=== PATIENT | male | born 1955 | race Caucasian/White ===

== ENCOUNTER → 2017-09-12 10:19 | Outpatient (CLI) | payer OTHER, SELFPAY ==
[2017-09-12 12:18] LABS: Absolute Lymphocyte Count 1.19 X10^3/ul (0.83-4.51); Absolute Neutrophil Count 5.4 X10^3/uL (2.0-7.7); Basophil# 0.03 X10^3/uL; Basophil% 0.4 % (0-1); Eosinophil# 0.26 X10^3/uL; Eosinophils% 3.6 % (0-5); Hematocrit 43.6 % (40-54); Hemoglobin 15.4 g/dl (13.0-16.5); Lymphocyte # 1.19 X10^3/ul (4.0); Lymphocyte % 16.5 % (19-41); Mean Corp Hgb Conc 35.3 g/gl (32-36); Mean Corpuscular Hgb 30.9 pg (27.0-32.0); Mean Corpuscular Volume 87.6 fL (80-94); Monocyte# 0.38 X10^3/uL; Monocyte% 5.3 % (0-10); Neutrophil # 5.35 X10^3/uL (2.7-7.7); Neutrophil % 74.1 % (47-70); Platelet Count 200 K/mm3 (150-450); RBC Distribution Width CV 12.5 % (11.6-14.6); RBC Distribution Width SD 39.9 fl (35.1-43.9); Red Blood Count 4.98 M/mm3 (4.6-6.2); White Blood Count 7.2 K/mm3 (4.4-11.0)
[2017-09-12 12:23] LABS: POSITIVE COUNT NO; POSITIVE DIFFERENTIAL NO; POSITIVE MORPHOLOGY NO
[2017-09-12 12:49] LABS: AST(SGOT) 36 U/L (15-37); Alanine Aminotransfer ALT/SGPT 56 U/L (16-61); Albumin, Serum 3.9 g/dL (3.2-5.0); Alkaline Phosphatase 99 U/L (45-117); Anion Gap 11 (5-15); BUN 17 mg/dL (7-18); BUN/Creat Ratio 13.9 RATIO (10-20); Calcium,Total 9.2 mg/dL (8.5-10.1); Chloride 100 mmol/L (98-107); Creatinine, Serum 1.22 mg/dL (0.70-1.30); EST Glomerular Filtration Rate 64 mL/min (>60); Est Glom Filt Rate - Afr Amer 77 mL/min (>60); Glucose 336 mg/dL (74-106); Potassium 4.3 mmol/L (3.5-5.1); Protein, Total 7.9 g/dL (6.4-8.2); Sodium Level 137 mmol/L (136-145); Thyroid Stim Hormone (TSH) 1.06 uIU/mL (0.358-3.74)
== END ==
PROVIDERS: Family Provider Family Medicine; PCP Family Medicine; Visit Provider Family Medicine
DX: I10 Essential (primary) hypertension (principal); E78.5 Hyperlipidemia, unspecified; E11.65 Type 2 diabetes mellitus with hyperglycemia
CPT/HCPCS: 36415; 80053; 84443; 85025

== ENCOUNTER → 2017-12-12 09:28 | Outpatient (CLI) | payer OTHER, SELFPAY ==
[2017-12-12 12:46] LABS: Anion Gap 7 (5-15); BUN 16 mg/dL (7-18); BUN/Creat Ratio 14.4 RATIO (10-20); Calcium,Total 9.2 mg/dL (8.5-10.1); Chloride 101 mmol/L (98-107); Creatinine, Serum 1.11 mg/dL (0.70-1.30); EST Glomerular Filtration Rate 71 mL/min (>60); Est Glom Filt Rate - Afr Amer 86 mL/min (>60); Glucose 249 mg/dL (74-106); PSA,Total - Annual Screen 3.71 ng/mL (0.00-4.00); Sodium Level 137 mmol/L (136-145); Thyroid Stim Hormone (TSH) 1.36 uIU/mL (0.358-3.74)
[2017-12-12 13:00] LABS: Absolute Lymphocyte Count 0.93 X10^3/ul (0.83-4.51); Absolute Neutrophil Count 4.6 X10^3/uL (2.0-7.7); Basophil# 0.03 X10^3/uL; Basophil% 0.5 % (0-1); Eosinophils% 4.8 % (0-5); Lymphocyte # 0.93 X10^3/ul (4.0); Lymphocyte % 14.9 % (19-41); Mean Corpuscular Volume 85.1 fL (80-94); Mean Platelet Vol. 10.9 fl (6.2-12.0); Monocyte# 0.36 X10^3/uL; Monocyte% 5.8 % (0-10); Neutrophil # 4.62 X10^3/uL (2.7-7.7); Neutrophil % 73.8 % (47-70); Platelet Count 200 K/mm3 (150-450); RBC Distribution Width SD 36.6 fl (35.1-43.9); Red Blood Count 5.05 M/mm3 (4.6-6.2); White Blood Count 6.3 K/mm3 (4.4-11.0)
[2017-12-12 13:01] LABS: Hemoglobin 15.2 g/dl (13.0-16.5)
[2017-12-12 13:02] LABS: Mean Corp Hgb Conc 35.3 g/gl (32-36); POSITIVE COUNT NO; POSITIVE DIFFERENTIAL NO; POSITIVE MORPHOLOGY NO
== END ==
PROVIDERS: Family Provider Family Medicine; PCP Family Medicine; Visit Provider Family Medicine
DX: I10 Essential (primary) hypertension (principal); E11.65 Type 2 diabetes mellitus with hyperglycemia; R97.20 Elevated prostate specific antigen [PSA]; Z12.5 Encounter for screening for malignant neoplasm of prostate
CPT/HCPCS: 36415; 80048; 84153; 84443; 85025; G0103

== ENCOUNTER 2018-12-28 06:52 | Day surgery (SDC) | payer OTHER, SELFPAY ==
[2018-12-28] VITALS (7 sets, daily range): BP systolic 113–147; BP diastolic 55–89; PULSE 84–92; RESP 16–18; TEMP 36.3–36.6; O2SAT 92–99; BMI 34.2
--- NOTE | 2018-12-28 07:37 | H&P.OPEN ---
History of Present Illness Date of Admission: 12/28/18 The patient is a 63 year old M who presents for screening colonoscopy. It is been 10 years since his last colonoscopy which was completed by Dr. Napoles. Past Medical/Surgical History - Planned Operation Planned Operative Procedure/s: COLONOSCOPY Date of Operative Procedure: 12/28/18 Permit Signed: Yes S.O.S: No Is This Patient Having a Total Joint: No - Previous Hospitalizations/Surgeries HX Hospitalizations: No HX of Surgeries: GALLBLADDER Any Problems With Anesthesia: No You/Your Family Experience Fever (Hyperthermia) With Anes: No Cholinesterase deficiency: No - Cardiovascular Hx Chest Pain within Last 2 months: No Hx of Irregular Heartbeat and/or Afib: Yes - MURMUR Hx Heart Attack: No Hx Congestive Heart Failure: No Hx Rheumatic Fever: No Hx Hypertension: Yes - ON MED Hx Internal Defibrillator: No Hx Pacemaker: No Hx Cardiac Catheterization: No Hx Cardiac Surgery/Stents/Etc.: No Hx Stress Test: Yes - >20 YRS AGO HX Edema: No Hx Pain in Legs when Walking/Leg Cramps: Yes - NEUROPATHY IN FEET - Respiratory Chronic Cough: No HX of Shortness of Breath: Yes Hoarseness: No Hx Chronic Obstructive Pulmonary Disease (COPD): No Hx Asthma: No Hx Emphysema: No Hx Sleep Apnea: Yes CPAP: Yes BIPAP: No Hx Oxygen Use at Home: No Hx Respiratory Tract Infection/Cold (presently): No Result (for STOP score): Positive Hx Smoking: Yes Smoking Status: Former smoker - Gastrointestinal Hx Gastroesophageal Reflux: Yes Controlled With Meds: No Hx Gastrointestinal Disorders: No Hx Gastrointestinal Bleed: No Hx Ulcer: No Hx Hiatal Hernia: No Difficulty Chewing/Swallowing: No Recent Onset of Swallowing Problems: No Special diet followed at home: No Hx Unplanned Weight Loss of 20#: No HX Unplanned Weight Gain of 20#: No - Neurological Hx Seizures: No HX Syncope/Blackout Spells/Unconsciousness: No Hx CVA/Stroke: No Hx Transient Ischemic Attacks (TIA): No Hx Multiple Sclerosis: No Hx Parkinson's Disease: No Hx Head/Neck Injury: No Hx Headaches: No Hx Back Injury/Pain: No Recent Onset of Speech Difficulty: No Restless Legs: No Does patient have nerve stimulator: No - Blood Disorder Hx Leukemia: No Bleeding Tendencies: No Hx Deep Vein Thrombosis: No Hx High Cholesterol: Yes - ON MED Blood Transmitted Disease: No Hx Hepatitis: No Hx Cirrhosis: No Hx Anemia: No Hx Blood Disorders: No - Genitourinary Hx Renal Disease: No - KIDNEY STONES - Musculoskeletal Hx Arthritis: No Hx Rheumatoid Arthritis: No Hx Gout: No Recent Onset of an Orthopedic Problem: No - Endocrine Hx Diabetes: Yes Insulin: Yes Thyroid Disease: No Hx Steroid Therapy: No - Psycho/Social Hx Substance Use: No Hx Alcohol Use: Yes - SOCIAL Hx Anxiety: No Hx Depression: No Mental Illness: No Hx Dementia: No - Miscellaneous Hx Cancer: No Recent Exposure to Contagious Disease: No Active MRSA: No Hx of C-Diff: No Any Loose Teeth: No Allergies No Known Allergies Allergy (Verified 12/23/18 10:33) - Discharge Is Pt Admitted From a Skilled Nursing, or a Longterm: No Who Could Help: After D/C, Where Do you Plan to Go: Return Home - From the PAT History Number of Risk Factors: 3 - Physical Exam General: Alert, Oriented x3 Lungs: Clear to auscultation Cardiovascular: Regular rate, Regular Rhythm, No murmurs Abdomen: Bowel Sounds Present, Soft, Non Tender, Non-Distended Vital Signs Temp Pulse Resp BP Pulse Ox 97.9 F 88 18 147/89 H 99 12/28/18 07:18 12/28/18 07:18 12/28/18 07:18 12/28/18 07:18 12/28/18 07:18 Oxygen Delivery Method Room Air Weight: 259 lb 11.272 oz Body Mass Index (BMI) 34.2 Assessment/Plan Plan will be to perform a colonoscopy. Surgery Risks - Colonoscopy Risks Include but are not Limited To: Risks include but are not limited to: Bleeding, perforation requiring further surgery, inability to complete colonoscopy requiring barium enema.
[2018-12-28 07:40] LABS: Bedside Glucose 156 mg/dL (70-110)
[2018-12-28] MEDS: Lactated Ringers 1,000 ML 100 ML IV (07:45)
--- NOTE | 2018-12-28 07:45 | COLBX_PTH ---
PATIENT: DEBORAH GARZA LOC: EN U#:[id number] AGE/SX: 63/M ROOM: RE12/28/[address]: Dr. Gerry Yip MD : 1955 BED: DIS: 12/28/2018 SPEC #: [id number] RECD: 12/28/18 10:08 STATUS: TREV PALUMBOSupa #: [id number] NOELLE: 12/28/18 07:[address]: Gerry Yip DEPT: SURGICAL PATHOLOGY RECD BY: Luz Goss ENTERED: 12/28/18 10:36 SP TYPE: COLON BX OTHR DR: Dr. Lloyd Gallego MD Tissues: Rectum, NOS Procedures: Surgery Specimen Level IV HEADER OPERATION: Colonoscopy, open access (MAC) PRE-OP DIAGNOSIS: Screening TISSUE SUBMITTED: Rectal polyps MICROSCOPIC DIAGNOSIS Rectal polyps, biopsy: Tubular adenoma. Benign mucosal polyp with minimal hyperplastic changes. SJ:wei 10/22/19 MICROSCOPIC DESCRIPTION Slides are reviewed. GROSS DESCRIPTION Received in fixative is one container labeled with the patient's name and designated rectal polyps. The specimen consists of two irregular fragments of light jean-baptiste soft tissue that in aggregate measure 0.6 x 0.5 x 0.3 cm. The specimen is totally submitted in one cassette. / SJ:rg 12/28/18 TC:1 CPT: 50246
--- NOTE | 2018-12-28 08:14 | OP.ENDO_ITS ---
12/28/2018 Lloyd Gallego Re : Colonoscopy procedure for Abdirahman Keith Dear Lashonda This procedure was performed on Friday, December 28, 2018. My impressions and recommendations are as follows: Impressions : - Two 3 to 7 mm polyps in the rectum, removed with a hot snare. Resected and retrieved. Recommendations : - Await pathology results. - Repeat colonoscopy in 5 years for surveillance. - Return to my office in 1 week. - Continue present medications. My findings are described in the full procedure note, which is enclosed. If I can be of further assistance, please feel free to contact me at Doctor phone number(s): , Fax: [phone], Work: . Sincerely, MD Gerry Isaacs MD 12/28/2018 8:14:05 AM This report has been signed electronically.
== END 2018-12-28 08:30 | disposition home or self-care (01) ==
LOC: EN 06:54 → AC 06:57
PROVIDERS: Family Provider Family Medicine; PCP Family Medicine; Referring Provider Family Medicine; Visit Provider Surgery
PROC: 0DJD8ZZ Inspection of Lower Intestinal Tract, Via Natural or Artificial Opening Endoscopic (ICD-10-PCS; CPT 45378; principal; 2018-12-28 07:40)
DX: Z12.11 Encounter for screening for malignant neoplasm of colon (principal); D12.8 Benign neoplasm of rectum; K62.1 Rectal polyp; I10 Essential (primary) hypertension; K21.9 Gastro-esophageal reflux disease without esophagitis; E78.00 Pure hypercholesterolemia, unspecified; E11.9 Type 2 diabetes mellitus without complications; Z87.891 Personal history of nicotine dependence; Z79.4 Long term (current) use of insulin; Z79.899 Other long term (current) drug therapy
CPT/HCPCS: 45380; 82962; 88305; J7120; J2405

== ENCOUNTER → 2019-01-08 | Outpatient (CLI) | payer OTHER, SELFPAY ==
[2018-12-28 07:18] VITALS: BMI 34.2
[2019-01-08 12:30] LABS: Absolute Lymphocyte Count 1.11 X10^3/uL (0.83-4.51); Absolute Neutrophil Count 5.1 X10^3/uL (2.0-7.7); Basophil# 0.05 X10^3/uL; Basophil% 0.7 % (0-1); Eosinophil# 0.35 X10^3/uL; Hematocrit 43.7 % (40-54); Hemoglobin 15.3 g/dL (13.0-16.5); Lymphocyte # 1.11 X10^3/ul (4.0); Lymphocyte % 15.8 % (19-41); Mean Corpuscular Hgb 30.8 pg (27.0-32.0); Mean Corpuscular Volume 87.9 fL (80-94); Mean Platelet Vol. 11.6 fl (6.2-12.0); Monocyte# 0.37 X10^3/uL; Monocyte% 5.3 % (0-10); NRBC Flagged by Analyzer 0 % (0-5); Neutrophil # 5.14 X10^3/uL (2.7-7.7); Neutrophil % 72.9 % (47-70); Platelet Count 209 K/mm3 (150-450); RBC Distribution Width CV 11.8 % (11.6-14.6); RBC Distribution Width SD 37.4 fl (35.1-43.9); Red Blood Count 4.97 M/mm3 (4.6-6.2)
[2019-01-08 13:03] LABS: ALB/GLOB Ratio 1.1 RATIO (0.9-2.4); AST(SGOT) 26 U/L (15-37); Alanine Aminotransfer ALT/SGPT 40 U/L (16-61); Albumin, Serum 4.1 g/dL (3.2-5.0); Alkaline Phosphatase 91 U/L (45-117); Anion Gap 4 (5-15); BUN 16 mg/dL (7-18); BUN/Creat Ratio 14.4 RATIO (10-20); Calcium,Total 9.4 mg/dL (8.5-10.1); Chloride 105 mmol/L (98-107); Creatinine, Serum 1.11 mg/dL (0.70-1.30); EST Glomerular Filtration Rate 71 mL/min (>60); Est Glom Filt Rate - Afr Amer 86 mL/min (>60); Globulin 3.7 g/dL (2.2-4.2); Glucose 167 mg/dL (74-106); PSA,Total - Annual Screen 3.94 ng/mL (0.00-4.00); Potassium 4.5 mmol/L (3.5-5.1); Protein, Total 7.8 g/dL (6.4-8.2); Sodium Level 139 mmol/L (136-145); Thyroid Stim Hormone (TSH) 1.82 uIU/mL (0.358-3.74)
== END | disposition home or self-care (01) ==
LOC: BFHLAB 09:41
PROVIDERS: Family Provider Family Medicine; PCP Family Medicine; Visit Provider Family Medicine
DX: E11.3299 Type 2 diabetes mellitus with mild nonproliferative diabetic retinopathy without macular edema, unspecified eye (principal); R97.20 Elevated prostate specific antigen [PSA]; E78.5 Hyperlipidemia, unspecified
CPT/HCPCS: 36415; 80053; 84153; 84443; 85025; G0103

== ENCOUNTER → 2019-03-23 10:03 | Outpatient (CLI) | payer OTHER, SELFPAY ==
[2018-12-28 07:18] VITALS: BMI 34.2
[2019-03-23 12:45] LABS: Microalbumin:Creatinine Ratio 214.5 mg/g CRE (<30 mg/g CRE)
[2019-03-23 12:49] LABS: Anion Gap 4 (5-15); BUN 14 mg/dL (7-18); BUN/Creat Ratio 11.7 RATIO (10-20); Calcium,Total 10.1 mg/dL (8.5-10.1); Chloride 106 mmol/L (98-107); EST Glomerular Filtration Rate 65 mL/min (>60); Est Glom Filt Rate - Afr Amer 78 mL/min (>60); Glucose 266 mg/dL (74-106); Potassium 4.4 mmol/L (3.5-5.1); Sodium Level 138 mmol/L (136-145)
== END ==
PROVIDERS: Family Provider Family Medicine; PCP Family Medicine; Visit Provider Family Medicine
DX: I10 Essential (primary) hypertension (principal); R80.9 Proteinuria, unspecified
CPT/HCPCS: 36415; 80048; 82043; 82570

== ENCOUNTER → 2019-04-30 | Outpatient (CLI) | payer OTHER, SELFPAY ==
[2018-12-28 07:18] VITALS: BMI 34.2
[2019-04-30 13:10] LABS: Anion Gap 6 (5-15); BUN 16 mg/dL (7-18); BUN/Creat Ratio 12.7 RATIO (10-20); Calcium,Total 9.4 mg/dL (8.5-10.1); Chloride 106 mmol/L (98-107); Creatinine, Serum 1.26 mg/dL (0.70-1.30); EST Glomerular Filtration Rate 61 mL/min (>60); Est Glom Filt Rate - Afr Amer 74 mL/min (>60); Glucose 273 mg/dL (74-106); Potassium 4.2 mmol/L (3.5-5.1); Sodium Level 139 mmol/L (136-145)
== END | disposition home or self-care (01) ==
LOC: BFHLAB 05-05 10:03
PROVIDERS: PCP Family Medicine; Visit Provider Family Medicine
DX: I10 Essential (primary) hypertension (principal); R80.9 Proteinuria, unspecified
CPT/HCPCS: 36415; 80048

== ENCOUNTER 2019-06-04 07:00 | Outpatient (RCR) | payer MEDICARE, OTHER, SELFPAY ==
[2018-12-28 07:18] VITALS: BMI 34.2
--- NOTE | 2019-05-13 13:46 | HP.PTEVAL ---
Patient's Visit Information DEBORAH GARZA is a 63 year old M referred to Physical Therapy by Lloyd Gallego MD with a diagnosis of R groin pull. Date of Evaluation: 05/13/19 Physical Therapist: Tan Murphy, FEDET, OCS, CSCS - Visit Plan Frequency: 2-3x /Week Duration: 2-4 Weeks Plan: 2-3x/week for 6-8 visits for: 1. rollout and stretch to quad, hip flexor, HS and prirformis. 2. Manual R leg pull and jont mobs for rotation. PROM rotations and extension. 3. hip stabs to tolerance. MH as needed. Also, progress HEP to HS and quad stretches and hip stabs. - Subjective Findings: I have hard time crossing R leg to put sock on due to groin pain. Has been there for two months insidiously. Walking and steps are OK. Sleep is OK. Pivotting adn turning on it can cause stabbing pain. Told doctor at normal f/u. PT first as they did not try any meds or x rays. Activities are normal, Wants to start walking but has a foot issue with neuropathy causing pain. Walked a mile a day two years ago. Golfed last fall without nichelle and wants to start agian. - Pain R groin. Pain Intensity (Out of 10): 0 Pain Intensity Range: 0, 10 - Objective Slight R antalgia which is more of a hesitancy today. Steps reciprocal without pain. large steps without pain. Tender to palpation R groin joint more than muscle but slightly adductor adn hip flexor. + MARLEE and FADDIR, corssing legs hurts sharply in supine. flexibility is poor in HS , hip flexor, quad and Adductors. Strength is 4/5 in hip R and 4+ L but much pain with prone hip ext R(arthro). Others not painful and symmetrical. knee strength adn ROM WFL at 4+/5. Sensation distally seems mildly limited to gross light touch. + R hip scour. Overall not pain consistent with strain but more degeneration with acute flare up in R hip. - Goals Goal 1:: Put R shoe adn sock on crossing legs without pain. Goal Time Frame: 4-6 Weeks Goal 2:: No sharp pain with turning at home Goal Time Frame: 4-6 Weeks Goal 3:: I approp HEP to minimize future problems. Goal Time Frame: 4-6 Weeks - Rehabilitation Potential Physical Therapy Diagnosis: R hip pain likely degenrative in nature. Rehabilitation Potential: Good - Anticipated Interventions Patient/Client Instruction: Educate patient on: Condition, Plan of Care For the Purpose of:: To decrease pain, To increase ROM, To improve muscle performance and motor function, To increase tolerance to activity/condition/position Therapeutic Exercise to Include: Strength training, Flexibilty training, Gait and locomotor training, Passive ROM, Active ROM For the Purpose of:: To decrease pain, To increase ROM, To increase tolerance to activity/condition/position, To improve ability of physical actions for home/community/work/leisure Manual Therapy Techniques to Include: Mobilization, Passive ROM, Soft tissue mobilization For the Purpose of:: To decrease pain, To improve muscle performance and motor function, To increase tolerance to activity/condition/position, To improve ability of physical actions for home/community/work/leisure Thermo therapy (hot pack): Yes For the Purpose of:: To decrease pain Thank you for the opportunity to evaluate your patient. For Medicare and Medicare HMO plans, please review the plan of care and approve it. It will need to be FAXED BACK to us at [phone] for Medicare purposes. For Medicare only, by signing this I certify the plan of care. Please let me know if there are questions or concerns regarding this plan of care. Physician Signature: Date:
--- NOTE | 2019-06-04 08:02 | HP.PTDCSUM ---
It has been my pleasure to treat DEBORAH GARZA referred by Lloyd Gallego MD, with the diagnosis of R groin pull for a total of 7 visit(s). Discharge Date: 06/04/19 Please see the following information for a summary of their discharge status. Subjective: No signficant change thus far. R groin. Pain Intensity (Out of 10): 0 % Improvement: 0 Objective/Function: Symptoms provoked when in MARLEE position. No pain with hip internal rotation. Recalls episode of debilitating back pain about a month ago that left hip laid up for 4-5 days. Hip pain began a little before or after this. Goal 1:: Put R shoe adn sock on crossing legs without pain. Goal Progress: Not Progressing Goal 2:: No sharp pain with turning at home Goal Progress: Goal Met Goal 3:: I approp HEP to minimize future problems. Goal Progress: Not Progressing Plan: Re-check with Tan at 0730. Discharge Comments: Patient not improving and will schedule with doctor for f/u for next step. Possiby x ray to confirm degenerative? If there are questions or concerns regarding this patient's physical therapy, please feel free to call me at [phone]. Thank you for the referral of this patient. Sincerely, Tan Murphy, DPT, OCS, CSCS
== END 2019-06-04 19:00 | disposition home or self-care (01) ==
LOC: PT 07:00
PROVIDERS: PCP Family Medicine; Referring Provider Family Medicine; Visit Provider Family Medicine
DX: M76.899 Other specified enthesopathies of unspecified lower limb, excluding foot (principal)
CPT/HCPCS: 97110; 97140; 97162; 97164

== ENCOUNTER → 2019-08-09 | Outpatient (CLI) | payer MEDICARE, SELFPAY ==
[2018-12-28 07:18] VITALS: BMI 34.2
[2019-08-09 13:26] LABS: ALB/GLOB Ratio 0.9 RATIO (0.9-2.4); AST(SGOT) 36 U/L (15-37); Alanine Aminotransfer ALT/SGPT 46 U/L (16-61); Albumin, Serum 3.6 g/dL (3.2-5.0); Alkaline Phosphatase 94 U/L (45-117); Anion Gap 11 (5-15); BUN 12 mg/dL (7-18); BUN/Creat Ratio 11.3 RATIO (10-20); Calcium,Total 9.2 mg/dL (8.5-10.1); Chloride 105 mmol/L (98-107); Creatinine, Serum 1.06 mg/dL (0.70-1.30); EST Glomerular Filtration Rate 75 mL/min (>60); Est Glom Filt Rate - Afr Amer 90 mL/min (>60); Globulin 3.9 g/dL (2.2-4.2); Glucose 183 mg/dL (74-106); Potassium 3.8 mmol/L (3.5-5.1); Protein, Total 7.5 g/dL (6.4-8.2); Sodium Level 140 mmol/L (136-145)
[2019-08-09 13:37] LABS: Hemoglobin A1c 9.1 % (3.8-5.6)
[2019-08-09 14:00] LABS: Microalbumin:Creatinine Ratio 249.7 mg/g CRE (<30 mg/g CRE)
== END | disposition home or self-care (01) ==
LOC: LAB.FUTURE 08:57
PROVIDERS: PCP Family Medicine; Visit Provider Family Medicine
DX: E11.65 Type 2 diabetes mellitus with hyperglycemia (principal); R80.9 Proteinuria, unspecified
CPT/HCPCS: 36415; 80053; 82043; 82570; 83036

== ENCOUNTER 2019-08-21 09:50 | Emergency (ER) | payer MEDICARE, OTHER, SELFPAY ==
[2018-12-28 07:18] VITALS: BMI 34.2
[2019-08-21 09:52] VITALS: BP 149/93; PULSE 115; RESP 18; TEMP 36.6; O2SAT 99; BMI 36.1
--- NOTE | 2019-08-21 10:16 | EKG12_ITS ---
Test Reason : DYSRHYTHMIA Blood Pressure : / mmHG Vent. Rate : 101 BPM Atrial Rate : 101 BPM P-R Int : 214 ms QRS Dur : 084 ms QT Int : 328 ms P-R-T Axes : 007 -44 034 degrees QTc Int : 425 ms Sinus tachycardia with 1st degree A-V block Left axis deviation Inferior infarct , age undetermined Abnormal ECG Confirmed by RADHA WASHINGTON, JUDITH ([id number]), marketing editor DEZ ROE ([id number]) on 08/25/2019 1:04:22 PM Referred By: SADIA Confirmed By:JUDITH GARCIA MD
--- NOTE | 2019-08-21 10:17 | ED.DCSUM_ITS ---
History of Present Illness <Rahat Omalley - Last Filed: 08/21/19 12:23> Informant: Patient Onset: Yesterday Context: Gradual Onset Timing: Continuous Quality: high BP Current Severity: Severe Maximum Severity: Severe Worsened by: nothing Relieved by: nothing Associated Symptoms: denies Narrative: 64-year-old male history of type 2 diabetes and hypertension presents to the emergency department with elevated blood pressure. Patient states that he was at his records clerk yesterday getting an injection for his diabetic retinopathy and his blood pressure was elevated at that physician's office 180 systolic approximately multiple checks. He just had his lisinopril increased ab out 10 days ago from 20 mg to 40 mg because of his blood pressure being elevated but it was not this high when they decided to increase his lisinopril. He bought a pressure cuff yesterday to check his blood pressures at home and they have been consistently around 180 systolic so he called his doctor this morning who told him to go to the emergency department. He has been compliant with his medications. He overall feels well. He has not had any headaches or blurry vision chest pain or shortness of breath. He has not felt lightheaded or dizzy. He has not had nausea or vomiting. Denies numbness tingling or weakness. Prior similar symptoms: Yes Recent Illness/Hospitalization: No <Siomaralee annJoby - Last Filed: 08/21/19 12:29> Chief Complaint: Hypertension Past Medical History <Rahat Omalley - Last Filed: 08/21/19 12:23> Prior records reviewed: Yes Past Medical History: - - Hypertension, hyperlipidemia, type 2 diabetes, peripheral neuropathy, diabetic retinopathy Surgical History: no surgical history Lives: With Family Smoking Status: Former smoker Alcohol: Occasional Drugs: None <Siomaralee annJoby - Last Filed: 08/21/19 12:29> - Allergies and Home Meds Allergies/Adverse Reactions: Allergies No Known Allergies Allergy (Verified 08/21/19 09:54) Primary Care Physician: Lloyd Gallego MD [Primary Care Provider] - Review of Systems All systems negative except as indicated General: Denies: Chills, Fever, Sweats Eyes: Denies: Visual changes - bilaterally, Diplopia ENT: Denies: Rhinorrhea, Sore throat Cardiovascular: Denies: Chest pain, Palpitations Respiratory: Denies: Dyspnea, Cough, Sputum, Dyspnea on exertion Gastrointestinal: Denies: Abdominal pain, Nausea, Vomiting, Diarrhea, Melena, Hematochezia Genitourinary: Denies: Dysuria, Hematuria, Frequency Musculoskeletal: Denies: Myalgias, Arthralgias, Neck pain, Back pain, Swelling, Extremity Pain Skin: Denies: Rash, Wounds Neurological: Denies: Headache, Weakness, Numbness <Joby Munguia - Last Filed: 08/21/19 12:29> Physical Exam Vital Signs/Narrative: Vital Signs Temp Pulse Resp BP Pulse Ox 08/21/19 12:19 100 17 157/105 H 96 08/21/19 11:58 97 16 158/99 H 95 08/21/19 11:18 177/103 H 08/21/19 09:52 97.9 F 115 H 18 149/93 H 99 <Rahat Omalley - Last Filed: 08/21/19 12:23> Vital Signs/Narrative: Vital Signs Temp Pulse Resp BP Pulse Ox 08/21/19 09:52 97.9 F 115 H 18 149/93 H 99 Inital Vital Signs reviewed: Yes General: Well nourished, Well developed, No Acute Distress Head: Normocephalic, Atraumatic Eyes: Perrl, EOMI ENT: Moist mucous membranes, No rhinorrhea Neck: Supple, Nontender Cardiovascular: Regular rate, Regular rhythm, No murmurs Respiratory: No distress, CTA bilaterally, Chest nontender Abdomen: Soft, Nontender, Nondistended, Normal bowel sounds Back: Nontender, Normal Inspection Extremities: Nontender, No edema Skin: Normal color, No rash Neurological: Alert, Oriented x3, Cranial nerves II-XII grossly intact, Normal Strength, Normal Sensation, Normal Gait Psychological: Normal affect, Normal Mood <Joby Munguia - Last Filed: 08/21/19 12:29> Diagnostic/Tx/Re-eval - Medical Decision Making 64-year-old male evaluated by myself and our physician therapeutic assistant. Presents due to acute on chronic hypertension. Denies other complaints. Not having chest pain or headaches. Currently is on lisinopril and recently had his dose incr eased to 40 mg a day. Does not believe his blood pressure is being controlled adequately. Denies other complaints. Older male no acute distress. Current blood pressures 157/105. HEENT exam unremarkable. Lungs are clear to auscultation bilaterally. Heart regular rate and rhythm no murmur. Abdomen soft nontender. Patient moving all 4 extremities. No edema. Neurologically is awake and alert with no focal motor deficits. Discussed with patient at length. He is an appointment to see his doctors office tomorrow. He is a blood pressure machine at home. We will add Lopressor 25 mg twice daily to his medications. We will check his blood pressure twice daily and follow-up. Pression: 1. Acute on chronic hypertension poorly controlled <Rahat Omalley - Last Filed: 08/21/19 12:23> - Rhythm Strip Rhythm Strip: Sinus Rhythm Rate: 111 Ectopy: None - EKG Initial EKG Interpretation: Sinus Rhythm, No Acute Injury Pattern Prior: Unchanged <Joby Munguia - Last Filed: 08/21/19 12:29> ED Disposition <Rahat Omalley - Last Filed: 08/21/19 12:23> <Joby Munguia - Last Filed: 08/21/19 12:29> - Plan for ED Patient: Disposition: Home or Assisted Living Diagnosis: Hypertension, essential, Diabetes type 2, uncontrolled Instructions: ED Hypertension Established Prescriptions: Metoprolol Tartrate 25 mg PO BID #60 tab Prescription Printed Referrals: Lloyd Gallego MD [Primary Care Provider] -
[2019-08-21 11:18] VITALS: BP 177/103
[2019-08-21 11:58] VITALS: BP 158/99; PULSE 97; RESP 16; O2SAT 95
[2019-08-21 12:19] VITALS: BP 157/105; PULSE 100; RESP 17; O2SAT 96
[2019-08-21 12:40] VITALS: BP 162/93; PULSE 98; RESP 15; O2SAT 95
== END 2019-08-21 12:58 | disposition home or self-care (01) ==
PROVIDERS: Emergency Provider Physician Assistant Medical; PCP Family Medicine
DX: I10 Essential (primary) hypertension (principal); E11.319 Type 2 diabetes mellitus with unspecified diabetic retinopathy without macular edema; E78.5 Hyperlipidemia, unspecified; E11.42 Type 2 diabetes mellitus with diabetic polyneuropathy; Z87.891 Personal history of nicotine dependence; Z79.4 Long term (current) use of insulin; Z79.899 Other long term (current) drug therapy
CPT/HCPCS: 93005; 99283; A4216

== ENCOUNTER → 2019-08-23 09:04 | Outpatient (CLI) | payer MEDICARE, OTHER, SELFPAY ==
[2018-12-28 07:18] VITALS: BMI 34.2
[2019-08-21 09:52] VITALS: BMI 36.1
[2019-08-23 13:07] LABS: Anion Gap 8 (5-15); BUN 17 mg/dL (7-18); BUN/Creat Ratio 15.5 RATIO (10-20); Calcium,Total 9.5 mg/dL (8.5-10.1); Chloride 104 mmol/L (98-107); EST Glomerular Filtration Rate 71 mL/min (>60); Est Glom Filt Rate - Afr Amer 86 mL/min (>60); Glucose 191 mg/dL (74-106); Potassium 3.9 mmol/L (3.5-5.1); Sodium Level 139 mmol/L (136-145)
== END ==
PROVIDERS: PCP Family Medicine; Visit Provider Family Medicine
DX: E11.65 Type 2 diabetes mellitus with hyperglycemia (principal); I10 Essential (primary) hypertension
CPT/HCPCS: 36415; 80048

== ENCOUNTER → 2020-04-25 08:30 | Outpatient (CLI) | payer MEDICARE, OTHER, SELFPAY ==
[2020-04-25 12:20] LABS: Basophil# 0.03 X10^3/uL; Basophil% 0.4 % (0-1); Eosinophil# 0.28 X10^3/uL; Eosinophils% 4.2 % (0-5); Hematocrit 41.6 % (40-54); Hemoglobin 14.6 g/dL (13.0-16.5); Lymphocyte % 14.9 % (19-41); Mean Corp Hgb Conc 35.1 g/dL (32-36); Mean Corpuscular Hgb 30.9 pg (27.0-32.0); Mean Corpuscular Volume 87.9 fL (80-94); Mean Platelet Vol. 10.6 fl (6.2-12.0); Monocyte# 0.38 X10^3/uL; Monocyte% 5.7 % (0-10); NRBC Flagged by Analyzer 0 % (0-5); Neutrophil # 4.98 X10^3/uL (2.7-7.7); Neutrophil % 74.5 % (47-70); Platelet Count 284 K/mm3 (150-450); RBC Distribution Width CV 12.1 % (11.6-14.6); RBC Distribution Width SD 38.5 fl (35.1-43.9); Red Blood Count 4.73 M/mm3 (4.6-6.2); White Blood Count 6.7 K/mm3 (4.4-11.0)
[2020-04-25 13:01] LABS: AST(SGOT) 45 U/L (15-37); Alanine Aminotransfer ALT/SGPT 53 U/L (16-61); Albumin, Serum 3.7 g/dL (3.2-5.0); Alkaline Phosphatase 87 U/L (45-117); Anion Gap 7 (5-15); BUN 14 mg/dL (7-18); BUN/Creat Ratio 12.2 RATIO (10-20); Calcium,Total 9.3 mg/dL (8.5-10.1); Chloride 106 mmol/L (98-107); Creatinine, Serum 1.15 mg/dL (0.70-1.30); EST Glomerular Filtration Rate 68 mL/min (>60); Est Glom Filt Rate - Afr Amer 82 mL/min (>60); Globulin 3.8 g/dL (2.2-4.2); Glucose 103 mg/dL (74-106); Potassium 3.9 mmol/L (3.5-5.1); Protein, Total 7.5 g/dL (6.4-8.2); Sodium Level 139 mmol/L (136-145); T4 Free Direct 0.98 ng/dL (0.76-1.46); Thyroid Stim Hormone (TSH) 1.28 uIU/mL (0.358-3.74)
[2020-04-25 18:26] LABS: Microalbumin:Creatinine Ratio 234.1 mg/g CRE (<30 mg/g CRE)
== END ==
PROVIDERS: PCP Family Medicine; Visit Provider Family Medicine
DX: E11.65 Type 2 diabetes mellitus with hyperglycemia (principal); I10 Essential (primary) hypertension; R80.9 Proteinuria, unspecified
CPT/HCPCS: 36415; 80053; 82043; 82570; 84439; 84443; 85025

== ENCOUNTER → 2020-05-09 09:17 | Outpatient (CLI) | payer MEDICARE, OTHER, SELFPAY ==
[2020-05-09 12:39] LABS: Anion Gap 8 (5-15); BUN 20 mg/dL (7-18); BUN/Creat Ratio 15.9 RATIO (10-20); Calcium,Total 9.5 mg/dL (8.5-10.1); Chloride 105 mmol/L (98-107); Creatinine, Serum 1.26 mg/dL (0.70-1.30); EST Glomerular Filtration Rate 61 mL/min (>60); Est Glom Filt Rate - Afr Amer 74 mL/min (>60); Glucose 216 mg/dL (74-106); Potassium 4.1 mmol/L (3.5-5.1); Sodium Level 138 mmol/L (136-145)
== END ==
PROVIDERS: PCP Family Medicine; Visit Provider Family Medicine
DX: E11.65 Type 2 diabetes mellitus with hyperglycemia (principal)
CPT/HCPCS: 36415; 80048

== ENCOUNTER → 2020-10-12 | Outpatient (CLI) | payer MEDICARE, OTHER, SELFPAY ==
--- NOTE | 2020-10-12 | IMM_PTH ---
PATIENT: DEBORAH GARZA LOC: IAN U#:[id number] AGE/SX: 65/M ROOM: RE10/12/[address]: Dr. Luis Woodson MD : 1955 BED: DIS: 10/12/2020 SPEC #: [id number] RECD: 10/16/20 13:48 STATUS: TREV RESupa #: [id number] NOELLE: 10/12/20 00:[address]: Luis Woodson DEPT: IMMUNOHISTOCHEMISTRY RECD BY: Jeannie Healy ENTERED: 10/16/20 13:50 SP TYPE: IMMUNO OTHR DR: Dr. Lloyd Gallego MD Tissues: D - PROSTATE LEFT E - PROSTATE LEFT Procedures: 34BE12 (add) P40 (add) 34BE12 (initial) PHYSICIAN & INSTITUTION [place] [id number] SPECIMEN INFORMATION: Tissue Source: D - Left prostate, apex, core biopsy, E - Left prostate, mid, core biopsy Clinical Info: Elevated PSA Specimen Number: [id number] D & E CPT code: 73356, 53625 x3 METHODOLOGY: Deparaffinized sections of prefer/formalin-fixed tissue or PAP/DQ stained slides are incubated with monoclonal/polyclonal antibodies/oligonucleotide probes. Localization is made via biotin free immunoperoxidase method. Appropriate controls are performed and reacted as expected. Results on target cell population are indicated in the following table: RESULTS: ANTIBODY / CLONE RESULT Block D P40 (BC28) positive 34BE12 (34BE12) positive Block E P40 (BC28) negative 34BE12 (34BE12) negative These tests were developed and their performance characteristics determined by [facility]. They may not have been cleared or approved by the U.S. Food and Drug Administration. The FDA has determined that such clearance or approval is not necessary. The above immunohistochemical/dualISH markers are ordered and reviewed by the Pathologist. INTERPRETATION: D. Left prostate, apex, core biopsy: Focal high-grade prostatic intraepithelial neoplasia (HGPIN). E. Left prostate, mid, core biopsy: A minute focus of adenocarcinoma. SJ:wei 10/17/2020
--- NOTE | 2020-10-12 08:00 | PROSBIL_PTH ---
PATIENT: DEBORAH GARZA LOC: IAN U#:[id number] AGE/SX: 65/M ROOM: RE10/12/[address]: Dr. Luis Woodson MD : 1955 BED: DIS: 10/12/2020 SPEC #: [id number] RECD: 10/13/20 08:28 STATUS: TREV JORDAN #: [id number] NOELLE: 10/12/20 08:[address]: Luis Woodson DEPT: SURGICAL PATHOLOGY RECD BY: Arianna Corrigan ENTERED: 10/13/20 08:28 SP TYPE: PROST BX BELLO DR: Dr. Lloyd Gallego MD Tissues: A - PROSTATE RIGHT B - PROSTATE RIGHT C - PROSTATE RIGHT D - PROSTATE LEFT E - PROSTATE LEFT F - PROSTATE LEFT Procedures: PROSTATE BX HEADER OPERATION: Prostate biopsy PRE-OP DIAGNOSIS: Elevated PSA TISSUE SUBMITTED: A - Right apex, B - Right mid, C - Right base, D - Left apex, E - Left mid, F - Left base MICROSCOPIC DIAGNOSIS A. Right prostate, apex, core biopsy: Prostatic tissue, negative for malignancy. B. Right prostate, mid, core biopsy: Focal high-grade prostatic intraepithelial neoplasia (HGPIN). C. Right prostate, base, core biopsy: Prostatic adenocarcinoma. Eber grade: 4+3=7 Number of cores involved: 2/2 Proportion of tissue involved: ~80% Perineural invasion: Present, focal. Greatest tumor length: 0.8 cm D. Left prostate, apex, core biopsy: Focal high-grade prostatic intraepithelial neoplasia (HGPIN). See comment. E. Left prostate, mid, core biopsy: A minute focus of prostatic adenocarcinoma. [place] grade: 3+3=6 Number of cores involved: 1/2 Proportion of tissue involved: <5% Perineural invasion: not identified. Greatest tumor length: <0.1 cm See comment. F. Left prostate, base, core biopsy: Focal high-grade prostatic intraepithelial neoplasia (HGPIN). SJ:wei 10/16/2020 COMMENT D & E. Immunohistochemistry ([id number]) supports the above diagnosis. Case has been reviewed in consultation with Dr. Morgan who concurs with the above diagnosis. IDC:AM MICROSCOPIC DESCRIPTION Slides are reviewed. GROSS DESCRIPTION A - Received is one container designated prostate, right apex. The specimen consists of two elongated fragments of light jean-baptiste-white soft tissue each measuring 0.5 cm in length and 0.1 cm in diameter. The specimen is totally submitted in one cassette. B - Received is one container designated prostate, right mid. The specimen consists of two elongated fragments of light jean-baptiste-white soft tissue measuring 0.7 and 0.9 cm in length and 0.1 cm in diameter. The specimen is totally submitted in one cassette. C - Received is one container designated prostate, right base. The specimen consists of two elongated fragments of light jean-baptiste-white soft tissue each measuring 1 cm in length and 0.1 cm in diameter. The specimen is totally submitted in one cassette. D - Received is one container designated prostate, left apex. The specimen consists of one elongated fragment of light jean-baptiste-white soft tissue measuring 1 cm in length and 0.1 cm in diameter. The specimen is totally submitted in one cassette. E - Received is one container designated prostate, left mid. The specimen consists of two elongated fragments of light jean-baptiste-white soft tissue each measuring 1.1 cm in length and 0.1 cm in diameter. The specimen is totally submitted in one cassette. F - Received is one container designated prostate, left base. The specimen consists of two elongated fragments of light jean-baptiste-white soft tissue each measuring 1.2 cm in length and 0.1 cm in diameter. The specimen is totally submitted in one cassette. / LATISHA:wei 10/13/20 TC:0 CPT: G0146
== END | disposition home or self-care (01) ==
LOC: LABSPEC 15:59
PROVIDERS: PCP Family Medicine; Referring Provider Urology; Visit Provider Urology
DX: R97.20 Elevated prostate specific antigen [PSA] (principal)
CPT/HCPCS: 88305; 88341; 88342; G0416

== ENCOUNTER → 2020-10-24 07:37 | Outpatient (CLI) | payer MEDICARE, OTHER, SELFPAY ==
--- NOTE | 2020-10-24 07:39 | NM_ITS ---
CLINICAL: Male, 65 years old. PROSTATE CA NEW DX WHOLE BODY NUCLEAR BONE SCAN TECHNIQUE: Following the IV administration of 25 mCi of Tc MDP, whole body bone imaging was performed with a gamma camera following a three hour delay. FINDINGS: There is a normal concentration of radiopharmaceutical throughout the axial and appendicular skeletal system without either a focal decrease or increase in uptake. NM/Bone Scan Whole Body IMPRESSION: Normal whole body nuclear bone scan. Electronically Signed: Greyson Harris MD at 8:47 EDT , Service support ,
== END ==
PROVIDERS: PCP Family Medicine; Referring Provider Urology; Visit Provider Urology
DX: C61 Malignant neoplasm of prostate (principal)
CPT/HCPCS: 78306; A9503

== ENCOUNTER → 2020-10-25 06:44 | Outpatient (CLI) | payer MEDICARE, OTHER, SELFPAY ==
--- NOTE | 2020-10-25 06:48 | CT_ITS ---
STUDY: CT ABDOMEN AND PELVIS WITH CONTRAST REASON FOR EXAM: Male, 65 years old. New diagnosis of MALIGNANT NEOPLASM OF PROSTATE RADIATION DOSAGE (If Supplied By Facility): CTDIvol = ( 16.68 ) mGy, DLP = ( 1229.77 ) mGycm TECHNIQUE: Transaxial images were obtained from the dome of the diaphragm to the symphysis pubis without oral contrast. IV 100mL Isovue-370 was administered. Sagittal and coronal images were reconstructed. Individualized dose optimization techniques were used for this CT. COMPARISON: None. FINDINGS: The visualized lung bases are unremarkable. Coronary artery calcification. Normal liver. There are surgical clips in the gallbladder fossa consistent with a prior cholecystectomy. Normal spleen. Normal pancreas. Normal bilateral adrenal glands. There is a 4.5 cm x 3.9 cm cyst in the upper medial aspect of the right kidney. 5 mm nonobstructive calculus in the posterior midpole calyx of the left kidney. Punctate calculus in the upper pole calyx of the left kidney. 6 mm cyst in the posterior midportion of the left kidney. Normal visualized stomach. Normal small intestine. There are scattered colonic diverticula consistent with diverticulosis. The patient is status post appendectomy. There is diffuse atherosclerotic calcification of the abdominal aorta and its major visceral branches, without a demonstrated aneurysm. Normal inferior vena cava. Normal retroperitoneum. Normal urinary bladder. The prostate measures 5 cm x 5.2 cm. This causes indentation at the bladder base. There is a right-sided inguinal hernia containing adipose tissue. There are mild degenerative changes of the visualized lumbar spine. CT/Abdomen/Pelvis WITH Contrast IMPRESSION: Right renal cyst. Nonobstructive left intrarenal calculi. Prostatic enlargement. Electronically Signed: Greyson Harris MD at 8:44 EDT , Service support ,
[2020-10-25 07:01] LABS: CREATININE FINGERSTICK 1.1 mg/dL (0.70-1.30); EGFR FINGERSTICK > 60.0000 mL/min (>60)
== END ==
PROVIDERS: PCP Family Medicine; Referring Provider Urology; Visit Provider Urology
DX: C61 Malignant neoplasm of prostate (principal); N20.0 Calculus of kidney; N28.1 Cyst of kidney, acquired; N40.0 Benign prostatic hyperplasia without lower urinary tract symptoms
CPT/HCPCS: 74177; Q9967

== ENCOUNTER 2020-12-06 05:44 | Day surgery (SDC) | payer MEDICARE, OTHER, SELFPAY ==
--- NOTE | 2020-12-05 08:31 | EKG12_ITS ---
Test Reason : PREOP Blood Pressure : / mmHG Vent. Rate : 068 BPM Atrial Rate : 068 BPM P-R Int : 176 ms QRS Dur : 102 ms QT Int : 388 ms P-R-T Axes : 044 -28 025 degrees QTc Int : 412 ms Normal sinus rhythm Inferior infarct , age undetermined, cannot be excluded Abnormal ECG Confirmed by RADHA WASHINGTON, JUDITH ([id number]), material expeditor DEZ ROE ([id number]) on 12/06/2020 1:04:01 PM Referred By: Luis Woodson Confirmed By:JUDITH GARCIA MD
[2020-12-05 09:09] LABS: Hematocrit 41.1 % (40-54); Hemoglobin 14.8 g/dL (13.0-16.5); Mean Corpuscular Hgb 30.9 pg (27.0-32.0); Mean Corpuscular Volume 85.8 fL (80-94); Mean Platelet Vol. 10.4 fl (6.2-12.0); Platelet Count 234 K/mm3 (150-450); RBC Distribution Width SD 37.5 fl (35.1-43.9); Red Blood Count 4.79 M/mm3 (4.6-6.2); White Blood Count 7.3 K/mm3 (4.4-11.0)
[2020-12-05 09:37] LABS: Anion Gap 9 (5-15); BUN 14 mg/dL (7-18); BUN/Creat Ratio 13.6 RATIO (10-20); Calcium,Total 9.5 mg/dL (8.5-10.1); Chloride 106 mmol/L (98-107); Creatinine, Serum 1.03 mg/dL (0.70-1.30); EST Glomerular Filtration Rate 77 mL/min (>60); Est Glom Filt Rate - Afr Amer 93 mL/min (>60); Glucose 100 mg/dL (74-106); Potassium 4.1 mmol/L (3.5-5.1); Sodium Level 140 mmol/L (136-145)
[2020-12-05 10:28] LABS: Hemoglobin A1c 7.1 % (3.8-5.6)
[2020-12-06] VITALS (8 sets, daily range): BP systolic 140–182; BP diastolic 73–100; PULSE 74–128; RESP 16–18; TEMP 36.1–37.1; O2SAT 93–100; BMI 32.6
--- NOTE | 2020-12-06 | PROST_PTH ---
PATIENT: DEBORAH GARZA LOC: [facility] [place] U#:[id number] AGE/SX: 65/M ROOM: RE12/06/[address]: Dr. Luis Woodson MD : 1955 BED: DIS: 12/06/2020 SPEC #: [id number] RECD: 12/06/20 10:05 STATUS: TREV JULIAN #: [id number] NOELLE: 12/06/20 00:[address]: Luis Woodson DEPT: SURGICAL PATHOLOGY RECD BY: Jeannie Healy ENTERED: 12/06/20 10:23 SP TYPE: PROSTATE OTHR DR: Dr. Lloyd Gallego MD Tissues: A - Prostate, NOS B - Prostate, NOS C - Adipose tissue D - Lymph node of pelvis, NOS E - Lymph node of pelvis, NOS Procedures: Frozen Section (charge) Surgery Specimen Level IV Surgery Specimen Level V HEADER OPERATION: Laparoscopic robotic radical prostatectomy PRE-OP DIAGNOSIS: Malignant neoplasm of prostate, BPH, elevated PSA TISSUE SUBMITTED: A ? Right lateral edge of prostate, FS, B ? Prostate, C ? Fat over prostate, D ? Right pelvic lymph node, E ? Left pelvic lymph node FROZEN SECTION DIAGNOSIS A. Right lateral edge of prostate, biopsy: Negative for carcinoma. AM:wei 12/06/2020 MICROSCOPIC DIAGNOSIS A. Right lateral edge of prostate, biopsy: Negative for carcinoma. B. Prostate, radical prostatectomy: Adenocarcinoma. See cancer checklist below. C. Fat over prostate, biopsy: Mature adipose tissue. No evidence of carcinoma. D. Left pelvic lymph nodes, regional lymphadenectomy: Mature adipose tissue. See comment. E. Right pelvic lymph nodes, regional lymphadenectomy: Mature adipose tissue. See comment. AM:wei 12/08/2020 COMMENT B. PROSTATE CANCER (RADICAL) SUMMARY: Procedure: Radical Prostatectomy Prostate Size: 4.7 x 4.5 x 3.8 cm Histologic type: Adenocarcinoma Histologic grade: 7 (3+4) Percent of Pattern 4: 15% Percent of Pattern 5: 20% Intraductal Carcinoma: Not identified Tumor Quantitation: 2 x 1.2 x 0.7 cm Extraprostatic Extension: Not identified Urinary Bladder Neck Invasion: Not identified Seminal Vesicle Invasion: Not identified Lymphvascular Invasion: Not identified Perineural Invasion: Present Margins: Free of carcinoma Regional Lymph Nodes: Only fatty tissue present. No evidence of carcinoma. Treatment Effect: Unknown Additional Pathologic Findings: Chronic inflammation and benign hyperplasia. PATHOLOGIC STAGE: T2 Nx Mx The above summary is in compliance with [employer] (CAP) Cancer Protocols Checklist and [place] Joint Committee on Cancer (AJCC), Staging Manual, 8th Ed. D & E. No lymph nodes are identified. Case has been reviewed in consultation with Dr. Ferrera who concurs with the above diagnosis. IDC:[id number] MICROSCOPIC DESCRIPTION Slides are reviewed. GROSS DESCRIPTION A - Received fresh for frozen section consultation labeled with the patient's name is a specimen designated right lateral edge of prostate. The specimen consists of a single irregular fragment of pink-jean-baptiste soft tissue measuring 0.6 x 0.2 x 0.1 cm. The specimen is submitted in its entirety for frozen section consultation. / AM:wei 12/06/2020 B - Received in fixative is one container labeled with the patient's name and designated prostate. The specimen consists of a prostate gland with seminal vesicles weighing 57 gm. The prostate measures 4.7 cm transversely, 3.8 cm anterior-posteriorly and 4.5 cm craniocaudally. No mass lesions are palpated. The specimen is differentially inked as follows: anterior - red, right half - blue, left half ? green and entire posterior surface - black. The prostate is cut from apex to base at approximately 3-4 mm sections. No distinct mass lesions are identified. Reference Assistant sections are submitted as follows: 1 - apex, shave, 2??bladder shave, 3 - seminal vesicles, 4 & 5 - most basal section of prostate, 6-9 - apex, 10-16 - mid portion of prostate, 17-20 - basal portion of prostate. / AM: 12/07/20 C - Received in fixative is one container labeled with the patient's name and designated fat over prostate. The specimen consists of an irregular fragment of yellow fatty tissue measuring 3.5 x 2.5 x 1 cm. Dissection does not reveal gross lesions. The specimen is section. Reference Assistant sections are submitted in one cassette. / AM: 12/07/20 D - Received in fixative is one container labeled with the patient's name and designated left pelvic lymph nodes. The specimen consists of a single irregular fragment of yellow fatty tissue measuring 3 x 2.5 x 0.2 cm. The specimen is submitted in its entirety in one cassette. / AM: 12/07/20 E - Received in fixative is one container labeled with the patient's name and designated right pelvic lymph nodes. The specimen consists of two irregular fragments of yellow fatty tissue ranging in size from 1 to 1.5 cm in greatest dimension. No gross nodules are identified. The specimen is totally submitted in one cassette. / AM: 12/07/20 TC:0 CPT: 66596, 73952 x4, 15738
[2020-12-06 07:01] LABS: Bedside Glucose 122 mg/dL (70-110)
[2020-12-06] MEDS: Lactated Ringers 1,000 ML 100 ML IV ×2 (07:16→10:00)
[2020-12-06] MEDS: Cefazolin 2 GM in 0.9% Normal Saline 100 ML IV (07:26)
--- NOTE | 2020-12-06 07:33 | PCM.DC ---
Discharge Instructions Diet Discharge Diet: Light diet - advance as tolerated and Soft diet Activity Discharge Activity: May Not Drive (while taking narcotic pain medications.) and May Shower Return to work on:: 01/17/21 May shower in (days): 1 May resume sexual activity in: 6-8 weeks Dressing / Incision Call your doctor if your incision/area has: Sudden Increased Bleeding, Increased Pain/ Swelling, Foul Smelling Discharge and Swelling at the incision site Call your doctor if you observe: Fever of 101 or Higher Suture Line Care: Avoid Pulling/Pushing and Avoid Pinching/Bending Cleanse incision/area with: Soap & Water Additional Dressing/Incision Instructions:: No lifting 6 weeks Care for lopez Follow Up Care Please Follow Up With: Luis Woodson MD When: Appointment FridayDecember 18 at 8:45 am for Lopez Catheter removal- call if need to change appointment. Dr Woodson will call you with pathology report when available. Test Results: Dr Woodson will call you. Discharge Plan Admission Primary Reason for Your Visit: Radical Prostatectomy Attending Provider: Luis Woodson Primary Care Provider: Lloyd Gallego Instructions Patient Instructions: Radical Prostatectomy Dc Discharge Orders/Prescriptions Prescriptions: New docusate sodium [Colace] 100 mg capsule 100 mg PO BID Qty: 20 RF: 0 ciprofloxacin HCl [Cipro] 500 mg tablet 500 mg PO BID Qty: 14 RF: 0 oxycodone-acetaminophen 5-325 mg tablet 1 tab PO Q4H PRN (Reason: pain) 7 Days Qty: 14 RF: 0 Continued atorvastatin 10 MG tablet 10 mg PO QHS RF: 0 metformin 500 MG tablet 1,000 mg PO BID RF: 0 lisinopril 2.5 MG tablet 40 mg PO BID RF: 0 insulin aspart U-100 100 UNITS/ML insulin pen 20 units subcut TIDCM RF: 0 insulin glargine 100 UNITS/ML insulin pen 60 units subcut QHS RF: 0 metoprolol tartrate 25 MG tablet 25 mg PO BID Qty: 60 RF: 0 multivitamin Capsule 1 cap PO DAILY RF: 0 zinc 50 mg Capsule 50 mg PO DAILY RF: 0 cholecalciferol (vitamin D3) [Vitamin D3] 125 mcg (5,000 unit) Tablet 125 mcg PO DAILY RF: 0 vitamin R96-rnokg acid 500-400 mcg Tablet 1 tab PO DAILY RF: 0 Held aspirin 81 MG tablet 81 mg PO DAILY@0800 RF: 0 Hold Instructions: Resume on 12/20/20. Other Ambulatory Orders: 12 Lead EKG (Routine) Timeframe: 20201205 Location: None Selected Ordered By: Dr. Vinay Sarah Referrals / Follow Up: Luis Woodson MD [STAFF PHYSICIAN] - Lloyd Gallego MD [Primary Care Provider] - Disposition Disposition (needs filled in before D/C Order can be placed): Home, Self Care
[2020-12-06] MEDS: Bupivacaine Mpf 0.5% 30 ML VIAL (11:57)
--- NOTE | 2020-12-06 12:15 | OP.PCM_ITS ---
Report of Operation Date of Procedure: 12/06/20 Pre-Operative Diagnosis: prostate cancer Post-Operative Diagnosis: same Surgery/Procedure Performed:: Laparoscopic robotic assisted radical prostatectomy and bilateral pelvic lymph node dissection Description of Surgical Findings:: Patient presented to the hospital for treatment of his prostate cancer with radical prostatectomy. In the preoperative setting we discussed the options of management for his prostate cancer including active surveillance, radiation treatments, radioactive seeds, and radical robotic prostatectomy. We discussed the side effects of surgery including the potential to lose erections. We discussed the potential to have bladder control problems with stress incontinence which can be temporary or permanent. We discussed the risk of the surgery including the risk of general anesthetic, risk of bleeding, risk of infection, and risk of formation of hernia either incisional hernia or inguinal hernia. After long discussion with the patient the preoperative setting and also reviewed this in the preop area patient signed the consent form and we proceeded with a radical prostatectomy. Patient was taken back to the operating room he was identified, time out procedure was performed and he was placed supine on the table he underwent general anesthesia with intubation. The abdomen was shaved prepped and draped in usual sterile fashion as well as the penis and testicles. A 16 [place] catheter was placed into the bladder with clear return of urine. I then made an incision in the umbilicus and dissected down to the fascia advance a Veress needle into the peritoneal cavity and insufflated the peritoneal cavity with CO2 gas. I then placed a 12 mm trocar above the umbilicus. I then visualized the placement of the rest of the trochars, I placed a right arm robotic trocar, and air seal trocar, a suction port 5 mm trocar. And on the left side I placed 2 robotic arms. Once all the trochars were in placed the patient was put in steep Trendelenburg. And the robot was docked the arms were docked and then I placed the 0 degree camera through the robotic arm and also used a 30 degree camera during certain parts of the case. I used scissors in the right arm, prograsp in the third arm, and a bipolar in the second arm. Initial dissection was to free the sigmoid colon off the lateral wall this was done by meticulously dissecting off the peritoneum and the sigmoid colon off the left lateral wall. This then allowed the prograsp to retract the sigmoid colon out of the pelvis. I then went below the bladder and identified the vas deferens incised the peritoneum over the vas deferens and traced the vas deferens below the bladder to the prostate and identified the right and left vasa deferens. Below behind the vas deferens then the seminal vesicles were identified. I then dissected the seminal vesicle free using pinpoint electrocautery and then we identified the other seminal vesicle and then dissected this using pinpoint electrocautery I then elevated the vas deferens and several vesicles off the prostate and was able to sweep the Denonvilliers' fascia off the prostate posteriorly all the way up to the apex of the prostate. Working laterally I made sure I went as lateral as possible to sweep the Denonilliers' fascia off the posterior aspect of the prostate and worked my way back, I then transected the vas deferens and the left and right side the seminal vesicles were then dissected free. And then I pulled out of the pelvis. At this point the bladder was dropped creating the space of Retzius with the bladder on traction with the fourth arm. Using electrocautery I dissected in the anterior peritoneal fascia and then created the space of Retzius dissecting towards the prostate. The pelvic lymph node dissection was then performed both on the left and the right pelvic lymph nodes the nodes that were taken on the right side extended from the right iliac artery lateral pelvic sidewall up to the junction of the artery and the lymph nodes and down to the obturator nerve and then also below the coding machine operator nerve all the lymph nodes were removed during to remove those lymph nodes we used clips and electrocautery to control small blood vessels and also the control lymphatic. I then went to the left side and again did an extensive lymph node dissection starting of the left iliac artery extending the left iliac vein on the lateral sidewall down to the obturator nerve and the left side beyond the coding machine operator nerve down further behind it cleaning out all the lymphatic tissue all this tissue was sent off as a specimen we use clips and electrocautery during the dissection. At the end we cleaned out all the lymphatic tissue on the right pelvic wall and no lymphatic tissue in the left pelvic wall. The prostate was then cleaned of the fat over the prostate and the fourth arm was used to retract the bladder and place traction. I then identified the endopelvic fascia that was overlying the prostate on the right side I incised endopelvic fascia and wwept the levator muscles off the prostate all the way to the apex on the right side, I then worked my way anterior to the prostate then transected to the puboprostatic ligament and the underlying dorsal vein complex was not injured. I then went to the other side and identified the endopelvic fascia in the left side incised in a fashion the left side and swept the levator muscles off the prostate on the left side all the way up to the apex the puboprostatic ligament on the left side was then dissected and transected I then freed up the fascia overlying the dorsal vein complex. I then used the prograsp to encircled the dorsal vein complex with the prograsp and then switched over to the right and left needle cryogenic transport driver and suture ligated the dorsal vein complex above the prograsp. The prograsp was then placed back in the bladder and put back on traction I then identified the junction between the bladder and the prostate and dissected down between the bladder and the prostate untilI came across the catheter we then dissected posteriorly to the bladder and prostate to free the prostate and the bladder off each other and the muscles between the bladder and the prostate was then cauterized to free up the bladder. I then went on top of the prostate and identified the endopelvic fascia on top of the prostate this was incised all the way to the apex and then we swept the endopelvic fascia off the prostate laterally and then identified the plane between endopelvic fascia and the prosthetic pseudocapsule and swept the fascia laterally until reaching the course of the neurovascular bundles and then released the neurovascular bundles off the prostate laterally all the way back in a retrograde fashion back to the junction of the pedicles then the prostate was placed on traction with the fourth arm pulling the prostate laterally identified the pedicle to the prostate between the seminal vesicles and the and the neurovascular bundle and this was taken using sequential small hemolocks. After the pedicle was taken the I then dissected underneath the prostate sweeping the neurovascular bundle off the prostate we able to follow the nice smooth plane between the neurovascular bundle and the pseudocapsule all the way to the apex once this was identified we swept this up all the way up to the apex and there was perfect nerve sparing on the right side. Then went to the left side the prostate identified the endopelvic fascia over the left side of the prostate I incised the endopelvic fascia all the way to the apex and then swept this off laterally I then released the neurovascular bundles on the left side of the prostate sweeping him off the prostate laterally I then elevated the prostate up up with the prostate and traction identified the pedicle to the prostate on the left side and then the pedicles taken with sequential Hem-o-jasmin clips I then was able to dissected the neurovascular bundle off the left posterior aspect the prostate this was a perfect dissection all the way up on the left side following the pseudocapsule all the way up the left side until we reached the apex of the prostate. After the both the neurovascular bundles has been swept off the posterior to the prostate I then went above and transected the dorsal vein complex there was minimal to no bleeding but then dissected down to the urethra and circumfencial dissected around the urethra I then switched the right and left arm with the needle drivers and I suture-ligated the dorsal vein complex again just to ensure that there was no bleeding from the dorsal v ein complex. I then transected through the urethra with scissors and the prostate was then freed and released off the prostate bed and put an Endo Catch bag. At this point the bladder neck was reconstructed and then an anastomosis was performed between the prostate and the bladder with a 3 oh V-Loc stitch in a running fashion starting from the bladder neck at the 6 o'clock position working to the 12 o'clock position with continuous stitches to complete a perfect anastomosis between the bladder and the prostate. I then placed a new catheter into the bladder, an 18 [place] tip catheter flushed the bladder and there was no leakage from the anastomosis I put 10 cc in the balloon and pulled it up pulled back gently. I then ensured that there was no bleeding from the dorsal vein complex no bleeding from the neurovascular bundles FloSeal was placed as necessary once hemostasis was ensured and adequate then I placed the bladder back in position in the pelvis the prostate was exchanged to the camera port I closed the air seal port with a 10 12 Wayne Gipson stitch. And the extracted the prostate through the umbilicus. The robot was undocked all the ports were removed under direct visualization then closed the extraction site with 0 Vicryl with a CT1 needle once the extraction site was closed. I then closed all the incision with subcuticular stitches with 4-0 Monocryl and then bandages were placed on the incisions catheter was flushed to make sure it was draining well there was no clots and it was crystal clear patient's anesthetic was reversed he was extubated and taken back to the PACU in stable condition all the needles and sponges and instruments were accounted for. Blood loss was minimal and the drain was a 18 [place] Lopez catheter. No other surgical drain was left. I was present during the entire case. Surgeon: kathy. Type of Anesthesia: General Drains: 20 fr lopez
[2020-12-06 12:25] LABS: Bedside Glucose 215 mg/dL (70-110)
[2020-12-06] MEDS: Ketorolac 30 MG/ML Syringe IV (12:54)
[2020-12-06] MEDS: Lactated Ringers 500 ML 999 ML IV (16:00)
== END 2020-12-06 17:04 | disposition home or self-care (01) ==
LOC: SDC 05:45 → AC 05:45
PROVIDERS: Anesthesiology; PCP Family Medicine; Referring Provider Urology; Visit Provider Urology
PROC: 0VT04ZZ Resection of Prostate, Percutaneous Endoscopic Approach (ICD-10-PCS; CPT 55866; principal; 2020-12-06 07:10)
DX: C61 Malignant neoplasm of prostate (principal); N40.0 Benign prostatic hyperplasia without lower urinary tract symptoms; R97.20 Elevated prostate specific antigen [PSA]; I10 Essential (primary) hypertension; E11.9 Type 2 diabetes mellitus without complications; Z87.891 Personal history of nicotine dependence; Z79.82 Long term (current) use of aspirin
CPT/HCPCS: 00865; 38571; 55866; S2900; 36415; 80048; 82962; 83036; 85027; 86850; 86900; 86901; 87426; 88304; 88305; 88307; 88309; 88331; 93005; C9803; J7120; J2405

== ENCOUNTER → 2021-02-27 13:43 | Outpatient (CLI) | payer MEDICARE, OTHER, SELFPAY ==
[2021-02-27 15:43] LABS: BUN 16 mg/dL (7-18); Creatinine, Serum 1.15 mg/dL (0.70-1.30); EST Glomerular Filtration Rate 68 mL/min (>60); Glucose 245 mg/dL (74-106)
[2021-02-27 15:44] LABS: Anion Gap 7 (5-15); BUN/Creat Ratio 13.9 RATIO (10-20); Calcium,Total 9.6 mg/dL (8.5-10.1); Chloride 106 mmol/L (98-107); Cholesterol 152 mg/dL (200); Est Glom Filt Rate - Afr Amer 82 mL/min (>60); High Density Lipoprotein 33 mg/dL; Potassium 4.2 mmol/L (3.5-5.1); Sodium Level 139 mmol/L (136-145); Triglycerides 389 mg/dL; Very Low Density Lipoprotein 78 mg/dL (5-40)
[2021-02-27 17:37] LABS: Microalbumin:Creatinine Ratio 196.4 mg/g CRE (<30 mg/g CRE)
== END ==
PROVIDERS: PCP Internal Medicine; Referring Provider Internal Medicine; Visit Provider Internal Medicine
DX: E11.9 Type 2 diabetes mellitus without complications (principal)
CPT/HCPCS: 36415; 80048; 80061; 82043; 82570

== ENCOUNTER 2021-03-12 08:49 | Outpatient (CLI) | payer MEDICARE, OTHER, SELFPAY ==
[2021-03-12 11:08] LABS: PSA,Total - Annual Screen < 0.01 ng/mL (0.00-4.00)
== END 2021-03-12 23:59 | disposition short-term general hospital (02) ==
LOC: MTLAB 08:51
PROVIDERS: PCP Internal Medicine; Referring Provider Urology; Visit Provider Urology
DX: Z48.816 Encounter for surgical aftercare following surgery on the genitourinary system (principal); Z12.5 Encounter for screening for malignant neoplasm of prostate
CPT/HCPCS: 36415; 84153; G0103

== ENCOUNTER → 2021-09-14 | Outpatient (CLI) | payer MEDICARE, OTHER, SELFPAY | END | disposition home or self-care (01) | LOC: LABSPEC 09:44 | PROVIDERS: PCP Internal Medicine; Referring Provider Physician Assistant; Visit Provider Physician Assistant | DX: J02.9 Acute pharyngitis, unspecified (principal) | CPT/HCPCS: 87070 ==

== ENCOUNTER → 2021-09-27 | Outpatient (CLI) | payer MEDICARE, OTHER, SELFPAY ==
[2021-09-27 11:18] LABS: PSA,Total- Diagnostic < 0.01 ng/mL (0.0-4.0)
== END | disposition home or self-care (01) ==
LOC: LAB 09:29
PROVIDERS: PCP Internal Medicine; Referring Provider Urology; Visit Provider Urology
DX: C61 Malignant neoplasm of prostate (principal)
CPT/HCPCS: 36415; 84153

== ENCOUNTER → 2021-12-18 | Outpatient (CLI) | payer MEDICARE, OTHER, SELFPAY ==
--- NOTE | 2021-12-18 13:40 | ECHOD_ITS ---
Reason For Study: Murmur Procedure This was a 2D Doppler, Color Flow transthoracic echocardiogram. The study was technically difficult. Exam performed in department. Left Ventricle Normal LV size. Mild concentric left ventricular hypertrophy. Left ventricular systolic function is normal. The estimated ejection fraction is 65 %. Stage 1 diastolic dysfunction. No regional wall motion abnormalities noted. Right Ventricle Normal RV size. Normal systolic function. Atria Normal left atrium. Normal right atrium. Mitral Valve Normal mitral valve. Tricuspid Valve Normal tricuspid valve. Aortic Valve Trisinus/trileaflet aortic valve. Moderate focal aortic valve calcification. Peak aortic valve gradient 21 mmHg. Mean aortic valve gradient 12 mmHg. Mild aortic stenosis. Mild (1+) aortic valve insufficiency. Pulmonic Valve Normal pulmonic valve. Great Vessels Normal aortic root. The pulmonary artery is normal size. Normal inferior vena cava. Pericardium/Pleural No pericardial effusion. MMode/2D Measurements & Calculations LVIDd: 4.4 cm IVSd: 1.3 cm LVOT diam: 2.0 cm LVIDs: 3.0 cm LVPWd: 1.3 cm LVOT area: 3.2 cm2 FS: 33.3 % LA dimension: 4.1 cm LAV(MOD-bp): 60.7 ml Aortic Valve Planimetry: 1.4 cm2 LAV(MOD-bp) Indexed: 25.6 ml/m2 LAV(MOD-sp2): 57.7 ml LAV(MOD-sp4): 57.1 ml LA A4 area: 18.8 cm2 RA A4 area: 18.2 cm2 Time Measurements MV dec time: 0.19 sec Doppler Measurements & Calculations MV E max delfino: 75.1 cm/sec Lat Peak E' Delfino: 11.5 cm/sec Med Peak E' Delfino: 9.3 cm/sec MV A max delfino: 79.6 cm/sec E/E' lat: 6.5 E/E' med: 8.1 MV E/A: 0.94 MV V2 max: 82.9 cm/sec MV P1/2t max delfino: 83.5 cm/sec Ao V2 max: 232.0 cm/sec MV max P.7 mmHg MV P1/2t: 64.9 msec Ao max P.6 mmHg MV V2 mean: 53.0 cm/sec MV dec slope: 376.8 cm/sec2 Ao V2 mean: 167.7 cm/sec MV mean P.3 mmHg Ao mean P.7 mmHg MV V2 VTI: 22.8 cm MVA(P1/2t): 3.4 cm2 Ao V2 VTI: 50.2 cm MVA(VTI): 2.7 cm2 KASSANDRA(I,D): 1.2 cm2 KASSANDRA(V,D): 1.3 cm2 AI max delfino: 517.6 cm/sec LV V1 max: 98.1 cm/sec SV(LVOT): 61.8 ml AI max P.2 mmHg LV V1 max P.9 mmHg LV V1 mean P.2 mmHg AI dec slope: 340.0 cm/sec2 LV V1 mean: 70.2 cm/sec AI P1/2t: 445.9 msec LV V1 VTI: 19.5 cm PA V2 max: 136.4 cm/sec PA V2 mean: 93.7 cm/sec ECHO/Echo Complete Interpretation Summary Normal LV size. Left ventricular systolic function is normal. The estimated ejection fraction is 65 %. Stage 1 diastolic dysfunction. Mild concentric left ventricular hypertrophy. Moderate focal aortic valve calcification. Mild aortic stenosis. Mild (1+) aortic valve insufficiency. Ordering Physician: Erinn Suh Referring Physician: Erinn Suh Performed By: Tank Fournier RCS
== END | disposition home or self-care (01) ==
LOC: CVS 13:39
PROVIDERS: PCP Internal Medicine; Referring Provider Internal Medicine; Visit Provider Internal Medicine
DX: R01.1 Cardiac murmur, unspecified (principal)
CPT/HCPCS: 93306

== ENCOUNTER → 2022-03-15 | Outpatient (CLI) | payer MEDICARE, OTHER, SELFPAY ==
[2022-03-15 10:40] LABS: PSA,Total- Diagnostic < 0.01 ng/mL (0.0-4.0)
== END | disposition home or self-care (01) ==
LOC: MTLAB 07:59
PROVIDERS: PCP Internal Medicine; Referring Provider Registered Nurse; Visit Provider Registered Nurse
DX: C61 Malignant neoplasm of prostate (principal)
CPT/HCPCS: 36415; 84153

== ENCOUNTER → 2022-06-17 | Outpatient (CLI) | payer MEDICARE, OTHER, SELFPAY ==
[2022-06-17 14:59] LABS: Absolute Lymphocyte Count 1.09 X10^3/uL (0.83-4.51); Absolute Neutrophil Count 4.5 X10^3/uL (2.0-7.7); Basophil# 0.05 X10^3/uL; Basophil% 0.8 % (0-1); Eosinophil# 0.29 X10^3/uL; Eosinophils% 4.7 % (0-5); Hematocrit 41.4 % (40-54); Hemoglobin 14.8 g/dL (13.0-16.5); Lymphocyte # 1.09 X10^3/ul (0.83-4.51); Lymphocyte % 17.5 % (19-41); Mean Corp Hgb Conc 35.7 g/dL (32-36); Mean Corpuscular Hgb 31.8 pg (27.0-32.0); Mean Corpuscular Volume 88.8 fL (80-94); Mean Platelet Vol. 10.7 fl (6.2-12.0); Monocyte# 0.32 X10^3/uL; Monocyte% 5.1 % (0-10); NRBC Flagged by Analyzer 0 % (0-5); Neutrophil # 4.47 X10^3/uL (2.7-7.7); Neutrophil % 71.7 % (47-70); Platelet Count 258 K/mm3 (150-450); RBC Distribution Width CV 12.6 % (11.6-14.6); RBC Distribution Width SD 40.7 fl (35.1-43.9); Red Blood Count 4.66 M/mm3 (4.6-6.2); White Blood Count 6.2 K/mm3 (4.4-11.0)
[2022-06-17 15:34] LABS: ALB/GLOB Ratio 1.3 RATIO (0.9-2.4); AST(SGOT) 28 U/L (15-37); Alanine Aminotransfer ALT/SGPT 40 U/L (16-61); Albumin, Serum 4.1 g/dL (3.2-5.0); Alkaline Phosphatase 64 U/L (45-117); Anion Gap 3 (5-15); BUN 17 mg/dL (7-18); BUN/Creat Ratio 14.4 RATIO (10-20); Calcium,Total 9.6 mg/dL (8.5-10.1); Chloride 109 mmol/L (98-107); Cholesterol 118 mg/dL (200); Creatinine, Serum 1.18 mg/dL (0.70-1.30); EST Glomerular Filtration Rate 65 mL/min (>60); Est Glom Filt Rate - Afr Amer 79 mL/min (>60); Globulin 3.2 g/dL (2.2-4.2); Glucose 153 mg/dL (74-106); High Density Lipoprotein 32 mg/dL; Potassium 4.4 mmol/L (3.5-5.1); Protein, Total 7.3 g/dL (6.4-8.2); Sodium Level 138 mmol/L (136-145); Triglycerides 155 mg/dL; Very Low Density Lipoprotein 31 mg/dL (5-40)
[2022-06-17 15:46] LABS: Microalbumin,Random Urine 66.8 mg/L (NO RANGE EST.)
== END | disposition home or self-care (01) ==
LOC: BIMLAB 13:48
PROVIDERS: PCP Internal Medicine; Referring Provider Internal Medicine; Visit Provider Internal Medicine
DX: C61 Malignant neoplasm of prostate (principal); E11.42 Type 2 diabetes mellitus with diabetic polyneuropathy
CPT/HCPCS: 36415; 80053; 80061; 82043; 82570; 85025

== ENCOUNTER → 2022-09-13 | Outpatient (CLI) | payer MEDICARE, OTHER, SELFPAY ==
[2022-09-13 12:54] LABS: PSA,Total- Diagnostic < 0.01 ng/mL (0.0-4.0)
== END | disposition home or self-care (01) ==
LOC: BIMLAB 08:53
PROVIDERS: PCP Internal Medicine; Referring Provider Urology; Visit Provider Urology
DX: C61 Malignant neoplasm of prostate (principal)
CPT/HCPCS: 36415; 84153

== ENCOUNTER → 2022-12-18 | Outpatient (CLI) | payer MEDICARE, OTHER, SELFPAY ==
[2022-12-18 13:14] LABS: Anion Gap 6 (5-15); BUN 19 mg/dL (7-18); BUN/Creat Ratio 13.4 RATIO (10-20); Calcium,Total 9.5 mg/dL (8.5-10.1); Chloride 105 mmol/L (98-107); Creatinine, Serum 1.42 mg/dL (0.70-1.30); EST Glomerular Filtration Rate 53 mL/min (>60); Est Glom Filt Rate - Afr Amer 64 mL/min (>60); Glucose 196 mg/dL (74-106); Potassium 4.3 mmol/L (3.5-5.1); Sodium Level 138 mmol/L (136-145)
== END | disposition home or self-care (01) ==
LOC: BIMLAB 09:56
PROVIDERS: PCP Internal Medicine; Visit Provider Internal Medicine
DX: E11.9 Type 2 diabetes mellitus without complications (principal)
CPT/HCPCS: 36415; 80048

== ENCOUNTER → 2023-03-17 | Outpatient (CLI) | payer MEDICARE, OTHER, SELFPAY ==
--- OUTSIDE RECORDS SUMMARY | 2023-03-17 07:42 | XMS RPT_ITS | CCD ---
Author Name Unknown Address [address] [place] [address] Organization [facility] Care Team Providers Care Psychological Operations Officer Name Role Phone TESTRAEDILBERTO, LELE Unavailable Unavailable TESTRAKE, LELE Unavailable Unavailable TESTRAKE, LELE Unavailable Unavailable Results Test Name Value Interpretation Reference Range Facil ity Encounters Encounter Date Encounter Type Care Provider Facility Start: 06-12-2017 End: 06-13-2017 Patient encounter procedure LELE [facility]SHALL [facility] Start: 05-22-2017 End: 05-23-2017 [facility]: 05-01-2017 End: 05-08-2017 [facility] Summary Purpose Family History No Family History Records Found Advance Directives No Advanced Directives Records Found Additional Source Comments (unrecognized sect ion and content) No Status Records Found INFORMATION SOURCE (unrecogn ized section and content) FOR RECORDS PERTAINING TO PATIENTS WHO ARE OR HAVE BEEN ENROLLED IN A CHEMICAL DEPENDENCY/SUBSTANCEABUSE PROGRAM, SOME INFORMATION MAY BE OMITTED. This clinical summary was aggregated from multiple sources. Caution should be exercised in using it in the provision of clinical care. This summary normalizes information from multiple sources, and as a consequence, information in this document may materially change the coding, format and clinical context of patient data. In addition, data may be omitted in some cases. CLINICAL DECISIONS SHOULD BE BASED ON THE PRIMARY CLINICAL RECORDS. [employer] provides no warranty or guarantee of the accuracy or completeness of information in this document.
[2023-03-17 11:07] LABS: PSA,Total- Diagnostic < 0.01 ng/mL (0.0-4.0)
== END | disposition home or self-care (01) ==
LOC: MTLAB 07:34
PROVIDERS: PCP Internal Medicine; Referring Provider Urology; Visit Provider Urology
DX: C61 Malignant neoplasm of prostate (principal)
CPT/HCPCS: 36415; 84153

== ENCOUNTER → 2023-03-21 | Outpatient (CLI) | payer MEDICARE, OTHER, SELFPAY ==
--- OUTSIDE RECORDS SUMMARY | 2023-03-21 10:27 | XMS RPT_ITS | CCD ---
Author Name Unknown Address [address] [place] [address] Organization [facility] Care Team Providers Care Rug Dry Room Attendant Name Role Phone TESTRAEDILBERTO, LELE Unavailable Unavailable TESTRAKE, LELE Unavailable Unavailable TESTRAKE, LELE Unavailable Unavailable Results Test Name Value Interpretation Reference Range Facil ity Encounters Encounter Date Encounter Type Care Provider Facility Start: 06-12-2017 End: 06-13-2017 Patient encounter procedure LELE [facility] Start: 05-22-2017 End: 05-23-2017 [facility]: [facility] End: 05-08-2017 [facility] Purpose Family History No Family History [...] BE BASED ON THE PRIMARY CLINICAL RECORDS. [employer] provides no warranty or guarantee of the accuracy or completeness of information in this document.
[2023-03-21 12:12] LABS: Absolute Neutrophil Count 4.3 X10^3/uL (2.0-7.7); Basophil# 0.04 X10^3/uL; Basophil% 0.6 % (0-1); Eosinophil# 0.45 X10^3/uL; Eosinophils% 6.9 % (0-5); Hematocrit 41.9 % (40-54); Hemoglobin 14.1 g/dL (13.0-16.5); Mean Corp Hgb Conc 33.7 g/dL (32-36); Mean Corpuscular Hgb 30.1 pg (27.0-32.0); Mean Corpuscular Volume 89.5 fL (80-94); Monocyte# 0.34 X10^3/uL; Monocyte% 5.2 % (0-10); NRBC Flagged by Analyzer 0 % (0-5); Neutrophil # 4.34 X10^3/uL (2.7-7.7); Neutrophil % 66.8 % (47-70); Platelet Count 253 K/mm3 (150-450); RBC Distribution Width CV 12.1 % (11.6-14.6); RBC Distribution Width SD 39.5 fl (35.1-43.9); Red Blood Count 4.68 M/mm3 (4.6-6.2); White Blood Count 6.5 K/mm3 (4.4-11.0)
[2023-03-21 12:46] LABS: ALB/GLOB Ratio 1.2 RATIO (0.9-2.4); AST(SGOT) 20 U/L (15-37); Alanine Aminotransfer ALT/SGPT 29 U/L (16-61); Alkaline Phosphatase 75 U/L (45-117); Anion Gap 7 (5-15); BUN 20 mg/dL (7-18); BUN/Creat Ratio 13.6 RATIO (10-20); Chloride 106 mmol/L (98-107); Cholesterol 122 mg/dL (200); Creatinine, Serum 1.47 mg/dL (0.70-1.30); EST Glomerular Filtration Rate 51 mL/min (>60); Est Glom Filt Rate - Afr Amer 61 mL/min (>60); Globulin 3.4 g/dL (2.2-4.2); Glucose 160 mg/dL (74-106); High Density Lipoprotein 27 mg/dL; Potassium 4.4 mmol/L (3.5-5.1); Protein, Total 7.4 g/dL (6.4-8.2); Sodium Level 140 mmol/L (136-145); Triglycerides 144 mg/dL; Very Low Density Lipoprotein 29 mg/dL (5-40)
[2023-03-21 13:05] LABS: Microalbumin,Random Urine 50.3 mg/L (NO RANGE EST.); Microalbumin:Creatinine Ratio 40.6 mg/g CRE (<30 mg/g CRE)
== END | disposition home or self-care (01) ==
LOC: BIMLAB 09:50
PROVIDERS: PCP Internal Medicine; Referring Provider Internal Medicine; Visit Provider Internal Medicine
DX: I10 Essential (primary) hypertension (principal); E11.42 Type 2 diabetes mellitus with diabetic polyneuropathy
CPT/HCPCS: 36415; 80053; 80061; 82043; 82570; 85025

== ENCOUNTER → 2023-05-07 | Outpatient (CLI) | payer MEDICARE, OTHER, SELFPAY ==
--- NOTE | 2023-05-08 | LES_PTH ---
PATHOLOGY RESULTS PATIENT: [id number] AGE/SX: 67/M ROOM: RE05/07/[address]: Dr. Noam Wilkerson MD : 1955 BED: DIS: 05/07/2023 SPEC #: [id number] RECD: 05/08/23 08:57 STATUS: TREV JORDAN #: [id number] NOELLE: 05/08/23 00:[address]: Noam Wilkerson DEPT: SURGICAL PATHOLOGY RECD BY: Jorge L Singh ENTERED: 05/08/23 08:57 SP TYPE: Lesion OTHR DR: Dr. Erinn Suh MD Tissues: Skin of eyelid, NOS Skin of eyelid, NOS Procedures: Surgery Specimen Level IV HEADER OPERATION: Lesion removal right upper lid & left lower lid lesion PRE-OP DIAGNOSIS: Right upper lid lesion, left lower lid lesion TISSUE SUBMITTED: A - Right upper lid lesion, B - Left lower lid lesion MICROSCOPIC DIAGNOSIS A. Right upper lid lesion, excisional biopsy: Squamous papilloma. B. Left lower lid lesion, excisional biopsy: Squamous papilloma with focal changes consistent with seborrheic keratosis. LATISHA:wei 05/09/2023 MICROSCOPIC DESCRIPTION Slides are reviewed. GROSS DESCRIPTION A - Received in fixative is one container labeled with the patient's name and designated right upper lid. The specimen consists of an irregular fragment of light jean-baptiste soft tissue measuring 0.1 x 0.1 x <0.1 cm. The specimen is totally submitted in one cassette. B - Received in fixative is one container labeled with the patient's name and designated left lower lid. The specimen consists of an irregular fragment of light jean-baptiste soft tissue measuring 0.5 x 0.2 x 0.1 cm. The specimen is totally submitted in one cassette. / AM:wei 05/08/2023 TC:1 CPT: 31862 x2
== END | disposition home or self-care (01) ==
PROVIDERS: PCP Internal Medicine; Visit Provider Ophthalmology
DX: D23.111 Other benign neoplasm of skin of right upper eyelid, including canthus (principal); D23.122 Other benign neoplasm of skin of left lower eyelid, including canthus
CPT/HCPCS: 88305

== ENCOUNTER → 2023-06-26 | Outpatient (CLI) | payer MEDICARE, OTHER, SELFPAY ==
[2023-06-26 16:02] LABS: Hemoglobin A1c 7.3 % (3.8-5.6)
[2023-06-26 16:16] LABS: Anion Gap 6 (5-15); BUN 17 mg/dL (7-18); BUN/Creat Ratio 12.4 RATIO (10-20); Calcium,Total 9.5 mg/dL (8.5-10.1); Chloride 106 mmol/L (98-107); Creatinine, Serum 1.37 mg/dL (0.70-1.30); EST Glomerular Filtration Rate 55 mL/min (>60); Est Glom Filt Rate - Afr Amer 66 mL/min (>60); Glucose 191 mg/dL (74-106); Potassium 4.7 mmol/L (3.5-5.1); Sodium Level 139 mmol/L (136-145)
[2023-06-26 16:32] LABS: Microalbumin,Random Urine 61.7 mg/L (NO RANGE EST.); Microalbumin:Creatinine Ratio 59.3 mg/g CRE (<30 mg/g CRE)
== END | disposition home or self-care (01) ==
LOC: BIMLAB 14:24
PROVIDERS: PCP Internal Medicine; Referring Provider Internal Medicine; Visit Provider Internal Medicine
DX: E11.42 Type 2 diabetes mellitus with diabetic polyneuropathy (principal)
CPT/HCPCS: 36415; 80048; 82043; 82570; 83036

== ENCOUNTER → 2023-09-26 | Outpatient (CLI) | payer MEDICARE, OTHER, SELFPAY ==
[2023-09-26 12:24] LABS: Absolute Lymphocyte Count 1.15 X10^3/uL (0.83-4.51); Absolute Neutrophil Count 5.3 X10^3/uL (2.0-7.7); Basophil# 0.05 X10^3/uL; Basophil% 0.7 % (0-1); Eosinophil# 0.29 X10^3/uL; Hematocrit 44.8 % (40-54); Hemoglobin 15.4 g/dL (13.0-16.5); Lymphocyte # 1.15 X10^3/ul (0.83-4.51); Lymphocyte % 15.8 % (19-41); Mean Corp Hgb Conc 34.4 g/dL (32-36); Mean Corpuscular Hgb 30.1 pg (27.0-32.0); Mean Corpuscular Volume 87.5 fL (80-94); Mean Platelet Vol. 10.9 fl (6.2-12.0); Monocyte# 0.41 X10^3/uL; Monocyte% 5.6 % (0-10); NRBC Flagged by Analyzer 0 % (0-5); Neutrophil # 5.34 X10^3/uL (2.7-7.7); Neutrophil % 73.6 % (47-70); Platelet Count 250 K/mm3 (150-450); RBC Distribution Width CV 11.9 % (11.6-14.6); RBC Distribution Width SD 38.3 fl (35.1-43.9); Red Blood Count 5.12 M/mm3 (4.6-6.2); White Blood Count 7.3 K/mm3 (4.4-11.0)
[2023-09-26 12:37] LABS: Anion Gap 6 (5-15); BUN 22 mg/dL (7-18); Calcium,Total 9.6 mg/dL (8.5-10.1); Chloride 106 mmol/L (98-107); Creatinine, Serum 1.16 mg/dL (0.70-1.30); EST Glomerular Filtration Rate 66 mL/min (>60); Est Glom Filt Rate - Afr Amer 80 mL/min (>60); Glucose 127 mg/dL (74-106); Potassium 4.5 mmol/L (3.5-5.1); Sodium Level 137 mmol/L (136-145)
== END | disposition home or self-care (01) ==
LOC: BIMLAB 09:02
PROVIDERS: PCP Internal Medicine; Referring Provider Internal Medicine; Visit Provider Internal Medicine
DX: I10 Essential (primary) hypertension (principal)
CPT/HCPCS: 36415; 80048; 85025

== ENCOUNTER → 2023-12-25 | Outpatient (CLI) | payer MEDICARE, OTHER, SELFPAY ==
[2023-12-25 09:30] LABS: PSA,Total- Diagnostic < 0.01 ng/mL (0.0-4.0)
== END | disposition home or self-care (01) ==
LOC: LAB 08:27
PROVIDERS: PCP Internal Medicine; Referring Provider Nurse Practitioner; Visit Provider Nurse Practitioner
DX: C61 Malignant neoplasm of prostate (principal)
CPT/HCPCS: 36415; 84153

== ENCOUNTER 2024-01-05 06:21 | Day surgery (SDC) | payer MEDICARE, OTHER, SELFPAY ==
--- OUTSIDE RECORDS SUMMARY | 2024-01-05 06:24 | XMS RPT_ITS | CCD ---
Author Organization [facility] Care Team Providers Care Framing Consultant Name Role Phone TESTRAKE, LELE Unavailable Unavailable TESTRAKE, LELE Unavailable Unavailable TESTRAKE, LELE Unavailable Unavailable Results Test Name Value Interpretation Reference Range Facility PROGRESSon 03-18-2018 Protein mass conc HNO ID: [id number] Author: Adrianne Lucas) Zachary Service: (none) Author Type: Aligner Typewriter Type: Progress Notes Filed: 03/18/2018 10:31 AM Note Text: Patient has changed PCP to Dr. Gallego. Adrianne Sharma MA [facility]-2018 CNPTOUTREA Patient Outreach (FAMPWS) -KAYLADEBORAH ([id number]) 1955 MDate Time Provider Department03/17/18 ADRIANNE SHARMA) FAMPWS During your visit today, we recorded the following information about you:Adrianne Sharma MA 03/18/2018 10:31 AM SignedPHMA CARE GAP REGISTRY DOCUMENTATION(OUTSIDE TEAMLET)Provider Action/FYI: Patient needs appointment, needs labs ordered, needs Foot and Eye exam.Needs colonoscopyPSR Action/FYI: schedule ov and eye exam And colonoscopyPatient identified by name and date of .Last BP/Labs:Blood Pressure:Last 3 Encounter BP Readings: Date: BP: 10/25/2016 132/80 03/28/2016 130/80 10/26/2015 124/64Lipids:Cholesterol, Total (mg/dL)Date Value09/23/2016 5632408/03/2015 118 HDL Cholesterol (mg/dL)Date Value09/23/2016 33 LDL Cholesterol (mg/dL)Date Value09/23/2016 30008/03/2015 53 Triglyceride (mg/dL)Date Value09/23/2016 160 HGB A1C:Lab ResultsComponent Value [id number] 7.1 09/23/2016HBA1C 8.9 03/27/2016HBA1C 5.9 08/03/2015TSH:TSH (uU/mL)Date Value02/23/2015 1.530 )? Patient has the following care gap registry disease diagnosis:DM? Patient has the following open care gaps:DM - Need Urine Albumin / NOTchecked in last 12 months? Needs dilated eye exam - HM overdue? Last office visit: 03/28/2016? Future office visit:follow upAb Mendoza MA 03/18/2018 10:31 AM SignedPatient has changed PCP to Dr. 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 METFORMIN 1,000 MG TABLET Take 1 tablet by mouth twice * ALBIGLUTIDE 50 MG/0.5 ML SUBC* Inject 1 Dose subcutaneously * INSULIN ASPART U-100 100 UNI* Inject 15 Units subcutaneousl* INSULIN GLARGINE (U-100) 100 * Inject 50 Units subcutaneousl* ATORVASTATIN 10 MG TABLET Take 1 tablet by mouth once d* BLOOD-GLUCOSE METER KIT Freestyle LITE Meter Kit -(E1* LANCETS 28 GAUGE Test blood sugar(s) 3 times d* BABY ASPIRIN ORAL Take by mouth. CHOLECALCIFEROL (VITAMIN D3) * Take 5,000 Units by mouth onc* ONE-A-DAY MEN'S ORAL Take by mouth. 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] INVALID FOR*10/04/2009 Neoplasm of Uncertain Behavior of Skin [D48.5] INVALID FOR*10/04/2009 Type II diabetes mellitus with neurological man*INVALID FOR* Obstructive sleep apnea on CPAP [G47.33, Z99.89]INVALID FOR* Microalbuminuria due to type 2 diabetes mellitu*INVALID FOR* Hypertensive heart disease without heart failur*INVALID FOR* Dyslipidemia [E78.5] INVALID FOR* Status:Closed by ADRIANNE SHARMA on 03/18/18 [facility] PROGRESSon 03-17-2018 Protein mass conc HNO ID: [id number] thor: Adrianne Rivas (Kyara) ZacharySerarcenioe: (none)Author Type: Medical AssistantType: Progress NotesFiled: 03/18/2018 10:31 AMNote Text:PHMA CARE GAP REGISTRY DOCUMENTATION(OUTSIDE TEAMLET)Provider Action/FYI: Patient needs appointment, needs labs ordered, needs Foot and Eye exam.Needs colonoscopyPSR Action/FYI: schedule ov and eye exam And colonoscopyPatient identified by name and date of .Last BP/Labs:Blood Pressure:Last 3 Encounter BP Readings: Date: BP: 10/25/2016 132/80 03/28/2016 130/80 10/26/2015 124/64Lipids:Cholesterol, Total (mg/dL)Date Value09/23/2016 3131608/03/2015 118 HDL Cholesterol (mg/dL)Date Value09/23/2016 33 LDL Cholesterol (mg/dL)Date Value09/23/2016 30008/03/2015 53 Triglyceride (mg/dL)Date Value09/23/2016 160 HGB A1C:Lab ResultsComponent Value EegfFVK6Q 7.1 09/23/2016HBA1C 8.9 03/27/2016HBA1C 5.9 08/03/2015TSH:TSH (uU/mL)Date Value02/23/2015 1.530 )? Patient has the following care gap registry disease diagnosis:DM? Patient has the following open care gaps:DM - Need Urine Albumin / NOTchecked in last 12 months? Needs dilated eye exam - HM overdue? Last office visit: 03/28/2016? Future office visit:follow upAdrianne Sharma MA [facility] CNOVon 06-12-2017 CNOV Office Visit (PODIWS) -[facility]OR[facility] ([id number]) 1955 [facility]06/12/17 8:25 AM LELE MARSHALL During your visit today, we recorded the following information about you:Lele Marshall DPM 06/12/2017 8:41 AM SignedSubjective: This 62 year old patient presents to clinic for f/u of verrucaright foot. Patient states that they had a treatment three weeks ago and didnot experience much pain or problems following the treatment. No other pedalcomplaints.Objective:Richie rovascular status is intact to right foot.Verruca noted to right midfoot with overlying hyperkeratosis, interruption ofthe skin lines, pain with lateral compression and pinpoint bleeding upondebridement. Lesion measures approximately 2mm. No ulceration noted. Thereis benign skin tag of right forefoot.Assessment:(B07.0) Plantar wart of right foot (primary encounter diagnosis)Skin tagPlan:1. Patient elects to proceed with additional chemical treatment of verruca atthis time. Aware of risks, benefits of treatment.2. Hyperkeratosis overlying lesions was debrided. Treatment number 3 applied,using TCA. Discussed continued presence of wart. Discussed continueddebridement, laser procedure, matias injection. Patient would like to justmonitor at this time and f/u as needed for this. If this gets large, he willcontact office.3. Skin tag we have discussed biopsy vs derm referral. He wants to monitor.4. We discussed home instructions.5. F/u in 6 months for diabetic foot examMattchaimw JIMMY Marshalleftrent Provider: SELF [[id number]]Allergies As of Date: 06/12/2017(No Known Allergies)Date Reviewed: 06/12/2017Reviewed by: Cary Galloway RN - Fully AssessedReason for Visit: Recheck [92] Cmt: TCA #3, RPrimary Visit Diagnosis:Plantar wart of right foot [B07.0]Prescriptions as of 06/12/2017 Sig: GABAPENTIN 800 MG TABLET Take 1 tablet by mouth three * BLOOD SUGAR DIAGNOSTIC STRIPS Test blood sugar(s) 3 times d* AMMONIUM LACTATE 12 % LOTION Apply 1 application to affect* PEN NEEDLE, DIABETIC 32 GAUGE* Inject 1 Each subcutaneously * INSULIN SYRINGE-NEEDLE U-100 * 1 Syringe as needed. METFORMIN 1,000 MG TABLET Take 1 tablet by mouth twice * ALBIGLUTIDE 50 MG/0.5 ML SUBC* Inject 1 Dose subcutaneously * INSULIN ASPART U-100 100 UNI* Inject 15 Units subcutaneousl* INSULIN GLARGINE (U-100) 100 * Inject 50 Units subcutaneousl* ATORVASTATIN 10 MG TABLET Take 1 tablet by mouth once d* BLOOD-GLUCOSE METER KIT Freestyle LITE Meter Kit -(E1* LANCETS 28 GAUGE Test blood sugar(s) 3 times d* BABY ASPIRIN ORAL Take by mouth. CHOLECALCIFEROL (VITAMIN D3) * Take 5,000 Units by mouth onc* ONE-A-DAY MEN'S ORAL Take by mouth. 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.8] INVALID FOR*10/04/2009 Neoplasm of Uncertain Behavior of Skin [D48.5] INVALID FOR*10/04/2009 Type II diabetes mellitus with neurological man*INVALID FOR* Obstructive sleep apnea on CPAP [G47.33, Z99.89]INVALID FOR* Microalbuminuria due to type 2 diabetes mellitu*INVALID FOR* Hypertensive heart disease without heart failur*INVALID FOR* Dyslipidemia [E78.5] INVALID FOR* Status:Closed by LELE MARSHALL DPM on 06/12/17 [facility] PROGRESSon 06-12-2017 Protein mass conc HNO ID: [id number] thor: Lele Wuervice: (none)Author Type: PhysicianType: Progress NotesFiled: 06/12/2017 8:41 AMNote Text:Subjective: This 62 year old patient presents to clinic for f/u ofverruca right foot. Patient states that they had a treatment three weeksago and did not experience much pain or problems following the treatment.No other pedal complaints.Objective:Neurovas cular status is intact to right foot.Verruca noted to right midfoot with overlying hyperkeratosis, interruptionof the skin lines, pain with lateral compression and pinpoint bleedingupon debridement. Lesion measures approximately 2mm. No ulcerationnoted. There is benign skin tag of right forefoot.Assessment:(B07.0) Plantar wart of right foot (primary encounter diagnosis)Skin tagPlan:1. Patient elects to proceed with additional chemical treatment of verrucaat this time. Aware of risks, benefits of treatment.2. Hyperkeratosis overlying lesions was debrided. Treatment number 3applied, using TCA. Discussed continued presence of wart. Discussedcontinued debridement, laser procedure, matias injection. Patient wouldlike to just monitor at this time and f/u as needed for this. If thisgets large, he will contact office.3. Skin tag we have discussed biopsy vs derm referral. He wants tomonitor.4. We discussed home instructions.5. F/u in 6 months for diabetic foot examMattchaimw CAROLINE Marshall [facility] CNOVon 05-22-2017 CNOV Office Visit (PODIWS) -DEBORAH GARZA ([id number]) 1955 MDate Time Provider Department05/22/17 7:40 AM LELE MARSHALL During your visit today, we recorded the following information about you:Lele Marshall DPM 05/22/2017 7:51 AM SignedFollow up podiatric office visit for:Chief Complaint: This 62 year old who presents for follow up:wart of right footPatient has been doing the following since last visit: patient has beenapplying topical wart cream to his right foot. He has no pain. He has noother issuesPAIN EVALUATION No data found.Hemoglobin W3NLujw Value Ref Range Qfiyam0509/23/2016 7.1 (H) 4.3 - 5.6 % FinalComment:[place] [employer] Association guidelines indicate that patients with HgbA1c inthe range 5.7-6.4% are at increased risk for development of diabetes, andintervention by lifestyle modification may be beneficial. HgbA1c greater orequal to 6.5% is considered diagnostic of diabetes. PCP: TAYA Gillespie MEDICAL HISTORYDiagnosis Date- Benign hypertensive heart disease without heart failure- Esophageal reflux resolved.- Morbid obesity (HCC)- Other and unspecified hyperlipidemia- Type II or unspecified type diabetes mellitus without mention ofcomplication, not stated as uncontrolledCurrent Outpatient Prescriptions:gabapentin (NEURONTIN) 800 mg tablet Take 1 tablet by mouth three times daily.blood sugar diagnostic (FREESTYLE LITE STRIPS) test strip Test blood sugar(s) 3times daily. Dx: E11.49 . Insulin: Yesammonium lactate (AMLACTIN) 12 % lotion Apply 1 application to affected area asneeded.Insulin Atwood, Disposable, (NOVOFINE 32) 32 gauge x 1/4ANDquot; ndle Inject 1Each subcutaneously four times daily. Dx: E11. . Insulin: YesInsulin Syringe-Needle U-100 (BD INSULIN SYRINGE ULTRA-FINE) 1 mL 31 gauge x5/16 syrg 1 Syringe as needed.metFORMIN (GLUCOPHAGE) 1,000 mg tablet Take 1 tablet by mouth twice daily withmeals.albiglutide (TANZEUM) 50 mg/0.5 mL pnij Inject 1 Dose subcutaneously once eachweek. Inject dose once per week. Discard Pen Afterinsulin aspart (NOVOLOG FLEXPEN) 100 unit/mL inpn Inject 15 Unitssubcutaneously three times daily with meals.insulin glargine (LANTUS) 100 unit/mL injection Inject 50 Units subcutaneouslydaily at bedtime. Via Syringeatorvastatin (LIPITOR) 10 mg tablet Take 1 tablet by mouth once daily.Blood-Glucose Meter (FREESTYLE LITE METER) monitoring kit Freestyle LITE MeterKit -() 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 Insulin: YesBABY ASPIRIN ORAL Take by mouth.Cholecalciferol, Vitamin D3, (VITAMIN D-3) 5,000 unit tab Take 5,000 Units bymouth once daily.MULTIVITS-MINERALS/FA/L YCOPENE (ONE-A-DAY MEN'S ORAL) Take by mouth.CPAP Initiate CPAP 7 cm H20 water with humidification. Mask (per patientpreference) optional chin strap (if indicated) , filters, tubing, humidifierand lifetime supplies.No current facility-administered medications for this visit.ALLERGIESNo Known AllergiesPAST SURGICAL HISTORYProcedure Laterality Date- APPENDECTOMY- COLONOSCOP W/ OR W/O [facility] SPEC 11/16/2008 Colonoscopy- REMOVAL GALLBLADDERPhysical Exam:Constitutional: Pt is a well developed 62 year old male who is alert,oriented, cooperative and in no apparent distress.OBJECTIVE:NVSI unchanged from previous visit.Dermatological:1 mm wart to plantar aspect of right foot. Wart does show progress since lastvisit. No ulceration noted. Small skin tag of right forefootMusculoskeletal/Ortho paedic:Patient has no pain to palpation of right footASSESSMENT:(B07.0) Plantar wart of right foot (primary encounter diagnosis)PLAN:1. History and physical examination completed today.2. Wart to right foot has shown improvement. Wart was debrided with 15 bladeand tca was applied. Discussed surgical options for wart. Patient is notinterested.3. Continue with wart cream at home.4. F/u in 3 weeksMattchaimw Areli, FEDEMReferring Provider: SELF [[id number]]Allergies As of Date: 05/22/2017(No Known Allergies)Date Reviewed: 05/22/2017Reviewed by: Cary Galloway RN - Fully AssessedReason for Visit: Follow Up [171]Primary Visit Diagnosis:Plantar wart of right foot [B07.0]Prescriptions as of 05/22/2017 Sig: GABAPENTIN 800 MG TABLET Take 1 tablet by mouth three * BLOOD SUGAR DIAGNOSTIC STRIPS Test blood sugar(s) 3 times d* AMMONIUM LACTATE 12 % LOTION Apply 1 application to affect* PEN NEEDLE, DIABETIC 32 GAUGE* Inject 1 Each subcutaneously * INSULIN SYRINGE-NEEDLE U-100 * 1 Syringe as needed. METFORMIN 1,000 MG TABLET Take 1 tablet by mouth twice * ALBIGLUTIDE 50 MG/0.5 ML SUBC* Inject 1 Dose subcutaneously * INSULIN ASPART U-100 100 UNI* Inject 15 Units subcutaneousl* INSULIN GLARGINE (U-100) 100 * Inject 50 Units subcutaneousl* ATORVASTATIN 10 MG TABLET Take 1 tablet by mouth once d* BLOOD-GLUCOSE METER KIT Freestyle LITE Meter Kit -(E1* LANCETS 28 GAUGE Test blood sugar(s) 3 times d* BABY ASPIRIN ORAL Take by mouth. CHOLECALCIFEROL (VITAMIN D3) * Take 5,000 Units by mouth onc* ONE-A-DAY MEN'S ORAL Take by mouth. 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] INVALID FOR*10/04/2009 Neoplasm of Uncertain Behavior of Skin [D48.5] INVALID FOR*10/04/2009 Type II diabetes mellitus with neurological man*INVALID FOR* Obstructive sleep apnea on CPAP [G47.33, Z99.89]INVALID FOR* Microalbuminuria due to type 2 diabetes mellitu*INVALID FOR* Hypertensive heart disease without heart failur*INVALID FOR* Dyslipidemia [E78.5] INVALID FOR* Status:Closed by LELE MARSHALL DPM on 05/22/17 [facility] PROGRESSon 05-22-2017 Protein mass conc HNO ID: [id number] thor: Lele Wuervice: (none)Author Type: PhysicianType: Progress NotesFiled: 05/22/2017 7:51 AMNote Text:Follow up podiatric office visit for:Chief Complaint: This 62 year old who presents for follow up:wart ofright footPatient has been doing the following since last visit: patient has beenapplying topical wart cream to his right foot. He has no pain. He has noother issuesPAIN EVALUATION No data found.Hemoglobin Y3FVwks Value Ref Range Mguygh5709/23/2016 7.1 (H) 4.3 - 5.6 % FinalComment:[place] Diabetes Association guidelines indicate that patients wjwsGyfY9q inthe range 5.7-6.4% are at increased risk for development of diabetes, andintervention by lifestyle modification may be beneficial. HgbA1c greaterorequal to 6.5% is considered diagnostic of diabetes. PCP: TAYA Gillespie MEDICAL HISTORYDiagnosis Date- Benign hypertensive heart disease without heart failure- Esophageal reflux resolved.- Morbid obesity (HCC)- Other and unspecified hyperlipidemia- Type II or unspecified type diabetes mellitus without mention ofcomplication, not stated as uncontrolledCurrent Outpatient Prescriptions:gabapentin (NEURONTIN) 800 mg tablet Take 1 tablet by mouth three timesdaily.blood sugar diagnostic (FREESTYLE LITE STRIPS) test strip Test bloodsugar(s) 3 times daily. Dx: E11.49 . Insulin: Yesammonium lactate (AMLACTIN) 12 % lotion Apply 1 application to affectedarea as needed.Insulin Atwood, Disposable, (NOVOFINE 32) 32 gauge x 1/4 ndle Inject 1Each subcutaneously four times daily. Dx: E11.49 . Insulin: YesInsulin Syringe-Needle U-100 (BD INSULIN SYRINGE ULTRA-FINE) 1 mL 31 gaugex 5/16 syrg 1 Syringe as needed.metFORMIN (GLUCOPHAGE) 1,000 mg tablet Take 1 tablet by mouth twice dailywith meals.albiglutide (TANZEUM) 50 mg/0.5 mL pnij Inject 1 Dose subcutaneously onceeach week. Inject dose once per week. Discard Pen Afterinsulin aspart (NOVOLOG FLEXPEN) 100 unit/mL inpn Inject 15 Unitssubcutaneously three times daily with meals.insulin glargine (LANTUS) 100 unit/mL injection Inject 50 Unitssubcutaneously daily at bedtime. Via Syringeatorvastatin (LIPITOR) 10 mg tablet Take 1 tablet by mouth once daily.Blood-Glucose Meter (FREESTYLE LITE METER) monitoring kit Freestyle LITEMeter Kit -(E11.49) Well controlled type 2 diabetes mellitus withneurological manifestations (HCC)lancets (FREESTYLE LANCETS) 28 gauge misc Test blood sugar(s) 3 timesdaily. Dx: E11.49 . Insulin: YesBABY ASPIRIN ORAL Take by mouth.Cholecalciferol, Vitamin D3, (VITAMIN D-3) 5,000 unit tab Take 5,000 Unitsby mouth once daily.MULTIVITS-MINERALS/FA/L YCOPENE (ONE-A-DAY MEN'S ORAL) Take by mouth.CPAP Initiate CPAP 7 cm H20 water with humidification. Mask (per patientpreference) optional chin strap (if indicated) , filters, tubing,humidifier and lifetime supplies.No current facility-administered medications for this visit.ALLERGIESNo Known AllergiesPAST SURGICAL HISTORYProcedure Laterality Date- APPENDECTOMY- COLONOSCOP W/ OR W/O [facility] SPEC 11/16/2008 Colonoscopy- REMOVAL GALLBLADDERPhysical Exam:Constitutional: Pt is a well developed 62 year old male who is alert,oriented, cooperative and in no apparent distress.OBJECTIVE:NVSI unchanged from previous visit.Dermatological:1 mm wart to plantar aspect of right foot. Wart does show progress sincelast visit. No ulceration noted. Small skin tag of right forefootMusculoskeletal/Ortho paedic:Patient has no pain to palpation of right footASSESSMENT:(B07.0) Plantar wart of right foot (primary encounter diagnosis)PLAN:1. History and physical examination completed today.2. Wart to right foot has shown improvement. Wart was debrided with 15blade and tca was applied. Discussed surgical options for wart. Patientis not interested.3. Continue with wart cream at home.4. F/u in 3 weeksMattaddison Marshall DPM [facility] PROGRESSon 05-01-2017 Protein mass conc HNO ID: [id number] thor: Lele Wuervice: (none)Author Type: PhysicianType: Progress NotesFiled: 05/01/2017 11:36 AMNote Text:Subjective: This 61 year old male presents to clinic for diabetic footcheck. Patient has the following complaints: diabetic foot check and cornof right foot x 3 weeks. He denies any pain to right foot. Patient isnot currently doing anything for this lesion. He does have hx of wart tohis left foot that was resolved with debridement. He was last seen in july2016. Patient admits to being diabetic for 10+ years now. Patient +B/T/Emmy feet at this time. Patient - pain in legs when walking. No otherpedal complaints at this time.No change in medications or medical history since last visit.PAIN EVALUATION No data found.Hemoglobin A1C (%)Date Value09/23/2016 7. 8.905/ 5.911/ 6.908/ 6.8 HBA1CVenus (%)Date Value07/24/2010 8.702/09/2010 7.008 6.805/05/2009 10.306/03/2008 6.0 PCP: TAYA Gillespie MEDICAL HISTORYDiagnosis Date- Benign hypertensive heart disease without heart failure- Esophageal reflux resolved.- Morbid obesity (HCC)- Other and unspecified hyperlipidemia- Type II or unspecified type diabetes mellitus without mention ofcomplication, not stated as uncontrolledCurrent Outpatient Prescriptions:gabapentin (NEURONTIN) 800 mg tablet Take 1 tablet by mouth three timesdaily.blood sugar diagnostic (FREESTYLE LITE STRIPS) test strip Test bloodsugar(s) 3 times daily. Dx: E11.49 . Insulin: Yesammonium lactate (AMLACTIN) 12 % lotion Apply 1 application to affectedarea as needed.Insulin Atwood, Disposable, (NOVOFINE 32) 32 gauge x 1/4 ndle Inject 1Each subcutaneously four times daily. Dx: E11.49 . Insulin: YesInsulin Syringe-Needle U-100 (BD INSULIN SYRINGE ULTRA-FINE) 1 mL 31 gaugex 5/16 syrg 1 Syringe as needed.metFORMIN (GLUCOPHAGE) 1,000 mg tablet Take 1 tablet by mouth twice dailywith meals.albiglutide (TANZEUM) 50 mg/0.5 mL pnij Inject 1 Dose subcutaneously onceeach week. Inject dose once per week. Discard Pen Afterinsulin aspart (NOVOLOG FLEXPEN) 100 unit/mL inpn Inject 15 Unitssubcutaneously three times daily with meals.insulin glargine (LANTUS) 100 unit/mL injection Inject 50 Unitssubcutaneously daily at bedtime. Via Syringeatorvastatin (LIPITOR) 10 mg tablet Take 1 tablet by mouth once daily.Blood-Glucose Meter (FREESTYLE LITE METER) monitoring kit Freestyle LITEMeter Kit -(E11.49) Well controlled type 2 diabetes mellitus withneurological manifestations (HCC)lancets (FREESTYLE LANCETS) 28 gauge misc Test blood sugar(s) 3 timesdaily. Dx: E11.49 . Insulin: YesBABY ASPIRIN ORAL Take by mouth.Cholecalciferol, Vitamin D3, (VITAMIN D-3) 5,000 unit tab Take 5,000 Unitsby mouth once daily.MULTIVITS-MINERALS/FA/L YCOPENE (ONE-A-DAY MEN'S ORAL) Take by mouth.CPAP Initiate CPAP 7 cm H20 water with humidification. Mask (per patientpreference) optional chin strap (if indicated) , filters, tubing,humidifier and lifetime supplies.No current facility-administered medications for this visit.ALLERGIESNo Known AllergiesPAST SURGICAL HISTORYProcedure Laterality Date- APPENDECTOMY- COLONOSCOP W/ OR W/O [facility] SPEC 11/16/2008 Colonoscopy- REMOVAL GALLBLADDERFAMILY HISTORYProblem Relation Age of Onset- Diabetes Mother- colonic polyps [OTHER] Mother- Prostate Cancer Father- Cancer Paternal GrandfatherSocial History Marital status: Spouse name: Candice Years of education: Number of children: 3Occupational HistoryOccupation Employer Commentself employedSocial History Main Topics Smoking status: Former Smoker Packs/day: 0.00 Years: 0.00 Types: Cigarettes Quit date: 08/08/1985 Smokeless status: Former User Types: Chew Alcohol use: Yes Comment: RARELY Drug use: No Sexual activity: Yes Partners with: FemaleREVIEW OF SYSTEMSGENERAL: Negative for Malaise, significant weight loss, feverRESPIRATORY: Negative for cough, wheezing and shortness of breathCARDIOVASCULAR: Negative for chest pain, leg swelling and palpitationsGI: Negative for abdominal discomfort, blood in stools or black stools andchange in bowel habitsGU: Negative for dysuria, frequency and incontinenceMUSCULOSKELETAL: Negative for joint pain or swelling, back pain, andmuscle pain.SKIN: Negative for lesions, rash, and itching.HEMATOLOGY/LYMPHOLOGY Negative for prolonged bleeding, bruising easily,and swollen nodes.ENDOCRINE: Negative for cold or heat intolerance, polyuria, polydipsia andgoiter.NEURO: negativeThe remainder of the review of systems is noncontributory.Objective: Patient presents to clinic ambulating in diabetic shoesConstitutional: Pt is a well developed 61 year old male who is alert,oriented, cooperative and in no apparent distress.Eyes: Following during examination. No redness or drainage.Respiratory: RR normal and nonlabored. Even breathing. No evidence ofdistress.Psychology: Patient is engaged during conversation. Normal affect andmood. Does not appear depressed or anxious.Vasc: DP and PT pulses are palpable bilateral. CFT is less than 5 secondsbilateral. Skin temperature is warm to warm proximal to distal bilateral.There is no edema or varicosities noted. Hair growth present.Neuro: Protective sensation is decreased to the foot and toes when testedwith the 5.07 SWM bilateral. Vibratory sensation is absent at the halluxbilateral.+ Significant neurological defecits.Derm: Inspection and palpation performed. Nails 1-5 b/l are normal inlength and thickness b/l. Skin is of normal turgor and texture.Hyperkeratosis noted to no. There is 3 mm wart to right midfoot withdiverging skin lines and bleeding upon debridement. there is raisedlesion to right 3rd interspace ,most likely skin tag.NO ulcerations, scars, verruca or other lesions noted.Ortho: Ankle joint DF is full with the knee extended and full with kneeflexed. No pain or crepitus noted. STJ, MTJ ROM are full and free ofpain or crepitus. Muscle strength is 5/5 for dorsiflexors,plantarflexors, inverters, everters. Digital deformities include no.Assessment:(E11.42) Diabetic polyneuropathy associated with type 2 diabetes mellitus(HCC) (primary encounter diagnosis)(B07.0) Plantar wart of right foot(L91.8) Skin tagPlan:1. Patient was seen and evaluated.2. Patient was instructed on the continued importance of diabetic footcare along with proper diet and keeping their blood sugar under control toprevent complications.3. Patient has wart to right midfoot. This was sharply debrided with 15blade and tca applied. Patient informed of risk of blistering. He is toapply wart cream otc to his foot but be cautious about blistering. Hisleft foot wart healed nicely with conservative care and hope that hisright foot will have similar success. If not, this can be cut out.4. He has lesion to right forefoot that resembles skin tag. It does notappear verruca. Discussed referral to dermatology for 2nd opinionregarding this. He is going to think about this. He had bad experiencewith dermatology where he did not feel comfortable. Another option wouldbe to perform surgical removal of this lesion for biopsy or monitor. Heis going to monitor.5. F/u in 2 weeksLele Marshall DPM Normal [facility] Encounters Encounter Date Encounter Type Care Provider Facility Start: 06-12-2017 End: 06-13-2017 Patient encounter procedure LELE MARSHALL [facility] Start: 05-22-2017 End: 05-23-2017 Patient encounter procedure LELE MARSHALL [facility] Start: 05-01-2017 End: 05-08-2017 Patient encounter procedure LELE MARSHALL [facility] Summary Purpose Family History No Family History Records Found Advance Directives No Advanced Directives Records Found Additional Source Comments (unrecognized sect ion and content) No Status Records Found INFORMATION SOURCE (unrecogn ized section and content) DATE CREATED AUTHOR 03/19/2018 [facility] FOR RECORDS PERTAINING TO PATIENTS WHO ARE [...] BE BASED ON THE PRIMARY CLINICAL RECORDS. [employer] [facility]. provides no warranty or guarantee of the accuracy or completeness of information in this document.
--- NOTE | 2024-01-05 06:47 | PRE.ANES_ITS ---
ASA Classification* ASA Classification ASA Classification: 2 Assessment & Plan Anesthesia* Anesthesia Assessment Anesthesia Assessment: Discussed sedation and/or anesthesia options, risks, benefits, and alternatives with patient/parents/legal guardian/POA. Questions invited. The patient/parents/legal guardian/POA seems to understand and agrees to proceed with anesthesia plan. Reviewed the physical assessment, medical history, allergy history and patient home medications list prior to surgery/procedure/anesthetic and documented any changes. Performed airway and anesthesia risk assessments. Anesthesia Type Anesthesia Type: MAC Anesthesia Focused Assessment* Airway Assessment Mouth opens: >3 cm Mallampati Score: II Focused Labs Anesthesia Preop lab: CBC WBC 7.3 K/mm3 (4.4-11.0) 09/26/23 09:02 RBC 5.12 M/mm3 (4.6-6.2) 09/26/23 09:02 Hgb 15.4 g/dL (13.0-16.5) 09/26/23 09:02 Hct 44.8 % (40-54) 09/26/23 09:02 Plt Count 250 K/mm3 (150-450) 09/26/23 09:02 CHEMISTRY Potassium 4.5 mmol/L (3.5-5.1) 09/26/23 09:02 Sodium 137 mmol/L (136-145) 09/26/23 09:02 BUN 22 mg/dL (7-18) H 09/26/23 09:02 Creatinine 1.16 mg/dL (0.70-1.30) 09/26/23 09:02 Glucose 127 mg/dL (74-106) H 09/26/23 09:02 POC Glucose 215 mg/dL (70-110) H 12/06/20 12:21 TSH 1.28 uIU/mL (0.358-3.74) 04/25/20 08:32 COAG Pre-Assessment Diagnosis/Proposed Procedure Planned Operative Procedure(s): CSCOPE OA Anesthesia History 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 When Was Last Pacemaker Check QUESTION #4 FULL TEXT: You/Your Family Experience fever (hyperthermia) with Anesthesia Last Oral Intake Last Oral intake: Last Oral Intake NPO since Meds taken in AM with sips of water? Meds patient instructed to take am of surgery PONV PONV - real estate transaction coordinator: PONV - real estate transaction coordinator Female No 01/02/24 11:18 HX of Motion Sickness Yes 01/02/24 11:18 HX of N/V After Surgery No 01/02/24 11:18 Non-Smoker Yes 01/02/24 11:18 Duration of Surgery greater No 01/02/24 11:18 than 60 minutes Number of Risk Factors 2 01/02/24 11:18 PONV Score Moderate Risk 01/02/24 11:18 Height & Weight Height & Weight: Anesthesia: Height & Weight Height 6 ft 1 in 12/17/23 11:06 Respiratory Assessment Respiratory Assessment - real estate transaction coordinator: Respiratory Tract Infection Hx - real estate transaction coordinator Hx Respiratory Tract Infection No 01/02/24 11:18 STOP Sleep Apnea STOP Sleep Apnea - real estate transaction coordinator: STOP Sleep Apnea - real estate transaction coordinator Hx Hypertension Yes: CONTROLLED WITH MEDS 01/02/24 11:18 Hx Sleep Apnea Yes 01/02/24 11:18 CPAP Yes 01/02/24 11:18 BIPAP No 01/02/24 11:18 Do you snore loudly (louder than talking or can be heard Do you often feel tired/ fatigued/ sleepy during daytime? Has anyone observed you stop breathing during sleep? STOP Results Positive 01/02/24 11:18 QUESTION #5 FULL TEXT : Do you snore loudly (louder than talking or can be heard through closed doors)? 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 Specify any problems Hx of Preganancy in last 3 N/A 01/02/24 11:18 Months Nurse Filling Out Transfusion DSCHRIBER 01/02/24 11:18 & Questions: Date: 01/02/24 01/02/24 11:18 Time: 11:20 01/02/24 11:18 Patient unable to answer at this time (ie. confused, unrespo /Reproduction History /Reproductive History - real estate transaction coordinator: /Reproductive Hx- real estate transaction coordinator Hx Now No 01/02/24 11:18 Gestational Age (in weeks): EDC: Hx Hx Para Hx Section SAB No 01/02/24 11:18 PFSH Medical History Wears hearing aid Heartburn History of echocardiogram Personal history of colonic polyps CKD (chronic kidney disease), stage III Flu vaccine need Wears hearing aid in both ears Diabetic neuropathy Left elbow pain Dizziness Cardiac murmur Right ear impacted cerumen Sore throat Hyperlipidemia Health care maintenance Hypertension Type 2 diabetes mellitus Wears glasses Cancer Insulin dependent diabetes mellitus Prostate disease High cholesterol Dietary restriction Former smoker CPAP (continuous positive airway pressure) dependence Leg cramps History of pain when walking History of stress test Cardiology follow-up encounter Hypertension Home Medications ?Medication ?Instructions ?Recorded ?Last Taken ?Type aspirin 81 mg tablet,delayed 81 mg PO DAILY@0800 12/23/18 01/02/24 History release cholecalciferol (vitamin D3) 125 125 mcg PO DAILY 11/29/20 Unknown History mcg (5,000 unit) tablet (Vitamin D3) multivitamin 1 cap PO DAILY 11/29/20 01/04/24 History blood sugar diagnostic (FreeStyle #200 strips 02/05/22 Unknown Rx Lite Strips) flash glucose scanning reader #1 ea 06/17/22 Unknown Rx (FreeStyle Trent 14 Day [place]) flash glucose sensor (FreeStyle #2 ea 06/17/22 Unknown Rx Trent 2 Sensor kit) amlodipine 10 mg tablet 10 mg PO DAILY #90 tabs 04/30/23 01/05/24 Rx insulin aspart U-100 100 unit/mL 20 unit (0.2 mL) subcut TIDCM 06/30/23 Unknown Rx (3 mL) subcutaneous pen SLIDING SCALE 3 months #54 mL empagliflozin 25 mg tablet 25 mg PO QAM #90 tabs 08/25/23 Unknown Rx (Jardiance) pen needle, diabetic 29 gauge x #100 ea 09/04/23 Unknown Rx 1/2 (BD Ultra-Fine Original Pen Needle) metoprolol tartrate 25 mg tablet 25 mg PO BID #180 tabs 09/15/23 01/05/24 Rx metformin 500 mg tablet,extended 1,000 mg (2 x 500 mg) PO BID #360 11/11/23 01/04/24 Rx release 24 hr tabs atorvastatin 10 mg tablet 10 mg PO QHS 01/02/24 01/04/24 History insulin glargine 100 unit/mL (3 40 unit subcut QHS 01/02/24 Unknown History mL) subcutaneous pen (Lantus Solostar U-100 Insulin) lisinopril 40 mg tablet 40 mg PO DAILY 01/02/24 01/05/24 History tirzepatide 5 mg/0.5 mL 5 mg subcut TU 01/02/24 12/23/23 History subcutaneous pen injector (Mounjaro) Allergy/AdvReac Type Severity Reaction Status Date / Time No Known Allergies Allergy Verified 01/05/24 06:44 Family History Grandmother Colon cancer Father Cancer Mother Diabetes Uterine cancer Grandfather Diabetes Brother Kidney disease Surgical History History of cataract surgery History of prostate surgery Hx of appendectomy Hx laparoscopic cholecystectomy History of colonoscopy Social History household members: spouse and children current occupational status: retired Smoking Status: Former smoker alcohol intake: current alcohol intake frequency: holidays/special occasions only substance use type: does not use what type of physical activity do you participate in: none Review of Systems (Anesthesia) ROS Narrative System reviewed and no additional complaints, except as documented.
[2024-01-05 06:49] VITALS: BP 98/56; PULSE 74; RESP 16; TEMP 36.1; O2SAT 100; BMI 29.9
[2024-01-05 07:14] LABS: Bedside Glucose 134 mg/dL (74-106)
--- NOTE | 2024-01-05 07:28 | PCM.HP.STD ---
[facility] - General General Date of Admission: 01/05/24 Date of Service: 01/05/24 Chief Complaint: Surveillance colonoscopy HPI Narrative DEBORAH GARZA, is a 68 M who presents today for surveillance colonoscopy. He has a past medical history of prostate cancer, CKD D stage III, diabetes who underwent colonoscopy approximately 5 years ago when discovered to have 2 adenomatous polyps that were removed. He comes in today for surveillance colonoscopy. [facility] Medical History Wears hearing aid Heartburn History of echocardiogram Personal history of colonic polyps CKD (chronic kidney disease), stage III Flu vaccine need Wears hearing aid in both ears Diabetic neuropathy Left elbow pain Dizziness Cardiac murmur Right ear impacted cerumen Sore throat Hyperlipidemia Health care maintenance Hypertension Type 2 diabetes mellitus Wears glasses Cancer Insulin dependent diabetes mellitus Prostate disease High cholesterol Dietary restriction Former smoker CPAP (continuous positive airway pressure) dependence Leg cramps History of pain when walking History of stress test Cardiology follow-up encounter Hypertension Home Medications ?Medication ?Instructions ?Recorded ?Last Taken ?Type aspirin 81 mg tablet,delayed 81 mg PO DAILY@0800 12/23/18 01/02/24 History release cholecalciferol (vitamin D3) 125 125 mcg PO DAILY 11/29/20 Unknown History mcg (5,000 unit) tablet (Vitamin D3) multivitamin 1 cap PO DAILY 11/29/20 01/04/24 History blood sugar diagnostic (FreeStyle #200 strips 02/05/22 Unknown Rx Lite Strips) flash glucose scanning reader #1 ea 06/17/22 Unknown Rx (FreeStyle Trent 14 Day [place]) flash glucose sensor (FreeStyle #2 ea 06/17/22 Unknown Rx Trent 2 Sensor kit) amlodipine 10 mg tablet 10 mg PO DAILY #90 tabs 04/30/23 01/05/24 Rx insulin aspart U-100 100 unit/mL 20 unit (0.2 mL) subcut TIDCM 06/30/23 Unknown Rx (3 mL) subcutaneous pen SLIDING SCALE 3 months #54 mL empagliflozin 25 mg tablet 25 mg PO QAM #90 tabs 08/25/23 Unknown Rx (Jardiance) pen needle, diabetic 29 gauge x #100 ea 09/04/23 Unknown Rx 1/2 (BD Ultra-Fine Original Pen Needle) metoprolol tartrate 25 mg tablet 25 mg PO BID #180 tabs 09/15/23 01/05/24 Rx metformin 500 mg tablet,extended 1,000 mg (2 x 500 mg) PO BID #360 11/11/23 01/04/24 Rx release 24 hr tabs atorvastatin 10 mg tablet 10 mg PO QHS 01/02/24 01/04/24 History insulin glargine 100 unit/mL (3 40 unit subcut QHS 01/02/24 Unknown History mL) subcutaneous pen (Lantus Solostar U-100 Insulin) lisinopril 40 mg tablet 40 mg PO DAILY 01/02/24 01/05/24 History tirzepatide 5 mg/0.5 mL 5 mg subcut TU 01/02/24 12/23/23 History subcutaneous pen injector (Mounjaro) Allergy/AdvReac Type Severity Reaction Status Date / Time No Known Allergies Allergy Verified 01/05/24 06:44 Family History Grandmother Colon cancer Father Cancer Mother Diabetes Uterine cancer Grandfather Diabetes Brother Kidney disease Surgical History History of cataract surgery History of prostate surgery Hx of appendectomy Hx laparoscopic cholecystectomy History of colonoscopy Social History household members: spouse and children current occupational status: retired Smoking Status: Former smoker alcohol intake: current alcohol intake frequency: holidays/special occasions only substance use type: does not use what type of physical activity do you participate in: none ROS Review of Systems ROS Unobtainable: other Constitutional Constitutional: Denies fatigue, fever(s), poor appetite, weight gain or weight loss ENT HEENT: Denies mouth lesions Cardiovascular Cardiovascular: Denies abdominal bloating, abdominal edema or abdominal pain Respiratory/Chest Respiratory/Chest: Denies change in mental status, change in phlegm color, chest congestion or chest tightness Gastrointestinal Gastrointestinal: Denies belching, bloating, change in bowel habits, change in stool character, chewing difficulty, coffee ground emesis, constipation, cramping, diarrhea, dyspepsia, dysphagia, early satiety, excessive flatus, fecal incontinence, heartburn, hematemesis, hematochezia, hemorrhoids, loose stools, melena, nausea, odynophagia, rectal bleeding, tenesmus, vomiting or weight changes Genitourinary Genitourinary: Denies abdominal discomfort, burning urination or itching Musculoskeletal Musculoskeletal: Reports as per HPI; Denies muscle weakness or myalgias Integumentary Integumentary: Denies jaundice Neurologic Neurologic: Denies lack of coordination or weakness Psychiatric Psychiatric: Denies confusion, depression, memory loss, mood swings, paranoia or suicidal ideation Endocrine Endocrinology: Denies systems reviewed and no addt'l complaints, except as documented Hematologic/Lymphatic Hematologic/Lymphatic: Denies anemia, easy bleeding, easy bruising or lymphadenopathy Allergic/Immunologic Allergic/Immunologic: Denies systems reviewed and no addt'l complaints, except as documented Vital Signs Vital Signs Vital Signs: 01/05/24 06:49 01/05/24 06:49 Temperature 97 F L Temperature Source Temporal Pulse Rate 74 Respiratory Rate 16 Respiratory Pattern Normal Blood Pressure 98/56 L Blood Pressure Mean 70 Blood Pressure Source Monitor Blood Pressure Position Semi-Fowlers Blood Pressure Location Left Arm Pulse Ox 100 Oxygen Delivery Method Room Air Weight Weight: 220 lb 14.451 oz Body Mass Index (BMI) 29.9 Physical Exam Const alert, oriented x3, no apparent distress, healthy appearing and well nourished General Appearance: cooperative, comfortable, well kempt and well developed Orientation / Consciousness: awake and oriented to person HEENT Head and Scalp: normocephalic and atraumatic Face and Sinus: normal facial exam Mouth: oral and palatal mucosa normal Eyes General Eye: normal appearance of both eyes Neck full ROM Lymph Lymphatic: no lymphadenopathy noted Chest inspection of chest normal Resp normal respiratory effort and no use of accessory muscles Cardio regular rate and regular rhythm GI normal to inspection, nondistended, normoactive bowel sounds, soft to palpation, non-tender, non-distended and no masses Auscultation: normoactive bowel sounds Palpation: soft Percussion: normal to percussion Rectal Exam: visual inspection normal and normal sphincter tone no CVA tenderness Back/Spine no CVA tenderness and normal ROM Extremity normal to inspection Peripheral Pulses: Yes pulses 2+ throughout Skin no rashes or lesions noted General Skin Exam: no breakdown, elasticity normal and turgor normal Neuro oriented x3 Motor Exam: strength 5/5 throughout Psych mental status grossly normal Appearance: grossly normal Attitude: calm Activity / Motor Behavior: appropriate eye contact Speech: normal speech Thought Process: normal thought process Thought Content: normal thought content Attention / Concentration: attention grossly intact Memory / Cognition: memory grossly intact Insight: insight good Judgement: judgement good Results Lab / Micro Data Labs: Laboratory Results - last 24 hr 01/05/24 06:47: POC Glucose 134 H Assessment & Plan Assessment/Plan (1) Encounter for screening for malignant neoplasm of colon: PLAN: He will undergo surveillance colonoscopy. He was explained alternatives, risk, benefits include not withstanding bleeding, infection, sepsis, perforation, need for emergent surgery and . He will have an ASA of 3.
--- NOTE | 2024-01-05 07:30 | COLBX_PTH ---
PATHOLOGY RESULTS PATIENT: DEBORAH GARZA LOC: EN U#:[id number] AGE/SX: 68/M ROOM: RE01/05/[address]: Dr. Nick Stephens DO : 1955 BED: DIS: 01/05/2024 SPEC #: [id number] RECD: 01/05/24 12:06 STATUS: TREV JULIAN #: [id number] NOELLE: 01/05/24 07:[address]: Nick Stephens DEPT: SURGICAL PATHOLOGY RECD BY: Luz Goss ENTERED: 01/05/24 12:47 SP TYPE: COLON BX OT DR: Dr. Erinn Suh MD Tissues: Transverse colon Procedures: Surgery Specimen Level IV HEADER OPERATION: Colonoscopy PRE-OP DIAGNOSIS: Encounter for screening for malignant neoplasm of colon TISSUE SUBMITTED: Transverse colon polyp biopsy MICROSCOPIC DIAGNOSIS Transverse colon polyp, biopsy: A fragment of colonic mucosa with minimal adenomatous changes. 01/06/2024 MICROSCOPIC DESCRIPTION Slides are reviewed. GROSS DESCRIPTION Received in fixative is one container labeled with the patient's name and designated Transverse colon polyp biopsy. The specimen consists of one irregular fragment of light jean-baptiste soft tissue that measure 0.5 x 0.5 x 0.1 cm. The specimen is totally submitted in one cassette. 01/05/2024 TC:5 CPT:60408
--- NOTE | 2024-01-05 08:02 | NURSING ---
heart murmur heard on auscultation in ac, pre op. on patient's history
--- NOTE | 2024-01-05 08:09 | OP.COLON_ITS ---
Patient Name: Abdirahman Keith Procedure Date: 01/05/2024 7:35 AM Date of : 1955 Age: 68 Procedure: Colonoscopy Indications: High risk colon cancer surveillance: Personal history of colonic polyps Providers: Nick Stephens DO Referring MD: Erinn Suh MD Medicines: Monitored Anesthesia Care Patient Profile: This is a 68 year old male. Refer to note in patient chart for documentation of history and physical. Last Colonoscopy: 5 years ago. Complications: No immediate complications. Procedure: Pre-Anesthesia Assessment: - Prior to the procedure, a History and Physical was performed, and patient medications and allergies were reviewed. The patient is competent. The risks and benefits of the procedure and the sedation options and risks were discussed with the patient. All questions were answered and informed consent was obtained. Patient identification and proposed procedure were verified by the physician in the pre-procedure area. Mental Status Examination: alert and oriented. Airway Examination: normal oropharyngeal airway and neck mobility. Respiratory Examination: clear to auscultation. CV Examination: normal. Prophylactic Antibiotics: The patient does not require prophylactic antibiotics. Prior Anticoagulants: The patient has taken no anticoagulant or antiplatelet agents except for NSAID medication. ASA Grade Assessment: II - A patient with mild systemic disease. After reviewing the risks and benefits, the patient was deemed in satisfactory condition to undergo the procedure. The anesthesia plan was to use monitored anesthesia care (MAC). Immediately prior to administration of medications, the patient was re-assessed for adequacy to receive sedatives. The heart rate, respiratory rate, oxygen saturations, blood pressure, adequacy of pulmonary ventilation, and response to care were monitored throughout the procedure. The physical status of the patient was re-assessed after the procedure. After I obtained informed consent, the scope was passed under direct vision. Throughout the procedure, the patient's blood pressure, pulse, and oxygen saturations were monitored continuously. The colonoscope was introduced through the anus and advanced to the cecum, identified by appendiceal orifice and ileocecal valve. The colonoscopy was performed without difficulty. The patient tolerated the procedure well. The quality of the bowel preparation was adequate. The ileocecal valve, appendiceal orifice, and rectum were photographed. Scope In: 7:46:20 AM Scope Withdrawal Time 0 hours 13 minutes 26 seconds Scope Out: 8:04:25 AM Total Procedure Duration Time 0 hours 18 minutes 5 seconds Findings: The perianal and digital rectal examinations were normal. A 5 mm polyp was found in the transverse colon. The polyp was sessile. The polyp was removed with a cold biopsy forceps. Resection and retrieval were complete. Verification of patient identification for the specimen was done. Estimated blood loss was minimal. Three small-mouthed diverticula were found in the sigmoid colon. The exam was otherwise without abnormality on direct and retroflexion views. Non-bleeding internal hemorrhoids were found during retroflexion. The hemorrhoids were Grade II (internal hemorrhoids that prolapse but reduce spontaneously). Impression: - One 5 mm polyp in the transverse colon, removed with a cold biopsy forceps. Resected and retrieved. - Diverticulosis in the sigmoid colon. - The examination was otherwise normal on direct and retroflexion views. Recommendation: - Discharge patient to home. - Resume previous diet. - Continue present medications. - Await pathology results. - Repeat colonoscopy in 5 years for surveillance. Procedure Code(s): --- Professional --- 08557, Colonoscopy, flexible; with biopsy, single or multiple CPT copyright 2021 [employer]. All rights reserved. The codes documented in this report are preliminary and upon lamp developer review may be revised to meet current compliance requirements. Nick Stephens DO 01/05/2024 8:09:08 AM This report has been signed electronically. Number of Addenda: 0 Note Initiated On: 01/05/2024 7:35 AM
--- NOTE | 2024-01-05 08:09 | OP.CCLET_ITS ---
01/05/2024 Erinn Suh MD [address] [place] [address] Re : Colonoscopy procedure for Abdirahman Keith Dear Dr. Suh This procedure was performed on Friday, January 05, 2024. My impressions and recommendations are as follows: Impressions : - One 5 mm polyp in the transverse colon, removed with a cold biopsy forceps. Resected and retrieved. - Diverticulosis in the sigmoid colon. - The examination was otherwise normal on direct and retroflexion views. Recommendations : - Discharge patient to home. - Resume previous diet. - Continue present medications. - Await pathology results. - Repeat colonoscopy in 5 years for surveillance. My findings are described in the full procedure note, which is enclosed. If I can be of further assistance, please feel free to contact me at . Sincerely, Nick Stephens, 01/05/2024 8:09:08 AM This report has been signed electronically.
[2024-01-05 08:10] VITALS: BP 77/54; BP 98/56; PULSE 67; RESP 16; TEMP 36.3; O2SAT 98
--- NOTE | 2024-01-05 08:12 | PCM.POST.ANE ---
Anesthesia: Postop Eval I Current Vital Signs Temperature: 97.2 F Pulse Rate: 68 Blood Pressure: 77/54 Respiratory Rate: 16 Pulse Ox: 97 Oxygen Delivery Method: Room Air Assessment Airway patent: Yes Spontaneous unlabored respirations: Yes Mental status: Awake and Calm nausea: No Vomiting: No Anesthesia Complication: No Fluid Hydration Crystalloid volume administer (ml): 30 Total IV fluid infused: 30 Progress Note Anesthesia document: Postop Eval 1 completed: Yes
[2024-01-05 08:13] VITALS: BP 77/54; PULSE 68; RESP 16; TEMP 36.2; O2SAT 97
[2024-01-05 08:15] VITALS: BP 85/59; BP 98/56; PULSE 66; RESP 16; O2SAT 98
[2024-01-05 08:20] VITALS: BP 93/59; BP 98/56; PULSE 67; RESP 16; TEMP 36.1; O2SAT 98
[2024-01-05 08:36] VITALS: BP 98/56
--- NOTE | 2024-01-05 08:52 | PCM.POSTANE2 ---
Anesthesia Postop Eval I Sum Postop Eval Completion status Anesthesia document: Postop Eval 1 completed: Yes Anesthesia Postop Eval I Summary Anesthesia Postop Eval I Summary: Anesthesia Postop Eval I: Assessment Summary Airway patent Yes 01/05/24 08:13 [email or web address] Spontaneous unlabored Yes 01/05/24 08:13 [email or web address] respirations Mental status Awake,Calm 01/05/24 08:13 [email or web address] nausea No 01/05/24 08:13 [email or web address] Vomiting No 01/05/24 08:13 [email or web address] Anesthesia Postop Eval I: Fluid Summary Crystalloid volume administer 30 01/05/24 08:13 [email or web address] (ml) Colloids volume administered ( ml) Blood Product volume administered (ml) Total IV fluid infused 30 01/05/24 08:13 [email or web address] Anesthesia Postop Eval I: Summary Notes Anesthesia Complication No 01/05/24 08:13 [email or web address] Anesthesia Complication Comment: Post-operative progress note Anesthesia: Postop Eval II Evaluation Mental status: Awake Pain Level: 0 nausea: No Vomiting: No
== END 2024-01-05 08:49 | disposition home or self-care (01) ==
LOC: EN 06:21 → AC 06:22
PROVIDERS: PCP Internal Medicine; Referring Provider Internal Medicine; Visit Provider Internal Medicine Gastroenterology
PROC: 0DJD8ZZ Inspection of Lower Intestinal Tract, Via Natural or Artificial Opening Endoscopic (ICD-10-PCS; CPT 45378; principal; 2024-01-05 07:25)
DX: Z12.11 Encounter for screening for malignant neoplasm of colon (principal); E11.22 Type 2 diabetes mellitus with diabetic chronic kidney disease; E11.40 Type 2 diabetes mellitus with diabetic neuropathy, unspecified; Z79.4 Long term (current) use of insulin; N18.30 Chronic kidney disease, stage 3 unspecified; E78.00 Pure hypercholesterolemia, unspecified; K63.5 Polyp of colon; K64.1 Second degree hemorrhoids; Z79.85 Long-term (current) use of injectable non-insulin antidiabetic drugs; Z79.84 Long term (current) use of oral hypoglycemic drugs; I12.9 Hypertensive chronic kidney disease with stage 1 through stage 4 chronic kidney disease, or unspecified chronic kidney disease; K57.30 Diverticulosis of large intestine without perforation or abscess without bleeding; Z87.891 Personal history of nicotine dependence; Z86.0100 Personal history of colon polyps, unspecified; Z79.82 Long term (current) use of aspirin; Z90.49 Acquired absence of other specified parts of digestive tract
CPT/HCPCS: 45380; 82962; 88305; A4216; J2405

== ENCOUNTER → 2024-03-24 | Outpatient (CLI) | payer MEDICARE, OTHER, SELFPAY ==
[2024-03-24 15:16] LABS: Absolute Lymphocyte Count 1.61 X10^3/uL (0.83-4.51); Absolute Neutrophil Count 5.2 X10^3/uL (2.0-7.7); Basophil# 0.05 X10^3/uL; Basophil% 0.7 % (0-1); Eosinophil# 0.29 X10^3/uL; Eosinophils% 3.8 % (0-5); Hematocrit 46.5 % (40-54); Hemoglobin 15.9 g/dL (13.0-16.5); Lymphocyte # 1.61 X10^3/ul (0.83-4.51); Lymphocyte % 21.1 % (19-41); Mean Corp Hgb Conc 34.2 g/dL (32-36); Mean Corpuscular Hgb 30.5 pg (27.0-32.0); Mean Corpuscular Volume 89.1 fL (80-94); Mean Platelet Vol. 11.2 fl (6.2-12.0); Monocyte# 0.44 X10^3/uL; Monocyte% 5.8 % (0-10); NRBC Flagged by Analyzer 0 % (0-5); Neutrophil # 5.21 X10^3/uL (2.7-7.7); Neutrophil % 68.2 % (47-70); Platelet Count 255 K/mm3 (150-450); RBC Distribution Width CV 12.3 % (11.6-14.6); RBC Distribution Width SD 39.8 fl (35.1-43.9); Red Blood Count 5.22 M/mm3 (4.6-6.2); White Blood Count 7.6 K/mm3 (4.4-11.0)
[2024-03-24 15:42] LABS: ALB/GLOB Ratio 1.1 RATIO (0.9-2.4); AST(SGOT) 20 U/L (15-37); Alanine Aminotransfer ALT/SGPT 33 U/L (16-61); Alkaline Phosphatase 73 U/L (45-117); Anion Gap 6 (5-15); BUN 19 mg/dL (7-18); Calcium,Total 9.7 mg/dL (8.5-10.1); Chloride 105 mmol/L (98-107); Cholesterol 130 mg/dL (200); Creatinine, Serum 1.19 mg/dL (0.70-1.30); EST Glomerular Filtration Rate 64 mL/min (>60); Est Glom Filt Rate - Afr Amer 78 mL/min (>60); Globulin 3.6 g/dL (2.2-4.2); Glucose 106 mg/dL (74-106); High Density Lipoprotein 32 mg/dL; PSA,Total- Diagnostic < 0.01 ng/mL (0.0-4.0); Potassium 4.7 mmol/L (3.5-5.1); Protein, Total 7.6 g/dL (6.4-8.2); Sodium Level 141 mmol/L (136-145); Triglycerides 175 mg/dL; Very Low Density Lipoprotein 35 mg/dL (5-40)
== END | disposition home or self-care (01) ==
LOC: BIMLAB 11:30
PROVIDERS: PCP Internal Medicine; Referring Provider Internal Medicine; Visit Provider Internal Medicine
DX: E11.22 Type 2 diabetes mellitus with diabetic chronic kidney disease (principal); C61 Malignant neoplasm of prostate; N18.30 Chronic kidney disease, stage 3 unspecified; E78.5 Hyperlipidemia, unspecified
CPT/HCPCS: 36415; 80053; 80061; 84153; 85025

== ENCOUNTER → 2024-11-24 | Outpatient (CLI) | payer MEDICARE, OTHER, SELFPAY ==
[2024-11-24 11:14] LABS: Hematocrit 43.9 % (40-54); Hemoglobin 15.3 g/dL (13.0-16.5); Immature Granulocytes Count 0.010 X10^3/uL (0.0-0.0); Mean Corp Hgb Conc 34.9 g/dL (32-36); Mean Corpuscular Volume 90.7 fL (80-94); Mean Platelet Vol. 10.0 fl (6.2-12.0); NRBC Flagged by Analyzer 0 % (0-5); Platelet Count 259 K/mm3 (150-450); RBC Distribution Width CV 12.5 % (11.6-14.6); RBC Distribution Width SD 41.2 fl (35.1-43.9); Red Blood Count 4.84 M/mm3 (4.6-6.2); White Blood Count 7.0 K/mm3 (4.4-11.0)
[2024-11-24 11:41] LABS: Anion Gap 11 (5-15); BUN 19 mg/dL (4-19); BUN/Creat Ratio 15.5 RATIO (10-20); Calcium,Total 10.0 mg/dL (7.6-11.0); Carbon Dioxide 26.4 mmol/L (21.0-32.0); Chloride 105 mmol/L (98-108); Glucose 104 mg/dL (70-99); Potassium 4.9 mmol/L (3.3-5.1)
--- OUTSIDE RECORDS SUMMARY | 2024-11-24 17:21 | XMS RPT_ITS | CCD ---
Author Organization [facility] Care Team Providers Care Profiler Hand Name Role Phone TESTRAKE, LELE Unavailable Unavailable TESTRAKE, LELE Unavailable Unavailable TESTRAKE, LELE Unavailable Unavailable Dr. Erinn Suh Primary Care Provider [phone]) Dr. Erinn Suh Attending Provider [phone])2 Dr. rEinn Suh Referring Provider [phone])2 JOSEPH Krishnamurthy Attending Provider Unavailab Dr. Erinn Cazares Primary Care Provider 1(33 0) Dr. Erinn Suh Referring Provider [phone])2 Dr. Erinn Suh Primary Care Provider 1(33 0) Dr. Erinn Suh Attending Provider 1(330)2 Dr. Erinn Suh Referring Provider 1(330)2 Dr. Chepe Do Attending Provider [phone])- Dr. Erinn Suh Primary Care Provider 1(33 0) Dr. Erinn Suh Attending Provider 1(330)2 Dr. Erinn Suh Referring Provider 1(330)2 Dr. Erinn Suh Primary Care Provider 1(33 0) Dr. Erinn Suh Attending Provider 1(330)2 Dr. Erinn Suh Referring Provider 1(330)2 Dr. Erinn Suh Primary Care Provider 1(33 0) Dr. Erinn Suh Attending Provider [phone])2 Anegli, Dr. Plasencia Referring Provider 1(330)2 Angeli, Dr. Plasencia Primary Care Provider 1(33 0) Angeli, Dr. Plasencia Attending Provider 1(330)2 Angeli, Dr. Plasencia Referring Provider 1(330)2 Angeli, Dr. Plasencia Primary Care Provider 1(33 0) Angeli, Dr. Plasencia Attending Provider [phone])2 Angeli, Dr. Plasencia Referring Provider [phone])2 Roof TOY DESIGNER, TOY DESIGNER-Martha Redd Attending Provider [phone] Angeli [place], Dr. Plasencia Primary Care Provider Angeli [place], Dr. Plasencia Attending Provider 1(33 0) Angeli [place], Dr. Plasencia Referring Provider 1(33 0) Oleghe, Efewongbe Primary Care Unavailable Friend, Nick Consulting Unavailable Friend, Nick Attending Unavailable Oleghe, Efewongbe Referring Unavailable Oleghe, Efewongbe Primary Care Unavailable Oleghe, Efewongbe Attending Unavailable Oleghe, Efewongbe Referring Unavailable Oleghe, Efewongbe Primary Care Unavailable Oleghe, Efewongbe Attending Unavailable Oleghe, Efewongbe Referring Unavailable Oleghe, Efewongbe Attending Unavailable Oleghe, Efewongbe Primary Care Unavailable Oleghe, Efewongbe Referring Unavailable Oleghe, Efewongbe Primary Care Unavailable Oleghe, Efewongbe Attending Unavailable Oleghe, Efewongbe Referring Unavailable Oleghe, Efewongbe Referring Unavailable Oleghe, Efewongbe Primary Care Unavailable Hi, Chepe Attending Unavailable Oleghe, Efewongbe Referring Unavailable Oleghe, Efewongbe Primary Care Unavailable Friend, Nick Attending Unavailable Oleghe, Efewongbe Primary Care Unavailable Taft, Ria Attending Unavailable TaftRia Referring Unavailable Oleghe, Efewongbe Primary Care Unavailable Oleghe, Efewongbe Attending Unavailable Erinn Suh Referring Unavailable Erinn Suh Attending Unavailable Erinn Suh Primary Care Unavailable Germaine Tirado Attending Unavailable Angeli [place], Dr. Plasencia Primary Care Physician Dr. Erinn Suh MD Attending Physician [phone] Dr. Erinn Suh MD Referring Provider [phone] Dr. Chepe Do MD Attending Physician [phone] Medications Current Medications Medication Drug Class(es) Dates Sig (Normalized) Sig (Original) amLODIPine 5 mg oral tablet (20 sources) Dihydropyridine Calcium Channel Oxana Start: 09-24-2024 End: 09-27-2024 take 1 tablet by mouth once daily Amlodipine 5 mg tablet Active 5 mg PO DAILY 90 1 September 27, 2024 7:39am Complies with drug therapy Start: 05-30-2021 End: 09-24-2024 take 1 tablet by mouth once daily Amlodipine 10 mg tablet Discontinued 10 mg PO DAILY 90 0 April 26, 2024 12:56pm September 24, 2024 9:46am aspirin 81 mg delayed release oral tablet (11 sources) Platelet Aggregation Inhibitor, Nonsteroidal Anti-inflammatory Drug Start: 12-23-2018 take 1 tablet by mouth once daily Aspirin 81 MG tablet Active 81 mg PO DAILY@0800 December 23, 2018 12:00am Complies with drug therapy cholecalciferol 0.125 mg oral tablet (11 sources) Vitamin D Start: 11-29-2020 take 1 tablet by mouth once daily Cholecalciferol (Vitamin D3) (Vitamin D3) 125 mcg (5,000 unit) Tablet Active 125 ug PO DAILY November 29, 2020 12:00am Complies with drug therapy empagliflozin 25 mg oral tablet (6 sources) Sodium-Glucose Cotransporter 2 Inhibitor Start: 08-25-2023 End: 01-26-2024 take 1 tablet by mouth once daily in the morning Empagliflozin (Jardiance) 25 mg tablet Active 25 mg PO EVERY MORNING 90 3 January 26, 2024 6:00pm Complies with drug therapy Start: 07-07-2023 End: 08-25-2023 Empagliflozin (Jardiance) 25 mg tablet Discontinued 25 mg PO EVERY MORNING 30 July 07, 2023 12:00am August 25, 2023 4:00pm Take 1/2 tablet daily x 1 week then increase to 1 tablet Flash Glucose Scanning Reade r (Freestyle Trent 14 Day Mitchell) misc (16 sources) Start: 06-17-2022 Flash Glucose Scanning Mitchell (Freestyle Trent 14 Day Mitchell) misc Active 0 .Route 1 3 June 17, 2022 5:17pm As directed Start: 06-17-2022 Flash Glucose Scanning Mitchell (Freestyle Trent 14 Day Mitchell) misc Active 0 .Route 1 June 17, 2022 4:17pm As directed Start: 06-17-2022 Flash Glucose Scanning Mitchell (Freestyle Trent 14 Day Mitchell) misc Active 0 .Route 1 June 17, 2022 5:17pm As directed Start: 04-18-2022 End: 06-17-2022 Flash Glucose Scanning Reade r (Freestyle Trent 14 Day Mitchell) misc Discontinued 0 .Route 1 3 April 18, 2022 1:00am June 17, 2022 1:26pm As directed Start: 04-18-2022 End: 06-17-2022 Flash Glucose Scanning Reade r (Freestyle Trent 14 Day Mitchell) misc Discontinued 0 .Route 1 April 18, 2022 12:00am June 17, 2022 12:26pm As directed Start: 04-18-2022 End: 06-17-2022 Flash Glucose Scanning Reade r (Freestyle Trent 14 Day Mitchell) misc Discontinued 0 .Route 1 April 18, 2022 1:00am June 17, 2022 1:26pm As directed Flash Glucose Sensor (Freest yle Trent 2 Sensor) kit (20 sources) Start: 06-17-2022 Flash Glucose Sensor (Freestyle Trent 2 Sensor) kit Active 0 .Route 2 3 June 17, 2022 5:17pm As directed Start: 06-17-2022 Flash Glucose Sensor (Freestyle Trent 2 Sensor) kit Active 0 .Route 2 June 17, 2022 4:17pm As directed Start: 06-17-2022 Flash Glucose Sensor (Freestyle Trent 2 Sensor) kit Active 0 .Route 2 June 17, 2022 5:17pm As directed Start: 05-06-2022 End: 06-17-2022 Flash Glucose Sensor (Freest yle Trent 2 Sensor) kit Discontinued 0 .Route 2 3 May 06, 2022 2:32pm June 17, 2022 1:26pm As directed Start: 05-06-2022 End: 06-17-2022 Flash Glucose Sensor (Freest yle Trent 2 Sensor) kit Discontinued 0 .Route 2 May 06, 2022 1:32pm June 17, 2022 12:26pm As directed Start: 05-06-2022 End: 06-17-2022 Flash Glucose Sensor (Freest yle Trent 2 Sensor) kit Discontinued 0 .Route 2 May 06, 2022 2:32pm June 17, 2022 1:26pm As directed Start: 04-22-2022 End: 05-06-2022 Flash Glucose Sensor (Freest yle Trent 2 Sensor) kit Discontinued 0 .Route 2 3 April 22, 2022 1:00am May 06, 2022 2:32pm As directed Start: 04-22-2022 End: 05-06-2022 Flash Glucose Sensor (Freest yle Trent 2 Sensor) kit Discontinued 0 .Route 2 April 22, 2022 12:00am May 06, 2022 1:32pm As directed Start: 04-22-2022 End: 05-06-2022 Flash Glucose Sensor (Freest yle Trent 2 Sensor) kit Discontinued 0 .Route 2 April 22, 2022 1:00am May 06, 2022 2:32pm As directed 3 ml insulin aspart, human 100 unt/ml pen injector (20 sources) Insulin Analog Start: 12-23-2018 End: 11-24-2024 Insulin Aspart U-100 100 unit/mL (3 mL) insulin pen Active 20 U SC 3 TIMES DAILY WITH MEALS as needed for SLIDING SCALE November 24, 2024 10:07am Complies with drug therapy Start: 12-23-2018 End: 07-16-2021 Insulin Aspart U-100 100 UNI TS/ML insulin pen Discontinued 20 U SC 3 TIMES DAILY WITH MEALS December 23, 2018 12:00am July 16, 2021 8:37am SLIDING SCALE 3 ml insulin glargine 100 unt/ml pen injector (20 sources) Insulin Analog Start: 01-02-2024 End: 11-24-2024 Insulin Glargine (Lantus Solostar U-100 Insulin) 100 unit/mL (3 mL) insulin pen Active 40 U SC AT BEDTIME as needed November 24, 2024 10:07am Complies with drug therapy Start: 06-17-2022 End: 01-02-2024 Insulin Glargine (Lantus Ale ostar U-100 Insulin) 100 unit/mL (3 mL) insulin pen Discontinued 50 U SC AT BEDTIME 45 3 September 15, 2023 11:57am January 02, 2024 11:18am Start: 12-23-2018 End: 07-16-2021 Insulin Glargine 100 UNITS/M L insulin pen Discontinued 60 U SC AT BEDTIME December 23, 2018 12:00am July 16, 2021 8:37am Start: 12-23-2018 End: 06-17-2022 Insulin Glargine 100 unit/mL (3 mL) insulin pen Discontinued 60 U SC AT BEDTIME 54 90 2 February 26, 2022 12:43pm June 17, 2022 1:39pm 24 hr metFORMIN hydrochlorid e 500 mg extended release oral tablet (20 sources) Biguanide Start: 08-20-2021 End: 11-01-2024 Metformin 500 mg tablet extended release 24 hr Active 1000 mg PO TWICE A DAY 360 3 November 01, 2024 8:24pm Complies with drug therapy Start: 12-23-2018 End: 08-20-2021 take 2 tablets by mouth twice daily Metformin 500 MG tablet Discontinued 1000 mg PO TWICE A DAY December 23, 2018 12:00am August 20, 2021 9:34am Start: 12-23-2018 End: 09-16-2022 take 1000 mg by mouth twice daily Metformin Discontinued 1000 MG PO TWICE A DAY 360 August 22, 2021 11:18am September 16, 2022 12:35pm Multivitamin Capsule (2 sources) Start: 11-29-2020 Multivitamin C apsule Active 1 NMA PO DAILY November 29, 2020 12:00am Complies with drug therapy Start: 11-29-2020 Multivitamin C apsule Active 1 NMA PO DAILY November 29, 2020 12:00am Multivitamin preparation (9 sources) Start: 11-29-2020 take 1 capsule by mouth once daily Multivitamin Active 1 CAP PO DAILY November 28, 2020 11:00pm Start: 11-29-2020 take 1 capsule by mo uth once daily Multivitamin Active 1 CAP PO DAILY November 29, 2020 12:00am Tirzepatide (1 source) Start: 03-24-2024 Tirzepatide (M ounkemarro) 10 mg/0.5 mL pen injector Active 10 mg SC EVERY WEEK 6.5 90 March 24, 2024 1:00am Complies with drug therapy Tirzepatide (Mounjaro) 10 mg /0.5 mL pen injector (1 source) Start: 03-24-2024 Tirzepatide (M ounjaro) 10 mg/0.5 mL pen injector Active 10 mg SC EVERY WEEK 6.5 90 March 24, 2024 1:00am Completed/Discontinued Medications Medication Drug Class(es) Dates Sig (Normalized) Sig (Original) acetaminophen 325 mg / oxyCODONE hydrochloride 5 mg oral tablet (11 sources) Opioid Agonist Start: 12-06-2020 End: 02-27-2021 Oxycodone-Acetamino phen 5-325 mg tablet Discontinued 1 {tbl} PO Q4H as needed for pain 14 7 0 December 06, 2020 February 27, 2021 2:15pm Malignant neoplasm of prostate Malignant neoplasm of prostate Start: 12-06-2020 End: 02-27-2021 take 1 tablet by mouth every four hours Oxycodone-Acetaminophen Discontinued 1 TABLET PO Q4H 14 7 December 06, 2020 February 27, 2021 2:15pm amoxicillin 875 mg / clavulanate 125 mg oral tablet (11 sources) Penicillin-class Antibacterial Start: 09-14-2021 End: 12-14-2021 Amoxicillin-Pot Clavulanate 875-125 mg tablet Discontinued 1 {tbl} PO TWICE A DAY 14 0 September 14, 2021 12:00am December 14, 2021 3:07pm Start: 09-14-2021 End: 12-14-2021 take 1 tablet by mouth twice daily Amoxicillin-Pot Clavulanate Discontinued 1 TABLET PO TWICE A DAY 14 September 14, 2021 12:00am December 14, 2021 3:07pm atorvastatin 10 mg oral tablet (20 sources) HMG-CoA Reductase Inhibitor Start: 06-03-2022 End: 04-30-2023 Atorvastatin Active 0 .ROUTE .COMPLEX 90 April 30, 2023 8:30pm TAKE 1 TABLET AT BEDTIME Start: 12-23-2018 End: 05-24-2024 Atorvastatin 10 mg tablet Di scontinued 0 .ROUTE .COMPLEX 90 3 April 30, 2023 8:30pm January 02, 2024 11:18am TAKE 1 TABLET AT BEDTIME azithromycin 250 mg oral tablet (3 sources) Macrolide Antimicrobial Start: 06-01-2023 End: 06-26-2023 Azithromycin (Zithromax Z-Sergey) 250 mg tablet Discontinued 0 PO .COMPLEX 6 0 June 01, 2023 12:00am June 26, 2023 2:03pm For 250 mg dose pack: take 500 mg today (day 1), then 250 mg for 4 days (days 2-5) PO Blood-Glucose Sensor (Freestyle Trent 3 Sensor) device (8 sources) Start: 04-18-2022 End: 04-22-2022 Blood-Glucose Sensor (Freestyle Trent 3 Sensor) device Discontinued 0 .Route 1 3 April 18, 2022 1:00am April 22, 2022 10:36am As directed Start: 04-18-2022 End: 04-22-2022 Blood-Glucose Sensor (Freest yle Trent 3 Sensor) device Discontinued 0 .Route 1 April 18, 2022 12:00am April 22, 2022 9:36am As directed Start: 04-18-2022 End: 04-22-2022 Blood-Glucose Sensor (Freest yle Trent 3 Sensor) device Discontinued 0 .Route 1 April 18, 2022 1:00am April 22, 2022 10:36am As directed ciprofloxacin 500 mg oral tablet (11 sources) Quinolone Antimicrobial Start: 12-06-2020 End: 02-27-2021 take 1 tablet by mouth twice daily Ciprofloxacin Hcl (Cipro) 500 mg tablet Discontinued 500 mg PO TWICE A DAY 14 0 December 06, 2020 12:00am February 27, 2021 2:14pm dapagliflozin 10 mg oral tablet (3 sources) Sodium-Glucose Cotransporter 2 Inhibitor Start: 06-26-2023 End: 07-07-2023 take 0.5 tablet by mouth once daily in the morning, then take 1 tablet by mouth once daily Dapagliflozin Propanediol (Farxiga) 10 mg tablet Discontinued 10 mg PO EVERY MORNING 30 June 26, 2023 12:00am July 07, 2023 12:42pm Take 1/2 tablet daily x 1 week then increase to 1 tab. daily docusate sodium 100 mg oral capsule (11 sources) Start: 12-06-2020 End: 02-27-2021 take 1 capsule by mouth twice daily Docusate Sodium (Colace) 100 mg capsule Discontinued 100 mg PO TWICE A DAY 20 December 06, 2020 12:00am February 27, 2021 2:14pm Dulaglutide (20 sources) GLP-1 Receptor Agonist Start: 09-26-2023 End: 11-08-2023 Dulaglutide 4.5 mg/0.5 mL pen injector Discontinued 4.5 mg SC EVERY WEEK 6.5 90 September 26, 2023 8:55am November 08, 2023 6:44pm Start: 08-26-2023 End: 09-26-2023 Dulaglutide 3 mg/0.5 mL pen injector Discontinued 3 mg SC EVERY WEEK 6.5 90 3 August 26, 2023 1:12pm September 26, 2023 8:56am Start: 07-15-2023 End: 08-26-2023 Dulaglutide 3 mg/0.5 mL pen injector Discontinued 3 mg SC EVERY WEEK 6.5 90 2 July 15, 2023 4:46pm August 26, 2023 1:13pm Start: 07-14-2023 End: 07-15-2023 Dulaglutide 3 mg/0.5 mL pen injector Discontinued 3 mg SC EVERY WEEK 6.5 90 July 14, 2023 4:19pm July 15, 2023 4:47pm Start: 06-30-2023 End: 07-14-2023 Dulaglutide 4.5 mg/0.5 mL pe n injector Discontinued 4.5 mg SC EVERY WEEK 6.5 90 June 30, 2023 12:58pm July 14, 2023 4:19pm Start: 06-30-2023 Dulaglutide Ac tive 4.5 MG SC EVERY WEEK 6.5 90 June 30, 2023 12:58pm Start: 05-29-2023 End: 06-30-2023 Dulaglutide 4.5 mg/0.5 mL pe n injector Discontinued 4.5 mg SC EVERY WEEK 6.5 90 May 29, 2023 5:20pm June 30, 2023 12:58pm Start: 05-29-2023 End: 06-30-2023 Dulaglutide Discontinued 4.5 MG SC EVERY WEEK 6.5 May 29, 2023 5:20pm June 30, 2023 12:58pm Start: 12-19-2022 End: 05-29-2023 Dulaglutide 4.5 mg/0.5 mL pe n injector Discontinued 4.5 mg SC EVERY WEEK 6.5 90 December 19, 2022 1:57pm May 29, 2023 5:21pm Start: 12-19-2022 End: 05-29-2023 Dulaglutide Discontinued 4.5 MG SC EVERY WEEK 6.5 December 19, 2022 1:57pm May 29, 2023 5:21pm Start: 12-19-2022 Dulaglutide Ac tive 4.5 MG SC EVERY WEEK 6.5 December 19, 2022 12:57pm Start: 12-19-2022 Dulaglutide Ac tive 4.5 MG SC EVERY WEEK 6.5 December 19, 2022 1:57pm Start: 12-18-2022 End: 12-19-2022 Dulaglutide 3 mg/0.5 mL pen injector Discontinued 4.5 mg SC EVERY WEEK 9.75 90 December 18, 2022 9:37am December 19, 2022 1:57pm Start: 12-18-2022 End: 12-19-2022 Dulaglutide Discontinued 4.5 MG SC EVERY WEEK 9.75 December 18, 2022 8:37am December 19, 2022 12:57pm Start: 12-18-2022 End: 12-19-2022 Dulaglutide Discontinued 4.5 MG SC EVERY WEEK 9.75 December 18, 2022 9:37am December 19, 2022 1:57pm Start: 06-17-2022 End: 12-18-2022 Dulaglutide (Trulicity) 3 mg /0.5 mL pen injector Discontinued 3 mg SC EVERY WEEK 6.5 90 June 17, 2022 1:36pm December 18, 2022 9:37am Start: 06-17-2022 End: 12-18-2022 Dulaglutide (Trulicity) 3 mg /0.5 mL pen injector Discontinued 3 MG SC EVERY WEEK 6.5 90 June 17, 2022 12:36pm December 18, 2022 8:37am Start: 06-17-2022 End: 12-18-2022 Dulaglutide (Trulicity) 3 mg /0.5 mL pen injector Discontinued 3 MG SC EVERY WEEK 6.5 90 June 17, 2022 1:36pm December 18, 2022 9:37am Start: 06-17-2022 Dulaglutide (T rulicity) 3 mg/0.5 mL pen injector Active 3 MG SC EVERY WEEK 6.5 90 June 17, 2022 1:36pm Start: 03-18-2022 End: 06-17-2022 Dulaglutide (Trulicity) 0.75 mg/0.5 mL pen injector Discontinued 0.75 mg SC EVERY WEEK 1 0 March 18, 2022 1:00am June 17, 2022 1:26pm Take weekly for 2 weeks then increase to 1.5 mg weekly. Start: 03-18-2022 End: 06-17-2022 Dulaglutide (Trulicity) 1.5 mg/0.5 mL pen injector Discontinued 1.5 mg SC EVERY WEEK 6.5 90 2 April 23, 2022 5:20pm June 17, 2022 1:39pm Flash Glucose Scanning Reade r (Freestyle Trent 2 Mitchell) misc (8 sources) Start: 04-22-2022 End: 06-17-2022 Flash Glucose Scanning Reade r (Freestyle Trent 2 Mitchell) misc Discontinued 0 .Route 3 April 22, 2022 1:00am June 17, 2022 1:26pm As directed Start: 04-22-2022 End: 06-17-2022 Flash Glucose Scanning Reade r (Freestyle Trent 2 Mitchell) misc Discontinued 0 .Route 3 April 22, 2022 12:00am June 17, 2022 12:26pm As directed Start: 04-22-2022 End: 06-17-2022 Flash Glucose Scanning Reade r (Freestyle Trent 2 Mitchell) misc Discontinued 0 .Route 3 April 22, 2022 1:00am June 17, 2022 1:26pm As directed folic acid 0.4 mg / vitamin b12 0.5 mg oral tablet (11 sources) Vitamin B12 Start: 11-29-2020 End: 12-18-2022 Vitamin D04-Vlcrp Acid 500-400 mcg Tablet Discontinued 1 {tbl} PO DAILY November 29, 2020 12:00am December 18, 2022 9:22am Start: 11-29-2020 End: 12-18-2022 take 1 tablet by mouth once daily Vitamin E43-Elwaq Acid Discontinued 1 TABLET PO DAILY November 29, 2020 12:00am December 18, 2022 9:22am lisinopril 40 mg oral tablet (20 sources) Angiotensin Converting Enzyme Inhibitor Start: 05-30-2021 End: 05-24-2024 Lisinopril 40 mg tablet Discontinued 0 .ROUTE .COMPLEX 90 July 14, 2023 8:48am January 02, 2024 11:18am TAKE 1 TABLET DAILY Start: 05-30-2021 End: 05-30-2021 take 1 tablet by mouth twice daily Lisinopril 40 mg tablet Discontinued 40 mg PO TWICE A DAY May 30, 2021 12:00am May 30, 2021 2:38pm Start: 12-23-2018 End: 05-30-2021 Lisinopril 2.5 MG tablet Discontinued 40 mg PO TWICE A DAY December 23, 2018 12:00am May 30, 2021 2:26pm Start: 12-23-2018 End: 05-30-2021 take 40 mg by mouth twice daily Lisinopril Discontinue d 40 MG PO TWICE A DAY December 23, 2018 12:00am May 30, 2021 2:26pm methylPREDNISolone 4 mg oral tablet (1 source) Corticosteroid Start: 09-24-2024 End: 11-11-2024 take 1 tablet by mouth once Methylprednisolone (Medrol (Sergey)) 4 mg tablets,dose pack Discontinued 0 PO per package directions 21 September 24, 2024 12:00am November 11, 2024 2:32pm PO PER PKG DIR for 6 days metoprolol tartrate 25 mg oral tablet (20 sources) beta-Adrenergic Oxana Start: 08-21-2019 End: 09-20-2024 take 1 tablet by mouth twice daily Metoprolol Tartrate 25 mg tablet Discontinued 25 mg PO TWICE A DAY 180 3 September 15, 2023 11:57am September 20, 2024 9:52am mupirocin 0.02 mg/mg topical ointment (1 source) RNA Synthetase Inhibitor Antibacterial Start: 09-24-2024 End: 11-24-2024 Mupirocin (Centany) 2 % ointment Discontinued 1 NMA TOPICAL TWICE A DAY 15 September 24, 2024 12:00am November 24, 2024 10:08am Apply to crusted area on left arm sour esposito allergenic extract (11 sources) Non-Standardized Food Allergenic Extract, Non-Standardized Plant Allergenic Extract Start: 02-27-2021 End: 12-18-2022 Sour Esposito Extract (Tart Esposito Extract) 1,000 mg capsule Discontinued mg PO February 27, 2021 1:00am December 18, 2022 9:22am Start: 02-27-2021 End: 12-18-2022 Sour Esposito Extract (Tart Ch erry Extract) 1,000 mg capsule Discontinued MG PO February 27, 2021 12:00am December 18, 2022 8:22am Start: 02-27-2021 End: 12-18-2022 Sour Esposito Extract (Tart Ch erry Extract) 1,000 mg capsule Discontinued MG PO February 27, 2021 1:00am December 18, 2022 9:22am Start: 02-27-2021 Sour Esposito Ex tract (Tart Esposito Extract) 1,000 mg capsule Active MG PO February 27, 2021 12:00am Start: 02-27-2021 Sour Esposito Ex tract (Tart Esposito Extract) 1,000 mg capsule Active MG PO February 27, 2021 1:00am Tirzepatide (2 sources) Start: 11-07-2023 End: 11-08-2023 Tirzepatide (Mounjaro) 2.5 m g/0.5 mL pen injector Discontinued 2.5 mg SC EVERY WEEK November 07, 2023 10:43am November 08, 2023 6:46pm Tuesdays. Will replace Trulicity with Mounjaro in november Start: 11-07-2023 End: 11-07-2023 Tirzepatide (Mounjaro) 2.5 m g/0.5 mL pen injector Discontinued 2.5 mg SC EVERY WEEK November 07, 2023 12:00am November 07, 2023 10:44am Will replace Trulicity with Mounjaro in november Tirzepatide (2 sources) Start: 01-02-2024 End: 03-24-2024 Tirzepatide (Mounjaro) 5 mg/ 0.5 mL pen injector Discontinued 5 mg SC January 02, 2024 12:00am March 24, 2024 12:21pm Start: 11-08-2023 End: 01-02-2024 Tirzepatide (Mounjaro) 5 mg/ 0.5 mL pen injector Discontinued 5 mg SC EVERY WEEK 6.5 90 November 08, 2023 12:00am January 02, 2024 11:18am Tirzepatide (Mounjaro) 2.5 mg/0.5 mL pen injector (2 sources) Start: 11-07-2023 End: 11-08-2023 Tirzepatide (Mounjaro) 2.5 mg/0.5 mL pen injector Discontinued 2.5 mg SC EVERY WEEK November 07, 2023 10:43am November 08, 2023 6:46pm Tuesdays. Will replace Trulicity with Mounjaro in november Start: 11-07-2023 End: 11-07-2023 Tirzepatide (Mounjaro) 2.5 m g/0.5 mL pen injector Discontinued 2.5 mg SC EVERY WEEK November 07, 2023 12:00am November 07, 2023 10:44am Will replace Trulicity with Mounjaro in november Tirzepatide (Mounjaro) 5 mg/ 0.5 mL pen injector (2 sources) Start: 01-02-2024 End: 03-24-2024 Tirzepatide (Mounjaro) 5 mg/ 0.5 mL pen injector Discontinued 5 mg SC January 02, 2024 12:00am March 24, 2024 12:21pm Start: 11-08-2023 End: 01-02-2024 Tirzepatide (Mounjaro) 5 mg/ 0.5 mL pen injector Discontinued 5 mg SC EVERY WEEK 6.5 90 1 November 08, 2023 12:00am January 02, 2024 11:18am Zinc (11 sources) Start: 11-29-2020 End: 12-18-2022 take 1 capsule by mouth once daily Zinc 50 mg Capsule Discontinued 50 mg PO DAILY November 29, 2020 12:00am December 18, 2022 9:22am Start: 11-29-2020 End: 12-18-2022 take 50 mg by mouth once daily Zinc Discontinued 50 MG PO DAILY November 28, 2020 11:00pm December 18, 2022 8:22am Start: 11-29-2020 End: 12-18-2022 take 50 mg by mouth once daily Zinc Discontinued 50 MG PO DAILY November 29, 2020 12:00am December 18, 2022 9:22am Start: 11-29-2020 take 50 mg by mouth once daily Zinc Active 50 MG PO DAILY November 28, 2020 11:00pm Start: 11-29-2020 take 50 mg by mouth once daily Zinc Active 50 MG PO DAILY November 29, 2020 12:00am Problems Problem Classification Problem Date Documented Da te Episodic/Chronic Allergic reactions (3 sources) Dermatitis, unspecified; Translations: [Inflammatory dermatosis] Onset: 11-03-2024 11-11-2024 Episodic Cancer of prostate (12 sources) Malignant tumor of prostate; Translations: [Malignant neoplasm of prostate] Onset: 01-16-2024 12-06-2020 Chronic Chronic kidney disease (4 sources) Chronic kidney disease stage 3; Translations: [Stage 3 chronic kidney disease] 06-26-2023 Chronic Conditions associated with dizziness or vertigo (10 sources) Dizziness; Translations: [Dizziness and giddiness] 03-18-2022 Episodic Coronary atherosclerosis and other heart disease (1 source) Coronary arteriosclerosis; Translations: [Atherosclerotic heart disease of [place] coronary artery without angina pectoris] 10-25-2024 Chronic Diabetes mellitus with complications (20 sources) Type II diabetes mellitus uncontrolled; Translations: [Uncontrolled type 2 diabetes mellitus] Onset: 04-15-2024 08-22-2019 Chronic Diabetes mellitus without complication (20 sources) Type 2 diabetes mellitus; Translations: [Type 2 diabetes mellitus without complications] Chronic Disorders of lipid metabolism (20 sources) Hyperlipidemia; Translations: [Hyperlipidemia, unspecified] Onset: 11-03-2024 Chronic Essential hypertension (20 sources) Essential hypertension; Translations: [Essential (primary) hypertension] Onset: 10-22-2024 Chronic Heart valve disorders (2 sources) Aortic valve sclerosis; 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] 11-11-2024 Chronic Heart valve disorders (11 sources) Heart murmur; Translations: [Cardiac murmur, unspecified] 12-14-2021 Episodic Immunizations and screening for infectious disease (10 sources) Needs influenza immunization; Translations: [Encounter for immunization] 12-18-2022 Episodic Comment on above: Patient declined Other and unspecified benign neoplasm (1 source) History of polyp of colon; Translations: [History of colonic polyps] 11-11-2024 Episodic Other ear and sense organ disorders (8 sources) Impacted cerumen; Translations: [Impacted cerumen, right ear] 12-14-2021 Episodic Other ear and sense organ disorders (1 source) Impacted cerumen, right ear; Translations: [Impacted cerumen] 12-14-2021 Episodic Other ear and sense organ disorders (7 sources) Does use hearing aid; Translations: [Presence of external hearing-aid] 12-18-2022 Episodic Other ear and sense organ disorders (1 source) Impacted cerumen in right ear; Translations: [Impacted cerumen, right ear] 11-11-2024 Episodic Other gastrointestinal disorders (1 source) Heartburn; Translations: [Heartburn] 11-11-2024 Episodic Other lower respiratory disease (4 sources) Cough; Translations: [Cough] 06-01-2023 Episodic Other non-traumatic joint disorders (8 sources) Pain in elbow; Translations: [Pain in left elbow] 06-17-2022 Episodic Other non-traumatic joint disorders (3 sources) Pain in left elbow; Translations: [Pain in joint, upper arm] 06-17-2022 Episodic Other nutritional; endocrine; and metabolic disorders (1 source) Obesity; Translations: [Obesity, unspecified] 11-11-2024 Chronic Other screening for suspected conditions (not mental disorders or infectious disease) (6 sources) Patient encounter status; Translations: [Encounter for screening for malignant neoplasm of colon] Onset: 01-19-2024 11-07-2023 Episodic Other upper respiratory infections (13 sources) Sore throat symptom; Translations: [Acute pharyngitis, unspecified] Episodic Residual codes; unclassified (1 source) Dependence on continuous positive airway pressure ventilation; Translations: [Dependence on other enabling machines and devices] 11-11-2024 Chronic Skin and subcutaneous tissue infections (3 sources) Impetigo, unspecified; Translations: [Impetigo] Onset: 11-03-2024 09-24-2024 Episodic Results Test Name Value Interpretation Reference Range Facility Coronary Angiography CTon Coronary Angiography CT [facility] Imaging Services [address] [place] [address] 10/22/24 1818 MR#: [id number] Acct: [id number] Name: DEBORAH KEITH Rep #: [id number] : 1955 69 From: Chepe Do MD PCP: Dr. Erinn Suh MD Status:REG REF Y Location: CT Calcium Scoring Date of Study:: 10/22/24 Indications Indications: Risk stratification Coronary Calcium Scoring: High-resolution Computed Tomographic imaging of the chest was performed on [10/22/2024], with particular attention paid to the coronary arteries. Images from the examination were analyzed for the presence and extent of coronary artery calcification , using coronary calcium quantification software. The patient tolerated the procedure well and there were no complications. The results of the coronary calcification analysis are provided below. Findings Coronary Artery Left Main (LM): 0 Left Anterior Descending (LAD): 767 Left Circumflex (LCX): 30.2 Right Coronary Artery (RCA): 893 Total Agatston Score: 1,690.2 Percentile Rankinth to 90th percentile Calcium Scoring Interpretation: Different methods to categorize the overall amount of coronary plaque. Overall amount CAC SIS Visual of coronary plaque P1 Mild -100 <2 1-2 vessels with mild amount of plaque P2 Moderate 101-300 3-4 1-2 vessels with moderate amount, 3 vessels with mild amount of plaque P3 Severe 301-999 5-7 3 vessels with moderate amount, 1 vessel with severe amount of plaque P4 Extensive >1000 >8 2-3 vessels with severe amount of plaque Calcium Score: Extensive: 2-3 vessels w/severe amount of plaque Conclusion: Extensive two-vessel atherosclerotic plaquing present. 10/22/24 1820 Date Chepe Do MD Cosigner Signature (if applicable): Date CC: Dr. Chepe Do MD; Dr. Erinn Suh MD Signed Normal [facility] Limited Chest CT Cardiac Onl yon 10-22-[address] Cardiac Only [facility] Imaging Services [address] [place] [id number] Cardiac Only MR#: [id number] Acct: [id number] Name: DEBORAH KEITH Rep #: [id number] : 1955 M 69 From: Greyson clay MD PCP: Dr. Erinn Suh MD Status: REG REF Study: Limited Chest CT Cardiac Only Date of Exam: Exam# [id number] Ordering Dr: Erinn Suh MD PROCEDURE: LIMITED CHEST CT CARDIAC ONLY 10/22/2024 REASON FOR EXAM: CARDIAC RISK STRATIFICATION TECHNIQUE: LIMITED CHEST CT CARDIAC ONLY CONTRAST: None One or more dose reduction techniques were used (e.g., Automated exposure control, adjustment of the mA and/or kV according to patient size, use of iterative reconstruction technique). RADIATION DOSE SUMMARY: CTDlvol: 12.19 mGy DLP: 438.83 mGycm COMPARISON: None FINDINGS: Atherosclerotic calcification of the aortic arch. Coronary artery calcification. Calcification of the aortic valve. The heart is nonenlarged. Minimal anterior pericardial thickening. Small benign-appearing mediastinal lymph nodes. The lungs are clear. CT/Limited Chest CT Cardiac Only IMPRESSION: Coronary artery calcification. Reading Location: [facility] CC: Dr. Erinn Suh MD Hotel Office Manager: Signed Normal [facility] Internal Medicine Office Vis iton 09-24-2024 Internal Medicine Office Visit [facility] [address] [place] [address] [place] [address] OFFICE VISIT Date of Service: 09/24/24 MR#: [id number] Acct: [id number] Name: DEBORAH KEITH Rep #: [id number] : 1955 Provider: Dr. 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 Accompanied by: Self Is patient in pain?: No Allergies No Known Allergies Allergy (Verified 09/24/24 09:27) Medications ???Medication ???Instructions ???Recorded ???Confirmed ???Type aspirin 81 mg tablet,delayed 81 mg PO DAILY@0800 12/23/1809/24 History release cholecalciferol (vitamin D3) 125 125 mcg PO DAILY 11/29/20 09/24/24 History mcg (5,000 unit) tablet (Vitamin D3) multivitamin 1 cap PO DAILY 11/29/20 09/24/24 H istory blood sugar diagnostic (FreeStyle #200 strips 02/05/22 09/24/24 Rx Lite Strips) flash glucose scanning reader #1 ea 06/17/22 09/24/24 Rx (FreeStyle Trent 14 Day Mitchell) flash glucose sensor (FreeStyle #2 ea 06/17/22 09/24/24 Rx Trent 2 Sensor kit) insulin aspart U-100 100 unit/mL 20 unit (0.2 mL) subcut TIDCM 06/0909/24/24 Rx (3 mL) subcutaneous pen SLIDING SCALE 3 months #54 mL pen needle, diabetic 29 gauge x #100 ea 09/04/23 09/24/24 Rx 1/2 (BD Ultra-Fine Original Pen Needle) metformin 500 mg tablet,extended 1,000 mg (2 x 500 mg) PO BID #360 11/11/23 09/24/24 Rx release 24 hr tabs insulin glargine 100 unit/mL (3 40 unit subcut QHS 01/02/24 History mL) subcutaneous pen (Lantus Solostar U-100 Insulin) blood sugar diagnostic (FreeStyle #200 ea 01/05/24 09/24/24 Rx Lite Strips) empagliflozin 25 mg tablet 25 mg PO QAM #90 tabs 01/26/24 Rx (Jardiance) tirzepatide 10 mg/0.5 mL 10 mg (0.5 mL) subcut QWEEK 3 03/1009/24/24 Rx subcutaneous pen injector months #6.5 mL (Mounjaro) atorvastatin 10 mg tablet 10 mg PO QHS #90 tabs 05/24/24 Rx lisinopril 40 mg tablet 40 mg PO DAILY #90 tabs 05/24/24 0 09/24/24 Rx metoprolol tartrate 25 mg tablet 25 mg PO BID #180 tabs 09/20/24 Rx amlodipine 5 mg tablet 5 mg PO DAILY #90 tabs 09/24/24 Rx methylprednisolone 4 mg tablets in See Rx Instructions PO PER PKG D IR 09/24/24 09/24/24 Rx a dose pack (Medrol (Sergey)) #21 tabs mupirocin 2 % topical ointment 1 applic topical BID #15 grams 09/24/24 Rx (Centany) Have you fallen in the past year?: No [facility] Medical History (Updated 09/24/24 @ 10:[address] Erinn Suh MD) Impetigo Dermatitis Wears hearing aid Heartburn History of echocardiogram Personal history of colonic polyps CKD (chronic kidney disease), stage III Flu vaccine need Wears hearing aid in both ears Diabetic neuropathy Left elbow pain Dizziness Cardiac murmur Right ear impacted cerumen Sore throat Hyperlipidemia Health care maintenance Hypertension Type 2 diabetes mellitus Wears glasses Cancer Insulin dependent diabetes mellitus Prostate disease High cholesterol Dietary restriction Former smoker CPAP (continuous positive airway pressure) dependence Leg cramps History of pain when walking History of stress test Cardiology follow-up encounter Hypertension Surgical History History of cataract surgery History of prostate surgery Hx of appendectomy Hx laparoscopic cholecystectomy History of colonoscopy Family History Grandmother Colon cancer Father Cancer Mother Diabetes Uterine cancer Grandfather Diabetes Brother Kidney disease Social History household members: spouse and children current occupational status: retired Smoking Status: Former smoker alcohol intake: current alcohol intake frequency: holidays/special occasions only substance use type: does not use what type of physical activity do you participate in: none HPI HPI Chief Complaint: 3 M FU Details: DEBORAH KEITH, is a 69 M who presents to the office today for follow-up of his chronic medical conditions. Also has some concerns. He reports a rash which has been present for a few days. Had been outdoors mowing and weeding and subsequently developed a rash. Very itchy. On his left arm, an area of crusting/mild drainage. He states that that is different an (more content not included)... Normal [facility] - Hematology and Cell countsOrdered By: Erinn Suh on 09-24-2024 HbA1c (Bld) [Mass fraction] 6.3 % 4.2-6.3 [facility] Internal Medicine Office Vis iton 06-24-2024 Internal Medicine Office Visit [facility] [address] [place] [address] [place] [address] OFFICE VISIT Date of Service: 06/24/24 MR#: [id number] Acct: [id number] Name: DEBORAH KEITH Rep #: [id number] : 1955 Provider: Dr. 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 Accompanied by: Self Is patient in pain?: No Allergies No Known Allergies Allergy (Verified 06/24/24 12:58) Medications ???Medication ???Instructions ???Recorded ???Confirmed ???Type aspirin 81 mg tablet,delayed 81 mg PO DAILY@0800 12/23/1806/24 History release cholecalciferol (vitamin D3) 125 125 mcg PO DAILY 11/29/20 06/24/24 History mcg (5,000 unit) tablet (Vitamin D3) multivitamin 1 cap PO DAILY 11/29/20 06/24/24 H istory blood sugar diagnostic (FreeStyle #200 strips 02/05/22 06/24/24 Rx Lite Strips) flash glucose scanning reader #1 ea 06/17/22 06/24/24 Rx (FreeStyle Trent 14 Day Mitchell) flash glucose sensor (FreeStyle #2 ea 06/17/22 06/24/24 Rx Trent 2 Sensor kit) insulin aspart U-100 100 unit/mL 20 unit (0.2 mL) subcut TIDCM 06/0906/24/24 Rx (3 mL) subcutaneous pen SLIDING SCALE 3 months #54 mL pen needle, diabetic 29 gauge x #100 ea 09/04/23 06/24/24 Rx 1/2 (BD Ultra-Fine Original Pen Needle) metoprolol tartrate 25 mg tablet 25 mg PO BID #180 tabs 09/15/23 Rx metformin 500 mg tablet,extended 1,000 mg (2 x 500 mg) PO BID #360 11/11/23 06/24/24 Rx release 24 hr tabs insulin glargine 100 unit/mL (3 40 unit subcut QHS 01/02/24 History mL) subcutaneous pen (Lantus Solostar U-100 Insulin) blood sugar diagnostic (FreeStyle #200 ea 01/05/24 06/24/24 Rx Lite Strips) empagliflozin 25 mg tablet 25 mg PO QAM #90 tabs 01/26/24 Rx (Jardiance) tirzepatide 10 mg/0.5 mL 10 mg (0.5 mL) subcut QWEEK 3 03/1006/24/24 Rx subcutaneous pen injector months #6.5 mL (Mounjaro) amlodipine 10 mg tablet 10 mg PO DAILY #90 tabs 04/26/24 0 06/24/24 Rx atorvastatin 10 mg tablet 10 mg PO QHS #90 tabs 05/24/24 Rx lisinopril 40 mg tablet 40 mg PO DAILY #90 tabs 05/24/24 0 06/24/24 Rx Have you fallen in the past year?: No PFSH Medical History Wears hearing aid Heartburn History of echocardiogram Personal history of colonic polyps CKD (chronic kidney disease), stage III Flu vaccine need Wears hearing aid in both ears Diabetic neuropathy Left elbow pain Dizziness Cardiac murmur Right ear impacted cerumen Sore throat Hyperlipidemia Health care maintenance Hypertension Type 2 diabetes mellitus Wears glasses Cancer Insulin dependent diabetes mellitus Prostate disease High cholesterol Dietary restriction Former smoker CPAP (continuous positive airway pressure) dependence Leg cramps History of pain when walking History of stress test Cardiology follow-up encounter Hypertension Surgical History History of cataract surgery History of prostate surgery Hx of appendectomy Hx laparoscopic cholecystectomy History of colonoscopy Family History Grandmother Colon cancer Father Cancer Mother Diabetes Uterine cancer Grandfather Diabetes Brother Kidney disease Social History household members: spouse and children current occupational status: retired Smoking Status: Former smoker alcohol intake: current alcohol intake frequency: holidays/special occasions only substance use type: does not use what type of physical activity do you participate in: none HPI HPI Chief Complaint: 3 M FU Details: DEBORAH KEITH, is a 69 M who presents to the office today for follow-up of his chronic medical conditions. No acute concerns at this time. Since his last visit, has been taking 10 mg weekly of Mounjaro. Tolerating it well. Denies any significant constipation or diarrhea. Has noted increased burping/reflux which he manages with Tums. A1c today is at 6 down from 6.7. History of hypertension, initial blood pressure recorded is systolic of 80s however repeat was at 100/60 mmHg. Does not routinely check his blood pressure at home but states (more content not included)... Normal [facility] - Hematology and Cell countsOrdered By: Erinn Suh on 06-24-2024 HbA1c (Bld) [Mass fraction] 6.0 % 4.2-6.3 [facility] CBC W/Diff, Automatedon 03-10 Absolute Lymph 1.61 X10 3/uL Normal 0.83-4.51 [facility] Comment on above: Performed By: #### L 500.4100, L100.0100, L501.9940, L500.4050 #### [facility] [address] [place], [address] Absolute Neut 5.2 X10 3/uL Normal 2.0-7.7 [facility] Comment on above: Performed By: #### L 500.4100, L100.0100, L501.9940, L500.4050 #### [facility] [address] [place], [address] Basophils/100 WBC (Bld) 0.7 % Normal 0-1 [facility] Comment on above: Performed By: #### L 500.4100, L100.0100, L501.9940, L500.4050 #### [facility] [address] [place], [address] Eosinophils/100 WBC (Bld) 3.8 % Normal 0-5 [facility] Comment on above: Performed By: #### L 500.4100, L100.0100, L501.9940, L500.4050 #### [facility] [address] [place], [address] Erythrocyte distribution width (RBC) [Ratio] 12.3 % Normal 11.6-14.6 [facility] Comment on above: Performed By: #### L 500.4100, L100.0100, L501.9940, L500.4050 #### [facility] [address] [place], [address] Hematocrit (Bld) [Volume fraction] 46.5 % Normal 40-54 [facility] Comment on above: Performed By: #### L 500.4100, L100.0100, L501.9940, L500.4050 #### [facility] [address] [place], [address] Hemoglobin (Bld) [Mass/Vol] 15.9 g/dL Normal 13.0-16.5 [facility] Comment on above: Performed By: #### L 500.4100, L100.0100, L501.9940, L500.4050 #### [facility] [address] [place], [address] IG% 0.400 Normal 0.0-0.9 [facility] Comment on above: Result Comment: IG% - Immature Granulocytes (promyelocytes, myelocytes and metamyelocytes) > 1% indicates that a LEFT SHIFT is Present. Performed By: #### L 500.4100, L100.0100, L501.9940, L500.4050 #### [facility] [address] [place], [address] Lymphocytes/100 WBC (Bld) 21.1 % Normal 19-41 [facility] Comment on above: Performed By: #### L 500.4100, L100.0100, L501.9940, L500.4050 #### [facility] [address] [place], [address] MCH (RBC) [Entitic mass] 30.5 pg Normal 27.0-32.0 [facility] Comment on above: Performed By: #### L 500.4100, L100.0100, L501.9940, L500.4050 #### [facility] [address] [place], [address] MCHC (RBC) [Mass/Vol] 34.2 g/dL Normal 32-36 [facility] Comment on above: Performed By: #### L 500.4100, L100.0100, L501.9940, L500.4050 #### [facility] [address] [place], [address] MCV (RBC) [Entitic vol] 89.1 fL Normal 80-94 [facility] Comment on above: Performed By: #### L 500.4100, L100.0100, L501.9940, L500.4050 #### [facility] [address] [place], [address] Monocytes/100 WBC (Bld) 5.8 % Normal 0-10 [facility] Comment on above: Performed By: #### L 500.4100, L100.0100, L501.9940, L500.4050 #### [facility] [address] [place], [address] Neutrophils/100 WBC (Bld) 68.2 % Normal 47-70 [facility] Comment on above: Performed By: #### L 500.4100, L100.0100, L501.9940, L500.4050 #### [facility] [address] [place], [address] Nucleated RBC (Bld) [#/Vol] 0 10*3/uL Normal 0-5 [facility] Comment on above: Performed By: #### L 500.4100, L100.0100, L501.9940, L500.4050 #### [facility] [address] [place], [address] Platelet mean volume (Bld) [Entitic vol] 11.2 fL Normal 6.2-12.0 [facility] Comment on above: Performed By: #### L 500.4100, L100.0100, L501.9940, L500.4050 #### [facility] [address] [place], [address] Platelets (Bld) [#/Vol] 255 10*3/uL Normal 150-450 [facility] Comment on above: Performed By: #### L 500.4100, L100.0100, L501.9940, L500.4050 #### [facility] [address] [place], [address] RBC (Bld) [#/Vol] 5.22 10*6/uL Normal 4.6-6.2 [facility] Comment on above: Performed By: #### L 500.4100, L100.0100, L501.9940, L500.4050 #### [facility] [address] [place], [address] RDW SD 39.8 fl Normal 35.1-43.9 [facility] Comment on above: Performed By: #### L 500.4100, L100.0100, L501.9940, L500.4050 #### [facility] [address] [place], [address] WBC (Bld) [#/Vol] 7.6 10*3/uL Normal 4.4-11.0 [facility] Comment on above: Performed By: #### L 500.4100, L100.0100, L501.9940, L500.4050 #### [facility] [address] [place], [address] Comprehensive Metabolic Prof meon 03-24-2024 Albumin [Mass/Vol] 4.0 g/dL Normal 3.2-5.0 [facility] Comment on above: Performed By: #### L 500.4100, L100.0100, L501.9940, L500.4050 #### [facility] [address] [place], [address] Albumin/Globulin [Mass ratio] 1.1 {ratio} Normal 0.9-2.4 [facility] Comment on above: Performed By: #### L 500.4100, L100.0100, L501.9940, L500.4050 #### [facility] [address] [place], [address] ALK P 73 U/L Normal 45-117 [facility] Comment on above: Performed By: #### L 500.4100, L100.0100, L501.9940, L500.4050 #### [facility] [address] [place], [address] ALT [Catalytic activity/Vol] 33 U/L Normal 16-61 [facility] Comment on above: Performed By: #### L 500.4100, L100.0100, L501.9940, L500.4050 #### [facility] [address] [place], [address] AST [Catalytic activity/Vol] 20 U/L Normal 15-37 [facility] Comment on above: Performed By: #### L 500.4100, L100.0100, L501.9940, L500.4050 #### [facility] [address] [place], [address] Bilirubin [Mass/Vol] 0.50 mg/dL Normal 0.20-1.00 [facility] Comment on above: Result Comment: For patients on eltrombopag therapy, use of Dimension Jarreau TBIL is not recommended. Performed By: #### L 500.4100, L100.0100, L501.9940, L500.4050 #### [facility] [address] [place], [address] BUN/CRE 16.0 RATIO Normal 10-20 [facility] Comment on above: Performed By: #### L 500.4100, L100.0100, L501.9940, L500.4050 #### [facility] [address] [place], [address] CA,Total 9.7 mg/dL Normal 8.5-10.1 [facility] Comment on above: Performed By: #### L 500.4100, L100.0100, L501.9940, L500.4050 #### [facility] [address] [place], [address] Chloride [Moles/Vol] 105 mmol/L Normal 98-107 [facility] Comment on above: Performed By: #### L 500.4100, L100.0100, L501.9940, L500.4050 #### [facility] [address] [place], [address] CO2 [Moles/Vol] 29.0 mmol/L Normal 21.0-32.0 [facility] Comment on above: Performed By: #### L 500.4100, L100.0100, L501.9940, L500.4050 #### [facility] [address] [place], [address] Creatinine [Mass/Vol] 1.19 mg/dL Normal 0.70-1.30 [facility] Comment on above: Result Comment: The validity of the calculated GFR GFRAA in patients over 70 years has not been determined. Clinical correlation is essential. Performed By: #### L 500.4100, L100.0100, L501.9940, L500.4050 #### [facility] [address] [place], [address] EST GFR - AA 78 mL/min Normal >60 [facility] Comment on above: Result Comment: Afri can Chinese GFR Calc Performed By: #### L 500.4100, L100.0100, L501.9940, L500.4050 #### [facility] [address] [place], [address] GAP 6 Normal 5-15 [facility] Comment on above: Performed By: #### L 500.4100, L100.0100, L501.9940, L500.4050 #### [facility] [address] [place], [address] GFR/1.73 sq M.predicted among non-blacks MDRD (S/P/Bld) [Vol rate/Area] 64 mL/min/{1.73_m2} Normal >60 [facility] Comment on above: Result Comment: Non- GFR Calc Performed By: #### L 500.4100, L100.0100, L501.9940, L500.4050 #### [facility] [address] [place], [address] Globulin (S) [Mass/Vol] 3.6 g/dL Normal 2.2-4.2 [facility] Comment on above: Performed By: #### L 500.4100, L100.0100, L501.9940, L500.4050 #### [facility] [address] [place], [address] Glucose [Mass/Vol] 106 mg/dL Normal 74-106 [facility] Comment on above: Result Comment: Fast ing Glucose result from 100 to 125 mg/dL suggests IMPAIRED HOMEOSTASIS per A.D.A. criteria. Performed By: #### L 500.4100, L100.0100, L501.9940, L500.4050 #### [facility] [address] [place], [address] Potassium [Moles/Vol] 4.7 mmol/L Normal 3.5-5.1 [facility] Comment on above: Performed By: #### L 500.4100, L100.0100, L501.9940, L500.4050 #### [facility] [address] [place], [address] Sodium [Moles/Vol] 141 mmol/L Normal 136-145 [facility] Comment on above: Performed By: #### L 500.4100, L100.0100, L501.9940, L500.4050 #### [facility] [address] [place], [address] T PROT 7.6 g/dL Normal 6.4-8.2 [facility] Comment on above: Performed By: #### L 500.4100, L100.0100, L501.9940, L500.4050 #### [facility] [address] [place], [address] Urea nitrogen [Mass/Vol] 19 mg/dL High 7-18 [facility] Comment on above: Performed By: #### L 500.4100, L100.0100, L501.9940, L500.4050 #### [facility] [address] [place], [address] Internal Medicine Office Vis iton 03-24-2024 Internal Medicine Office Visit [facility] [address] [place] [address] [place] [address] OFFICE VISIT Date of Service: 03/24/24 MR#: [id number] Acct: [id number] Name: KAYLADEBORAH Rep #: [id number] : 1955 Provider: Dr. Erinn ramachandran MD Age/Sex: 68/M Location: [facility] [place] Status: Signed Intake Vital Signs 12/17/23 11:06 01/05/24 06:49 03/24/24 11:04 Height 6 ft 1 in 6 ft 6 ft Weight: 225 lb BMI 30.5 BP 120/72 Blood Pressure Location Lt brachial Position Sitting Respiration 18 Pulse 73 Pulse Source Monitor Temp 98.0 F Temp Source Temporal Pulse Oximetry (%) 94 Oxygen Delivery Method room air Intake Visit Reasons: 3 M FU Chief Complaint: 3 M FU Is patient in pain?: No Allergies No Known Allergies Allergy (Verified 03/24/24 11:04) Medications ???Medication ???Instructions ???Recorded ???Confirmed ???Type aspirin 81 mg tablet,delayed 81 mg PO DAILY@0800 12/23/18 03/24/24 History release cholecalciferol (vitamin D3) 125 125 mcg PO DAILY 11/29/20 03/24/24 History mcg (5,000 unit) tablet (Vitamin D3) multivitamin 1 cap PO DAILY 11/29/20 03/24/24 History blood sugar diagnostic (FreeStyle #200 strips 02/05/22 03/24/24 Rx Lite Strips) flash glucose scanning reader #1 ea 06/17/22 03/24/24 Rx (FreeStyle Trent 14 Day Mitchell) flash glucose sensor (FreeStyle #2 ea 06/17/22 03/24/24 Rx Trent 2 Sensor kit) amlodipine 10 mg tablet 10 mg PO DAILY #90 tabs 04/30/23 03/24/24 Rx insulin aspart U-100 100 unit/mL 20 unit (0.2 mL) subcut TIDCM 06/30/23 03/24/24 Rx (3 mL) subcutaneous pen SLIDING SCALE 3 months #54 mL pen needle, diabetic 29 gauge x #100 ea 09/04/23 03/24/24 Rx 1/2 (BD Ultra-Fine Original Pen Needle) metoprolol tartrate 25 mg tablet 25 mg PO BID #180 tabs 09/15/23 03/24/24 Rx metformin 500 mg tablet,extended 1,000 mg (2 x 500 mg) PO BID #360 11/11/23 03/24/24 Rx release 24 hr tabs atorvastatin 10 mg tablet 10 mg PO QHS 01/02/24 03/24/24 History insulin glargine 100 unit/mL (3 40 unit subcut QHS 01/02/24 03/24/24 History mL) subcutaneous pen (Lantus Solostar U-100 Insulin) lisinopril 40 mg tablet 40 mg PO DAILY 01/02/24 03/24/24 History blood sugar diagnostic (FreeStyle #200 ea 01/05/24 03/24/24 Rx Lite Strips) empagliflozin 25 mg tablet 25 mg PO QAM #90 tabs 01/26/24 03/24/24 Rx (Jardiance) tirzepatide 10 mg/0.5 mL 10 mg (0.5 mL) subcut QWEEK 3 03/24/24 03/24/24 Rx subcutaneous pen injector months #6.5 mL (Mounjaro) Have you fallen in the past year?: No PFSH Medical History Wears hearing aid [place] History of echocardiogram Personal history of colonic polyps CKD (chronic kidney disease), stage III Flu vaccine need Wears hearing aid in both ears Diabetic neuropathy Left elbow pain Dizziness Cardiac murmur Right ear impacted cerumen Sore throat Hyperlipidemia Health care maintenance Hypertension Type 2 diabetes mellitus Wears glasses Cancer Insulin dependent diabetes mellitus Prostate disease High cholesterol Dietary restriction Former smoker CPAP (continuous positive airway pressure) dependence Leg cramps History of pain when walking History of stress test Cardiology follow-up encounter Hypertension Surgical History History of cataract surgery History of prostate surgery Hx of appendectomy Hx laparoscopic cholecystectomy History of colonoscopy Family History Grandmother Colon cancer Father Cancer Mother Diabetes Uterine cancer Grandfather Diabetes Brother Kidney disease Social History household members: spouse and children current occupational status: retired Smoking Status: Former smoker alcohol intake: current alcohol intake frequency: holidays/special occasions only substance use type: does not use what type of physical activity do you participate in: none HPI HPI Chief Complaint: 3 M FU Details: DEBORAH KEITH, is a 68 M who presents to the office today for follow-up of his chronic medical conditions. No acute concerns at this time. Switched to Mounjaro due to concerns with availability for Trulicity. Had been on 4.5 mg weekly however was started on 5 mg of Mounjaro weekly. Tolerating it without any concerns. A1c is up slightly from last check at 6.7. Denies any concerning side effects. History of hypertension, blood pressure today is at 120/72 mmHg. Taking his medications as prescribed. No chest pain, palpitation or shortness of breath. Other chronic medical conditions are stable. ROS Const Constitutional: No body ache, chills, excessive sweating, fat (more content not included)... Normal [facility] Lipid Profileon 03-24-2024 Cholesterol [Mass/Vol] 130 mg/dL Normal 200 [facility] Comment on above: Result Comment: <200 mg/dL Desirable 200-240 mg/dL Borderline >240 mg/dL High Risk Performed By: #### L 500.4100, L100.0100, L501.9940, L500.4050 #### [facility] [address] [place], [address] Cholesterol in HDL [Mass/Vol] 32 mg/dL Low [facility] Comment on above: Result Comment: The drugs N-Acetylcysteine and Metamizole may falsely depress this assay. Reference Range HDL <40 mg/dL Low HDL Cholesterol HDL >or= 60 mg/dL High HDL Cholesterol Performed By: #### L 500.4100, L100.0100, L501.9940, L500.4050 #### [facility] [address] [place], [address] Cholesterol in LDL [Mass/Vol] 63 mg/dL Normal 0-130 [facility] Comment on above: Performed By: #### L 500.4100, L100.0100, L501.9940, L500.4050 #### [facility] [address] [place], [address] Cholesterol in VLDL [Mass/Vol] 35 mg/dL Normal 5-40 [facility] Comment on above: Performed By: #### L 500.4100, L100.0100, L501.9940, L500.4050 #### [facility] [address] [place], [address] Triglyceride [Mass/Vol] 175 mg/dL Normal [facility] Comment on above: Result Comment: The drugs N-Acetylcysteine and Metamizole may falsely depress this assay. Serum Triglycerides Reference Interval Normal <150 mg/dL Borderline high 150 - 199 mg/dL High 200 - 499 mg/dL Very High > or = 500 mg/dL Performed By: #### L 500.4100, L100.0100, L501.9940, L500.4050 #### [facility] [address] [place], [address] PSA,Total- Diagnosticon 03-10 PSA, DIAGNOSTIC < 0.01 Normal 0.0-4.0 [facility] Comment on above: Result Comment: This test was performed using the TPSA assay method for the KartRocket chemistry system. Values obtained with different assay methods cannot be used interchangably. When changing PSA assays in the course of monitoring a patient, additional sequential testing should be carried out to confirm baseline values. Performed By: #### L 500.4100, L100.0100, L501.9940, L500.4050 #### [facility] [address] [place], [address] Bedside Glucoseon 01-05-2024 FINGERSTICK GLU 134 mg/dL High 74-106 [facility] Comment on above: Result Comment: KI GERDAENT OF PATIENT CARE PER NURSING PROTOCOL Performed By: #### L 501.080 #### [facility] [address] [place], [address] Colonoscopy Reporton 024 Colonoscopy Report [facility] Medical Records Department [address] [place] [address] Colonoscopy Report MR#: [id number] Acct: [id number] Name: DEBORAH KEITH Rep #: [id number] : 1955 68 From: Nick Stephens DO PCP: Dr. Erinn Suh MD Status:[facility] Patient Name: Deborah Keith Procedure Date: 01/05/2024 7:35 AM Date of : 1955 Age: 68 Procedure: Colonoscopy Indications: High risk colon cancer surveillance: Personal history of colonic polyps Providers: Nick Stephens DO Referring MD: Erinn Suh MD Medicines: Monitored Anesthesia Care Patient Profile: This is a 68 year old male. Refer to note in patient chart for documentation of history and physical. Last Colonoscopy: 5 years ago. Complications: No immediate complications. Procedure: Pre-Anesthesia Assessment: - Prior to the procedure, a History and Physical was performed, and patient medications and allergies were reviewed. The patient is competent. The risks and benefits of the procedure and the sedation options and risks were discussed with the patient. All questions were answered and informed consent was obtained. Patient identification and proposed procedure were verified by the physician in the pre-procedure area. Mental Status Examination: alert and oriented. Airway Examination: normal oropharyngeal airway and neck mobility. Respiratory Examination: clear to auscultation. CV Examination: normal. Prophylactic Antibiotics: The patient does not require prophylactic antibiotics. Prior Anticoagulants: The patient has taken no anticoagulant or antiplatelet agents except for NSAID medication. ASA Grade Assessment: II - A patient with mild systemic disease. After reviewing the risks and benefits, the patient was deemed in satisfactory condition to undergo the procedure. The anesthesia plan was to use monitored anesthesia care (MAC). Immediately prior to administration of medications, the patient was re-assessed for adequacy to receive sedatives. The heart rate, respiratory rate, oxygen saturations, blood pressure, adequacy of pulmonary ventilation, and response to care were monitored throughout the procedure. The physical status of the patient was re-assessed after the procedure. After I obtained informed consent, the scope was passed under direct vision. Throughout the procedure, the patient's blood pressure, pulse, and oxygen saturations were monitored continuously. The colonoscope was introduced through the anus and advanced to the cecum, identified by appendiceal orifice and ileocecal valve. The colonoscopy was performed without difficulty. The patient tolerated the procedure well. The quality of the bowel preparation was adequate. The ileocecal valve, appendiceal orifice, and rectum were photographed. Scope In: 7:46:20 AM Scope Withdrawal Time 0 hours 13 minutes 26 seconds Scope Out: 8:04:25 AM Total Procedure Duration Time 0 hours 18 minutes 5 seconds Findings: The perianal and digital rectal examinations were normal. A 5 mm polyp was found in the transverse colon. The polyp was sessile. The polyp was removed with a cold biopsy forceps. Resection and retrieval were complete. Verification of patient identification for the specimen was done. Estimated blood loss was minimal. Three small-mouthed diverticula were found in the sigmoid colon. The exam was otherwise without abnormality on direct and retroflexion views. Non-bleeding internal hemorrhoids were found during retroflexion. The hemorrhoids were Grade II (internal hemorrhoids that prolapse but reduce spontaneously). Impression: - One 5 mm polyp in the transverse colon, removed with a cold biopsy forceps. Resected and retrieved. - Diverticulosis in the sigmoid colon. - The examination was otherwise normal on direct and retroflexion views. Recommendation: - Discharge patient to home. - Resume previous diet. - Continue present medications. - Await pathology results. - Repeat colonoscopy in 5 years for surveillance. Procedure Code(s): --- Professional --- 81603, Colonoscopy, flexible; with biopsy, single or multiple CPT copyright 2021 [employer]. All rights reserved. The codes documented in this report are preliminary and upon auditing coder review may be revised to meet current compliance requirements. Nick Stephens DO 01/05/2024 8:09:08 AM This report has been signed electronically. Number of Addenda: 0 Note Initiated On: 01/05/2024 7:35 AM 01/05/24808 Date Nick Stephens DO Cosigner Signature: Date (if indicated) CC: Dr. Ernin Suh MD; Nick Stephens DO Date Dictated: 01/05/24734 Date Transcribed: Hotel Office Manager: MIHAELA Signed [facility] MR/[email or web address].Jade 01-05-2024 MR/POSTOP.[facility] Medical Records Department [address] [place] [address] Anesthesia Postop Eval I 01/05/24811 MR#: [id number] Acct: [id number] Name: DEBORAH KEITH Rep #: [id number] : 1955 68 From: Ciaran Villar PCP: Dr. Erinn Suh MD Status:REG SDC Y Race: C Location: [place] [address] Anesthesia: Postop Eval I Current Vital Signs Temperature: 97.2 F Pulse Rate: 68 Blood Pressure: 77/54 Respiratory Rate: 16 Pulse Ox: 97 Oxygen Delivery Method: Room Air Assessment Airway patent: Yes Spontaneous unlabored respirations: Yes Mental status: Awake and Calm nausea: No Vomiting: No Anesthesia Complication: No Fluid Hydration Crystalloid volume administer (ml): 30 Total IV fluid infused: 30 Progress Note Anesthesia document: Postop Eval 1 completed: Yes 01/05/24812 Ciaran Gomezer Timothy Signature: Date CC: Signed Normal [facility] MR/[id number] 01-05-2024 [facility] Medical Records Department [address] [place] [address] Anesthesia Postop Eval II 01/05/24 0852 MR#: [id number] Acct: [id number] Name: DEBORAH KEITH Rep #: [id number] : 1955 68 From: Robb Robert MD PCP: Dr. Erinn Suh MD Status:[facility] Y Race: C Location: EN Anesthesia Postop Eval I Sum Postop Eval Completion status Anesthesia document: Postop Eval 1 completed: Yes Anesthesia Postop Eval I Summary Anesthesia Postop Eval I Summary: Anesthesia Postop Eval I: Assessment Summary Airway patent Yes 01/05/24 08:13 [email or web address] Spontaneous unlabored Yes 01/05/24 08:13 [email or web address] respirations Mental status Awake,Calm 01/05/24 08:13 [email or web address] nausea No 01/05/24 08:13 [email or web address] Vomiting No 01/05/24 08:13 [email or web address] Anesthesia Postop Eval I: Fluid Summary Crystalloid volume administer 30 01/05/24 08:13 [email or web address] (ml) Colloids volume administered ( ml) Blood Product volume administered (ml) Total IV fluid infused 30 01/05/24 08:13 [email or web address] Anesthesia Postop Eval I: Summary Notes Anesthesia Complication No 01/05/24 08:13 [email or web address] Anesthesia Complication Comment: Post-operative progress note Anesthesia: Postop Eval II Evaluation Mental status: Awake Pain Level: 0 nausea: No Vomiting: No 01/05/2452 Date Robb Aguirre Signature: Date CC: Signed Normal [facility] Surgery Specimen Level William 01-05-2024 Surgery Specimen Level IV -------- Patient Age/Sex Location Account Attending Physician -------- DEBORAH KEITH 68/M EN [id number] Nick Stephens DO -------- Specimen: [id number] Received: 01/05/24 Status: TREV [place] Num: [id number] Spec Type: COLON BX Subm Dr: Nick Stephens DO HEADER OPERATION: Colonoscopy PRE-OP DIAGNOSIS: Encounter for screening for malignant neoplasm of colon TISSUE SUBMITTED: Transverse colon polyp biopsy -------- MICROSCOPIC DIAGNOSIS Transverse colon polyp, biopsy: A fragment of colonic mucosa with minimal adenomatous changes. 01/06/2024 MICROSCOPIC DESCRIPTION Slides are reviewed. GROSS DESCRIPTION Received in fixative is one container labeled with the patient's name and designated Transverse colon polyp biopsy. The specimen consists of one irregular fragment of light jean-baptiste soft tissue that measure 0.5 x 0.5 x 0.1 cm. The specimen is totally submitted in one cassette. 01/05/2024 TC:5 CPT:47425 -------- Patient Age/Sex Location Account Attending Physician -------- DEBORAH KEITH 68/M EN [id number] Nick Friend, DO -------- Signed (signature on file) Dr. Khanh Ferrera MD 01/06/24 1231 -------- Normal [facility] Comment on above: Performed By: #### P SUIV #### [facility] [address] [place], [place], [address] PSA,Total- Diagnosticon 12-08 PSA, DIAGNOSTIC < 0.01 Normal 0.0-4.0 [facility] Comment on above: Order Comment: PER P T-JUST THIS ORDER Result Comment: This test was performed using the TPSA assay method for the KartR[employer] chemistry system. Values obtained with different assay methods cannot be used interchangably. When changing PSA assays in the course of monitoring a patient, additional sequential testing should be carried out to confirm baseline values. Performed By: #### L 501.9940 #### [facility] [address] [place], [place], [address] Internal Medicine Office Vis qamar 12-17-2023 Internal Medicine Office Visit [facility] [address] [place] [address] [address] [place] [address] OFFICE VISIT Date of Service: 12/17/23 MR#: [id number] Acct: [id number] Name: DEBORAH KEITH Rep #: [id number] : 1955 Provider: Dr. 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 Accompanied by: Self Is patient in pain?: No Allergies No Known Allergies Allergy (Verified 12/17/23 11:01) Medications ???Medication ???Instructions ???Recorded ???Confirmed ???Type aspirin 81 mg tablet,delayed 81 mg PO DAILY@0800 12/23/18 12/17/23 History release cholecalciferol (vitamin D3) 125 125 mcg PO DAILY 11/29/20 12/17/23 History mcg (5,000 unit) tablet (Vitamin D3) multivitamin 1 cap PO DAILY 11/29/20 12/17/23 History blood sugar diagnostic (FreeStyle #200 strips 02/05/22 12/17/23 Rx Lite Strips) flash glucose scanning reader #1 ea 06/17/22 12/17/23 Rx (FreeStyle Trent 14 Day Mitchell) flash glucose sensor (FreeStyle #2 ea 06/17/22 12/17/23 Rx Trent 2 Sensor kit) amlodipine 10 mg tablet 10 mg PO DAILY #90 tabs 04/30/23 12/17/23 Rx atorvastatin 10 mg tablet See Rx Instructions .Route 04/30/23 12/17/23 Rx .COMPLEX #90 tabs insulin aspart U-100 100 unit/mL 20 unit (0.2 mL) subcut TIDCM 3 06/30/23 12/17/23 Rx (3 mL) subcutaneous pen months #54 mL lisinopril 40 mg tablet See Rx Instructions .Route 07/14/23 12/17/23 Rx .COMPLEX #90 tabs empagliflozin 25 mg tablet 25 mg PO QAM #90 tabs 08/25/23 12/17/23 Rx (Jardiance) pen needle, diabetic 29 gauge x #100 ea 09/04/23 12/17/23 Rx 1/2 (BD Ultra-Fine Original Pen Needle) insulin glargine 100 unit/mL (3 50 unit (0.5 mL) subcut QHS #45 mL 09/15/23 12/17/23 Rx mL) subcutaneous pen (Lantus Solostar U-100 Insulin) metoprolol tartrate 25 mg tablet 25 mg PO BID #180 tabs 09/15/23 12/17/23 Rx tirzepatide 5 mg/0.5 mL 5 mg (0.5 mL) subcut QWEEK 3 11/08/23 12/17/23 Rx subcutaneous pen injector months #6.5 mL (Mounjaro) metformin 500 mg tablet,extended 1,000 mg (2 x 500 mg) PO BID #360 11/11/23 12/17/23 Rx release 24 hr tabs Have you fallen in the past year?: No PFSH Medical History Personal history of colonic polyps CKD (chronic kidney disease), stage III Flu vaccine need Wears hearing aid in both ears Diabetic neuropathy Left elbow pain Dizziness Cardiac murmur Right ear impacted cerumen Sore throat Hyperlipidemia Health care maintenance Hypertension Type 2 diabetes mellitus Kidney stones Neuropathy GERD (gastroesophageal reflux disease) Loss of hearing Wears glasses Cancer Alcohol use Insulin dependent diabetes mellitus Prostate disease High cholesterol Dietary restriction Former smoker CPAP (continuous positive airway pressure) dependence Leg cramps History of pain when walking History of stress test Cardiology follow-up encounter Hypertension Surgical History History of cataract surgery History of prostate surgery Hx of appendectomy Hx laparoscopic cholecystectomy History of colonoscopy Family History Grandmother Colon cancer Father Cancer Mother Diabetes Uterine cancer Grandfather Diabetes Brother Kidney disease Social History household members: spouse and children current occupational status: retired Smoking Status: Former smoker alcohol intake: current alcohol intake frequency: holidays/special occasions only substance use type: does not use what type of physical activity do you participate in: none HPI HPI Chief Complaint: 3 M FU Details: DEBORAH KEITH, is a 68 M who presents to the office today for follow-up of his chronic medical conditions. History of diabetes mellitus and about 2 weeks ago started on Mounjaro. Currently takes 5 mg weekly. He states that his readings have been much lower waking up with some readings in the 50s to 60s. Also on long-acting insulin, currently takes 50 units every night. Also history of hypertension, blood pressure today at 118/60 mmHg. No chest pain, palpitation or shortness of breath. Other chronic medical conditions are stable. ROS Const Constitutional: No body ache, chills, excessive sweating (more content not included)... Normal [facility] Basophil percentageOrdered B y: Erinn Suh on 06-26-2023 Chloride [Moles/Vol] 106 mmol/L 98-107 [facility] Glucose [Mass/Vol] 191 mg/dL 74-106 [facility] Comment on above: Fasting Glucose resu lt greater than or equal to 126 mg/dL suggests DIABETES MELLITUS per A.D.A. criteria. Potassium [Moles/Vol] 4.7 mmol/L 3.5-5.1 [facility] Sodium [Moles/Vol] 139 mmol/L 136-145 [facility] - Chemistry and C hemistry - challengeOrdered By: Erinn Suh on 06-26-2023 CO2 [Moles/Vol] 27.0 mmol/L 21.0-32.0 [facility] Urea nitrogen/Creatinine [Mass ratio] 12.4 mg/mg 10-20 [facility] No Panel InformationOrdered By: Erinn Suh on 06-26-2023 Urine Microalbumin/Creatin ine Ratio 59.3 mg/g CRE <30 [facility] Estimated GFR (MDRD) Amer 66 mL/min >60 [facility] Comment on above: GFR Calc Estimated GFR (MDRD) Non-Af Amer 55 mL/min >60 [facility] Comment on above: Non- GFR Calc Serum or plasma calcium martha urement (mass/volume)Ordered By: Erinn Suh on 06-26-2023 Calcium [Mass/Vol] 9.5 mg/dL 8.5-10.1 [facility] Serum or plasma creatinine m easurement (mass/volume)Ordered By: Erinn Suh on 06-26-2023 Creatinine [Mass/Vol] 1.37 mg/dL 0.70-1.30 [facility] Comment on above: The validity of the calculated GFR & GFRAA in patients over 70 years has not been determined. Clinical correlation is essential. Serum or plasma urea nitroge n measurement (mass/volume)Ordered By: Erinn Suh on 06-26-2023 Urea nitrogen [Mass/Vol] 17 mg/dL 7-18 [facility] Thin prep Papanicolaou smear with manual screeningOrdered By: Erinn Suh on 06-26-2023 Thin prep Papanicolaou smear with manual screening 61.7 mg/L NO RANGE EST. [facility] Thin prep Papanicolaou smear with manual screening 6 5-15 [facility] Urine creatinine measurement (mass/volume)Ordered By: Erinn Suh on 06-26-2023 Creatinine (U) [Mass/Vol] 104.00 mg/dL NO RANGE EST. [facility] Whole blood hemoglobin A1c/t otal hemoglobin ratio (mass fraction)Ordered By: Erinn Suh on 06-26-2023 HbA1c (Bld) [Mass fraction] 7.3 % 3.8-5.6 [facility] Comment on above: Normal < 5.7 % Predi abetic 5.7 - 6.4 % Diabetic >or= 6.5 % Please note range changes. Absolute lymphocyte countOrd ered By: Erinn Suh on 03-21-2023 Lymphocytes Auto (Unsp spec) [#/Vol] 1.30 10*3/uL 0.83-4.51 [facility] Basophil percentageOrdered B y: Erinn Suh on 03-21-2023 Basophils/100 WBC (Bld) 0.6 % 0-1 [facility] Bilirubin [Mass/Vol] 0.70 mg/dL 0.20-1.00 [facility] Comment on above: For patients on eltr ombopag therapy, use of Dimension Jarreau TBIL is not recommended. Chloride [Moles/Vol] 106 mmol/L 98-107 [facility] Cholesterol [Mass/Vol] 122 mg/dL <200 [facility] Comment on above: <200 mg/dL Desirable 200-240 mg/dL Borderline >240 mg/dL High Risk Eosinophils/100 WBC (Bld) 6.9 % 0-5 [facility] Glucose [Mass/Vol] 160 mg/dL 74-106 [facility] Comment on above: Fasting Glucose resu lt greater than or equal to 126 mg/dL suggests DIABETES MELLITUS per A.D.A. criteria. Neutrophils (Bld) [#/Vol] 4.3 10*3/uL 2.0-7.7 [facility] Neutrophils/100 WBC (Bld) 66.8 % 47-70 [facility] Potassium [Moles/Vol] 4.4 mmol/L 3.5-5.1 [facility] Protein [Mass/Vol] 7.4 g/dL 6.4-8.2 [facility] Sodium [Moles/Vol] 140 mmol/L 136-145 [facility] Triglyceride [Mass/Vol] 144 mg/dL <199 [facility] Comment on above: The drugs N-Acetylcy steine and Metamizole may falsely depress this assay.Serum Triglycerides Reference Interval Normal <150 mg/dL Borderline high 150 - 199 mg/dL High 200 - 499 mg/dL Very High > or = 500 mg/dL WBC (Bld) [#/Vol] 6.5 10*3/uL 4.4-11.0 [facility] Blood erythrocytes count (nu mber/volume)Ordered By: Erinn Suh on 03-21-2023 RBC (Bld) [#/Vol] 4.68 10*6/uL 4.6-6.2 [facility] Blood hemoglobin measurement (mass/volume)Ordered By: Erinn Suh on 03-21-2023 Hemoglobin (Bld) [Mass/Vol] 14.1 g/dL 13.0-16.5 [facility] Blood lymphocytes/100 leukoc ytesOrdered By: Erinn Suh on 03-21-2023 Lymphocytes/100 WBC (Bld) 20.0 % 19-41 [facility] Blood monocytes/100 leukocyt esOrdered By: [facility] Suh on 03-21-2023 Monocytes/100 WBC (Bld) 5.2 % 0-10 [facility] Blood platelet mean volumeOr dered By: wilma Suh on 03-21-2023 Platelet mean volume (Bld) [Entitic vol] 11.0 fL 6.2-12.0 [facility] Determination of erythrocyte mean corpuscular volume (MCV)Ordered By: Erinn Suh on 03-21-2023 MCV (RBC) [Entitic vol] 89.5 fL 80-94 [facility] Hematocrit Auto (Bld) [Volum e fraction]Ordered By: [facility] Suh on 03-21-2023 Hematocrit (Bld) [Volume fraction] 41.9 % 40-54 [facility] Laboratory - Chemistry and C hemistry - challengeOrdered By: [facility] Jamesradha on 03-21-2023 ALP [Catalytic activity/Vol] 75 U/L 45-117 [facility] ALT [Catalytic activity/Vol] 29 U/L 16-61 [facility] CO2 [Moles/Vol] 27.0 mmol/L 21.0-32.0 [facility] Globulin (S) [Mass/Vol] 3.4 g/dL 2.2-4.2 [facility] Urea nitrogen/Creatinine [Mass ratio] 13.6 mg/mg 10-20 [facility] Laboratory - Hematology and Cell countsOrdered By: [facility] Ramirezradha on 03-21-2023 Erythrocyte distribution width (RBC) [Entitic vol] 39.5 fL 35.1-43.9 [facility] Erythrocyte distribution width (RBC) [Ratio] 12.1 % 11.6-14.6 [facility] Immature granulocytes/100 WBC (Bld) 0.500 % 0.0-0.9 [facility] Comment on above: IG% - Immature Granu locytes (promyelocytes, myelocytes and metamyelocytes) > 1% indicates that a LEFT SHIFT is Present. MCH (RBC) [Entitic mass] 30.1 pg 27.0-32.0 [facility] Nucleated RBC/100 WBC (Bld) [Ratio] 0 % 0-5 [facility] Laboratory - Hematology and Cell countson 03-21-2023 HbA1c (Bld) [Mass fraction] 7.1 % 4.2-6.3 [facility] [Mass/Vol]Or dered By: Erinn Suh on 03-21-2023 MCHC (RBC) [Mass/Vol] 33.7 g/dL 32-36 [facility] No Panel InformationOrdered By: Erinn Suh on 03-21-2023 Urine Microalbumin/Creatin ine Ratio 40.6 mg/g CRE <30 [facility] Estimated GFR (MDRD) Amer 61 mL/min >60 [facility] Comment on above: GFR Calc Estimated GFR (MDRD) Non-Af Amer 51 mL/min >60 [facility] Comment on above: Non- GFR Calc Platelets bldOrdered By: Ortega Suh on 03-21-2023 Platelets (Bld) [#/Vol] 253 10*3/uL 150-450 [facility] Serum or plasma albumin martha urement (mass/volume)Ordered By: Erinn Suh on 03-21-2023 Albumin [Mass/Vol] 4.0 g/dL 3.2-5.0 [facility] Serum or plasma albumin/glob ulin mass ratioOrdered By: Erinn Suh on 03-21-2023 Albumin/Globulin [Mass ratio] 1.2 {ratio} 0.9-2.4 [facility] Serum or plasma calcium martha urement (mass/volume)Ordered By: Erinn Suh on 03-21-2023 Calcium [Mass/Vol] 10.0 mg/dL 8.5-10.1 [facility] Serum or plasma cholesterol in HDL measurement (mass/volume)Ordered By: Erinn Suh on 03-21-2023 Cholesterol in HDL [Mass/Vol] 27 mg/dL >40 [facility] Comment on above: The drugs N-Acetylcy steine and Metamizole may falsely depress this assay. Reference Range HDL <40 mg/dL Low HDL Cholesterol HDL >or= 60 mg/dL High HDL Cholesterol Serum or plasma cholesterol in VLDL measurement (mass/volume)Ordered By: Erinn Suh on 03-21-2023 Cholesterol in VLDL [Mass/Vol] 29 mg/dL 5-40 [facility] Serum or plasma creatinine m easurement (mass/volume)Ordered By: Erinn Suh on 03-21-2023 Creatinine [Mass/Vol] 1.47 mg/dL 0.70-1.30 [facility] Comment on above: The validity of the calculated GFR & GFRAA in patients over 70 years has not been determined. Clinical correlation is essential. Serum or plasma low density lipoprotein (LDL) cholesterol measurement (mass/volume)Ordered By: [facility] Suh on 03-21-2023 Cholesterol in LDL [Mass/Vol] 66 mg/dL 0-130 [facility] Serum or plasma urea nitroge n measurement (mass/volume)Ordered By: gerardperrynick Suh on 03-21-2023 Urea nitrogen [Mass/Vol] 20 mg/dL 7-18 [facility] Thin prep Papanicolaou smear with manual screeningOrdered By: Erinn Suh on 03-21-2023 Thin prep Papanicolaou smear with manual screening 50.3 mg/L NO RANGE EST. [facility] Thin prep Papanicolaou smear with manual screening 20 U/L 15-37 [facility] Thin prep Papanicolaou smear with manual screening 7 5-15 [facility] Urine creatinine measurement (mass/volume)Ordered By: Erinn Suh on 03-21-2023 Creatinine (U) [Mass/Vol] 124.00 mg/dL NO RANGE EST. [facility] No Panel InformationOrdered By: Luis Woodson on 03-17-2023 Prostate Specific Antigen Total < 0.01 ng/mL 0.0-4.0 [facility] Comment on above: This test was perfor med using the TPSA assay method for the[facility]. Values obtained with differentassay methods cannot be used interchangably.When changing PSA assays in the course of monitoring apatient, additional sequential testing should be carriedout to confirm baseline values. Basophil percentageOrdered B y: Erinn Suh on 12-18-2022 Chloride [Moles/Vol] 105 mmol/L 98-107 [facility] Glucose [Mass/Vol] 196 mg/dL 74-106 [facility] Comment on above: Fasting Glucose resu lt greater than or equal to 126 mg/dL suggests DIABETES MELLITUS per A.D.A. criteria. Potassium [Moles/Vol] 4.3 mmol/L 3.5-5.1 [facility] Sodium [Moles/Vol] 138 mmol/L 136-145 [facility] Laboratory - Chemistry and C hemistry - challengeOrdered By: Erinn Suh on 12-18-2022 CO2 [Moles/Vol] 27.0 mmol/L 21.0-32.0 [facility] Urea nitrogen/Creatinine [Mass ratio] 13.4 mg/mg 10 [facility] Laboratory - Hematology and Cell countson 12-18-2022 HbA1c (Bld) [Mass fraction] 7.4 % 4.2-6.3 [facility] No Panel InformationOrdered By: Erinn Suh on 12-18-2022 Estimated GFR (MDRD) Amer 64 mL/min >60 [facility] Comment on above: GFR Calc Estimated GFR (MDRD) Non-Af Amer 53 mL/min >60 [facility] Comment on above: Non- GFR Calc Serum or plasma calcium martha urement (mass/volume)Ordered By: Erinn Suh on 12-18-2022 Calcium [Mass/Vol] 9.5 mg/dL 8.5-10.1 [facility] Serum or plasma creatinine m easurement (mass/volume)Ordered By: Erinn Suh on 12-18-2022 Creatinine [Mass/Vol] 1.42 mg/dL 0.70-1.30 [facility] Comment on above: The validity of the calculated GFR & GFRAA in patients over 70 years has not been determined. Clinical correlation is essential. Serum or plasma urea nitroge n measurement (mass/volume)Ordered By: Erinn Suh on 12-18-2022 Urea nitrogen [Mass/Vol] 19 mg/dL 7-18 [facility] Thin prep Papanicolaou smear with manual screeningOrdered By: Erinn Suh on 12-18-2022 Thin prep Papanicolaou smear with manual screening 6 5-15 [facility] Laboratory - Hematology and Cell countson 09-16-2022 HbA1c (Bld) [Mass fraction] 6.2 % 4.2-6.3 [facility] No Panel InformationOrdered By: Luis Woodson on 09-13-2022 Prostate Specific Antigen Total < 0.01 ng/mL 0.0-4.0 [facility] Comment on above: This test was perfor med using the TPSA assay method for the[employer] chemistry system. Values obtained with differentassay methods cannot be used interchangably.When changing PSA assays in the course of monitoring apatient, additional sequential testing should be carriedout to confirm baseline values. Absolute lymphocyte countOrd ered By: Erinn Suh on 06-17-2022 Lymphocytes Auto (Unsp spec) [#/Vol] 1.09 10*3/uL 0.83-4.51 [facility] Basophil percentageOrdered B y: Erinn Suh on 06-17-2022 Basophils/100 WBC (Bld) 0.8 % 0-1 [facility] Bilirubin [Mass/Vol] 0.60 mg/dL 0.20-1.00 [facility] Comment on above: For patients on eltr ombopag therapy, use of Dimension Jarreau TBIL is not recommended. Chloride [Moles/Vol] 109 mmol/L 98-107 [facility] Cholesterol [Mass/Vol] 118 mg/dL <200 [facility] Comment on above: <200 mg/dL Desirable 200-240 mg/dL Borderline >240 mg/dL High Risk Eosinophils/100 WBC (Bld) 4.7 % 0-5 [facility] Glucose [Mass/Vol] 153 mg/dL 74-106 [facility] Comment on above: Fasting Glucose resu lt greater than or equal to 126 mg/dL suggests DIABETES MELLITUS per A.D.A. criteria. Neutrophils (Bld) [#/Vol] 4.5 10*3/uL 2.0-7.7 [facility] Neutrophils/100 WBC (Bld) 71.7 % 47-70 [facility] Potassium [Moles/Vol] 4.4 mmol/L 3.5-5.1 [facility] Protein [Mass/Vol] 7.3 g/dL 6.4-8.2 [facility] Sodium [Moles/Vol] 138 mmol/L 136-145 [facility] Triglyceride [Mass/Vol] 155 mg/dL <199 [facility] Comment on above: The drugs N-Acetylcy steine and Metamizole may falsely depress this assay.Serum Triglycerides Reference Interval Normal <150 mg/dL Borderline high 150 - 199 mg/dL High 200 - 499 mg/dL Very High > or = 500 mg/dL WBC (Bld) [#/Vol] 6.2 10*3/uL 4.4-11.0 [facility] Blood erythrocytes count (nu mber/volume)Ordered By: Erinn Suh on 06-17-2022 RBC (Bld) [#/Vol] 4.66 10*6/uL 4.6-6.2 [facility] Blood hemoglobin measurement (mass/volume)Ordered By: Erinn Suh on 06-17-2022 Hemoglobin (Bld) [Mass/Vol] 14.8 g/dL 13.0-16.5 [facility] Blood lymphocytes/100 leukoc ytesOrdered By: Erinn Suh on 06-17-2022 Lymphocytes/100 WBC (Bld) 17.5 % 19-41 [facility] Blood monocytes/100 leukocyt esOrdered By: Erinn Suh on 06-17-2022 Monocytes/100 WBC (Bld) 5.1 % 0-10 [facility] Blood platelet mean volumeOr dered By: Erinn Suh on 06-17-2022 Platelet mean volume (Bld) [Entitic vol] 10.7 fL 6.2-12.0 [facility] Determination of erythrocyte mean corpuscular volume (MCV)Ordered By: Erinn Suh on 06-17-2022 MCV (RBC) [Entitic vol] 88.8 fL 80-94 [facility] Hematocrit Auto (Bld) [Volum e fraction]Ordered By: Erinn Suh on 06-17-2022 Hematocrit (Bld) [Volume fraction] 41.4 % 40-54 [facility] - Chemistry and C hemistry - challengeOrdered By: Erinn Suh on 06-17-2022 ALP [Catalytic activity/Vol] 64 U/L 45-117 [facility] ALT [Catalytic activity/Vol] 40 U/L 16-61 [facility] CO2 [Moles/Vol] 26.0 mmol/L 21.0-32.0 [facility] Globulin (S) [Mass/Vol] 3.2 g/dL 2.2-4.2 [facility] Urea nitrogen/Creatinine [Mass ratio] 14.4 mg/mg 10-20 [facility] - Hematology and Cell countsOrdered By: Erinn Suh on 06-17-2022 Erythrocyte distribution width (RBC) [Entitic vol] 40.7 fL 35.1-43.9 [facility] Erythrocyte distribution width (RBC) [Ratio] 12.6 % 11.6-14.6 [facility] Immature granulocytes/100 WBC (Bld) 0.200 % 0.0-0.9 [facility] Comment on above: IG% - Immature Granu locytes (promyelocytes, myelocytes and metamyelocytes) > 1% indicates that a LEFT SHIFT is Present. MCH (RBC) [Entitic mass] 31.8 pg 27.0-32.0 [facility] Nucleated RBC/100 WBC (Bld) [Ratio] 0 % 0-5 [facility] - Hematology and Cell countson 06-17-2022 HbA1c (Bld) [Mass fraction] 5.7 % 4.2-6.3 [facility] MCHC Auto (RBC) [Mass/Vol]Or dered By: Erinn Suh on 06-17-2022 MCHC (RBC) [Mass/Vol] 35.7 g/dL 32-36 [facility] No Panel InformationOrdered By: Erinn Suh on 06-17-2022 Urine Microalbumin/Creatin ine Ratio 53.0 mg/g CRE <30 [facility] Estimated GFR (MDRD) Amer 79 mL/min >60 [facility] Comment on above: GFR Calc Estimated GFR (MDRD) Non-Af Amer 65 mL/min >60 [facility] Comment on above: Non- GFR Calc Platelets bldOrdered By: Ortega Suh on 06-17-2022 Platelets (Bld) [#/Vol] 258 10*3/uL 150-450 [facility] Serum or plasma albumin martha urement (mass/volume)Ordered By: Meghanawilma Suh on 06-17-2022 Albumin [Mass/Vol] 4.1 g/dL 3.2-5.0 [facility] Serum or plasma albumin/glob ulin mass ratioOrdered By: Erinn Suh on 06-17-2022 Albumin/Globulin [Mass ratio] 1.3 {ratio} 0.9-2.4 [facility] Serum or plasma calcium martha urement (mass/volume)Ordered By: Erinn Suh on 06-17-2022 Calcium [Mass/Vol] 9.6 mg/dL 8.5-10.1 [facility] Serum or plasma cholesterol in HDL measurement (mass/volume)Ordered By: Meghanawilma Suh on 06-17-2022 Cholesterol in HDL [Mass/Vol] 32 mg/dL >40 [facility] Comment on above: The drugs N-Acetylcy steine and Metamizole may falsely depress this assay. Reference Range HDL <40 mg/dL Low HDL Cholesterol HDL >or= 60 mg/dL High HDL Cholesterol Serum or plasma cholesterol in VLDL measurement (mass/volume)Ordered By: Erinn Suh on 06-17-2022 Cholesterol in VLDL [Mass/Vol] 31 mg/dL 5-40 [facility] Serum or plasma creatinine m easurement (mass/volume)Ordered By: Erinn Suh on 06-17-2022 Creatinine [Mass/Vol] 1.18 mg/dL 0.70-1.30 [facility] Comment on above: The validity of the calculated GFR & GFRAA in patients over 70 years has not been determined. Clinical correlation is essential. Serum or plasma low density lipoprotein (LDL) cholesterol measurement (mass/volume)Ordered By: Erinn Suh on 06-17-2022 Cholesterol in LDL [Mass/Vol] 55 mg/dL 0-130 [facility] Serum or plasma urea nitroge n measurement (mass/volume)Ordered By: Erinn Suh on 06-17-2022 Urea nitrogen [Mass/Vol] 17 mg/dL 7-18 [facility] Thin prep Papanicolaou smear with manual screeningOrdered By: Erinn Suh on 06-17-2022 Thin prep Papanicolaou smear with manual screening 66.8 mg/L NO RANGE EST. [facility] Thin prep Papanicolaou smear with manual screening 28 U/L 15-37 [facility] Thin prep Papanicolaou smear with manual screening 3 5-15 [facility] Urine creatinine measurement (mass/volume)Ordered By: Erinn Suh on 06-17-2022 Creatinine (U) [Mass/Vol] 126.00 mg/dL NO RANGE EST. [facility] Laboratory - Hematology and Cell countson 03-18-2022 HbA1c (Bld) [Mass fraction] 9.4 % 4.2-6.3 [facility] No Panel InformationOrdered By: STAS Harrison on 03-15-2022 Prostate Specific Antigen Total < 0.01 ng/mL 0.0-4.0 [facility] Comment on above: This test was perfor med using the TPSA assay method for the[employer] chemistry system. Values obtained with differentassay methods cannot be used interchangably.When changing PSA assays in the course of monitoring apatient, additional sequential testing should be carriedout to confirm baseline values. Laboratory - Hematology and Cell countson 12-14-2021 HbA1c (Bld) [Mass fraction] 7.8 % 4.2-6.3 [facility] No Panel Informationon 09-27 Prostate Specific Antigen Total < 0.01 ng/mL 0.0-4.0 [facility] Work Phone: Comment on above: This test was perfor med using the TPSA assay method for the[employer] chemistry system. Values obtained with differentassay methods cannot be used interchangably.When changing PSA assays in the course of monitoring apatient, additional sequential testing should be carriedout to confirm baseline values. Laboratory - Microbiology an d Antimicrobial susceptibilityon 09-14-2021 S. pyogenes Ag IA Ql (Unsp spec) Negative [facility] Work Phone: Laboratory - Hematology and Cell countson 09-13-2021 HbA1c (Bld) [Mass fraction] 8.3 % 4.2-6.3 [facility] Work Phone: Laboratory - Hematology and Cell countson 05-30-2021 HbA1c (Bld) [Mass fraction] 6.8 % 4.2-6.3 [facility] Work Phone: PROGRESSon 03-18-2018 Protein mass conc HNO ID: [id number] Author: Adrianne Sharma Service: (none) Author Type: Math Coach Type: Progress Notes Filed: 03/18/2018 10:31 AM Note Text: Patient has changed PCP to Dr. Gallego. Adrianne Sharma MA [facility] CNPTOUTREACHon 03-17-2018 CNPTOUTREA Patient Outreach (FAMPWS) ----DEBORAH KEITH ([id number]) 1955 MDate Time Provider Department03/17/18 ADRIANNE SHARMA) [...] 03/28/2016 130/80 10/26/2015 124/64Lipids:Cholesterol, Total (mg/dL)Date Value09/23/2016 118 HDL Cholesterol (mg/dL)Date Value09/23/2016 33 LDL Cholesterol (mg/dL)Date Value09/23/2016 3005 53 Triglyceride (mg/dL)Date Value09/23/2016 8688008/03/2015 160 HGB A1C:Lab ResultsComponent Value [id number] 7.1 09/23/2016HBA1C 8.9 03/27/2016HBA1C 5.9 08/03/2015TSH:TSH (uU/mL)Date [...] Galloway RN - Fully AssessedReason for Visit: [facility]/Care Gap Outreach [[id number]]Primary Visit Diagnosis:Well controlled type [...] Status:Closed by ADRIANNE SHARMA on 03/18/18 Normal [facility] PROGRESSon 03-17-2018 Protein mass conc HNO ID: [id number] thor: Adrianne Rivas (Kyara) ZacharyService: (none)Author Type: Medical AssistantType: Progress NotesFiled: 03/18/2018 10:31 AMNote Text:[facility] CARE GAP REGISTRY DOCUMENTATION(OUTSIDE TEAMLET)Provider Action/FYI: Patient needs appointment, needs labs ordered, needs Foot and Eye exam.Needs colonoscopyPSR Action/FYI: schedule ov and eye exam And colonoscopyPatient identified by name and date of .Last BP/Labs:Blood Pressure:Last 3 Encounter BP Readings: Date: BP: 10/25/2016 132/80 03/28/2016 130/80 10/26/2015 124/64Lipids:Cholesterol, Total (mg/dL)Date Value09/23/2016 1255708/03/2015 118 HDL Cholesterol (mg/dL)Date Value09/23/2016 25008/03/2015 33 LDL Cholesterol (mg/dL)Date Value09/23/2016 30008/03/2015 53 Triglyceride (mg/dL)Date Value09/23/2016 7923708/03/2015 160 HGB A1C:Lab ResultsComponent Value [id number] 7.1 09/23/2016HBA1C 8.9 03/27/2016HBA1C 5.9 08/03/2015TSH:TSH (uU/mL)Date Value02/23/2015 1.530 )? Patient has the following care gap registry disease diagnosis:DM? Patient has the following open care gaps:DM - Need Urine Albumin / NOTchecked in last 12 months? Needs dilated eye exam - HM overdue? Last office visit: 03/28/2016? Future office visit:follow Gretel Sharma MA [facility] CNOVon 06-12-2017 CNOV Office Visit (PODIWS) ----DEBORAH KEITH ([id number]) 1955 [facility] Time Provider Department06/12/17 8:25 AM LELE MARSHALL During your visit today, we recorded the following information about you:Lele Marshall DPM 06/12/2017 8:41 AM SignedSubjective: This 62 year old patient presents to clinic for f/u of verrucaright foot. Patient states that they had a treatment three weeks ago and didnot experience much pain or problems following the treatment. No other pedalcomplaints.Objective:Ne urovascular status is intact to right foot.Verruca noted [...] in 6 months for diabetic foot examMattchaimw Areli, FEDEMReferring Provider: SELF [[id number]]Allergies As of Date: 06/12/2017(No [...] by LELE MARSHALL DPM on 06/12/17 Normal [facility] PROGRESSon 06-12-2017 Protein mass conc HNO ID: [id number] thor: Lele Wuervice: (none)Author Type: PhysicianType: Progress NotesFiled: 06/12/2017 8:41 AMNote Text:Subjective: This 62 year old patient presents to clinic for f/u ofverruca right foot. Patient states that they had a treatment three weeksago and did not experience much pain or problems following the treatment.No other pedal complaints.Objective:Neurova scular status is intact to right foot.Verruca noted [...] F/u in 6 months for diabetic foot examMattaddison Marshall DPM Normal [facility] CNOVon 05-22-2017 CNOV Office Visit (PODIWS) ----DEBORAH KEITH ([id number]) 1955 MDate Time Provider Department05/22/17 7:40 AM LELE MARSHALL PODKATHY During your visit today, we recorded the [...] has noother issuesPAIN EVALUATION No data found.Hemoglobin Q4TNbed Value Ref Range Iwxeby9809/23/2016 7.1 (H) 4.3 - 5.6 % FinalComment:[employer] guidelines indicate that patients with [...] Apply 1 application to affected area asneeded.Insulin Radcliffe, Disposable, (NOVOFINE 32) 32 gauge x 1/4ANDquot; [...] LITE METER) monitoring kit Freestyle LITE MeterKit -(E11.49) 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 Insulin: YesBABY ASPIRIN ORAL Take by mouth.Cholecalciferol, Vitamin D3, (VITAMIN D-3) 5,000 unit tab Take 5,000 Units bymouth once daily.MULTIVITS-MINERALS/FA/ LYCOPENE (ONE-A-DAY MEN'S ORAL) Take by mouth.CPAP Initiate CPAP 7 cm H20 water with humidification. Mask (per patientpreference) optional chin strap (if indicated) , filters, tubing, humidifierand lifetime supplies.No current facility-administered medications for this visit.ALLERGIESNo Known AllergiesPAST SURGICAL HISTORYProcedure Laterality Date- APPENDECTOMY- COLONOSCOP W/ OR W/O [facility] SPEC 11/16/2008 Colonoscopy- REMOVAL GALLBLADDERPhysical Exam:Constitutional: Pt is a well developed 62 year old male who is alert,oriented, cooperative and in no apparent distress.OBJECTIVE:NVSI unchanged from previous visit.Dermatological:1 mm wart to plantar aspect of right foot. Wart does show progress since lastvisit. No ulceration noted. Small skin tag of right forefootMusculoskeletal/Orth opaedic:Patient has no pain to palpation of right footASSESSMENT:(B07.0) Plantar wart of right foot (primary encounter diagnosis)PLAN:1. History and physical examination completed today.2. Wart to right foot has shown improvement. Wart was debrided with 15 bladeand tca was applied. Discussed surgical options for wart. Patient is notinterested.3. Continue with wart cream at home.4. F/u in 3 weeksMatthew Areli, FEDEMReferring Provider: SELF [[id number]]Allergies As of [...] by LELE MARSHALL DPM on 05/22/17 Normal [facility] PROGRESSon 05-22-2017 Protein mass conc HNO ID: [id number] thor: Lele Wuervice: (none)Author Type: PhysicianType: Progress NotesFiled: 05/22/2017 7:51 AMNote Text:Follow up podiatric office visit for:Chief Complaint: This 62 year old who presents for follow up:wart ofright footPatient has been doing the following since last visit: patient has beenapplying topical wart cream to his right foot. He has no pain. He has noother issuesPAIN EVALUATION No data found.Hemoglobin G2NUxdh Value Ref Range Uwzxoo4509/23/2016 7.1 (H) 4.3 - 5.6 % FinalComment:[employer] guidelines indicate that patients myboRsiR5n inthe range 5.7-6.4% are at increased risk [...] Apply 1 application to affectedarea as needed.Insulin Radcliffe, Disposable, (NOVOFINE 32) 32 gauge x 1/4 [...] unit tab Take 5,000 Unitsby mouth once daily.MULTIVITS-MINERALS/FA/ LYCOPENE (ONE-A-DAY MEN'S ORAL) Take by mouth.CPAP Initiate CPAP 7 cm H20 water with humidification. Mask (per patientpreference) optional chin strap (if indicated) , filters, tubing,humidifier and lifetime supplies.No current facility-administered medications for this visit.ALLERGIESNo Known AllergiesPAST SURGICAL HISTORYProcedure Laterality Date- APPENDECTOMY- COLONOSCOP W/ OR W/O [facility] SPEC 11/16/2008 Colonoscopy- REMOVAL GALLBLADDERPhysical Exam:Constitutional: Pt is a well developed 62 year old male who is alert,oriented, cooperative and in no apparent distress.OBJECTIVE:NVSI unchanged from previous visit.Dermatological:1 mm wart to plantar aspect of right foot. Wart does show progress sincelast visit. No ulceration noted. Small skin tag of right forefootMusculoskeletal/Orth opaedic:Patient has no pain to palpation of right footASSESSMENT:(B07.0) Plantar wart of right foot (primary encounter diagnosis)PLAN:1. History and physical examination completed today.2. Wart to right foot has shown improvement. Wart was debrided with 15blade and tca was applied. Discussed surgical options for wart. Patientis not interested.3. Continue with wart cream at home.4. F/u in 3 weeksMatthew CAROLINE Marshall Normal [facility] PROGRESSon 05-01-2017 Protein mass conc HNO ID: [id number] thor: Lele Wuervice: (none)Author Type: PhysicianType: Progress [...] EVALUATION No data found.Hemoglobin A1C (%)Date Value09/23/2016 7.101/ 8.905/ 5.911/ 6.908/ 6.8 HBA1C, [place] (%)Date Value07/24/2010 8.702/09/2010 7.008 6.805/05/2009 10.306 6.0 PCP: TAYA Gillespie MEDICAL HISTORYDiagnosis Date- [...] Apply 1 application to affectedarea as needed.Insulin [place], Disposable, (NOVOFINE 32) 32 gauge x 1/4 [...] unit tab Take 5,000 Unitsby mouth once daily.MULTIVITS-MINERALS/FA/ LYCOPENE (ONE-A-DAY MEN'S ORAL) Take by mouth.CPAP Initiate CPAP 7 cm H20 water with humidification. Mask (per patientpreference) optional chin strap (if indicated) , filters, tubing,humidifier and lifetime supplies.No current facility-administered medications for this visit.ALLERGIESNo Known AllergiesPAST SURGICAL HISTORYProcedure Laterality Date- APPENDECTOMY- COLONOSCOP W/ OR W/O [facility] SPEC 11/16/2008 Colonoscopy- REMOVAL GALLBLADDERFAMILY HISTORYProblem Relation [...] andmuscle pain.SKIN: Negative for lesions, rash, and itching.HEMATOLOGY/LYMPHOLOG Y Negative for prolonged bleeding, bruising easily,and swollen [...] Heis going to monitor.5. F/u in 2 weeksMatthew Testrake, DPM Normal [facility] Vital Signs Date Time Vital Sign Value Performing Clinician Jose treadwell 11-24-2024 09:56-0400 Body height 182.[address] Erinn Suh MD Work Phone: [facility] 11-24-2024 09:56-0400 Body mass index (BMI) [Ratio] 28.5 kg/m2 Dr. Erinn Suh MD Work Phone: [facility] 11-24-2024 09:56-0400 Body weight 95.[address] Erinn Suh MD Work Phone: [facility] 11-24-2024 09:56-0400 Diastolic blood pressure 65 mm[Hg] Dr. Erinn Suh MD Work Phone: [facility] 11-24-2024 09:56-0400 Heart rate 77 /min Dr. Erinn Suh MD Work Phone: [facility] 11-24-2024 09:56-0400 Respiratory rate 16 /min Dr. Erinn Suh MD Work Phone: [facility] 11-24-2024 09:56-0400 Systolic blood pressure 108 mm[Hg] Dr. Erinn Suh MD Work Phone: [facility] 09-24-2024 09:24-0400 Body height 182.[address] Erinn Suh MD Work Phone: [facility] 09-24-2024 09:24-0400 Body mass index (BMI) [Ratio] 28.9 kg/m2 Dr. Erinn Suh MD Work Phone: [facility] 09-24-2024 09:24-0400 Body temperature 96.8 [degF] Dr. Erinn Suh MD Work Phone: [facility] 09-24-2024 09:24-0400 Body weight 96.[address] Erinn Suh MD Work Phone: [facility] 09-24-2024 09:24-0400 Diastolic blood pressure 68 mm[Hg] Dr. Erinn Suh MD Work Phone: [facility] 09-24-2024 09:24-0400 Heart rate 94 /min Dr. Erinn Suh MD Work Phone: [facility] 09-24-2024 09:24-0400 Respiratory rate 16 /min Dr. Erinn Suh MD Work Phone: [facility] 09-24-2024 09:24-0400 SaO2% (BldA) [Mass fraction] 98 % Dr. Erinn Suh MD Work Phone: [facility] 09-24-2024 09:24-0400 Systolic blood pressure 108 mm[Hg] Dr. Erinn Suh MD Work Phone: [facility] 06-24-2024 13:30-0400 Body mass index (BMI) [Ratio] 29.7 kg/m2 Dr. Erinn Suh MD Work Phone: [facility] 06-24-2024 13:30-0400 Body temperature 96.9 [degF] Dr. Erinn Suh MD Work Phone: [facility] 06-24-2024 13:30-0400 Body weight 99.[address] Erinn Suh MD Work Phone: [facility] 06-24-2024 13:30-0400 Diastolic blood pressure 60 mm[Hg] Dr. Erinn Suh MD Work Phone: [facility] 06-24-2024 13:30-0400 Heart rate 83 /min Dr. Erinn Suh MD Work Phone: [facility] 06-24-2024 13:30-0400 Respiratory rate 16 /min Dr. Erinn Suh MD Work Phone: [facility] 06-24-2024 13:30-0400 SaO2% (BldA) [Mass fraction] 97 % Dr. Erinn Suh MD Work Phone: [facility] 06-24-2024 13:30-0400 Systolic blood pressure 100 mm[Hg] Dr. Erinn Suh MD Work Phone: [facility] 06-26-2023 14:07-0400 Body height 185.[address] Erinn Suh Work Phone: [facility] 06-26-2023 14:07-0400 Body mass index (BMI) [Ratio] 30.7 kg/m2 Dr. Erinn Suh Work Phone: [facility] 06-26-2023 14:07-0400 Body temperature 97.7 [degF] Dr. Erinn Suh Work Phone: [facility] 06-26-2023 14:07-0400 Body weight 105.[address] Erinn Suh Work Phone: [facility] 06-26-2023 14:07-0400 Diastolic blood pressure 76 mm[Hg] Dr. Erinn Suh Work Phone: [facility] 06-26-2023 14:07-0400 Heart rate 66 /min Dr. Erinn Suh Work Phone: [facility] 06-26-2023 14:07-0400 Respiratory rate 16 /min Dr. Erinn Suh Work Phone: [facility] 06-26-2023 14:07-0400 SaO2% (BldA) [Mass fraction] 98 % Dr. Erinn Suh Work Phone: [facility] 06-26-2023 14:07-0400 Systolic blood pressure 118 mm[Hg] Dr. Erinn Suh Work Phone: [facility] 06-01-2023 10:10-0400 Body mass index (BMI) [Ratio] 30.2 kg/m2 Dr. Erinn Suh Work Phone: [facility] 06-01-2023 10:10-0400 Body temperature 98.4 [degF] Dr. Erinn Suh Work Phone: [facility] 06-01-2023 10:10-0400 Body weight 104.[address] Erinn Suh Work Phone: [facility] 06-01-2023 10:10-0400 Diastolic blood pressure 62 mm[Hg] Dr. Erinn Suh Work Phone: [facility] 06-01-2023 10:10-0400 Heart rate 91 /min Dr. Erinn Suh Work Phone: [facility] 06-01-2023 10:10-0400 Respiratory rate 16 /min Dr. Erinn Suh Work Phone: [facility] 06-01-2023 10:10-0400 SaO2% (BldA) [Mass fraction] 96 % Dr. Erinn Suh Work Phone: [facility] 06-01-2023 10:10-0400 Systolic blood pressure 116 mm[Hg] Dr. Erinn Suh Work Phone: [facility] 03-21-2023 09:25-0500 Body height 185.[address] Erinn Suh Work Phone: [facility] 03-21-2023 09:25-0500 Body mass index (BMI) [Ratio] 30.3 kg/m2 Dr. Erinn Suh Work Phone: [facility] 03-21-2023 09:25-0500 Body temperature 97.8 [degF] Dr. Erinn Suh Work Phone: [facility] 03-21-2023 09:25-0500 Body weight 104.[address] Erinn Suh Work Phone: [facility] 03-21-2023 09:25-0500 Diastolic blood pressure 68 mm[Hg] Dr. Erinn Suh Work Phone: [facility] 03-21-2023 09:25-0500 Heart rate 87 /min Dr. Erinn Suh Work Phone: [facility] 03-21-2023 09:25-0500 Respiratory rate 16 /min Dr. Erinn Suh Work Phone: [facility] 03-21-2023 09:25-0500 SaO2% (BldA) [Mass fraction] 99 % Dr. Erinn Suh Work Phone: [facility] 03-21-2023 09:25-0500 Systolic blood pressure 118 mm[Hg] Dr. Erinn Suh Work Phone: [facility] 12-18-2022 09:22-0400 Body height 185.[address] Erinn Suh Work Phone: [facility] 12-18-2022 09:22-0400 Body mass index (BMI) [Ratio] 29.8 kg/m2 Dr. Erinn Suh Work Phone: [facility] 12-18-2022 09:22-0400 Body temperature 98.5 [degF] Dr. Erinn Suh Work Phone: [facility] 12-18-2022 09:22-0400 Body weight 102.[address] Erinn Suh Work Phone: [facility] 12-18-2022 09:22-0400 Diastolic blood pressure 70 mm[Hg] Dr. Erinn Suh Work Phone: [facility] 12-18-2022 09:22-0400 Heart rate 92 /min Dr. Erinn Suh Work Phone: [facility] 12-18-2022 09:22-0400 Respiratory rate 16 /min Dr. Erinn Suh Work Phone: [facility] 12-18-2022 09:22-0400 SaO2% (BldA) [Mass fraction] 98 % Dr. Erinn Suh Work Phone: [facility] 12-18-2022 09:22-0400 Systolic blood pressure 122 mm[Hg] Dr. Erinn Suh Work Phone: [facility] 09-16-2022 09:24-0400 Body height 185.[address] Erinn Suh Work Phone: [facility] 09-16-2022 09:24-0400 Body mass index (BMI) [Ratio] 30.2 kg/m2 Dr. Erinn Suh Work Phone: [facility] 09-16-2022 09:24-0400 Body temperature 97.1 [degF] Dr. Erinn Suh Work Phone: [facility] 09-16-2022 09:24-0400 Body weight 103.[address] Erinn Suh Work Phone: [facility] 09-16-2022 09:24-0400 Diastolic blood pressure 80 mm[Hg] Dr. Erinn Suh Work Phone: [facility] 09-16-2022 09:24-0400 Heart rate 96 /min Dr. Erinn Suh Work Phone: [facility] 09-16-2022 09:24-0400 Respiratory rate 16 /min Dr. Erinn Suh Work Phone: [facility] 09-16-2022 09:24-0400 SaO2% (BldA) [Mass fraction] 98 % Dr. Erinn Suh Work Phone: [facility] 09-16-2022 09:24-0400 Systolic blood pressure 128 mm[Hg] Dr. Erinn Suh Work Phone: [facility] 06-17-2022 13:26-0400 Body mass index (BMI) [Ratio] 30.9 kg/m2 Dr. Erinn Suh Work Phone: [facility] 06-17-2022 13:26-0400 Body temperature 98.4 [degF] Dr. Erinn Suh Work Phone: [facility] 06-17-2022 13:26-0400 Body weight 106.[address] Erinn Suh Work Phone: [facility] 06-17-2022 13:26-0400 Diastolic blood pressure 64 mm[Hg] Dr. Erinn Suh Work Phone: [facility] 06-17-2022 13:26-0400 Heart rate 78 /min Dr. Erinn Suh Work Phone: [facility] 06-17-2022 13:26-0400 Respiratory rate 14 /min Dr. Erinn Suh Work Phone: [facility] 06-17-2022 13:26-0400 SaO2% (BldA) [Mass fraction] 99 % Dr. Erinn Suh Work Phone: [facility] 06-17-2022 13:26-0400 Systolic blood pressure 118 mm[Hg] Dr. Erinn Suh Work Phone: [facility] 03-18-2022 14:52-0500 Diastolic blood pressure 78 mm[Hg] Dr. Erinn Suh Work Phone: [facility] 03-18-2022 14:52-0500 Heart rate 100 /min Dr. Erinn Suh Work Phone: [facility] 03-18-2022 14:52-0500 Systolic blood pressure 138 mm[Hg] Dr. Erinn Suh Work Phone: [facility] 03-18-2022 13:55-0500 Body height 185.[address] Erinn Suh Work Phone: [facility] 03-18-2022 13:55-0500 Body mass index (BMI) [Ratio] 33.1 kg/m2 Dr. Erinn Suh Work Phone: [facility] 03-18-2022 13:55-0500 Body temperature 96.1 [degF] Dr. Erinn Suh Work Phone: [facility] 03-18-2022 13:55-0500 Body weight 113.[address] Erinn Suh Work Phone: [facility] 03-18-2022 13:55-0500 Respiratory rate 16 /min Dr. Erinn Suh Work Phone: [facility] 03-18-2022 13:55-0500 SaO2% (BldA) [Mass fraction] 97 % Dr. Erinn Suh Work Phone: [facility] 12-14-2021 15:07-0400 Body mass index (BMI) [Ratio] 33.5 kg/m2 Dr. Erinn Suh Work Phone: [facility] 12-14-2021 15:07-0400 Body temperature 97.2 [degF] Dr. Erinn Suh Work Phone: [facility] 12-14-2021 15:07-0400 Body weight 115.[address] Erinn Suh Work Phone: [facility] 12-14-2021 15:07-0400 Diastolic blood pressure 88 mm[Hg] Dr. Erinn Suh Work Phone: [facility] 12-14-2021 15:07-0400 Heart rate 75 /min Dr. Erinn Suh Work Phone: [facility] 12-14-2021 15:07-0400 Respiratory rate 16 /min Dr. Erinn Suh Work Phone: [facility] 12-14-2021 15:07-0400 SaO2% (BldA) [Mass fraction] 98 % Dr. Erinn Suh Work Phone: [facility] 12-14-2021 15:07-0400 Systolic blood pressure 130 mm[Hg] Dr. Erinn Suh Work Phone: [facility] 09-14-2021 08:50-0400 Body height 185.[address] Erinn Suh Work Phone: [facility] Work Phone: 09-14-2021 08:50-0400 Body mass index (BMI) [Ratio] 33.1 kg/m2 Dr. Erinn Suh Work Phone: [facility] Work Phone: 09-14-2021 08:50-0400 Body temperature 98.3 [degF] Dr. Erinn Suh Work Phone: [facility] Work Phone: 09-14-2021 08:50-0400 Body weight 113.[address] Erinn Suh Work Phone: [facility] Work Phone: 09-14-2021 08:50-0400 Diastolic blood pressure 80 mm[Hg] Dr. Erinn Suh Work Phone: [facility] Work Phone: 09-14-2021 08:50-0400 Heart rate 83 /min Dr. Erinn Suh Work Phone: [facility] Work Phone: 09-14-2021 08:50-0400 Respiratory rate 18 /min Dr. Erinn Suh Work Phone: [facility] Work Phone: 09-14-2021 08:50-0400 SaO2% (BldA) [Mass fraction] 98 % Dr. Erinn Suh Work Phone: [facility] Work Phone: 09-14-2021 08:50-0400 Systolic blood pressure 130 mm[Hg] Dr. Erinn Suh Work Phone: [facility] Work Phone: 09-13-2021 13:18-0400 Body mass index (BMI) [Ratio] 33.1 kg/m2 Dr. Erinn Suh Work Phone: [facility] Work Phone: 09-13-2021 13:18-0400 Body temperature 97.2 [degF] Dr. Erinn Suh Work Phone: [facility] Work Phone: 09-13-2021 13:18-0400 Body weight 113.[address] Erinn Suh Work Phone: [facility] Work Phone: 09-13-2021 13:18-0400 Diastolic blood pressure 64 mm[Hg] Dr. Erinn Suh Work Phone: [facility] Work Phone: 09-13-2021 13:18-0400 Heart rate 85 /min Dr. Erinn Suh Work Phone: [facility] Work Phone: 09-13-2021 13:18-0400 Respiratory rate 18 /min Dr. Erinn Suh Work Phone: [facility] Work Phone: 09-13-2021 13:18-0400 SaO2% (BldA) [Mass fraction] 98 % Dr. Erinn Suh Work Phone: [facility] Work Phone: 09-13-2021 13:18-0400 Systolic blood pressure 122 mm[Hg] Dr. Erinn Suh Work Phone: [facility] Work Phone: 05-30-2021 14:18-0400 Body mass index (BMI) [Ratio] 32.8 kg/m2 Dr. Erinn Suh Work Phone: [facility] Work Phone: 05-30-2021 14:18-0400 Body temperature 97.5 [degF] Dr. Erinn Suh Work Phone: [facility] Work Phone: 05-30-2021 14:18-0400 Body weight 112.[address] Erinn Suh Work Phone: [facility] Work Phone: 05-30-2021 14:18-0400 Diastolic blood pressure 78 mm[Hg] Dr. Erinn Suh Work Phone: [facility] Work Phone: 05-30-2021 14:18-0400 Heart rate 122 /min Dr. Erinn Suh Work Phone: [facility] Work Phone: 05-30-2021 14:18-0400 Respiratory rate 18 /min Dr. Erinn Suh Work Phone: [facility] Work Phone: 05-30-2021 14:18-0400 SaO2% (BldA) [Mass fraction] 99 % Dr. Erinn Suh Work Phone: [facility] Work Phone: 05-30-2021 14:18-0400 Systolic blood pressure 142 mm[Hg] Dr. Erinn Suh Work Phone: [facility] Work Phone: Encounters Encounter Date Encounter Type Care Provider Facility Start: 11-24-2024 End: 11-24-[address] Erinn Suh MD Work Phone: -[facility] Start: 11-24-2024 End: 11-24-[address] Chepe Do MD -[facility] Work Phone: Start: 10-22-[address] Cody Suh MD -[facility] Work Phone: Start: 10-22-2024 ambulatory Erinn Garciai ty:[facility] Start: 09-24-2024 End: 09-24-[address] Erinn Suh MD -[facility] Work Phone: Start: 09-24-2024 End: 09-24-[address] Erinn Suh MD Work Phone: -[facility] Start: 06-24-2024 End: 06-24-[address] Erinn Suh MD -[facility] Work Phone: Start: 06-24-2024 End: 06-24-2024 ambulatory Erinn Suh Facility:[facility] Start: 03-24-2024 End: 03-24-2024 ambulatory Efwilma Suh Facility:[facility] Start: 03-24-2024 End: 03-24-2024 ambulatory Efewandres Ramirezradha Facility:[facility] Start: 01-05-2024 ambulatory Efwilma Shie Facili ty:[facility] Start: 01-05-2024 End: 01-05-2024 ambulatory gerardperrynick Ramirezradha Facility:[facility] Start: 12-25-2023 End: 12-25-2023 ambulatory [facility] Facility:[facility] Start: 12-17-2023 Encounter for genera l adult medical examination without abnormal findings Erinn Suh [facility] Start: 12-17-2023 End: 12-17-2023 ambulatory Erinn Suh Facility:[facility] Start: 11-07-2023 ambulatory Erinn Suh Josei ty:[facility] Start: 06-26-2023 End: 06-26-[address] Erinn Suh Work Phone: [facility] Work Phone: Start: 06-26-2023 End: 06-26-[address] Erinn Suh Work Phone: [facility] Work Phone: Start: 06-01-2023 End: 06-01-[address] Erinn Suh Work Phone: [facility] Work Phone: Start: 05-07-2023 End: 05-07-[address] Erinn Suh Work Phone: [facility] Work Phone: Start: 05-07-2023 End: 05-07-[address] Erinn Suh Work Phone: [facility] Work Phone: Start: 03-21-2023 End: 03-21-[address] Erinn Suh Work Phone: [facility] Work Phone: Start: 03-21-2023 End: 03-21-[address] Erinn Suh Work Phone: [facility] Work Phone: Start: 03-17-2023 End: 03-17-[address] Erinn Suh Work Phone: [facility] Work Phone: Start: 03-17-2023 End: 03-17-[address] rEinn Suh Work Phone: [facility] Work Phone: Start: 12-18-2022 End: 12-18-[address] Erinn Suh Work Phone: [facility] Work Phone: Start: 12-18-2022 End: 12-18-[address] Erinn Suh Work Phone: [facility] Work Phone: Start: 09-16-2022 End: 09-16-[address] Erinn Suh Work Phone: [facility] Work Phone: Start: 09-13-2022 End: 09-13-[address] Erinn Suh Work Phone: [facility] Work Phone: Start: 09-13-2022 End: 09-13-[address] Erinn Suh Work Phone: [facility] Start: 06-25-2022 Non-patient / Non-visit Dr. Meghana Suh Work Phone: [facility] Start: 06-17-2022 End: 06-17-[address] Erinn Suh Work Phone: [facility] Work Phone: Start: 03-18-2022 End: 03-18-[address] Erinn Suh Work Phone: [facility] Start: 03-15-2022 End: 03-15-[address] Erinn Suh Work Phone: [facility] Work Phone: Start: 03-15-2022 End: 03-15-[address] [facility] [place] Start: 12-18-2021 Non-patient / Non-visit Dr. Meghana Suh Work Phone: [facility] Start: 12-18-2021 End: 12-18-[address] Erinn Suh Work Phone: [facility] Start: 12-14-2021 End: 12-14-[address] Erinn Suh Work Phone: [facility] Start: 09-27-2021 End: 09-27-[address] [facility] Start: 09-14-2021 End: 09-14-[address] [facility] Start: 09-14-2021 End: 09-14-[address] Erinn Suh Work Phone: [facility] Start: 09-13-2021 End: 09-13-[address] Erinn Suh Work Phone: [facility] Start: 05-30-2021 End: 05-30-[address] Erinn Suh Work Phone: [facility] Start: 02-27-[address] Erinn Suh Work Phone: [facility] Start: 06-12-2017 End: 06-13-2017 Patient encounter procedure LELE MARSHALL [facility] Start: 05-22-2017 End: 05-23-2017 Patient encounter procedure LELE MARSHALL [facility] Start: 05-01-2017 End: 05-08-2017 Patient encounter procedure LELE MARSHALL [facility] Procedures Date Procedure Procedure Detail Performing Clinician Start: 10-22-2024 CT angiography of co ronary arteries Dr. Erinn Suh MD Work Phone: Bacteria identificat ion test Dr. Erinn Suh Work Phone: Plan of Treatment Date Care Activity Detail Author Start: 11-24-2024 Cathe[address]ization of left heart [facility] Start: 11-24-2024 End: 11-24-2024 Evaluation of diagnostic study results [facility] Start: 09-16-2022 Patient referral [facility] Work Phone: Start: 06-25-2022 Patient referral [facility] Work Phone: Basic metabolic 2008 panel with ionized calcium - Serum or Plasma [facility] spital CBC W Auto Different ial panel - Blood [facility] CBC W Auto Different ial panel - Blood [facility] Comprehensive metabo lic 2000 panel - Serum or Plasma [facility] CT angiography of co ronary arteries [facility] Patient referral [facility] Work Phone: Urine microalbumin/c reatinine ratio measurement [facility] US Heart [facility] Viral nucleic acid assay [facility] Work Phone: Payers Date Payer Category Payer Unknown 2023 Self-pay [id number] 2023 [facility] ( and others) [id number] 2023 Medicare [id number] Unknown [id number] Unknown [id number] Unknown [id number] Unknown [id number] Unknown [id number] Unknown [id number] Unknown [id number] Unknown [id number] Unknown [id number] Unknown [id number] Unknown [id number] Unknown [id number] Social History Date Type Detail Facility Start: 09-14-2021 End: 06-01-2023 Tobacco smoking status CAIS Unknown if ever smoked [facility] Start: 08-21-2019 Occasional [facility] Start: 08-21-2019 None [facility] Start: 08-21-2019 With Family [facility] Start: 1955 Sex Assigned At Male [facility] Start: 01-02-2024 [facility] Sex Male [facility] Medical Equipment Procedure Code Equipment Code Equipment Origin al Text Equipment Identifier Dates CLIP,HEMOLOCK SABINA NICOLAS FDA Start: 12-06-2020 Ligation clip, synthetic polymer, non-bioabsorbable ()[id number] FDA Start: 12-06-2020 SARAH OLIVAREZ LG FDA Start: 12-06-2020 SHERHEMKULDEEP NICOLAS FDA Start: 12-06-2020 SEALANT,FLOSEAL HEMOSTATIC 5ML FDA Start: 12-06-2020 SEALANT,FLOSEAL HEMOSTATIC 5ML FDA Start: 12-06-2020 SEALANT,FLOSEAL HEMOSTATIC 5ML FDA Start: 12-06-2020 Ligation clip, synthetic polymer, non-bioabsorbable ()[id number] FDA Start: 12-06-2020 Ligation clip, synthetic polymer, non-bioabsorbable ()[id number] FDA Start: 12-06-2020 Pen Needle, Diab etic (Bd Ultra-Fine Orig Pen Needle) 29 gauge x 1/2 needle Start: 05-31-2021 Pen Needle, Diab etic (Bd Ultra-Fine Orig Pen Needle) 29 gauge x 1/2 needle Start: 05-30-2021 End: 05-30-2021 Pen Needle, Diab etic (Bd Ultra-Fine Orig Pen Needle) 29 gauge x 1/2 needle Start: 05-30-2021 End: 05-31-2021 SARAH OLIVAREZ LG FDA Start: 12-06-2020 SARAH OLIVAREZ LG FDA Start: 12-06-2020 SARAH OLIVAREZ LG FDA Start: 12-06-2020 SEALANT,FLOSEAL HEMOSTATIC 5ML FDA Start: 12-06-2020 SEALANT,FLOSEAL HEMOSTATIC 5ML FDA Start: 12-06-2020 SEALANT,FLOSEAL HEMOSTATIC 5ML FDA Start: 12-06-2020 Pen Needle, Diab etic (Bd Ultra-Fine Orig Pen Needle) 29 gauge x 1/2 needle Start: 05-31-2021 Pen Needle, Diab etic (Bd Ultra-Fine Orig Pen Needle) 29 gauge x 1/2 needle Start: 05-30-2021 End: 05-30-2021 Pen Needle, Diab etic (Bd Ultra-Fine Orig Pen Needle) 29 gauge x 1/2 needle Start: 05-30-2021 End: 05-31-2021 CLIP,HEMALYSSACLARITZA NICOLAS FDA Start: 12-06-2020 CLIP,HEMOLOCK SABINA NICOLAS FDA Start: 12-06-2020 CLIP,HEMALYSSACK SABINA NICOLAS FDA Start: 12-06-2020 SEALANT,FLOSEAL HEMOSTATIC 5ML FDA Start: 12-06-2020 SEALANT,FLOSEAL HEMOSTATIC 5ML FDA Start: 12-06-2020 SEALANT,FLOSEAL HEMOSTATIC 5ML FDA Start: 12-06-2020 Blood Sugar Diagnostic (Freestyle Lite Strips) strip Start: 02-05-2022 Pen Needle, Diab etic (Bd Ultra-Fine Orig Pen Needle) 29 gauge x 1/2 needle Start: 03-25-2022 Blood Sugar Diagnostic (Freestyle Lite Strips) strip Start: 02-05-2022 End: 02-05-2022 Blood Sugar Diagnostic (Freestyle Test) strip Start: 02-04-2022 End: 02-04-2022 Blood Sugar Diagnostic (Freestyle Test) strip Start: 02-04-2022 End: 02-05-2022 Pen Needle, Diab etic (Bd Ultra-Fine Orig Pen Needle) 29 gauge x 1/2 needle Start: 05-30-2021 End: 05-30-2021 Pen Needle, Diab etic (Bd Ultra-Fine Orig Pen Needle) 29 gauge x 1/2 needle Start: 05-30-2021 End: 05-31-2021 Pen Needle, Diab etic (Bd Ultra-Fine Orig Pen Needle) 29 gauge x 1/2 needle Start: 05-31-2021 End: 03-25-2022 CLIP,PETERCLARITZA SABINA NICOLAS FDA Start: 12-06-2020 CLIP,HEMALYSSACK SABINA NICOLAS FDA Start: 12-06-2020 CLIP,HEMALYSSACLARITZA NICOLAS FDA Start: 12-06-2020 SEALANT,FLOSEAL HEMOSTATIC 5ML FDA Start: 12-06-2020 SEALANT,FLOSEAL HEMOSTATIC 5ML FDA Start: 12-06-2020 SEALANT,FLOSEAL HEMOSTATIC 5ML FDA Start: 12-06-2020 Blood Sugar Diagnostic (Freestyle Lite Strips) strip Start: 02-05-2022 Pen Needle, Diab etic (Bd Ultra-Fine Orig Pen Needle) 29 gauge x 1/2 needle Start: 03-25-2022 Blood Sugar Diagnostic (Freestyle Lite Strips) strip Start: 02-05-2022 End: 02-05-2022 Blood Sugar Diagnostic (Freestyle Test) strip Start: 02-04-2022 End: 02-04-2022 Blood Sugar Diagnostic (Freestyle Test) strip Start: 02-04-2022 End: 02-05-2022 Pen Needle, Diab etic (Bd Ultra-Fine Orig Pen Needle) 29 gauge x 1/2 needle Start: 05-30-2021 End: 05-30-2021 Pen Needle, Diab etic (Bd Ultra-Fine Orig Pen Needle) 29 gauge x 1/2 needle Start: 05-30-2021 End: 05-31-2021 Pen Needle, Diab etic (Bd Ultra-Fine Orig Pen Needle) 29 gauge x 1/2 needle Start: 05-31-2021 End: 03-25-2022 CLIP,HEMOLOCK LG WECK FDA Start: 12-06-2020 CLIP,HEMOLOCK LG WE FDA Start: 12-06-2020 CLIP,HEMOLOCK LG WE FDA Start: 12-06-2020 SEALANT,FLOSEAL HEMOSTATIC 5ML FDA Start: 12-06-2020 SEALANT,FLOSEAL HEMOSTATIC 5ML FDA Start: 12-06-2020 SEALANT,FLOSEAL HEMOSTATIC 5ML FDA Start: 12-06-2020 Blood Sugar Diagnostic (Freestyle Lite Strips) strip Start: 02-05-2022 Pen Needle, Diab etic (Bd Ultra-Fine Orig Pen Needle) 29 gauge x 1/2 needle Start: 03-25-2022 Blood Sugar Diagnostic (Freestyle Lite Strips) strip Start: 02-05-2022 End: 02-05-2022 Blood Sugar Diagnostic (Freestyle Test) strip Start: 02-04-2022 End: 02-04-2022 Blood Sugar Diagnostic (Freestyle Test) strip Start: 02-04-2022 End: 02-05-2022 Pen Needle, Diab etic (Bd Ultra-Fine Orig Pen Needle) 29 gauge x 1/2 needle Start: 05-30-2021 End: 05-30-2021 Pen Needle, Diab etic (Bd Ultra-Fine Orig Pen Needle) 29 gauge x 1/2 needle Start: 05-30-2021 End: 05-31-2021 Pen Needle, Diab etic (Bd Ultra-Fine Orig Pen Needle) 29 gauge x 1/2 needle Start: 05-31-2021 End: 03-25-2022 CLIP,HEMKULDEEP JOANNA FDA Start: 12-06-2020 CLIP,HEMKULDEEP [facility] FDA Start: 12-06-2020 CLIP,HEMKULDEEP [facility] FDA Start: 12-06-2020 SEALANT,FLOSEAL HEMOSTATIC 5ML FDA Start: 12-06-2020 SEALANT,FLOSEAL HEMOSTATIC 5ML FDA Start: 12-06-2020 SEALANT,FLOSEAL HEMOSTATIC 5ML FDA Start: 12-06-2020 Blood Sugar Diagnostic (Freestyle Lite Strips) strip Start: 02-05-2022 Pen Needle, Diab etic (Bd Ultra-Fine Orig Pen Needle) 29 gauge x 1/2 needle Start: 03-25-2022 Blood Sugar Diagnostic (Freestyle Lite Strips) strip Start: 02-05-2022 End: 02-05-2022 Blood Sugar Diagnostic (Freestyle Test) strip Start: 02-04-2022 End: 02-04-2022 Blood Sugar Diagnostic (Freestyle Test) strip Start: 02-04-2022 End: 02-05-2022 Pen Needle, Diab etic (Bd Ultra-Fine Orig Pen Needle) 29 gauge x 1/2 needle Start: 05-30-2021 End: 05-30-2021 Pen Needle, Diab etic (Bd Ultra-Fine Orig Pen Needle) 29 gauge x 1/2 needle Start: 05-30-2021 End: 05-31-2021 Pen Needle, Diab etic (Bd Ultra-Fine Orig Pen Needle) 29 gauge x 1/2 needle Start: 05-31-2021 End: 03-25-2022 CLIP,PETERCLARITZA SABINA MARSHALL FDA Start: 12-06-2020 CLIP,HEMKULDEEP MARSHALL FDA Start: 12-06-2020 CLIP,HEMKULDEEP [facility] FDA Start: 12-06-2020 SEALANT,FLOSEAL HEMOSTATIC 5ML FDA Start: 12-06-2020 SEALANT,FLOSEAL HEMOSTATIC 5ML FDA Start: 12-06-2020 SEALANT,FLOSEAL HEMOSTATIC 5ML FDA Start: 12-06-2020 Blood Sugar Diagnostic (Freestyle Lite Strips) strip Start: 02-05-2022 Pen Needle, Diab etic (Bd Ultra-Fine Orig Pen Needle) 29 gauge x 1/2 needle Start: 03-25-2022 Blood Sugar Diagnostic (Freestyle Lite Strips) strip Start: 02-05-2022 End: 02-05-2022 Blood Sugar Diagnostic (Freestyle Test) strip Start: 02-04-2022 End: 02-04-2022 Blood Sugar Diagnostic (Freestyle Test) strip Start: 02-04-2022 End: 02-05-2022 Pen Needle, Diab etic (Bd Ultra-Fine Orig Pen Needle) 29 gauge x 1/2 needle Start: 05-30-2021 End: 05-30-2021 Pen Needle, Diab etic (Bd Ultra-Fine Orig Pen Needle) 29 gauge x 1/2 needle Start: 05-30-2021 End: 05-31-2021 Pen Needle, Diab etic (Bd Ultra-Fine Orig Pen Needle) 29 gauge x 1/2 needle Start: 05-31-2021 End: 03-25-2022 CLIP,HEMOLOCK LG FIDENICO FDA Start: 12-06-2020 CLIP,HEMOLOCK LG FIDENCIO FDA Start: 12-06-2020 CLIP,HEMOLOCK LG WECK FDA Start: 12-06-2020 SEALANT,FLOSEAL HEMOSTATIC 5ML FDA Start: 12-06-2020 SEALANT,FLOSEAL HEMOSTATIC 5ML FDA Start: 12-06-2020 SEALANT,FLOSEAL HEMOSTATIC 5ML FDA Start: 12-06-2020 Blood Sugar Diagnostic (Freestyle Lite Strips) strip Start: 02-05-2022 Pen Needle, Diab etic (Bd Ultra-Fine Orig Pen Needle) 29 gauge x 1/2 needle Start: 03-25-2022 Blood Sugar Diagnostic (Freestyle Lite Strips) strip Start: 02-05-2022 End: 02-05-2022 Blood Sugar Diagnostic (Freestyle Test) strip Start: 02-04-2022 End: 02-04-2022 Blood Sugar Diagnostic (Freestyle Test) strip Start: 02-04-2022 End: 02-05-2022 Pen Needle, Diab etic (Bd Ultra-Fine Orig Pen Needle) 29 gauge x 1/2 needle Start: 05-30-2021 End: 05-30-2021 Pen Needle, Diab etic (Bd Ultra-Fine Orig Pen Needle) 29 gauge x 1/2 needle Start: 05-30-2021 End: 05-31-2021 Pen Needle, Diab etic (Bd Ultra-Fine Orig Pen Needle) 29 gauge x 1/2 needle Start: 05-31-2021 End: 03-25-2022 CLIPHEMKULDEEP MARSHALL FDA Start: 12-06-2020 CLIP,HEMOLOCLARITZA MARSHALL FDA Start: 12-06-2020 CLIPHEMOLOCLARITZA MARSHALL FDA Start: 12-06-2020 SEALANT,FLOSEAL HEMOSTATIC 5ML FDA Start: 12-06-2020 SEALANT,FLOSEAL HEMOSTATIC 5ML FDA Start: 12-06-2020 SEALANT,FLOSEAL HEMOSTATIC 5ML FDA Start: 12-06-2020 Blood Sugar Diagnostic (Freestyle Lite Strips) strip Start: 02-05-2022 Pen Needle, Diab etic (Bd Ultra-Fine Orig Pen Needle) 29 gauge x 1/2 needle Start: 03-25-2022 Blood Sugar Diagnostic (Freestyle Lite Strips) strip Start: 02-05-2022 End: 02-05-2022 Blood Sugar Diagnostic (Freestyle Test) strip Start: 02-04-2022 End: 02-04-2022 Blood Sugar Diagnostic (Freestyle Test) strip Start: 02-04-2022 End: 02-05-2022 Pen Needle, Diab etic (Bd Ultra-Fine Orig Pen Needle) 29 gauge x 1/2 needle Start: 05-30-2021 End: 05-30-2021 Pen Needle, Diab etic (Bd Ultra-Fine Orig Pen Needle) 29 gauge x 1/2 needle Start: 05-30-2021 End: 05-31-2021 Pen Needle, Diab etic (Bd Ultra-Fine Orig Pen Needle) 29 gauge x 1/2 needle Start: 05-31-2021 End: 03-25-2022 CLIPHEMKULDEEP MARSHALL FDA Start: 12-06-2020 CLIP,HEMOLOCLARITZA [facility] FDA Start: 12-06-2020 CLIP,HEMOLOCK [facility] FDA Start: 12-06-2020 SEALANT,FLOSEAL HEMOSTATIC 5ML FDA Start: 12-06-2020 SEALANT,FLOSEAL HEMOSTATIC 5ML FDA Start: 12-06-2020 SEALANT,FLOSEAL HEMOSTATIC 5ML FDA Start: 12-06-2020 Blood Sugar Diagnostic (Freestyle Lite Strips) strip Start: 02-05-2022 Blood Sugar Diagnostic (Freestyle Lite Strips) strip Start: 01-05-2024 Pen Needle, Diab etic (Bd Ultra-Fine Orig Pen Needle) 29 gauge x 1/2 needle Start: 09-04-2023 Blood Sugar Diagnostic (Freestyle Lite Strips) strip Start: 02-05-2022 End: 02-05-2022 Blood Sugar Diagnostic (Freestyle Test) strip Start: 02-04-2022 End: 02-04-2022 Blood Sugar Diagnostic (Freestyle Test) strip Start: 02-04-2022 End: 02-05-2022 Pen Needle, Diab etic (Bd Ultra-Fine Orig Pen Needle) 29 gauge x 1/2 needle Start: 05-30-2021 End: 05-30-2021 Pen Needle, Diab etic (Bd Ultra-Fine Orig Pen Needle) 29 gauge x 1/2 needle Start: 05-30-2021 End: 05-31-2021 Pen Needle, Diab etic (Bd Ultra-Fine Orig Pen Needle) 29 gauge x 1/2 needle Start: 05-31-2021 End: 03-25-2022 Pen Needle, Diab etic (Bd Ultra-Fine Orig Pen Needle) 29 gauge x 1/2 needle Start: 03-25-2022 End: 09-04-2023 CLIPHEMKULDEEP [facility] FDA Start: 12-06-2020 CLIP,HEMOLOCK [facility] FDA Start: 12-06-2020 CLIP,HEMOLOCK [facility] FDA Start: 12-06-2020 SEALANT,FLOSEAL HEMOSTATIC 5ML FDA Start: 12-06-2020 SEALANT,FLOSEAL HEMOSTATIC 5ML FDA Start: 12-06-2020 SEALANT,FLOSEAL HEMOSTATIC 5ML FDA Start: 12-06-2020 Blood Sugar Diagnostic (Freestyle Lite Strips) strip Start: 02-05-2022 Blood Sugar Diagnostic (Freestyle Lite Strips) strip Start: 01-05-2024 Pen Needle, Diab etic (Bd Ultra-Fine Orig Pen Needle) 29 gauge x 1/2 needle Start: 09-04-2023 Blood Sugar Diagnostic (Freestyle Lite Strips) strip Start: 02-05-2022 End: 02-05-2022 Blood Sugar Diagnostic (Freestyle Test) strip Start: 02-04-2022 End: 02-04-2022 Blood Sugar Diagnostic (Freestyle Test) strip Start: 02-04-2022 End: 02-05-2022 Pen Needle, Diab etic (Bd Ultra-Fine Orig Pen Needle) 29 gauge x 1/2 needle Start: 05-30-2021 End: 05-30-2021 Pen Needle, Diab etic (Bd Ultra-Fine Orig Pen Needle) 29 gauge x 1/2 needle Start: 05-30-2021 End: 05-31-2021 Pen Needle, Diab etic (Bd Ultra-Fine Orig Pen Needle) 29 gauge x 1/2 needle Start: 05-31-2021 End: 03-25-2022 Pen Needle, Diab etic (Bd Ultra-Fine Orig Pen Needle) 29 gauge x 1/2 needle Start: 03-25-2022 End: 09-04-2023 Clinical Notes 01-05-2024 to 09-24-2024 Note Date & Type Note Facility 09-24-2024 Evaluation note Diagnosis Onset Date Resolution Impetigo acute September 24 9:07am Hyperlipidemia chronic September 24, 2024 9:07am Hypertension chronic September 24, 2 025 9:07am Type 2 diabetes mellitus chronic September 24, 2024 9:07am Dermatitis resolved September 24 9:07am Abnormal cardiac CT angiography acute November 24, 2024 9:54am Aortic valve sclerosis acute Se pt2024 9:54am Hyperlipidemia chronic November 24, 2024 9:54am Hypertension chronic November 242024 9:54am [facility] Work Phone: 1(124) 657-399704-17-2025 Evaluation note* Diagnosis Onset Date Resolution Status Admit Date Hyperlipidemia chronic June 12:50pm Hypertension chronic June 24, 2024 12:50pm Type 2 diabetes mellitus chronic June 24, 2024 12:50pm [facility] Work Phone: 1(400) 352-701510-28-2024 [facility] Medical Records Department [address] [place] [address] History Physical Exam 01/05/24727 MR#: [id number] Acct: [id number] Name: DEBORAH KEITH Rep #: [id number] : [id number] 68 From: Nick Friend DO PCP: Dr. Erinn Suh MD Status:[facility] [place]: [place] [address] HPI - General General Date of Admission: 01/05/24 Date of Service: 01/05/24 Chief Complaint: Surveillance colonoscopy HPI Narrative DEBORAH KEITH, is a 68 M who presents today for surveillance colonoscopy. He has a past medical history of prostate cancer, CKD D stage III, diabetes who underwent colonoscopy approximately 5 years ago when discovered to have 2 adenomatous polyps that were removed. He comes in today for surveillance colonoscopy. [facility] Medical History Wears hearing aid Heartburn History of echocardiogram Personal history of colonic polyps CKD (chronic kidney disease), stage III Flu vaccine need Wears hearing aid in both ears Diabetic neuropathy Left elbow pain Dizziness Cardiac murmur Right ear impacted cerumen Sore throat Hyperlipidemia Health care maintenance Hypertension Type 2 diabetes mellitus Wears glasses Cancer Insulin dependent diabetes mellitus Prostate disease High cholesterol Dietary restriction Former smoker CPAP (continuous positive airway pressure) dependence Leg cramps History of pain when walking History of stress test Cardiology follow-up encounter Hypertension Home Medications ???Medication ???Instructions ???Recorded ???Last Taken ???Type aspirin 81 mg tablet,delayed 81 mg PO DAILY@0800 12/23/18 01/02/24 History release cholecalciferol (vitamin D3) 125 125 mcg PO DAILY 11/29/20 Unknown History mcg (5,000 unit) tablet (Vitamin D3) multivitamin 1 cap PO DAILY 11/29/20 01/04/24 History blood sugar diagnostic (FreeStyle #200 strips 02/05/22 Unknown Rx Lite Strips) flash glucose scanning reader #1 ea 06/17/22 Unknown Rx (FreeStyle Trent 14 Day Mitchell) flash glucose sensor (FreeStyle #2 ea 06/17/22 Unknown Rx Trent 2 Sensor kit) amlodipine 10 mg tablet 10 mg PO DAILY #90 tabs 04/30/23 01/05/24 Rx insulin aspart U-100 100 unit/mL 20 unit (0.2 mL) subcut TIDCM 06/30/23 Unknown Rx (3 mL) subcutaneous pen SLIDING SCALE 3 months #54 mL empagliflozin 25 mg tablet 25 mg PO QAM #90 tabs 08/25/23 Unknown Rx (Jardiance) pen needle, diabetic 29 gauge x #100 ea 09/04/23 Unknown Rx 1/2 (BD Ultra-Fine Original Pen Needle) metoprolol tartrate 25 mg tablet 25 mg PO BID #180 tabs 09/15/23 01/05/24 Rx metformin 500 mg tablet,extended 1,000 mg (2 x 500 mg) PO BID #360 11/11/23 01/04/24 Rx release 24 hr tabs atorvastatin 10 mg tablet 10 mg PO QHS 01/02/24 01/04/24 History insulin glargine 100 unit/mL (3 40 unit subcut QHS 01/02/24 Unknown History mL) subcutaneous pen (Lantus Solostar U-100 Insulin) lisinopril 40 mg tablet 40 mg PO DAILY 01/02/24 01/05/24 History tirzepatide 5 mg/0.5 mL 5 mg subcut TU 01/02/24 12/23/23 History subcutaneous pen injector (Mounjaro) Allergy/AdvReac Type Severity Reaction Status Date / Time No Known Allergies Allergy Verified 01/05/24 06:44 Family History Grandmother Colon cancer Father Cancer Mother Diabetes Uterine cancer Grandfather Diabetes Brother Kidney disease Surgical History History of cataract surgery History of prostate surgery Hx of appendectomy Hx laparoscopic cholecystectomy History of colonoscopy Social History household members: spouse and children current occupational status: retired Smoking Status: Former smoker alcohol intake: current alcohol intake frequency: holidays/special occasions only substance use type: does not use what type of physical activity do you participate in: none ROS Review of Systems ROS Unobtainable: other Constitutional Constitutional: Denies fatigue, fever(s), poor appetite, weight gain or weight loss ENT HEENT: Denies mouth lesions Cardiovascular Cardiovascular: Denies abdominal bloating, abdominal edema or abdominal pain Respiratory/Chest Respiratory/Chest: Denies change in mental status, change in phlegm color, chest congestion or chest tightness Gastrointestinal Gastrointestinal: Denies belching, bloating, change in bowel habits, change in stool character, chewing difficulty, coffee ground emesis, constipation, cramping, diarrhea, dyspepsia, dysphagia, early satiety, excessive flatus, fecal incontinence, heartburn, hematemesis, hematochezia, hemorrhoids, loose stools, melena, nausea, odynophagia, rectal bleeding, tenesmus, vomiting or weight c (more content not included)...[facility] On[facility] Date Resolution Status Hyperlipidemia chronic Hypertension chronic Type 2 diabetes mellitus [facility] Hyperlipidemia chronic Hypertension chronic Type 2 diabetes mellitus [facility] Acute pharyngitis noneactive [facility] Work Phone: Evaluation note* Diagnosis Onset Date Resolution Status Hyperlipidemia chronic Hypertension chronic Type 2 diabetes mellitus [facility] on Acute pharyngitis noneactive [facility] Work Phone: Evaluation note* Diagnosis Onset Date Resolution Status Right ear impacted cerumen a cute Cardiac murmur chronic Hypertension chronic Type 2 diabetes mellitus [facility] Cardiac murmur chronic Dizziness chronic Hypertension chronic Type [address] [facility] Work Phone: Evaluation note* Diagnosis Onset Date Resolution Status Left elbow pain acute Hypertension chronic Type 2 diabetes mellitus chr onic Left elbow pain acute Diabetic neuropathy chronic Hypertension chronic Type [address] [facility] Work Phone: Evaluation note* Diagnosis Onset Date Resolution Status Left elbow pain acute Diabetic neuropathy chronic Hypertension chronic Type 2 diabetes mellitus [facility] Flu vaccine need acute Hyperlipidemia chronic Hypertension chronic Type [address] [facility] Work Phone: Evaluation note* Diagnosis Onset Date Resolution Status Flu vaccine need acute Hyperlipidemia chronic Hypertension chronic Type [address] [facility] Work Phone: Evaluation note* Diagnosis Onset Date Resolution Status Flu vaccine need acute Hyperlipidemia chronic Hypertension chronic Type 2 diabetes mellitus chr onic Hyperlipidemia chronic Hypertension chronic Type [address] [facility] Work Phone: Evaluation note* Diagnosis Onset Date Resolution Status Hyperlipidemia chronic Hypertension chronic Type [address] [facility] Work Phone: Evaluation note* Diagnosis Onset Date Resolution Status Hyperlipidemia chronic Hypertension chronic Type 2 diabetes mellitus chr onic Cough acute CKD (chronic kidney disease), stage III chronic Hypertension chronic Type [address] [facility] Work Phone: Hospital Discharge instructionsAmbulatory Orders* Podiatry Location: [facility] Work Phone: Reason for referral (narrative)No reason for referral information availableAngelus [facility]aks [facility] Work Phone: Summary Purpose Family History Relationship Condition Age at Onset Recorded Date/T [place] grandmother Malignant neoplasm of colon Unknown father Malignant neoplasm Unknown mother Diabetes mellitus Unknown Malignant neoplasm of uterus Unknown grandfather Diabetes mellitus Unknown brother Kidney disorder Unknown Advance Directives Advance Directive Response Recorded Date/ Time Living Will Yes November 29, 2020 9:19am Power of Deli/Bakery Associate Yes November 9:19am Advance Directive Response Recorded Date/ Time Living Will Yes November 29, 2020 8:19am Power of Deli/Bakery Associate Yes November 8:19am Chief Complaint and Reason for Visit Chief Complaint 3 M FU 3 M FU SORE THROAT Reason for Visit Hyperlipidemia Hypertension Type 2 diabetes mellitus Hyperlipidemia Hypertension Type 2 diabetes mellitus Acute pharyngitis Chief Complaint 3 M FU SORE THROAT Reason for Visit Hyperlipidemia Hypertension Type 2 diabetes mellitus Acute pharyngitis Chief Complaint 3 M FU MURMUR PSA 3 M FU Reason for Visit Right ear impacted c erumen Cardiac murmur Hypertension Type 2 diabetes mellitus Cardiac murmur Dizziness Hypertension Type 2 diabetes mellitus Chief Complaint 2 m fu 3 m fu Reason for Visit Left elbow pain Hypertension Type 2 diabetes mellitus Left elbow pain Diabetic neuropathy Hypertension Type 2 diabetes mellitus Chief Complaint 3 m fu 3 m fu Reason for Visit Left elbow pain Diabetic neuropathy Hypertension Type 2 diabetes mellitus Flu vaccine need Hyperlipidemia Hypertension Type 2 diabetes mellitus Chief Complaint 3 m fu Reason for Visit Flu vaccine need Hyperlipidemia Hypertension Type 2 diabetes mellitus Chief Complaint 3 m fu 3 M FU Reason for Visit Flu vaccine need Hyperlipidemia Hypertension Type 2 diabetes mellitus Hyperlipidemia Hypertension Type 2 diabetes mellitus Chief Complaint 3 M FU Reason for Visit Hyperlipidemia Hypertension Type 2 diabetes mellitus Chief Complaint 3 M FU Cough FU Reason for Visit Hyperlipidemia Hypertension Type 2 diabetes mellitus Cough CKD (chronic kidney disease), stage III Hypertension Type 2 diabetes mellitus Chief Complaint Admit Date 3 M FU June 24, 2024 12: 50pm 3 M FU September 24, 2024 9:07 am Reason for Visit Admit Date Hyperlipidemia June 24, 2024 12: 50pm Hypertension June 24, 2024 12: 50pm Type 2 diabetes mellitus June 24 12:50pm Chief Complaint Admit Date 3 M FU September 24, 2024 9:07 am Cardiac risk stratification October 22, 2024 7:09am CAD (OLEGHE) November 24, 2024 9:54am Reason for Visit Admit Date Impetigo September 24, 2024 9:07 am Hyperlipidemia September 24, 2024 9:07 am Hypertension September 24, 2024 9:07 am Type 2 diabetes mellitus September 24, 2024 9:07am Dermatitis September 24, 2024 9:[address] angiography Septembe r 2024 9:54am Aortic valve sclerosis November 24, 2 025 9:54am Hyperlipidemia November 24, 2024 9:54am Hypertension November 24, 2024 9:54am Additional Source Comments (unrecognized sect ion and content) No Status Records FoundNo Status Records Found INFORMATION SOURCE (unrecogn ized section and content) DATE CREATED AUTHOR 03/19/2018 [facility] DATE CREATED AUTHOR AUTHOR'S ORGANIZ ATION 11/05/2024 [facility] Goals (unrecognized section and content) Goals may be documented in a n alternate sectionGoals may be documented in an alternate sectionGoals may be documented in an alternate sectionGoals may be documented in an alternate sectionGoals may be documented in an alternate sectionGoals may be documented in an alternate sectionGoals may be documented in an alternate sectionGoals may be documented in an alternate sectionGoals may be documented in an alternate sectionGoals may be documented in an alternate sectionGoals may be documented in an alternate section Care Teams (unrecognized sec tion and content) Team Status: Active Member Role Status Dates Dr. Lloyd Gallego MD Family Provider Active Dr. Erinn Suh MD Primary Care Provider Active Team Status: Inactive Member Role Status Dates Dr. Erinn Suh MD Primary Care P priscilla, Attending Provider, Referring Provider Active Team Status: Active Member Role Status Dates Dr. Erinn Suh MD Primary Care Provider Active Dr. Chepe Do MD Attending Provider Active Team Status: Inactive Member Role Status Dates Dr. Erinn Suh MD Primary Care Provider Active Kaylah Harrison TOY DESIGNER-C Attending Provider, Referrin g Provider Active Team Status: Active Member Role Status Dates Dr. Erinn Suh MD Primary Care Provider, Atten ding Provider Active Team Status: Inactive Member Role Status Dates Dr. Erinn Suh MD Primary Care Provider Active Dr. Luis Woodson MD Attending Provider, Referr ing Provider Active Team Status: Inactive Member Role Status Dates Dr. Erinn Suh MD Primary Care Provider, Atten ding Provider Active Team Status: Inactive Member Role Status Dates Dr. Erinn Suh MD Primary Care Provider Active Dr. Noam Wilkerson MD Attending Provider Active Team Status: Inactive Member Role Status Dates Dr. Erinn Suh MD Primary Care Provider, Refer ring Provider Active Jayson Payton NP, TOY DESIGNER-C Attending Provider Active Team Status: Active Member Role/Relationship Status Dates Dr. Lloyd Gallego MD Family Provider Active Dr. Erinn Suh MD Primary Care Provider Active Team Status: Inactive Member Role/Relationship Status Dates Dr. Erinn Suh MD Primary Care Provider Active Start: June 24, 2024 End: June 24, 2024 Dr. Erinn Suh MD Attending Provider Active Start: June 24, 2024 End: June 24, 2024 Dr. Erinn Suh MD Referring Provider Active Start: June 24, 2024 End: June 24, 2024 Team Status: Inactive Member Role/Relationship Status Dates Dr. Erinn Suh MD Primary Care Provider Active Start: September 24, 2024 End: September 24, 2024 Dr. Erinn Suh MD Attending Provider Active Start: September 24, 2024 End: September 24, 2024 Dr. Erinn Suh MD Referring Provider Active Start: September 24, 2024 End: September 24, 2024 Team Status: Active Member Role/Relationship Status Dates Dr. Erinn Suh MD Primary care physician Activ e Team Status: Inactive Member Role/Relationship Status Dates Dr. Erinn Suh MD Primary care physician Activ e Start: September 24, 2024 End: September 24, 2024 Dr. Erinn Suh MD Attending physician Active Start: September 24, 2024 End: September 24, 2024 Dr. Erinn Suh MD Referring Provider Active Start: September 24, 2024 End: September 24, 2024 Team Status: Active Member Role/Relationship Status Dates Dr. Erinn Suh MD Primary care physician Activ e Start: October 22, 2024 Dr. Erinn Suh MD Attending physician Active Start: October 22, 2024 Dr. Erinn Suh MD Referring Provider Active Start: October 22, 2024 Team Status: Inactive Member Role/Relationship Status Dates Dr. Erinn Suh MD Primary care physician Activ e Start: November 24, 2024 End: November 24, 2024 Dr. Erinn Suh MD Referring Provider Active Start: November 24, 2024 End: November 24, 2024 Dr. Chepe Do MD Attending physician Active Start: November 24, 2024 End: November 24, 2024 FOR RECORDS PERTAINING TO PATIENTS WHO ARE [...] BE BASED ON THE PRIMARY CLINICAL RECORDS. [facility]. provides no warranty or guarantee of the accuracy or completeness of information in this document.
== END | disposition home or self-care (01) ==
LOC: LAB 10:48
PROVIDERS: PCP Internal Medicine; Referring Provider Internal Medicine Cardiovascular Disease; Visit Provider Internal Medicine Cardiovascular Disease
DX: I35.8 Other nonrheumatic aortic valve disorders (principal); I25.10 Atherosclerotic heart disease of native coronary artery without angina pectoris
CPT/HCPCS: 36415; 80048; 85025

== ENCOUNTER 2024-12-13 07:17 | Day surgery (SDC) | payer MEDICARE, OTHER, SELFPAY ==
[2024-12-10 07:59] VITALS: BMI 28.5
--- NOTE | 2024-12-13 09:42 | CL.D_ITS ---
Patient Name: DEBORAH GARZA Study Date: 12/13/2024 Performing: Chepe Do MD Ht: 72 inches 182.88 cm : 1955 Wt: 209.99 lbs 95.25 kg Age: 69 Gender: male BSA: 2.17 PROCEDURE(S) PERFORMED DC01-(61600)LHC/COR/LV CLINICAL PROFILE AND INDICATIONS Indications: Suspected CAD Heart Failure: None Stress/Imaging Coronary Calcium Score: Yes Calcium Score: 1600Calcium Score: 1600 CAD Presentations: No Sxs, no angina. CONCLUSIONS Nonobstructive calcified coronary artery disease with mild aortic stenosis. RECOMMENDATIONS Aggressive medical therapy and lipid-lowering. Repeat echocardiogram for formal assessment of aortic valve DESCRIPTION OF PROCEDURE The patient arrived to the procedure lab. The risks and benefits of the procedure as well as a full description of our services here and current unavailability of surgical backup were fully explained to the patient and/or their significant other prior to the catheterization. The Timeout was completed, verifying the correct patient and procedure. The patient's procedural site was prepped and draped in the usual fashion. Local anesthetic was given subcutaneously to right radial region with Lidocaine 2%. Using a modified Seldinger technique, arterial access was obtained via the right radial artery, a 6Fr sheath was inserted. Right Coronary Artery selective angiography was then performed in multiple views using a 5 Fr. 4.0 Bay catheter. Left Coronary Artery selective angiography was performed in multiple views using a 5 Fr. 4.0 Bay catheter. Left Ventriculography was performed in HARDEN projection using a 5 Fr. Pigtail catheter. LV to AO pullback pressures were then recorded.The arterial sheath was pulled and a TR Band was applied for hemostasis. 10cc of air CORONARY ANGIOGRAPHY DOMINANCE: Right Dominant LEFT HEART ASSESSMENT Left Ventricular Ejection Fraction: by LV Gram 60 % Normal LV wall motion Normal Left Ventricular systolic function LEFT MAIN: Mild calcification, Mild luminal irregularities LEFT ANTERIOR DESCENDING ARTERY: Mild calcification, Mild luminal irregularities less than 30% DIAGONAL 2: Ostial - 60 % Stenosis CIRCUMFLEX ARTERY: Mild luminal irregularities less than 30% RIGHT CORONARY ARTERY: Moderate luminal irregularities up to 50% VALVE FINDINGS: Aortic Valve Calcification - mild Aortic Valve Stenosis - mild COMPLICATIONS No Complications PROCEDURE MEDICATIONS Fentanyl 50 mcg IV Versed 1 mg IV Versed 1 mg IV Oxygen: 2 L/min via nasal cannula Heparin given IA 12/13/2024 09:04:33 Verapamil 2.5mg, Ntg 100mcgs, 3000 units of Heparin given IA 12/13/2024 09:04:33 SUMMARY OF HEMODYNAMIC DATA Time AIR REST ECG 07:48:56 ECG 08:49:37 AO 116/63 (89) SA 09:23:41 LV 136/20, 25 09:30:41 LV 130/20, 09:30:47 LV 131/19, 26 09:31:47 LVp 131/18, 30 09:31:50 AOp 107/64 (82) 09:31:55 Signed By Chepe Do MD On 12/13/2024 09:41:11 Chepe Do MD
== END 2024-12-13 11:05 | disposition home or self-care (01) ==
PROVIDERS: PCP Internal Medicine; Referring Provider Internal Medicine Cardiovascular Disease; Visit Provider Internal Medicine Cardiovascular Disease
DX: I25.10 Atherosclerotic heart disease of native coronary artery without angina pectoris (principal); Z79.4 Long term (current) use of insulin; E11.22 Type 2 diabetes mellitus with diabetic chronic kidney disease; N18.30 Chronic kidney disease, stage 3 unspecified; I35.0 Nonrheumatic aortic (valve) stenosis; I12.9 Hypertensive chronic kidney disease with stage 1 through stage 4 chronic kidney disease, or unspecified chronic kidney disease; E78.5 Hyperlipidemia, unspecified; Z79.82 Long term (current) use of aspirin; Z79.84 Long term (current) use of oral hypoglycemic drugs; Z79.85 Long-term (current) use of injectable non-insulin antidiabetic drugs; Z79.899 Other long term (current) drug therapy; Z87.891 Personal history of nicotine dependence; R93.1 Abnormal findings on diagnostic imaging of heart and coronary circulation
CPT/HCPCS: 93458; 99152; 99153; Q9967; C1769; C1894

== ENCOUNTER → 2024-12-21 | Outpatient (CLI) | payer MEDICARE, OTHER, SELFPAY ==
--- NOTE | 2024-12-21 08:44 | ECHOD_ITS ---
Reason For Study Reason For Study: Murmur Procedure This was a 2D Doppler, Color Flow transthoracic echocardiogram. Exam performed in department. Left Ventricle Normal LV size. Mild concentric left ventricular hypertrophy. Left ventricular systolic function is normal. The left ventricular ejection fraction is 60 %. No regional wall motion abnormalities noted. Right Ventricle Normal RV size. Normal systolic function. Atria Normal left atrium. Normal right atrium. Bubble contrast study negative for right to left interatrial shunt. Mitral Valve Normal mitral valve. Mild (1+) eccentric mitral valve insufficiency. Tricuspid Valve Normal tricuspid valve. Aortic Valve Trisinus/trileaflet aortic valve. Moderate focal aortic valve calcification. Peak aortic valve gradient 28 mmHg. Mean aortic valve gradient 19 mmHg. Mild aortic stenosis. Mild (1+) aortic valve insufficiency. Pulmonic Valve Normal pulmonic valve. Great Vessels Mild to moderately dilated aortic root. The pulmonary artery is normal size. Inferior vena cava collapse with respiration. Pericardium/Pleural No pericardial effusion. MMode/2D Measurements & Calculations LVIDd: 4.0 cm IVSd: 1.2 cm LVOT diam: 2.1 cm LVIDs: 2.0 cm LVPWd: 1.3 cm LVOT area: 3.6 cm2 RVDd: 4.1 cm FS: 50.8 % Ao root diam: 4.0 cm LAV(MOD-bp): 55.6 ml LVAd ap4: 31.6 cm2 LAV(MOD-bp) Indexed: 25.6 ml/m2 LVLd ap4: 9.0 cm LAV(MOD-sp2): 55.6 ml EDV(MOD-sp4): 91.4 ml LAV(MOD-sp4): 51.3 ml EDV(sp4-el): 94.1 ml LVAs ap4: 17.9 cm2 LVLs ap4: 7.6 cm ESV(MOD-sp4): 35.4 ml ESV(sp4-el): 35.7 ml EF(MOD-sp4): 61.2 % EF(sp4-el): 62.1 % SV(MOD-sp4): 56.0 ml SV(sp4-el): 58.5 ml LA A4 area: 17.1 cm2 SI(MOD-sp4): 25.7 ml/m2 LA dimension(2D): 3.8 cm RA A4 area: 12.9 cm2 TAPSE: 1.9 cm Time Measurements MV dec time: 0.16 sec Doppler Measurements & Calculations MV E max delfino: 69.1 cm/sec Lat Peak E' Delfino: 7.0 cm/sec Med Peak E' Delfino: 6.2 cm/sec MV A max delfino: 89.0 cm/sec E/E' lat: 9.9 E/E' med: 11.1 MV E/A: 0.78 Ao V2 max: 267.2 cm/sec AI max delfino: 489.7 cm/sec MV dec slope: 422.9 cm/sec2 Ao max P.7 mmHg AI max P.0 mmHg Ao V2 mean: 212.0 cm/sec Ao mean P.2 mmHg AI dec slope: 388.5 cm/sec2 Ao V2 VTI: 56.1 cm AI P1/2t: 369.1 msec AV (velocity ratio): 0.40 KASSANDRA(I,D): 1.5 cm2 KASSANDRA(V,D): 1.4 cm2 LV V1 max: 106.3 cm/sec SV(LVOT): 81.5 ml PA V2 max: 119.9 cm/sec LV V1 max P.5 mmHg LV V1 mean P.2 mmHg LV V1 mean: 86.8 cm/sec LV V1 VTI: 22.6 cm ECHO/Echo Complete Interpretation Summary Normal LV size. Left ventricular systolic function is normal. The left ventricular ejection fraction is 60 %. Bubble contrast study negative for right to left interatrial shunt. Mild (1+) eccentric mitral valve insufficiency. Mean aortic valve gradient 19 mmHg. Mild aortic stenosis. Ordering Physician: Chepe Do Referring Physician: Erinn Suh Performed By: Digna Payton, RDCS, RVT
[2024-12-21 10:31] LABS: Hematocrit 44.9 % (40-54); Hemoglobin 15.3 g/dL (13.0-16.5); Immature Granulocytes Count 0.030 X10^3/uL (0.0-0.0); Mean Corp Hgb Conc 34.1 g/dL (32-36); Mean Corpuscular Volume 89.8 fL (80-94); Mean Platelet Vol. 10.5 fl (6.2-12.0); NRBC Flagged by Analyzer 0 % (0-5); Platelet Count 249 K/mm3 (150-450); RBC Distribution Width CV 12.5 % (11.6-14.6); RBC Distribution Width SD 41.2 fl (35.1-43.9); Red Blood Count 5.00 M/mm3 (4.6-6.2); White Blood Count 8.0 K/mm3 (4.4-11.0)
[2024-12-21 10:56] LABS: AST(SGOT) 28 U/L (<=37); Alanine Aminotransfer ALT/SGPT 24 U/L (<=46); Albumin, Serum 4.5 g/dL (3.4-4.8); Alkaline Phosphatase 67 U/L (40-129); Anion Gap 9 (5-15); BUN 22 mg/dL (4-19); BUN/Creat Ratio 17.9 RATIO (10-20); Calcium,Total 10.0 mg/dL (7.6-11.0); Carbon Dioxide 27.7 mmol/L (21.0-32.0); Chloride 105 mmol/L (98-108); Globulin 2.8 g/dL (2.2-4.2); Glucose 103 mg/dL (70-99); Potassium 5.0 mmol/L (3.3-5.1)
[2024-12-21 11:08] LABS: PSA,Total- Diagnostic < 0.02 ng/mL (0.00-4.00)
[2024-12-21 11:58] LABS: Creatinine, Urine (random) 98.10 mg/dL (39.00-259.00); Microalbumin,Random Urine < 12.0 mg/L (<20 mg/L)
== END | disposition home or self-care (01) ==
PROVIDERS: PCP Internal Medicine; Referring Provider Nurse Practitioner; Visit Provider Internal Medicine Cardiovascular Disease
DX: C61 Malignant neoplasm of prostate (principal); E11.42 Type 2 diabetes mellitus with diabetic polyneuropathy; R01.1 Cardiac murmur, unspecified
CPT/HCPCS: 36415; 80053; 82043; 82570; 84153; 85025; 93306; A4216

== ENCOUNTER → 2025-01-28 | Outpatient (CLI) | payer MEDICARE, OTHER, SELFPAY ==
--- NOTE | 2025-01-28 11:15 | MASS_PTH ---
PATIENT: DEBORAH GARZA LOC: [facility] U#:[id number] AGE/SX: 69/M ROOM: RE01/28/[address]: Dr. Luis Woodson MD : 1955 BED: DIS: 01/28/2025 SPEC #: [id number] RECD: 01/28/25 15:07 STATUS: TREV [facility] #: [id number] NOELLE: 01/28/25 11:[address]: Luis Woodson DEPT: SURGICAL PATHOLOGY RECD BY: Bang Santacruz ENTERED: 01/28/25 16:02 SP TYPE: Mass OTHR DR: Dr. Erinn Suh MD Tissues: A - Epididymis, NOS Procedures: Surgery Specimen Level III HEADER OPERATION: Removal left epididymal mass PRE-OP DIAGNOSIS: Benign neoplasm of left epididymis TISSUE SUBMITTED: A- Left epididymal mass MICROSCOPIC DIAGNOSIS A. Epididymis, left, excision: * Benign epididymal ectasia with abundant spermatozoa MICROSCOPIC DESCRIPTION Slides are reviewed. GROSS DESCRIPTION A. Received in formalin labeled with the patient's name and date of . Designated as left epididymal mass is a 2.7 x 1.8 x 1.0 cm jean-baptiste-pink, focally cauterized, rubbery cylindrical portion of tissue, devoid of orientation. The cautery is inked green and the remainder of the specimen is inked black. Sectioning reveals jean-baptiste-pink, soft to fibrotic cut surfaces and a 0.7 x 0.6 x 0.5 cm apparent cyst containing jean-baptiste to light brown material. The specimen is entirely submitted in 3 cassettes, to include the cyst in cassettes A2-A3. NE 01/28/2025 CPT:55395
--- OUTSIDE RECORDS SUMMARY | 2025-01-28 16:38 | XMS RPT_ITS | CCD ---
Author Organization [facility]iniSyhi Care Team Providers Care Geographic Information Systems Manager Name Role Phone TESTRAKE, LELE Unavailable Unavailable TESTRAKE, LELE Unavailable Unavailable TESTRAKE, LELE Unavailable Unavailable Dr. Erinn Suh Primary Care Provider [phone]) Dr. Erinn Suh Attending Provider [phone] Angeli, Dr. Plasencia Referring Provider [phone] JOSEPH Krishnamurthy Attending Provider Unavailab Dr. Erinn Cazares Primary Care Provider [phone] 0) Dr. Erinn Suh Referring Provider [phone] Dr. Erinn Suh Primary Care Provider 1(33 0) Dr. Erinn Suh Attending Provider [phone] Dr. Erinn Suh Referring Provider [phone] Dr. Chepe Do Attending Provider [phone] Dr. Erinn Suh Primary Care Provider [phone] 0) Dr. Erinn Suh Attending Provider [phone] Dr. Erinn Suh Referring Provider [phone] Dr. Erinn Suh Primary Care Provider 1(33 0) Dr. Erinn Suh Attending Provider [phone] Dr. Erinn Suh Referring Provider [phone] Dr. Erinn Suh Primary Care Provider 1(33 0) Dr. Erinn Suh Attending Provider [phone])2 Dr. Erinn Suh Referring Provider [phone] Angeli, Dr. Plasencia Primary Care Provider 1(33 0) Angeli, Dr. Plasencia Attending Provider [phone] Angeli, Dr. Plasencia Referring Provider [phone] Angeli, Dr. Plasencia Primary Care Provider 1(33 0) Angeli, Dr. Plasencia Attending Provider [phone] Angeli, Dr. Plasencia Referring Provider [phone] Roof BRICK SETTER, BRICK SETTER-Martha Redd Attending Provider [phone] Angeli [place], Dr. Plasencia Primary Care Provider Angeli W[place], Dr. Plasencia Attending Provider [phone] 0) Angeli [place], Dr. Plasencia Referring Provider [phone] 0) Anegli W[place], Dr. Plasencia Primary Care Physician Angeli W[place], Dr. Plasencia Attending Physician [phone] Angeli W[place], Dr. Plasencia Referring Provider 1(33 0) Hi W[place], Dr. Mo Attending Physician [phone] Hi W[place], Dr. Mo Referring Provider Oleghe, Efewongbe Primary Care Unavailable Hi, Mcarthur Attending Unavailable Oleghe, Efewongbe Primary Care Unavailable Oleghe, Efewongbe Referring Unavailable Hi, Mcarthur Attending Unavailable Oleghe, Efewongbe Primary Care Unavailable Oleghe, Efewongbe Referring Unavailable Oleghe, Efewongbe Attending Unavailable Oleghe, Efewongbe Primary Care Unavailable Oleghe, Efewongbe Referring Unavailable Friend, Nick Attending Unavailable Hi, Chepe Attending Unavailable Oleghe, Efewongbe Primary Care Unavailable Hi, Chepe Referring Unavailable Hi, Mcarthur Attending Unavailable Oleghe, Efewongbe Primary Care Unavailable Hi, Mcarthur Referring Unavailable Oleghe, Efewongbe Primary Care Unavailable Oleghe, Efewongbe Referring Unavailable Oleghe, Efewongbe Attending Unavailable Ria Adames Referring Unavailable Hi, Chepe Attending Unavailable Oleghe, Efewongbe Primary Care Unavailable Oleghe, Efewongbe Attending Unavailable Oleghe, Efewongbe Primary Care Unavailable Oleghe, Efewongbe Referring Unavailable Oleghe, Efewongbe Attending Unavailable Oleghe, Efewongbe Primary Care Unavailable Oleghe, Efewongbe Referring Unavailable Oleghe, Efewongbe Attending Unavailable Oleghe, Efewongbe Attending Unavailable Oleghe, Efewongbe Primary Care Unavailable Oleghe, Efewongbe Referring Unavailable Oleghe, Efewongbe Primary Care Unavailable Oleghe, Efewongbe Referring Unavailable Hi, Chepe Attending Unavailable Oleghe, Efewongbe Primary Care Unavailable Oleghe, Efewongbe Referring Unavailable FriendNick Attending Unavailable FriendNick Consulting Unavailable Medications Current Medications Medication Drug Class(es) Dates [...] aspirin 81 mg delayed release oral tablet (14 sources) Platelet Aggregation Inhibitor, Nonsteroidal Anti-inflammatory Drug Start: 12-23-2018 take 1 tablet by mouth once daily Aspirin 81 MG tablet Active 81 mg PO DAILY@0800 December 23, 2018 12:00am Complies with drug therapy cholecalciferol 0.125 mg oral tablet (14 sources) Vitamin D Start: 11-29-2020 take 1 tablet by mouth once daily Cholecalciferol (Vitamin D3) (Vitamin D3) 125 mcg (5,000 unit) Tablet Active 125 ug PO DAILY November 29, 2020 12:00am Complies with drug therapy empagliflozin 25 mg oral tablet (15 sources) Sodium-Glucose Cotransporter 2 Inhibitor Start: 08-25-2023 End: 01-26-2024 take 1 tablet by mouth once daily in the morning Empagliflozin (Jardiance) 25 mg tablet Active 25 mg PO EVERY MORNING 90 January 26, 2024 6:00pm Complies with drug therapy Start: 07-07-2023 End: 08-25-2023 Empagliflozin (Jardiance) 25 mg tablet Discontinued 25 mg PO EVERY MORNING 30 July 07, 2023 12:00am August 25, 2023 4:00pm Take 1/2 tablet daily x 1 week then increase to 1 tablet Flash Glucose Scanning Reade r (Freestyle Trent 14 Day [place]) misc (20 sources) Start: 06-17-2022 Flash Glucose Scanning [place] (Freestyle Trent 14 Day [place]) misc Active 0 .Route 1 3 June 17, 2022 5:17pm As directed Start: 06-17-2022 Flash Glucose Scanning [place] (Freestyle Trent 14 Day [place]) misc Active 0 .Route 1 June 17, 2022 4:17pm As directed Start: 06-17-2022 Flash Glucose Scanning [place] (Freestyle Trent 14 Day [place]) misc Active 0 .Route 1 June 17, 2022 5:17pm As directed Start: 04-18-2022 End: 06-17-2022 Flash Glucose Scanning Reade r (Freestyle Trent 14 Day [place]) misc Discontinued 0 .Route 1 3 April 18, 2022 1:00am June 17, 2022 1:26pm As directed Start: 04-18-2022 End: 06-17-2022 Flash Glucose Scanning [place] r (Freestyle Trent 14 Day [place]) misc Discontinued 0 .Route 1 April 18, 2022 12:00am June 17, 2022 12:26pm As directed Start: 04-18-2022 End: 06-17-2022 Flash Glucose Scanning Reade r (Freestyle Trent 14 Day [place]) misc Discontinued 0 .Route 1 April 18, [...] 1:00am May 06, 2022 2:32pm As directed 24 hr metFORMIN hydrochlorid e 500 mg extended release oral tablet (20 sources) Biguanide Start: 08-20-2021 End: 12-13-2024 Metformin 500 mg tablet extended release 24 hr Active 1000 mg PO TWICE A DAY December 13, 2024 12:00am restart medication on 12/15/24 Complies with drug therapy Start: 12-23-2018 End: [...] 11:18am September 16, 2022 12:35pm Multivitamin Capsule (5 sources) Start: 11-29-2020 Start: 11-29-2020 Multivitamin C apsule Active 1 [...] PO DAILY November 29, 2020 12:00am Tirzepatide (4 sources) Start: 03-24-2024 Start: 03-24-2024 Tirzepatide (M ounjaro) 10 mg/0.5 mL pen injector Active 10 mg SC EVERY WEEK 6.5 90 3 March 24, 2024 1:00am Complies with drug therapy Tirzepatide (Mounjaro) 10 mg /0.5 mL pen injector (1 source) Start: 03-24-2024 Tirzepatide (M ounjaro) 10 mg/0.5 mL pen injector Active 10 mg SC EVERY WEEK 6.5 90 3 March 24, 2024 1:00am Completed/Discontinued Medications Medication Drug Class(es) Dates Sig (Normalized) Sig (Original) acetaminophen 325 mg / oxyCODONE hydrochloride 5 mg oral tablet (14 sources) Opioid Agonist Start: 12-06-2020 End: 02-27-2021 [...] mg / clavulanate 125 mg oral tablet (14 sources) Penicillin-class Antibacterial Start: 09-14-2021 End: 12-14-2021 [...] tablet (20 sources) HMG-CoA Reductase Inhibitor Start: 12-13-2024 take 1 tablet by mouth once daily Start: 06-03-2022 End: 04-30-2023 Atorvastatin Active 0 .ROUTE .COMPLEX April 30, 2023 8:30pm TAKE 1 TABLET AT BEDTIME Start: 12-23-2018 End: 12-13-2024 take 1 tablet by mouth at bedtime Atorvastatin 10 mg tablet Discontinued 40 mg PO AT BEDTIME 90 December 13, 2024 10:37am December 13, 2024 10:52am TAKE 1 TABLET AT BEDTIME azithromycin 250 mg oral tablet (6 sources) Macrolide Antimicrobial Start: 06-01-2023 End: 06-26-2023 Azithromycin (Zithromax Z-Sergey) 250 mg tablet Discontinued 0 PO .COMPLEX 6 0 June 01, 2023 12:00am June 26, 2023 2:03pm For 250 mg dose pack: take 500 mg today (day 1), then 250 mg for 4 days (days 2-5) PO Blood-Glucose Sensor (Freestyle Trent 3 Sensor) device (11 sources) Start: 04-18-2022 End: 04-22-2022 Blood-Glucose Sensor [...] As directed ciprofloxacin 500 mg oral tablet (14 sources) Quinolone Antimicrobial Start: 12-06-2020 End: 02-27-2021 take 1 tablet by mouth twice daily Ciprofloxacin Hcl (Cipro) 500 mg tablet Discontinued 500 mg PO TWICE A DAY 14 December 06, 2020 12:00am February 27, 2021 2:14pm dapagliflozin 10 mg oral tablet (6 sources) Sodium-Glucose Cotransporter 2 Inhibitor Start: 06-26-2023 End: 07-07-2023 take 0.5 tablet by mouth once daily in the morning, then take 1 tablet by mouth once daily Dapagliflozin Propanediol (Farxiga) 10 mg tablet Discontinued 10 mg PO EVERY MORNING 30 3 June 26, 2023 12:00am July 07, 2023 12:42pm Take 1/2 tablet daily x 1 week then increase to 1 tab. daily docusate sodium 100 mg oral capsule (14 sources) Start: 12-06-2020 End: 02-27-2021 take 1 [...] 3 mg SC EVERY WEEK 6.5 90 August 26, 2023 1:12pm September 26, 2023 8:56am Start: 07-15-2023 End: 08-26-2023 Dulaglutide 3 mg/0.5 mL pen injector Discontinued 3 mg SC EVERY WEEK 6.5 90 July 15, 2023 4:46pm August 26, 2023 [...] Discontinued 4.5 MG SC EVERY WEEK 6.5 90 May 29, [...] Discontinued 3 MG SC EVERY WEEK 6.5 June 17, 2022 12:36pm December 18, 2022 8:37am Start: 06-17-2022 End: 12-18-2022 Dulaglutide (Trulicity) 3 mg /0.5 mL pen injector Discontinued 3 MG SC EVERY WEEK 6.5 June 17, 2022 1:36pm December 18, 2022 9:37am Start: 06-17-2022 Dulaglutide (T rulicity) 3 mg/0.5 mL pen injector Active 3 MG SC EVERY WEEK 6.5 June 17, 2022 1:36pm Start: 03-18-2022 End: 06-17-2022 Dulaglutide (Trulicity) 0.75 mg/0.5 mL pen injector Discontinued 0.75 mg SC EVERY WEEK 1 March 18, 2022 1:00am June 17, 2022 1:26pm Take weekly for 2 weeks then increase to 1.5 mg weekly. Start: 03-18-2022 End: 06-17-2022 Dulaglutide (Trulicity) 1.5 mg/0.5 mL pen injector Discontinued 1.5 mg SC EVERY WEEK 6.5 90 2 April 23, 2022 5:20pm June 17, 2022 1:39pm Flash Glucose Scanning Reade r (Freestyle Trent 2 [place]) misc (11 sources) Start: 04-22-2022 End: 06-17-2022 Flash Glucose Scanning Reade r (Freestyle Trent 2 [place]) misc Discontinued 0 .Route 3 3 April 22, 2022 1:00am June 17, 2022 1:26pm As directed Start: 04-22-2022 End: 06-17-2022 Flash Glucose Scanning Reade r (Freestyle Trent 2 [place]) misc Discontinued 0 .Route 3 April 22, 2022 12:00am June 17, 2022 12:26pm As directed Start: 04-22-2022 End: 06-17-2022 Flash Glucose Scanning Reade r (Freestyle Trent 2 [place]) misc Discontinued 0 .Route 3 April 22, 2022 1:00am June 17, 2022 1:26pm As directed folic acid 0.4 mg / vitamin b12 0.5 mg oral tablet (14 sources) Vitamin B12 Start: 11-29-2020 End: 12-18-2022 Vitamin V87-Pcqts Acid 500-400 mcg Tablet Discontinued 1 {tbl} PO DAILY November 29, 2020 12:00am December 18, 2022 9:22am Start: 11-29-2020 End: 12-18-2022 take 1 tablet by mouth once daily Vitamin H28-Hhymn Acid Discontinued 1 TABLET PO DAILY November 29, 2020 12:00am December 18, 2022 9:22am 3 ml insulin aspart, human 100 unt/ml pen injector (20 sources) Insulin Analog Start: 12-23-2018 End: 11-24-2024 Insulin Aspart U-100 100 unit/mL (3 mL) insulin pen Discontinued 20 U SC 3 TIMES DAILY WITH MEALS 54 90 2 June 30, 2023 9:44am November 24, 2024 10:08am SLIDING SCALE Start: 12-23-2018 End: 07-16-2021 Insulin Aspart U-100 100 UNI TS/ML insulin pen Discontinued 20 U SC 3 TIMES DAILY WITH MEALS December 23, 2018 12:00am July 16, 2021 8:37am SLIDING SCALE 3 ml insulin glargine 100 unt/ml pen injector (20 sources) Insulin Analog Start: 01-02-2024 End: 11-24-2024 Insulin Glargine (Lantus Solostar U-100 Insulin) 100 unit/mL (3 mL) insulin pen Discontinued 40 U SC AT BEDTIME 36 90 2 November 01, 2024 8:37pm November 24, 2024 10:08am Start: 06-17-2022 End: 01-02-2024 Insulin Glargine (Lantus [...] 26, 2022 12:43pm June 17, 2022 1:39pm lisinopril 40 mg oral tablet (20 sources) Angiotensin Converting Enzyme Inhibitor Start: 05-30-2021 End: 05-24-2024 Lisinopril 40 mg tablet Discontinued 0 .ROUTE .COMPLEX 90 3 July 14, 2023 8:48am January 02, 2024 [...] 2021 2:26pm methylPREDNISolone 4 mg oral tablet (4 sources) Corticosteroid Start: 09-24-2024 End: 11-11-2024 take 1 [...] 25 mg PO TWICE A DAY 180 September 15, 2023 11:57am September 20, 2024 9:52am mupirocin 0.02 mg/mg topical ointment (4 sources) RNA Synthetase Inhibitor Antibacterial Start: 09-24-2024 End: 11-24-2024 Mupirocin (Centany) 2 % ointment Discontinued 1 NMA TOPICAL TWICE A DAY 15 September 24, 2024 12:00am November 24, 2024 10:08am Apply to crusted area on left arm sour esposito allergenic extract (14 sources) Non-Standardized Food Allergenic Extract, Non-Standardized Plant [...] MG PO February 27, 2021 1:00am Tirzepatide (8 sources) Start: 11-07-2023 End: 11-08-2023 Tirzepatide (Mounjaro) [...] replace Trulicity with Mounjaro in november Tirzepatide (8 sources) Start: 01-02-2024 End: 03-24-2024 Tirzepatide (Mounjaro) [...] 2023 12:00am January 02, 2024 11:18am Zinc (14 sources) Start: 11-29-2020 End: 12-18-2022 take 1 [...] Date Documented Da te Episodic/Chronic Allergic reactions (9 sources) Inflammatory dermatosis; Translations: [Dermatitis, unspecified] Onset: 11-03-2024 11-11-2024 Episodic Cancer of prostate (15 sources) Malignant tumor of prostate; Translations: [Malignant neoplasm of prostate] Onset: 12-31-2024 12-06-2020 Chronic Chronic kidney disease (7 sources) Chronic kidney disease stage 3; Translations: [Stage 3 chronic kidney disease] 06-26-2023 Chronic Conditions associated with dizziness or vertigo (13 sources) Dizziness; Translations: [Dizziness and giddiness] 03-18-2022 Episodic Coronary atherosclerosis and other heart disease (5 sources) Coronary arteriosclerosis; Translations: [Atherosclerotic heart disease of [place] coronary artery without angina pectoris] Onset: 12-16-2024 10-25-2024 Chronic Diabetes mellitus with complications (20 sources) Type II diabetes mellitus uncontrolled; Translations: [Uncontrolled type 2 diabetes mellitus] Onset: 04-15-2024 08-22-2019 Chronic Diabetes mellitus without complication (20 sources) Type 2 diabetes mellitus; Translations: [Type 2 diabetes mellitus without complications] Chronic Disorders of lipid metabolism (20 sources) Hyperlipidemia; Translations: [Hyperlipidemia, unspecified] Onset: 11-24-2024 Chronic Essential hypertension (20 sources) Essential hypertension; Translations: [Essential (primary) hypertension] Onset: 10-22-2024 Chronic Heart valve disorders (9 sources) Aortic valve sclerosis; 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] Onset: 11-30-2024 11-11-2024 Chronic Heart valve disorders (15 sources) Heart murmur; Translations: [Cardiac murmur, unspecified] Onset: 11-24-2024 12-14-2021 Episodic Immunizations and screening for infectious disease (13 sources) Needs influenza immunization; Translations: [Encounter for immunization] 12-18-2022 Episodic Comment on above: Patient declined Other and unspecified benign neoplasm (4 sources) History of polyp of colon; Translations: [History of colonic polyps] 11-11-2024 Episodic Other ear and sense organ disorders (8 sources) Impacted cerumen; Translations: [Impacted cerumen, right ear] 12-14-2021 Episodic Other ear and sense organ disorders (1 source) Impacted cerumen, right ear; Translations: [Impacted cerumen] 12-14-2021 Episodic Other ear and sense organ disorders (10 sources) Does use hearing aid; Translations: [Presence of external hearing-aid] 12-18-2022 Episodic Other ear and sense organ disorders (4 sources) Impacted cerumen in right ear; Translations: [Impacted cerumen, right ear] 11-11-2024 Episodic Other gastrointestinal disorders (4 sources) Heartburn; Translations: [Heartburn] 11-11-2024 Episodic Other lower respiratory disease (7 sources) Cough; Translations: [Cough] 06-01-2023 Episodic Other non-traumatic joint disorders (11 sources) Pain in elbow; Translations: [Pain in left elbow] 06-17-2022 Episodic Other non-traumatic joint disorders (3 sources) Pain in left elbow; Translations: [Pain in joint, upper arm] 06-17-2022 Episodic Other nutritional; endocrine; and metabolic disorders (4 sources) Obesity; Translations: [Obesity, unspecified] 11-11-2024 Chronic Other screening for suspected conditions (not mental disorders or infectious disease) (17 sources) Patient encounter status; Translations: [Encounter for screening for malignant neoplasm of colon] Onset: 01-19-2024 11-07-2023 Episodic Other upper respiratory infections (16 sources) Sore throat symptom; Translations: [Acute pharyngitis, unspecified] Episodic Residual codes; unclassified (4 sources) Dependence on continuous positive airway pressure ventilation; Translations: [Dependence on other enabling machines and devices] 11-11-2024 Chronic Skin and subcutaneous tissue infections (9 sources) Impetigo; Translations: [Impetigo, unspecified] Onset: 11-03-2024 09-24-2024 Episodic Results Test Name Value Interpretation Reference Range Facility CBC W/Diff, Automatedon 12-08 Absolute Lymph 1.58 X10 3/uL Normal 0.83-4.51 [facility] Comment on above: Performed By: #### L 500.4050, L100.0100, L502.0250 #### [facility] [address] [place], [address] Absolute Neut 5.7 X10 3/uL Normal 2.0-7.7 [facility] Comment on above: Performed By: #### L 500.4050, L100.0100, [id number] #### [facility] [address] [place], [address] Basophils/100 WBC (Bld) 0.6 % Normal 0-1 [facility] Comment on above: Performed By: #### L 500.4050, L100.0100, [id number] #### [facility] [address] [place], [address] Eosinophils/100 WBC (Bld) 3.0 % Normal 0-5 [facility] Comment on above: Performed By: #### L 500.4050, L100.0100, [id number] #### [facility] [address] [place], [address] Erythrocyte distribution width (RBC) [Ratio] 12.5 % Normal 11.6-14.6 [facility] Comment on above: Performed By: #### L 500.4050, L100.0100, [id number] #### [facility] [address] [place], [address] Hematocrit (Bld) [Volume fraction] 44.9 % Normal 40-54 [facility] Comment on above: Performed By: #### L 500.4050, L100.0100, [id number] #### [facility] [address] [place], [address] Hemoglobin (Bld) [Mass/Vol] 15.3 g/dL Normal 13.0-16.5 [facility] Comment on above: Performed By: #### L 500.4050, L100.0100, [id number] #### [facility] [address] [place], [address] IG% 0.400 Normal 0.0-0.9 [facility] Comment on above: Result Comment: IG% - Immature Granulocytes (promyelocytes, myelocytes and metamyelocytes) > 1% indicates that a LEFT SHIFT is Present. Performed By: #### L 500.4050, L100.0100, [id number] #### [facility] [address] [place], [address] Lymphocytes/100 WBC (Bld) 19.7 % Normal 19-41 [facility] Comment on above: Performed By: #### L 500.4050, L100.0100, [id number] #### [facility] [address] [place], [address] MCH (RBC) [Entitic mass] 30.6 pg Normal 27.0-32.0 [facility] Comment on above: Performed By: #### L 500.4050, L100.0100, [id number] #### [facility] [address] [place], [address] MCHC (RBC) [Mass/Vol] 34.1 g/dL Normal 32-36 [facility] Comment on above: Performed By: #### L 500.4050, L100.0100, [id number] #### [facility] [address] [place], [address] MCV (RBC) [Entitic vol] 89.8 fL Normal 80-94 [facility] Comment on above: Performed By: #### L 500.4050, L100.0100, [id number] #### [facility] [address] [place], [address] Monocytes/100 WBC (Bld) 6.0 % Normal 0-10 [facility] Comment on above: Performed By: #### L 500.4050, L100.0100, [id number] #### [facility] [address] [place], [address] Neutrophils/100 WBC (Bld) 70.3 % High 47-70 [facility] Comment on above: Performed By: #### L 500.4050, L100.0100, [id number] #### [facility] [address] [place], [address] Nucleated RBC (Bld) [#/Vol] 0 10*3/uL Normal 0-5 [facility] Comment on above: Performed By: #### L 500.4050, L100.0100, [id number] #### [facility] [address] [place], [address] Platelet mean volume (Bld) [Entitic vol] 10.5 fL Normal 6.2-12.0 [facility] Comment on above: Performed By: #### L 500.4050, L100.0100, [id number] #### [facility] [address] [place], [address] Platelets (Bld) [#/Vol] 249 10*3/uL Normal 150-450 [facility] Comment on above: Performed By: #### L 500.4050, L100.0100, [id number] #### [facility] [address] [place], [address] RBC (Bld) [#/Vol] 5.00 10*6/uL Normal 4.6-6.2 [facility] Comment on above: Performed By: #### L 500.4050, L100.0100, [id number] #### [facility] [address] [place], [address] RDW SD 41.2 fl Normal 35.1-43.9 [facility] Comment on above: Performed By: #### L 500.4050, L100.0100, [id number] #### [facility] [address] [place], [address] WBC (Bld) [#/Vol] 8.0 10*3/uL Normal 4.4-11.0 [facility] Comment on above: Performed By: #### L 500.4050, L100.0100, [id number] #### [facility] [address] [place], [address] Comprehensive Metabolic Prof ilon 12-21-2024 Albumin [Mass/Vol] 4.5 g/dL Normal 3.4-4.8 [facility] Comment on above: Performed By: #### L 500.4050, L100.0100, [id number] #### [facility] [address] [place], [address] Albumin/Globulin [Mass ratio] 1.6 {ratio} Normal 0.9-2.4 [facility] Comment on above: Performed By: #### L 500.4050, L100.0100, [id number] #### [facility] [address] [place], [address] ALK PHOS 67 U/L Normal 40-129 [facility] Comment on above: Performed By: #### L 500.4050, L100.0100, [id number] #### [facility] [address] [place], [address] ALT [Catalytic activity/Vol] 24 U/L Normal <=46 [facility] Comment on above: Performed By: #### L 500.4050, L100.0100, [id number] #### [facility] [address] [place], [address] AST [Catalytic activity/Vol] 28 U/L Normal <=37 [facility] Comment on above: Performed By: #### L 500.4050, L100.0100, [id number] #### [facility] [address] [place], [address] Bilirubin [Mass/Vol] 0.56 mg/dL Normal 0.00-1.30 [facility] Comment on above: Performed By: #### L 500.4050, L100.0100, [id number] #### [facility] [address] [place], [address] BUN/CRE 17.9 RATIO Normal 10-20 [facility] Comment on above: Performed By: #### L 500.4050, L100.0100, [id number] #### [facility] [address] [place], [address] Calcium [Mass/Vol] 10.0 mg/dL Normal 7.6-11.0 [facility] Comment on above: Performed By: #### L 500.4050, L100.0100, [id number] #### [facility] [address] [place], [address] Chloride [Moles/Vol] 105 mmol/L Normal 98-108 [facility] Comment on above: Performed By: #### L 500.4050, L100.0100, [id number] #### [facility] [address] [place], [address] CO2 [Moles/Vol] 27.7 mmol/L Normal 21.0-32.0 [facility] Comment on above: Performed By: #### L 500.4050, L100.0100, [id number] #### [facility] [address] [place], [address] Creatinine [Mass/Vol] 1.23 mg/dL High 0.70-1.20 [facility] Comment on above: Performed By: #### L 500.4050, L100.0100, [id number] #### [facility] [address] [place], [address] GAP 9 Normal 5-15 [facility] Comment on above: Performed By: #### L 500.4050, L100.0100, [id number] #### [facility] [address] [place], [address] GFR/1.73 sq M.predicted among non-blacks MDRD (S/P/Bld) [Vol rate/Area] 63 mL/min/{1.73_m2} Normal >60 [facility] Comment on above: Result Comment: mL/m in/1.73m2 CKD-EPI Creatinine Equation (2020) Performed By: #### L 500.4050, L100.0100, [id number] #### [facility] [address] [place], [address] Globulin (S) [Mass/Vol] 2.8 g/dL Normal 2.2-4.2 [facility] Comment on above: Performed By: #### L 500.4050, L100.0100, [id number] #### [facility] [address] [place], [address] Glucose [Mass/Vol] 103 mg/dL High 70-99 [facility] Comment on above: Performed By: #### L 500.4050, L100.0100, L502.0250 #### [facility] [address] [place], [address] Potassium [Moles/Vol] 5.0 mmol/L Normal 3.3-5.1 [facility] Comment on above: Performed By: #### L 500.4050, L100.0100, L502.0250 #### [facility] [address] [place], [address] Sodium [Moles/Vol] 142 mmol/L Normal 133-145 [facility] Comment on above: Performed By: #### L 500.4050, L100.0100, L502.0250 #### [facility] [address] [place], [address] T PROT 7.3 g/dL Normal 5.9-8.4 [facility] Comment on above: Performed By: #### L 500.4050, L100.0100, L502.0250 #### [facility] [address] [place], [address] Urea nitrogen [Mass/Vol] 22 mg/dL High 4-19 [facility] Comment on above: Performed By: #### L 500.4050, L100.0100, L502.0250 #### [facility] [address] [place], [address] Echo Completeon 12-21-2024 Echo Complete [facility] [address] [place] [address] Echo Complete 12/21/24 0857 MR#: [id number] Acct: [id number] Name: DEBORAH KEITH Rep #: [id number] : 1955 69 From: Chepe Do MD Attending Dr: Dr. Chepe Do MD Status: ESTRELLITA OLSEN Ordering Dr: Chepe Do MD Date: 12/21/24 Location: [facility] Sex: M C Admitted: Reason For Study Reason For Study: Murmur Procedure This was a 2D Doppler, Color Flow transthoracic echocardiogram. Exam performed in department. Left Ventricle Normal LV size. Mild concentric left ventricular hypertrophy. Left ventricular systolic function is normal. The left ventricular ejection fraction is 60 %. No regional wall motion abnormalities noted. Right Ventricle Normal RV size. Normal systolic function. Atria Normal left atrium. Normal right atrium. Bubble contrast study negative for right to left interatrial shunt. Mitral Valve Normal mitral valve. Mild (1+) eccentric mitral valve insufficiency. Tricuspid Valve Normal tricuspid valve. Aortic Valve Trisinus/trileaflet aortic valve. Moderate focal aortic valve calcification. Peak aortic valve gradient 28 mmHg. Mean aortic valve gradient 19 mmHg. Mild aortic stenosis. Mild (1+) aortic valve insufficiency. Pulmonic Valve Normal pulmonic valve. Great Vessels Mild to moderately dilated aortic root. The pulmonary artery is normal size. Inferior vena cava collapse with respiration. Pericardium/Pleural No pericardial effusion. MMode/2D Measurements Calculations LVIDd: 4.0 cm IVSd: 1.2 cm LVOT diam: 2.1 cm LVIDs: 2.0 cm LVPWd: 1.3 cm LVOT area: 3.6 cm2 RVDd: 4.1 cm FS: 50.8 % Ao root diam: 4.0 cm LAV(MOD-bp): 55.6 ml LVAd ap4: 31.6 cm2 LAV(MOD-bp) Indexed: 25.6 ml/m2 LVLd ap4: 9.0 cm LAV(MOD-sp2): 55.6 ml EDV(MOD-sp4): 91.4 ml LAV(MOD-sp4): 51.3 ml EDV(sp4-el): 94.1 ml LVAs ap4: 17.9 cm2 LVLs ap4: 7.6 cm ESV(MOD-sp4): 35.4 ml ESV(sp4-el): 35.7 ml EF(MOD-sp4): 61.2 % EF(sp4-el): 62.1 % SV(MOD-sp4): 56.0 ml SV(sp4-el): 58.5 ml LA A4 area: 17.1 cm2 SI(MOD-sp4): 25.7 ml/m2 LA dimension(2D): 3.8 cm RA A4 area: 12.9 cm2 TAPSE: 1.9 cm Time Measurements MV dec time: 0.16 sec Doppler Measurements Calculations MV E max isabel: 69.1 cm/sec Lat Peak E' Isabel: 7.0 cm/sec Med Peak E' Isabel: 6.2 cm/sec MV A max isabel: 89.0 cm/sec E/E' lat: 9.9 E/E' med: 11.1 MV E/A: 0.78 Ao V2 max: 267.2 cm/sec AI max isabel: 489.7 cm/sec MV dec slope: 422.9 cm/sec2 Ao max P.7 mmHg AI max P.0 mmHg Ao V2 mean: 212.0 cm/sec Ao mean P.2 mmHg AI dec slope: 388.5 cm/sec2 Ao V2 VTI: 56.1 cm AI P1/2t: 369.1 msec AV (velocity ratio): 0.40 KASSANDRA(I,D): 1.5 cm2 KASSANDRA(V,D): 1.4 cm2 LV V1 max: 106.3 cm/sec SV(LVOT): 81.5 ml PA V2 max: 119.9 cm/sec LV V1 max P.5 mmHg LV V1 mean P.2 mmHg LV V1 mean: 86.8 cm/sec LV V1 VTI: 22.6 cm ECHO/Echo Complete Interpretation Summary Normal LV size. Left ventricular systolic function is normal. The left ventricular ejection fraction is 60 %. Bubble contrast study negative for right to left interatrial shunt. Mild (1+) eccentric mitral valve insufficiency. Mean aortic valve gradient 19 mmHg. Mild aortic stenosis. Ordering Physician: Chepe Do Referring Physician: Erinn Suh Performed By: Digna Payton, MICHELLE, RVT 12/21/24 105 Date Chepe Do MD CC: Dr. Chepe Do MD; Dr. Erinn Suh MD; Ria Flushing Date Dictated: 12/21/24 0857 Date Transcribed: 12/21/241051 Level Vial Inside Grinder: Signed Normal [facility] Microalb:Creat Ratio,Random URon 12-21-2024 Creatinine [Mass/Vol] 98.10 mg/dL Normal 39.00- 259. 00 [facility] Comment on above: Performed By: #### L 500.4050, L100.0100, L502.0250 #### [facility] [address] [place], [place], [id number] MALB:CREAT UNABLE TO CALCULATE Normal <30 mg/g CRE [facility] Comment on above: Performed By: #### L 500.4050, L100.0100, L502.0250 #### [facility] [address] [place], [place], [id number] MICROALBUMIN,UR < 12.0 Normal <20 mg/L [facility] Comment on above: Performed By: #### L 500.4050, L100.0100, L502.0250 #### [facility] [address] [place], [place], [address] PSA,Total- Diagnosticon 12-08 PSA, DIAGNOSTIC < 0.02 Normal 0.00-4.00 [facility] Comment on above: Result Comment: This test was performed using the [employer] tPSA method. Measured values of a patient??sample can vary depending on the testing procedure used. PSA values determined on patient samples by different testing procedures cannot be used interchangeably. If there is a change in PSA assays while monitoring therapy, sequential testing should be performed to confirm baseline values. Performed By: #### L 501.9940 ####[facility] [address] [place], [place], [address] Cardiac Cath Diagnosticon Cardiac Cath Diagnostic [facility] [address] [place] [address] Cardiac Cath Diagnostic MR#: [id number] Acct: [id number] Name: DEBORAH KEITH Rep #: [id number] : 1955 69 From: Chepe Do MD PCP: Dr. Erinn Suh MD Status:[facility] Patient Name: DEBORAH KEITH Study Date: 12/13/2024 Performing: Chepe Do MD Ht: 72 inches 182.88 cm : 1955 Wt: 209.99 lbs 95.25 kg Age: 69 Gender: male BSA: 2.17 PROCEDURE(S) PERFORMED DC01-(23546)LHC/COR/LV CLINICAL PROFILE AND INDICATIONS Indications: Suspected CAD Heart Failure: None Stress/Imaging Coronary Calcium Score: Yes Calcium Score: 1600Calcium Score: 1600 CAD Presentations: No Sxs, no angina. CONCLUSIONS Nonobstructive calcified coronary artery disease with mild aortic stenosis. RECOMMENDATIONS Aggressive medical therapy and lipid-lowering. Repeat echocardiogram for formal assessment of aortic valve DESCRIPTION OF PROCEDURE The patient arrived to the procedure lab. The risks and benefits of the procedure as well as a full description of our services here and current unavailability of surgical backup were fully explained to the patient and/or their significant other prior to the catheterization. The Timeout was completed, verifying the correct patient and procedure. The patient's procedural site was prepped and draped in the usual fashion. Local anesthetic was given subcutaneously to right radial region with Lidocaine 2%. Using a modified Seldinger technique, arterial access was obtained via the right radial artery, a 6Fr sheath was inserted. Right Coronary Artery selective angiography was then performed in multiple views using a 5 Fr. 4.0 [place] catheter. Left Coronary Artery selective angiography was performed in multiple views using a 5 Fr. 4.0 [place] catheter. Left Ventriculography was performed in HARDEN projection using a 5 Fr. Pigtail catheter. LV to AO pullback pressures were then recorded.The arterial sheath was pulled and a TR Band was applied for hemostasis. 10cc of air CORONARY ANGIOGRAPHY DOMINANCE: Right Dominant LEFT HEART ASSESSMENT Left Ventricular Ejection Fraction: by LV Gram 60 % Normal LV wall motion Normal Left Ventricular systolic function LEFT MAIN: Mild calcification, Mild luminal irregularities LEFT ANTERIOR DESCENDING ARTERY: Mild calcification, Mild luminal irregularities less than 30% DIAGONAL 2: Ostial - 60 % Stenosis CIRCUMFLEX ARTERY: Mild luminal irregularities less than 30% RIGHT CORONARY ARTERY: Moderate luminal irregularities up to 50% VALVE FINDINGS: Aortic Valve Calcification - mild Aortic Valve Stenosis - mild COMPLICATIONS No Complications PROCEDURE MEDICATIONS Fentanyl 50 mcg IV Versed 1 mg IV Versed 1 mg IV Oxygen: 2 L/min via nasal cannula Heparin given IA 12/13/2024 09:04:33 Verapamil 2.5mg, Ntg 100mcgs, 3000 units of Heparin given IA 12/13/2024 09:04:33 SUMMARY OF HEMODYNAMIC DATA Time AIR REST ECG 07:48:56 ECG 08:49:37 AO 116/63 (89) SA 09:23:41 LV 136/20, 25 09:30:41 LV 130/20, 25 09:30:47 LV 131/19, 26 09:31:47 LVp 131/18, 30 09:31:50 AOp 107/64 (82) 09:31:55 Signed By Chepe Do MD On 12/13/2024 09:41:11 Chepe Do MD 12/13/24941 Date Chepe Do MD Cosigner Signature: Date (if indicated) CC: Dr. Chepe Do MD; Dr. Erinn Suh MD Date Dictated: 12/13/24901 Date Transcribed: 12/13/24940 Level Vial Inside Grinder: CO Signed Normal [facility] Cardiac catheterization repo rtOrdered By: Chepe Do on 12-13-2024 Cardiac catheterization study [facility] [address] [place] [address] Cardiac Cath Diagnostic MR#: [id number] Acct: [id number] Name: DEBORAH KEITH Rep #:[id number] : 1955 69 From: Chepe Do MD PCP: Dr. Erinn Suh MD Status:R [facility] Patient Name: DEBORAH KEITH Study Date: 12/13/2024 Performing: Chepe Do MD Ht: 72 inches 182.88 cm : 1955 Wt: 209.99 lbs 95.25 kg Age: 69 Gender: male BSA: 2.17 PROCEDURE(S) PERFORMED DC01-(14470)LHC/COR/LV CLINICAL PROFILE AND INDICATIONS Indications: Suspected CAD Heart Failure: None Stress/Imaging Coronary Calcium Score: Yes Calcium Score: 1600Calcium Score: 1600 CAD Presentations: No Sxs, no angina. CONCLUSIONS Nonobstructive calcified coronary artery disease with mild aortic stenosis. RECOMMENDATIONS Aggressive medical therapy and lipid-lowering. Repeat echocardiogram for formal assessment of aortic valve DESCRIPTION OF PROCEDURE The patient arrived to the procedure lab. The risks and benefits of the procedure as well as a full description of our services here and current unavailability of surgical backup were fully explained to the patient and/or their significant other prior to the catheterization. The Timeout was completed, verifying the correct patient and procedure. The patient's procedural site was prepped and draped in the usual fashion. Local anesthetic was given subcutaneously to right radial region with Lidocaine 2%. Using a modified Seldinger technique, arterial access was obtained via the right radial artery, a 6Fr sheath was inserted. Right Coronary Artery selective angiography was then performed in multiple views using a 5 Fr. 4.0 [place] catheter. Left Coronary Artery selective angiography was performed in multiple views using a 5 Fr. 4.0 [place] catheter. Left Ventriculography was performed in HARDEN projection using a 5 Fr. Pigtail catheter. LV to AO pullback pressures were then recorded.The arterial sheath was pulled and a TR Band was applied for hemostasis. 10cc of air CORONARY ANGIOGRAPHY DOMINANCE: Right Dominant LEFT HEART ASSESSMENT Left Ventricular Ejection Fraction: by LV Gram 60 % Normal LV wall motion Normal Left Ventricular systolic function LEFT MAIN: Mild calcification, Mild luminal irregularities LEFT ANTERIOR DESCENDING ARTERY: Mild calcification, Mild luminal irregularities less than 30% DIAGONAL 2: Ostial - 60 % Stenosis CIRCUMFLEX ARTERY: Mild luminal irregularities less than 30% RIGHT CORONARY ARTERY: Moderate luminal irregularities up to 50% VALVE FINDINGS: Aortic Valve Calcification - mild Aortic Valve Stenosis - mild COMPLICATIONS No Complications PROCEDURE MEDICATIONS Fentanyl 50 mcg IV Versed 1 mg IV Versed 1 mg IV Oxygen: 2 L/min via nasal cannula Heparin given IA 12/13/2024 09:04:33 Verapamil 2.5mg, Ntg 100mcgs, 3000 units of Heparin given IA 12/13/2024 09:04:33 SUMMARY OF HEMODYNAMIC DATA Time AIR REST ECG 07:48:56 ECG 08:49:37 AO 116/63 (89) SA 09:23:41 LV 136/20, 25 09:30:41 LV 130/20, 25 09:30:47 LV 131/19, 26 09:31:47 LVp 131/18, 30 09:31:50 AOp 107/64 (82) 09:31:55 Signed By Chepe Do MD On 12/13/2024 09:41:11 Chepe Do MD 12/13/24941 Date _ Chepe Harrisigner Signature: Date (if indicated) CC: Dr. Chepe Do MD; Dr. Erinn Suh MD ~ Date Dictated: 12/13/24901 Date Transcribed: 12/13/24940 Level Vial Inside Grinder: CO Signed [facility] Work Phone: Internal Medicine Office Vis itojohn 12-10-2024 Internal Medicine Office Visit [facility] Internal Medicine [facility] [place] [address] [place] [address] OFFICE VISIT Date of Service: 12/10/24 MR#: [id number] Acct: [id number] Name: KAYLADEBORAH Rep #: [id number] : 1955 Provider: Dr. Erinn ramachandran MD Age/Sex: 69/M Location: [facility] [place] Status: Signed Intake Vital Signs 09/24/24 09:24 12/10/24 08:02 Height 6 ft 6 ft Weight: 211 lb BMI 28.6 BP 122/68 H Blood Pressure Location Lt brachial Position Sitting Respiration 16 Pulse 83 Pulse Source Monitor Temp 97.8 F Temp Source Temporal Pulse Oximetry (%) 100 Oxygen Delivery Method room air Intake Visit Reasons: 3 M FU Chief Complaint: 3 M FU Tromper Required: No Accompanied by: Self Is patient in pain?: No Allergies No Known Allergies Allergy (Verified 12/10/24 09:36) Medications ???Medication ???Instructions ???Recorded ???Confirmed ???Type aspirin 81 mg tablet,delayed 81 mg PO DAILY@0800 12/23/1812/10 History release cholecalciferol (vitamin D3) 125 125 mcg PO DAILY 11/29/20 12/10/24 History mcg (5,000 unit) tablet (Vitamin D3) multivitamin 1 cap PO DAILY 11/29/20 12/10/24 H istory blood sugar diagnostic (FreeStyle #200 strips 02/05/22 12/10/24 Rx Lite Strips) flash glucose scanning reader #1 ea 06/17/22 12/10/24 Rx (FreeStyle Trent 14 Day [place]) flash glucose sensor (FreeStyle #2 ea 06/17/22 12/10/24 Rx Trent 2 Sensor kit) pen needle, diabetic 29 gauge x #100 ea 09/04/23 12/10/24 Rx 1/2 (BD Ultra-Fine Original Pen Needle) blood sugar diagnostic (FreeStyle #200 ea 01/05/24 12/10/24 Rx Lite Strips) empagliflozin 25 mg tablet 25 mg PO QAM #90 tabs 01/26/2406/01 Rx (Jardiance) tirzepatide 10 mg/0.5 mL 10 mg (0.5 mL) subcut QWEEK 3 03/1012/10/24 Rx subcutaneous pen injector months #6.5 mL (Mounjaro) atorvastatin 10 mg tablet 10 mg PO QHS #90 tabs 05/24/2406/01 Rx lisinopril 40 mg tablet 40 mg PO DAILY #90 tabs 05/24/24 1 Rx metoprolol tartrate 25 mg tablet 25 mg PO BID #180 tabs 09/20/24 Rx amlodipine 5 mg tablet 5 mg PO DAILY #90 tabs 09/27/24 Rx metformin 500 mg tablet,extended 1,000 mg (2 x 500 mg) PO BID #360 11/01/24 12/10/24 Rx release 24 hr tabs insulin aspart U-100 100 unit/mL 20 unit subcut TIDCM PRN SLIDING 0 11/24/24 12/10/24 History (3 mL) subcutaneous pen SCALE insulin glargine 100 unit/mL (3 40 unit subcut QHS PRN high blood 11/24/24 12/10/24 History mL) subcutaneous pen (Lantus sugar Solostar U-100 Insulin) Have you fallen in the past year?: No Nurse's Note: fu patient hasnt used insulin tid prn in quite a while hasnt needed too [facility] Medical History Abnormal cardiac CT angiography Aortic valve sclerosis Obesity Prostate CA CAD (coronary artery disease) Impetigo Heartburn Personal history of colonic polyps CKD (chronic kidney disease), stage III Wears hearing aid in both ears Diabetic neuropathy Dizziness Cardiac murmur Hyperlipidemia Hypertension Type 2 diabetes mellitus Insulin dependent diabetes mellitus CPAP (continuous positive airway pressure) dependence Surgical History History of cataract surgery History [...] M FU Details: DEBORAH KEITH, is a 69-year-old male presenting with routine follow-up for chronic disease management and medication adjustment. The patient has a history of Type 2 Diabetes Mellitus, which has been managed with Metformin 1000 mg twice a day, Mounjaro 10 mg, Jardiance and Lantus. The patient reports a significant improvement in hemoglobin A1c levels, currently at 5.9, down from 6.3. The patient has not been utilizing meal-time insulin coverage. The patient also reports a history of hypertension, managed with Lisinopril, Metoprolol, and Amlodipine. Blood pressure readings were noted to be within target ranges during prior visits, most recently recorded at 122/68 mmHg. Other chronic medical conditions are largely stable. (more content not included)... Normal [facility] Absolute lymphocyte countOrd ered By: Chepe Do on 11-24-2024 Lymphocytes Auto (Unsp spec) [#/Vol] 1.60 10*3/uL 0.83-4.51 [facility] Absolute neutrophil countOrd ered By: Chepe Do on 11-24-2024 Neutrophils (Bld) [#/Vol] 4.5 10*3/uL 2.0-7.7 [facility] Anion gap in Serum or Plasma Ordered By: Mcarthur [facility] on 11-24-2024 Anion gap [Moles/Vol] 11 mmol/L 07-22 [facility] Automated lymphocyte count a s percentage of total leukocytesOrdered By: Chepe Hi on 11-24-2024 Lymphocytes/100 WBC Auto (Unsp spec) 23.0 % [facility] BUN/creatinine ratioOrdered By: Chepe Hi on 11-24-2024 Urea nitrogen/Creatinine [Mass ratio] 15.5 mg/mg - [facility] Basic Metabolic Profile (BMP )on 11-24-2024 BUN/CRE 15.5 RATIO Normal 12-27 [facility] Comment on above: Performed By: #### L 500.2500, L100.0100 ####[facility] [address] [place], [address] Calcium [Mass/Vol] 10.0 mg/dL Normal 7.6-11.0 [facility] Comment on above: Performed By: #### L 500.2500, L100.0100 ####[facility] [address] [place], [address] Chloride [Moles/Vol] 105 mmol/L Normal 98-108 [facility] Comment on above: Performed By: #### L 500.2500, L100.0100 ####[facility] [address] [place], [address] CO2 [Moles/Vol] 26.4 mmol/L Normal 21.0-32.0 [facility] Comment on above: Performed By: #### L 500.2500, L100.0100 ####[facility] [address] [place], [address] Creatinine [Mass/Vol] 1.20 mg/dL Normal 0.70-1.20 [facility] Comment on above: Performed By: #### L 500.2500, L100.0100 ####[facility] [address] [place], [address] GAP 11 Normal 5-15 [facility] Comment on above: Performed By: #### L 500.2500, L100.0100 ####[facility] [address] [place], [address] GFR/1.73 sq M.predicted among non-blacks MDRD (S/P/Bld) [Vol rate/Area] 65 mL/min/{1.73_m2} Normal >60 [facility] Comment on above: Result Comment: mL/m in/1.73m2 CKD-EPI Creatinine Equation (2020) Performed By: #### L 500.2500, L100.0100 ####[facility] [address] [place], [address] Glucose [Mass/Vol] 104 mg/dL High 70-99 [facility] Comment on above: Performed By: #### L 500.2500, L100.0100 ####[facility] [address] [place], [address] Potassium [Moles/Vol] 4.9 mmol/L Normal 3.3-5.1 [facility] Comment on above: Performed By: #### L 500.2500, L100.0100 ####[facility] [address] [place], [address] Sodium [Moles/Vol] 142 mmol/L Normal 133-145 [facility] Comment on above: Performed By: #### L 500.2500, L100.0100 ####[facility] [address] [place], [address] Urea nitrogen [Mass/Vol] 19 mg/dL Normal 4-19 [facility] Comment on above: Performed By: #### L 500.2500, L100.0100 ####[facility] [address] [place], [address] Basophil percentageOrdered B y: Mcarthur Hi on 11-24-2024 Basophils/100 WBC (Bld) 0.9 % 0-1 [facility] CBC W/Diff, Automatedon 11-08 Absolute Lymph 1.60 X10 3/uL Normal 0.83-4.51 [facility] Comment on above: Performed By: #### L 500.2500, L100.0100 #### [facility] [address] [place], [address] Absolute Neut 4.5 X10 3/uL Normal 2.0-7.7 [facility] Comment on above: Performed By: #### L 500.2500, L100.0100 #### [facility] [address] [place], [address] Basophils/100 WBC (Bld) 0.9 % Normal 0-1 [facility] Comment on above: Performed By: #### L 500.2500, L100.0100 #### [facility] [address] [place], [address] Eosinophils/100 WBC (Bld) 4.6 % Normal 0-5 [facility] Comment on above: Performed By: #### L 500.2500, L100.0100 #### [facility] [address] [place], [address] Erythrocyte distribution width (RBC) [Ratio] 12.5 % Normal 11.6-14.6 [facility] Comment on above: Performed By: #### L 500.2500, L100.0100 #### [facility] [address] [place], [address] Hematocrit (Bld) [Volume fraction] 43.9 % Normal 40-54 [facility] Comment on above: Performed By: #### L 500.2500, L100.0100 #### [facility] [address] [place] [place], [address] Hemoglobin (Bld) [Mass/Vol] 15.3 g/dL Normal 13.0-16.5 [facility] Comment on above: Performed By: #### L 500.2500, L100.0100 #### [facility] [address] [place], [address] IG% 0.100 Normal 0.0-0.9 [facility] Comment on above: Result Comment: IG% - Immature Granulocytes (promyelocytes, myelocytes and metamyelocytes) > 1% indicates that a LEFT SHIFT is Present. Performed By: #### L 500.2500, L100.0100 #### [facility] [address] [place], [address] Lymphocytes/100 WBC (Bld) 23.0 % Normal 19-41 [facility] Comment on above: Performed By: #### L 500.2500, L100.0100 #### [facility] [address] [place], [address] MCH (RBC) [Entitic mass] 31.6 pg Normal 27.0-32.0 [facility] Comment on above: Performed By: #### L 500.2500, L100.0100 #### [facility] [address] [place], [address] MCHC (RBC) [Mass/Vol] 34.9 g/dL Normal 32-36 [facility] Comment on above: Performed By: #### L 500.2500, L100.0100 #### [facility] [address] [place], [address] MCV (RBC) [Entitic vol] 90.7 fL Normal 80-94 [facility] Comment on above: Performed By: #### L 500.2500, L100.0100 #### [facility] [address] [place], [address] Monocytes/100 WBC (Bld) 6.8 % Normal 0-10 [facility] Comment on above: Performed By: #### L 500.2500, L100.0100 #### [facility] [address] [place], [address] Neutrophils/100 WBC (Bld) 64.6 % Normal 47-70 [facility] Comment on above: Performed By: #### L 500.2500, L100.0100 #### [facility] [address] [place], [address] Nucleated RBC (Bld) [#/Vol] 0 10*3/uL Normal 0-5 [facility] Comment on above: Performed By: #### L 500.2500, L100.0100 #### [facility] [address] [place], [address] Platelet mean volume (Bld) [Entitic vol] 10.0 fL Normal 6.2-12.0 [facility] Comment on above: Performed By: #### L 500.2500, L100.0100 #### [facility] [address] [place], [address] Platelets (Bld) [#/Vol] 259 10*3/uL Normal 150-450 [facility] Comment on above: Performed By: #### L 500.2500, L100.0100 #### [facility] [address] [place], [address] RBC (Bld) [#/Vol] 4.84 10*6/uL Normal 4.6-6.2 [facility] Comment on above: Performed By: #### L 500.2500, L100.0100 #### [facility] [address] [place], [address] RDW SD 41.2 fl Normal 35.1-43.9 [facility] Comment on above: Performed By: #### L 500.2500, L100.0100 #### [facility] [address] [place], [address] WBC (Bld) [#/Vol] 7.0 10*3/uL Normal 4.4-11.0 [facility] Comment on above: Performed By: #### L 500.2500, L100.0100 #### [facility] [address] [place], [place], [address] Carbon dioxide, total [Moles /volume] in Central venous bloodOrdered By: Chepe Do on 11-24-2024 CO2 [Moles/Vol] 26.4 mmol/L 21.0-32.0 [facility] Cardiology Visit Reporton Cardiology Visit Report [facility] [place] [facility] [address] [place], [place] [address] OFFICE VISIT Date of Service: 11/24/24 MR#: [id number] Acct: [id number] Name: DEBORAH KEITH Rep #: [id number] : 1955 Provider: Dr. Chepe Do MD Age/Sex: 69/M Location: [facility] [place] Status: Signed HPI HPI History of Present Illness Details: Pleasant 69-year-old man with a history of hypertension, hyperlipidemia, with low HDL, insulin- dependent diabetes mellitus, and minimal symptoms who underwent a coronary calcium score. It demonstrated total calcium score of 1690 with his right coronary artery demonstrating a score of 893 in the left anterior descending artery demonstrating a score of 767. He denies any chest pain or shortness of breath approximate obtain additional pedal edema he has had no neck arm or jaw discomfort suggest angina. He presents for an evaluation of the above. His physical exam is significant for a soft systolic murmur noted left sternal border and his EKG does demonstrate sinus rhythm with a rate of 76 bpm and a previous inferior infarct. Intake Vital Signs 09/24/24 09:24 11/24/24 09:56 Height 6 ft 6 ft Weight: 213 lb 2 oz 210 lb BMI 28.9 28.5 BP 108/68 108/65 Blood Pressure Location Rt brachial Lt brachial Position Sitting Sitting Respiration 16 16 Pulse 94 77 Pulse Source Monitor Monitor Temp 96.8 F L Pulse Oximetry (%) 98 Oxygen Delivery Method room air Intake Visit Reasons: CAD (ANGELI) Tromper Required: No Accompanied by: Significant Other Is patient in pain?: No Allergies No Known Allergies Allergy (Verified 11/24/24 10:06) Medications ???Medication ???Instructions ???Recorded ???Confirmed ???Type aspirin 81 mg tablet,delayed 81 mg PO DAILY@0800 12/23/1811/24 History release cholecalciferol (vitamin D3) 125 125 mcg PO DAILY 11/29/20 11/24/24 History mcg (5,000 unit) tablet (Vitamin D3) multivitamin 1 cap PO DAILY 11/29/20 11/24/24 H istory blood sugar diagnostic (FreeStyle #200 strips 02/05/22 11/24/24 Rx Lite Strips) flash glucose scanning reader #1 ea 06/17/22 11/24/24 Rx (FreeStyle Trent 14 Day [place]) flash glucose sensor (FreeStyle #2 ea 06/17/22 11/24/24 Rx Trent 2 Sensor kit) pen needle, diabetic 29 gauge x #100 ea 09/04/23 11/24/24 Rx 1/2 (BD Ultra-Fine Original Pen Needle) blood sugar diagnostic (FreeStyle #200 ea 01/05/24 11/24/24 Rx Lite Strips) empagliflozin 25 mg tablet 25 mg PO QAM #90 tabs 01/26/24 Rx (Jardiance) tirzepatide 10 mg/0.5 mL 10 mg (0.5 mL) subcut QWEEK 3 03/1011/24/24 Rx subcutaneous pen injector months #6.5 mL (Mounjaro) atorvastatin 10 mg tablet 10 mg PO QHS #90 tabs 05/24/24 Rx lisinopril 40 mg tablet 40 mg PO DAILY #90 tabs 05/24/24 0 11/24/24 Rx metoprolol tartrate 25 mg tablet 25 mg PO BID #180 tabs 09/20/24 Rx amlodipine 5 mg tablet 5 mg PO DAILY #90 tabs 09/27/24 Rx metformin 500 mg tablet,extended 1,000 mg (2 x 500 mg) PO BID #360 11/01/24 11/24/24 Rx release 24 hr tabs insulin aspart U-100 100 unit/mL 20 unit subcut TIDCM PRN SLIDING 0 11/24/24 11/24/24 History (3 mL) subcutaneous pen SCALE insulin glargine 100 unit/mL (3 40 unit subcut QHS PRN 11/24/24 History mL) subcutaneous pen (Lantus Solostar U-100 Insulin) Ejection fraction %: 65 Have you fallen in the past year?: No PFSH Medical History Abnormal cardiac CT angiography Aortic valve sclerosis Obesity Prostate CA CAD (coronary artery disease) Impetigo Heartburn Personal history of colonic polyps CKD (chronic kidney disease), stage III Wears hearing aid in both ears Diabetic neuropathy Dizziness Cardiac murmur Hyperlipidemia Hypertension Type 2 diabetes mellitus Insulin dependent diabetes mellitus CPAP (continuous positive airway pressure) dependence Surgical History History of cataract surgery History [...] activity do you participate in: none ROS Const Const: Negative for fatigue, weakness, daytime sl (more content not included)... [facility] Chloride assayOrdered By: Davide Do on 11-24-2024 Chloride [Moles/Vol] 105 mmol/L 98-108 [facility] Eosinophil percentageOrdered By: Chepe Do on 11-24-2024 Eosinophils/100 WBC (Bld) 4.6 % 0-5 [facility] Erythrocyte distribution wid th ratioOrdered By: Chepe Do on 11-24-2024 Erythrocyte distribution width (RBC) [Ratio] 12.5 % 11.6-14.6 [facility] Erythrocyte distribution wid th standard deviationOrdered By: Chepe Do on 11-24-2024 Erythrocyte distribution width (RBC) [Ratio] 41.2 fl 35.1-43.9 [facility] Glomerular filtration rate ( GFR) estimation/1.73 sq m using serum, plasma, or whole bOrdered By: Chepe Do on 11-24-2024 GFR/1.73 sq M.predicted among non-blacks MDRD (S/P/Bld) [Vol rate/Area] 65 mL/min/{1.73_m2} >60 [facility] Comment on above: mL/min/1.73m2 CKD-EP I Creatinine Equation (2020) Hematocrit Auto (Bld) [Volum e fraction]Ordered By: Chepe Do on 11-24-2024 Hematocrit (Bld) [Volume fraction] 43.9 % 40-54 [facility] Hemoglobin measurementOrdere d By: Chepe Do on 11-24-2024 Hemoglobin (Bld) [Mass/Vol] 15.3 g/dL 13.0-16.5 [facility] Immature granulocytes/100 WB C Auto (Bld)Ordered By: Chepe Do on 11-24-2024 Immature granulocytes/100 WBC (Bld) 0.100 % 0.0-0.9 [facility] Comment on above: IG% - Immature Granu locytes (promyelocytes, myelocytes and metamyelocytes) > 1% indicates that a LEFT SHIFT is Present. MCV (mean corpuscular volume ) determinationOrdered By: Chepe Do on 11-24-2024 MCV (RBC) [Entitic vol] 90.7 fL 80-94 [facility] Mean corpuscular hemoglobin (MCH) determinationOrdered By: Chepe Do on 11-24-2024 MCH (RBC) [Entitic mass] 31.6 pg 27.0-32.0 [facility] Mean corpuscular hemoglobin concentration (MCHC) determinationOrdered By: Chepe Do on 11-24-2024 MCHC (RBC) [Mass/Vol] 34.9 g/dL 32-36 [facility] Mean platelet volume determi nationOrdered By: Chepe Do on 11-24-2024 Platelet mean volume (Bld) [Entitic vol] 10.0 fL 6.2-12.0 [facility] Monocyte percentageOrdered B y: Mcarthur Hi on 11-24-2024 Monocytes/100 WBC (Bld) 6.8 % 0-10 [facility] Neutrophil percentageOrdered By: Chepe Hi on 11-24-2024 Neutrophils/100 WBC (Bld) 64.6 % 47-70 [facility] Nucleated red blood cell per centageOrdered By: Mcarthur Hi on 11-24-2024 Nucleated RBC/100 WBC (Bld) [Ratio] 0 % 0-5 [facility] Platelet countOrdered By: Cy ril Hi on 11-24-2024 Platelets (Bld) [#/Vol] 259 10*3/uL 150-450 [facility] Potassium measurement (mass/ volume)Ordered By: Mcarthur Hi on 11-24-2024 Potassium (Unsp spec) [Mass/Vol] 4.9 mmol/L 3.3-5.1 [facility] RBC Auto (Bld) [#/Vol]Ordere d By: Chepe Hi on 11-24-2024 RBC (Bld) [#/Vol] 4.84 10*6/uL 4.6-6.2 [facility] Serum creatinine measurement (mass/volume)Ordered By: Chepe Hi on 11-24-2024 Creatinine [Mass/Vol] 1.20 mg/dL 0.70-1.20 [facility] Serum glucose measurement (m ass/volume)Ordered By: Chepe Hi on 11-24-2024 Glucose [Mass/Vol] 104 mg/dL High 70-99 [facility] Serum or plasma calcium martha urement (mass/volume)Ordered By: Chepe Hi on 11-24-2024 Calcium [Mass/Vol] 10.0 mg/dL 7.6-11.0 [facility] Serum or plasma urea nitroge n measurement (mass/volume)Ordered By: Chepe Hi on 11-24-2024 Urea nitrogen [Mass/Vol] 19 mg/dL 4-19 [facility] Sodium levelOrdered By: Cyri l Hi on 11-24-2024 Sodium [Moles/Vol] 142 mmol/L 133-145 [facility] White blood cell (WBC) count Ordered By: Chepe Do on 11-24-2024 WBC (Bld) [#/Vol] 7.0 10*3/uL 4.4-11.0 [facility] Coronary Angiography CTon Coronary Angiography CT [facility] [address] [place] [address] 10/22/24 1818 MR#: [id number] Acct: [id number] Name: DEBORAH KEITH Rep #: [id number] : 1955 69 From: Chepe Do MD [...] MD; Dr. Erinn Suh MD Signed Normal [facility] Limited Chest CT Cardiac Onl yon 10-22-[address] Cardiac Only [facility] [address] [place], [place] [address] Limited Chest CT Cardiac Only MR#: [id number] Acct: [id number] Name: DEBORAH KEITH Rep #: [id number] : 1955 M 69 From: Greyson clay MD PCP: Dr. Erinn Suh MD Status: REG REF Study: Limited Chest CT Cardiac Only Date of Exam: Exam# [id number] Ordering Dr: Erinn Suh MD PROCEDURE: LIMITED [...] Only IMPRESSION: Coronary artery calcification. [facility] CC: Dr. Erinn Suh MD Level Vial Inside Grinder: Signed Normal [facility] Internal Medicine Office Vis ito 09-24-2024 Internal Medicine Office Visit [facility] [address] [place] [address] [place] [address] OFFICE VISIT Date of Service: 09/24/24 MR#: [id number] Acct: [id number] Name: DEBORAH KEITH Rep #: [id number] : 1955 Provider: Dr. Erinn ramachandran MD Age/Sex: 69/M Location: [facility] Status: Signed Intake Vital Signs 03/24/24 11:04 [...] M FU Chief Complaint: 3 M FU Tromper Required: No Accompanied by: Self Is patient [...] 06/17/22 09/24/24 Rx (FreeStyle Trent 14 Day [place]) flash glucose sensor (FreeStyle #2 ea 06/17/22 [...] you fallen in the past year?: No [facility] Medical History (Updated 09/24/24 @ 10:13 by [...] different an (more content not included)... Normal [facility] Laboratory - Hematology and Cell countsOrdered By: Erinn Suh on 09-24-2024 HbA1c (Bld) [Mass fraction] 6.3 % 4.2-6.3 [facility] Internal Medicine Office Vis iton 06-24-2024 Internal Medicine Office Visit [facility] [address] [place] [address] [place] [address] OFFICE VISIT Date of Service: 06/24/24 MR#: [id number] Acct: [id number] Name: DEBORAH KEITH Rep #: [id number] : 1955 Provider: Dr. Erinn ramachandran MD Age/Sex: 69/M Location: [facility] Status: Signed Intake Vital Signs 03/24/24 11:04 [...] M FU Chief Complaint: 3 M FU Tromper Required: No Accompanied by: Self Is patient [...] 06/17/22 06/24/24 Rx (FreeStyle Trent 14 Day [place]) flash glucose sensor (FreeStyle #2 ea 06/17/22 06/24/24 Rx Trent 2 Sensor kit) insulin aspart U-100 100 unit/mL 20 unit (0.2 mL) subcut TIDCM /05/0306/24/24 Rx (3 mL) subcutaneous pen SLIDING SCALE [...] but states (more content not included)... Normal [facility] - Hematology and Cell countsOrdered By: Erinn Suh on 06-24-2024 HbA1c (Bld) [Mass fraction] 6.0 % 4.2-6.3 [facility] CBC W/Diff, Automatedon 03-10 Absolute Lymph 1.61 X10 3/uL Normal 0.83-4.51 [facility] Comment on above: Performed By: #### L 500.4100, L100.0100, L501.9940, L500.4050 ####[facility] [address] [place], [address] Absolute Neut 5.2 X10 3/uL Normal 2.0-7.7 [facility] Comment on above: Performed By: #### L 500.4100, L100.0100, L501.9940, L500.4050 ####[facility] [address] [place], [address] Basophils/100 WBC (Bld) 0.7 % Normal 0-1 [facility] Comment on above: Performed By: #### L 500.4100, L100.0100, L501.9940, L500.4050 ####[facility] [address] [place], [address] Eosinophils/100 WBC (Bld) 3.8 % Normal 0-5 [facility] Comment on above: Performed By: #### L 500.4100, L100.0100, L501.9940, L500.4050 ####[facility] [address] [place], [address] Erythrocyte distribution width (RBC) [Ratio] 12.3 % Normal 11.6-14.6 [facility] Comment on above: Performed By: #### L 500.4100, L100.0100, L501.9940, L500.4050 ####[facility] [address] [place], [address] Hematocrit (Bld) [Volume fraction] 46.5 % Normal 40-54 [facility] Comment on above: Performed By: #### L 500.4100, L100.0100, L501.9940, L500.4050 ####[facility] [address] [place], [address] Hemoglobin (Bld) [Mass/Vol] 15.9 g/dL Normal 13.0-16.5 [facility] Comment on above: Performed By: #### L 500.4100, L100.0100, L501.9940, L500.4050 ####[facility] [address] [place], [address] IG% 0.400 Normal 0.0-0.9 [facility] Comment on above: Result Comment: IG% - Immature Granulocytes (promyelocytes, myelocytes and metamyelocytes) > 1% indicates that a LEFT SHIFT is Present. Performed By: #### L 500.4100, L100.0100, L501.9940, L500.4050 ####[facility] [address] [place], [address] Lymphocytes/100 WBC (Bld) 21.1 % Normal 19-41 [facility] Comment on above: Performed By: #### L 500.4100, L100.0100, L501.9940, L500.4050 ####[facility] [address] [place], [address] MCH (RBC) [Entitic mass] 30.5 pg Normal 27.0-32.0 [facility] Comment on above: Performed By: #### L 500.4100, L100.0100, L501.9940, L500.4050 ####[facility] [address] [place], [address] MCHC (RBC) [Mass/Vol] 34.2 g/dL Normal 32-36 [facility] Comment on above: Performed By: #### L 500.4100, L100.0100, L501.9940, L500.4050 ####[facility] [address] [place], [address] MCV (RBC) [Entitic vol] 89.1 fL Normal 80-94 [facility] Comment on above: Performed By: #### L 500.4100, L100.0100, L501.9940, L500.4050 ####[facility] [address] [place], [address] Monocytes/100 WBC (Bld) 5.8 % Normal 0-10 [facility] Comment on above: Performed By: #### L 500.4100, L100.0100, L501.9940, L500.4050 ####[facility] [address] [place], [address] Neutrophils/100 WBC (Bld) 68.2 % Normal 47-70 [facility] Comment on above: Performed By: #### L 500.4100, L100.0100, L501.9940, L500.4050 ####[facility] [address] [place], [address] Nucleated RBC (Bld) [#/Vol] 0 10*3/uL Normal 0-5 [facility] Comment on above: Performed By: #### L 500.4100, L100.0100, L501.9940, L500.4050 ####[facility] [address] [place], [address] Platelet mean volume (Bld) [Entitic vol] 11.2 fL Normal 6.2-12.0 [facility] Comment on above: Performed By: #### L 500.4100, L100.0100, L501.9940, L500.4050 ####[facility] [address] [place], [address] Platelets (Bld) [#/Vol] 255 10*3/uL Normal 150-450 [facility] Comment on above: Performed By: #### L 500.4100, L100.0100, L501.9940, L500.4050 ####[facility] [address] [place], [address] RBC (Bld) [#/Vol] 5.22 10*6/uL Normal 4.6-6.2 [facility] Comment on above: Performed By: #### L 500.4100, L100.0100, L501.9940, L500.4050 ####[facility] [address] [place], [address] RDW SD 39.8 fl Normal 35.1-43.9 [facility] Comment on above: Performed By: #### L 500.4100, L100.0100, L501.9940, L500.4050 ####[facility] [address] [place], [address] WBC (Bld) [#/Vol] 7.6 10*3/uL Normal 4.4-11.0 [facility] Comment on above: Performed By: #### L 500.4100, L100.0100, L501.9940, L500.4050 ####[facility] [address] [place], [address] Comprehensive Metabolic Prof [facility] 03-24-2024 Albumin [Mass/Vol] 4.0 g/dL Normal 3.2-5.0 [facility] Comment on above: Performed By: #### L 500.4100, L100.0100, L501.9940, L500.4050 ####[facility] [address] [place], [address] Albumin/Globulin [Mass ratio] 1.1 {ratio} Normal 0.9-2.4 [facility] Comment on above: Performed By: #### L 500.4100, L100.0100, L501.9940, L500.4050 ####[facility] [address] [place], [address] ALK P 73 U/L Normal 45-117 [facility] Comment on above: Performed By: #### L 500.4100, L100.0100, L501.9940, L500.4050 ####[facility] [address] [place], [address] ALT [Catalytic activity/Vol] 33 U/L Normal 16-61 [facility] Comment on above: Performed By: #### L 500.4100, L100.0100, L501.9940, L500.4050 ####[facility] [address] [place], [address] AST [Catalytic activity/Vol] 20 U/L Normal 15-37 [facility] Comment on above: Performed By: #### L 500.4100, L100.0100, L501.9940, L500.4050 ####[facility] [address] [place], [address] Bilirubin [Mass/Vol] 0.50 mg/dL Normal 0.20-1.00 [facility] Comment on above: Result Comment: For patients on eltrombopag therapy, use of Dimension [place] TBIL is not recommended. Performed By: #### L 500.4100, L100.0100, L501.9940, L500.4050 ####[facility] [address] [place], [address] BUN/CRE 16.0 RATIO Normal 10-20 [facility] Comment on above: Performed By: #### L 500.4100, L100.0100, L501.9940, L500.4050 ####[facility] [address] [place], [address] CA,Total 9.7 mg/dL Normal 8.5-10.1 [facility] Comment on above: Performed By: #### L 500.4100, L100.0100, L501.9940, L500.4050 ####[facility] [address] [place], [address] Chloride [Moles/Vol] 105 mmol/L Normal 98-107 [facility] Comment on above: Performed By: #### L 500.4100, L100.0100, L501.9940, L500.4050 ####[facility] [address] [place], [address] CO2 [Moles/Vol] 29.0 mmol/L Normal 21.0-32.0 [facility] Comment on above: Performed By: #### L 500.4100, L100.0100, L501.9940, L500.4050 ####[facility] [address] [place], [address] Creatinine [Mass/Vol] 1.19 mg/dL Normal 0.70-1.30 [facility] Comment on above: Result Comment: The validity of the calculated GFR GFRAA in patients over 70 years has not been determined. Clinical correlation is essential. Performed By: #### L 500.4100, L100.0100, L501.9940, L500.4050 ####[facility] [address] [place], [address] EST GFR - AA 78 mL/min Normal >60 [facility] Comment on above: Result Comment: Afri can [employer] GFR Calc Performed By: #### L 500.4100, L100.0100, L501.9940, L500.4050 ####[facility] [address] [place], [address] GAP 6 Normal 5-15 [facility] Comment on above: Performed By: #### L 500.4100, L100.0100, L501.9940, L500.4050 ####[facility] [address] [place], [address] GFR/1.73 sq M.predicted among non-blacks MDRD (S/P/Bld) [Vol rate/Area] 64 mL/min/{1.73_m2} Normal >60 [facility] Comment on above: Result Comment: Non- GFR Calc Performed By: #### L 500.4100, L100.0100, L501.9940, L500.4050 ####[facility] [address] [place], [address] Globulin (S) [Mass/Vol] 3.6 g/dL Normal 2.2-4.2 [facility] Comment on above: Performed By: #### L 500.4100, L100.0100, L501.9940, L500.4050 ####[facility] [address] [place], [address] Glucose [Mass/Vol] 106 mg/dL Normal 74-106 [facility] Comment on above: Result Comment: Fast ing Glucose result from 100 to 125 mg/dL suggests IMPAIRED HOMEOSTASIS per A.D.A. criteria. Performed By: #### L 500.4100, L100.0100, L501.9940, L500.4050 ####[facility] [address] [place], [address] Potassium [Moles/Vol] 4.7 mmol/L Normal 3.5-5.1 [facility] Comment on above: Performed By: #### L 500.4100, L100.0100, L501.9940, L500.4050 ####[facility] [address] [place], [address] Sodium [Moles/Vol] 141 mmol/L Normal 136-145 [facility] Comment on above: Performed By: #### L 500.4100, L100.0100, L501.9940, L500.4050 ####[facility] [address] [place], [address] T PROT 7.6 g/dL Normal 6.4-8.2 [facility] Comment on above: Performed By: #### L 500.4100, L100.0100, L501.9940, L500.4050 ####[facility] [address] [place], [address] Urea nitrogen [Mass/Vol] 19 mg/dL High 7-18 [facility] Comment on above: Performed By: #### L 500.4100, L100.0100, L501.9940, L500.4050 ####[facility] [address] [place], [address] Internal Medicine Office Vis iton 03-24-2024 Internal Medicine Office Visit [facility] [address] [place] [address] [place] [address] OFFICE VISIT Date of Service: 03/24/24 MR#: [id number] Acct: [id number] Name: DEBORAH KEITH Rep #: [id number] : 1955 Provider: Dr. Erinn ramachandran MD Age/Sex: 68/M Location: [facility] Status: Signed Intake Vital Signs 12/17/23 11:06 [...] 06/17/22 03/24/24 Rx (FreeStyle Trent 14 Day [place]) flash glucose sensor (FreeStyle #2 ea 06/17/22 [...] sweating, fat (more content not included)... Normal [facility] Lipid Profileon 03-24-2024 Cholesterol [Mass/Vol] 130 mg/dL Normal 200 [facility] Comment on above: Result Comment: <200 mg/dL Desirable 200-240 mg/dL Borderline >240 mg/dL High Risk Performed By: #### L 500.4100, L100.0100, L501.9940, L500.4050 ####[facility] [address] [place], [address] Cholesterol in HDL [Mass/Vol] 32 mg/dL Low [facility] Comment on above: Result Comment: The drugs N-Acetylcysteine and Metamizole may falsely depress this assay. Reference Range HDL <40 mg/dL Low HDL Cholesterol HDL >or= 60 mg/dL High HDL Cholesterol Performed By: #### L 500.4100, L100.0100, L501.9940, L500.4050 ####[facility] [address] [place], [address] Cholesterol in LDL [Mass/Vol] 63 mg/dL Normal 0-130 [facility] Comment on above: Performed By: #### L 500.4100, L100.0100, L501.9940, L500.4050 ####[facility] [address] [place], [address] Cholesterol in VLDL [Mass/Vol] 35 mg/dL Normal 5-40 [facility] Comment on above: Performed By: #### L 500.4100, L100.0100, L501.9940, L500.4050 ####[facility] [address] [place], [address] Triglyceride [Mass/Vol] 175 mg/dL Normal [facility] Comment on above: Result Comment: The drugs N-Acetylcysteine and Metamizole may falsely depress this assay. Serum Triglycerides Reference Interval Normal <150 mg/dL Borderline high 150 - 199 mg/dL High 200 - 499 mg/dL Very High > or = 500 mg/dL Performed By: #### L 500.4100, L100.0100, L501.9940, L500.4050 ####[facility] [address] [place], [address] PSA,Total- Diagnosticon 03-10 PSA, DIAGNOSTIC < 0.01 Normal 0.0-4.0 [facility] Comment on above: Result Comment: This test was performed using the TPSA assay method for the BTR chemistry system. Values obtained with different assay methods cannot be used interchangably. When changing PSA assays in the course of monitoring a patient, additional sequential testing should be carried out to confirm baseline values. Performed By: #### L 500.4100, L100.0100, L501.9940, L500.4050 ####[facility] [address] [place], [address] Bedside Glucoseon 01-05-2024 FINGERSTICK GLU 134 mg/dL High 74-106 [facility] Comment on above: Result Comment: IK GEMENT OF PATIENT CARE PER NURSING PROTOCOL Performed By: #### L 501.080 ####[facility] [address] [place], [address] Colonoscopy Reporton 024 Colonoscopy Report [facility] Medical Records Department [address] [facility] [address] Colonoscopy Report MR#: [id number] Acct: [id number] Name: DEBORAH KEITH Rep #: [id number] : 1955 68 From: Nick Stephens DO PCP: Dr. Erinn Suh MD Status:[facility] Patient Name: Deborah Keith Procedure Date: 01/05/2024 [...] for surveillance. Procedure Code(s): --- Professional --- 54132, Colonoscopy, flexible; with biopsy, single or multiple CPT copyright 2021 [employer]. All rights reserved. The codes documented in this report are preliminary and upon transmission worker review may be revised to meet current compliance requirements. Nick Stephens DO 01/05/2024 8:09:08 AM This report has been signed electronically. Number of Addenda: 0 Note Initiated On: 01/05/2024 7:35 AM 01/05/24808 Date Nick Stephens DO Cosigner Signature: Date (if indicated) CC: Dr. Erinn Suh MD; Nick Stephens DO Date Dictated: 01/05/24 0735 Date Transcribed: Level Vial Inside Grinder: MIHAELA Signed [facility] MR/POSTOP.[facility] 01-05-2024 MR/POSTOP.[facility] Medical Records Department [address] [place] [address] Anesthesia Postop Eval I 01/05/24811 MR#: [id number] Acct: [id number] Name: KAYLADEBORAH KORIN Rep #: [id number] : 1955 68 From: Ciaran Villar PCP: Dr. Erinn Suh MD Status:REG SDC Y Race: C Location: [place] [address] Anesthesia: Postop Eval I Current Vital Signs [...] document: Postop Eval 1 completed: Yes 01/05/24812 Date Ciaran Harrisignshawna Signature: Date CC: Signed [facility] MR/OXPMWVBV4mx 01-05-2024 [facility] Medical Records Department [address] [place] [address] Anesthesia Postop Eval II 01/05/24851 MR#: [id number] Acct: [id number] Name: DEBORAH KEITH Rep #: [id number] : 1955 68 From: Robb Robert MD PCP: Dr. Erinn Suh MD Status:[facility] Y Race: C Location: EN [...] Robb Aguirre Signature: Date CC: Signed [facility] Surgery Specimen Level William 01-05-2024 Surgery Specimen Level IV -------- Patient Age/Sex Location Account Attending Physician -------- DEBORAH KEITH 68/M EN [id number] Nick Stephens DO -------- Specimen: [id number] Received: 01/05/24 Status: TREV [place] Num: [id number] Spec Type: COLON BX Subm Dr: Nick Stephens DO [place] OPERATION: Colonoscopy PRE-OP DIAGNOSIS: Encounter for screening [...] totally submitted in one cassette. 01/05/2024 TC:5 CPT:46296 -------- Patient Age/Sex Location Account Attending Physician -------- DEBORAH KEITH 68/M EN [id number] Nick Stephens DO -------- Signed (signature on file) Dr. Khanh Ferrera MD 01/06/24 1231 -------- [facility] Comment on above: Performed By: #### P SUIV ####[facility] [id number] [place], [address] Basophil percentageOrdered B y: Erinn Suh on 06-26-2023 Chloride [Moles/Vol] 106 mmol/L 98-107 [facility] Glucose [Mass/Vol] 191 mg/dL 74-106 [facility] Comment on above: Fasting Glucose resu lt greater than or equal to 126 mg/dL suggests DIABETES MELLITUS per A.D.A. criteria. Potassium [Moles/Vol] 4.7 mmol/L 3.5-5.1 [facility] Sodium [Moles/Vol] 139 mmol/L 136-145 [facility] Laboratory - Chemistry and C hemistry - challengeOrdered By: Erinn Suh on 06-26-2023 CO2 [Moles/Vol] 27.0 mmol/L 21.0-32.0 [facility] Urea nitrogen/Creatinine [Mass ratio] 12.4 mg/mg 10-20 [facility] No Panel InformationOrdered By: Erinn Suh on 06-26-2023 Urine Microalbumin/Creatinin e Ratio 59.3 mg/g CRE <30 [facility] Estimated GFR (MDRD) Amer 66 mL/min >60 [facility] Comment on above: GFR Calc Estimated GFR (MDRD) Non-Af Amer 55 mL/min >60 [facility] Comment on above: Non- GFR Calc Serum or plasma calcium martha urement (mass/volume)Ordered By: Erinn Suh on 06-26-2023 Calcium [Mass/Vol] 9.5 mg/dL 8.5-10.1 [facility] Serum or plasma creatinine m easurement (mass/volume)Ordered By: Erinn Suh on 06-26-2023 Creatinine [Mass/Vol] 1.37 mg/dL 0.70-1.30 [facility] Comment on above: The validity of the calculated GFR & GFRAA in patients over 70 years has not been determined. Clinical correlation is essential. Serum or plasma urea nitroge n measurement (mass/volume)Ordered By: Erinn Suh on 06-26-2023 Urea nitrogen [Mass/Vol] 17 mg/dL 09-24 [facility] Thin prep Papanicolaou smear with manual screeningOrdered By: Erinn Suh on 06-26-2023 Thin prep Papanicolaou smear with manual screening 61.7 mg/L NO RANGE EST. [facility] Thin prep Papanicolaou smear with manual screening 6 5-15 [facility] Urine creatinine measurement (mass/volume)Ordered By: Erinn Suh on 06-26-2023 Creatinine (U) [Mass/Vol] 104.00 mg/dL NO RANGE EST. [facility] Whole blood hemoglobin A1c/t otal hemoglobin ratio (mass fraction)Ordered By: Erinn Suh on 06-26-2023 HbA1c (Bld) [Mass fraction] 7.3 % 3.8-5.6 [facility] Comment on above: Normal < 5.7 % Predi abetic 5.7 - 6.4 % Diabetic >or= 6.5 % Please note range changes. Absolute lymphocyte countOrd ered By: Erinn Suh on 03-21-2023 Lymphocytes Auto (Unsp spec) [#/Vol] 1.30 10*3/uL 0.83-4.51 [facility] Basophil percentageOrdered B y: Erinn Suh on 03-21-2023 Basophils/100 WBC (Bld) 0.6 % 0-1 [facility] Bilirubin [Mass/Vol] 0.70 mg/dL 0.20-1.00 [facility] Comment on above: For patients on eltr ombopag therapy, use of Dimension [place] TBIL is not recommended. Chloride [Moles/Vol] 106 mmol/L 98-107 [facility] Cholesterol [Mass/Vol] 122 mg/dL <200 [facility] Comment on above: <200 mg/dL Desirable 200-240 mg/dL Borderline >240 mg/dL High Risk Eosinophils/100 WBC (Bld) 6.9 % 0-5 [facility] Glucose [Mass/Vol] 160 mg/dL 74-106 [facility] Comment on above: Fasting Glucose resu lt greater than or equal to 126 mg/dL suggests DIABETES MELLITUS per A.D.A. criteria. Neutrophils (Bld) [#/Vol] 4.3 10*3/uL 2.0-7.7 [facility] Neutrophils/100 WBC (Bld) 66.8 % 47-70 [facility] Potassium [Moles/Vol] 4.4 mmol/L 3.5-5.1 [facility] Protein [Mass/Vol] 7.4 g/dL 6.4-8.2 [facility] Sodium [Moles/Vol] 140 mmol/L 136-145 [facility] Triglyceride [Mass/Vol] 144 mg/dL <199 [facility] Comment on above: The drugs N-Acetylcy steine and Metamizole may falsely depress this assay.Serum Triglycerides Reference Interval Normal <150 mg/dL Borderline high 150 - 199 mg/dL High 200 - 499 mg/dL Very High > or = 500 mg/dL WBC (Bld) [#/Vol] 6.5 10*3/uL 4.4-11.0 [facility] Blood erythrocytes count (nu mber/volume)Ordered By: Erinn Suh on 03-21-2023 RBC (Bld) [#/Vol] 4.68 10*6/uL 4.6-6.2 [facility] Blood hemoglobin measurement (mass/volume)Ordered By: Erinn Suh on 03-21-2023 Hemoglobin (Bld) [Mass/Vol] 14.1 g/dL 13.0-16.5 [facility] Blood lymphocytes/100 leukoc ytesOrdered By: Erinn Suh on 03-21-2023 Lymphocytes/100 WBC (Bld) 20.0 % 19-41 [facility] Blood monocytes/100 leukocyt esOrdered By: [facility] Ritenick Suh on 03-21-2023 Monocytes/100 WBC (Bld) 5.2 % 0-10 [facility] Blood platelet mean volumeOr dered By: Erinn Suh on 03-21-2023 Platelet mean volume (Bld) [Entitic vol] 11.0 fL 6.2-12.0 [facility] Determination of erythrocyte mean corpuscular volume (MCV)Ordered By: gerardbloomington springsnick Suh on 03-21-2023 MCV (RBC) [Entitic vol] 89.5 fL 80-94 [facility] Hematocrit Auto (Bld) [Volum e fraction]Ordered By: [facility] Ritenick Suh on 03-21-2023 Hematocrit (Bld) [Volume fraction] 41.9 % 40-54 [facility] Laboratory - Chemistry and C hemistry - challengeOrdered By: Erinn Suh on 03-21-2023 ALP [Catalytic activity/Vol] 75 U/L 45-117 [facility] ALT [Catalytic activity/Vol] 29 U/L 16-61 [facility] CO2 [Moles/Vol] 27.0 mmol/L 21.0-32.0 [facility] Globulin (S) [Mass/Vol] 3.4 g/dL 2.2-4.2 [facility] Urea nitrogen/Creatinine [Mass ratio] 13.6 mg/mg 10-20 [facility] Laboratory - Hematology and Cell countsOrdered By: Gregbloomington springsnick Suh on 03-21-2023 Erythrocyte distribution width (RBC) [Entitic vol] 39.5 fL 35.1-43.9 [facility] Erythrocyte distribution width (RBC) [Ratio] 12.1 % 11.6-14.6 [facility] Immature granulocytes/100 WBC (Bld) 0.500 % 0.0-0.9 [facility] Comment on above: IG% - Immature Granu locytes (promyelocytes, myelocytes and metamyelocytes) > 1% indicates that a LEFT SHIFT is Present. MCH (RBC) [Entitic mass] 30.1 pg 27.0-32.0 [facility] Nucleated RBC/100 WBC (Bld) [Ratio] 0 % 0-5 [facility] Laboratory - Hematology and Cell countson 03-21-2023 HbA1c (Bld) [Mass fraction] 7.1 % 4.2-6.3 [facility] MCHC Auto (RBC) [Mass/Vol]Or dered By: Erinn Suh on 03-21-2023 MCHC (RBC) [Mass/Vol] 33.7 g/dL 32-36 [facility] No Panel InformationOrdered By: Erinn Suh on 03-21-2023 Urine Microalbumin/Creatinin e Ratio 40.6 mg/g CRE <30 [facility] Estimated GFR (MDRD) Amer 61 mL/min >60 [facility] Comment on above: GFR Calc Estimated GFR (MDRD) Non-Af Amer 51 mL/min >60 [facility] Comment on above: Non- GFR Calc Platelets bldOrdered By: Ortega Suh on 03-21-2023 Platelets (Bld) [#/Vol] 253 10*3/uL 150-450 [facility] Serum or plasma albumin martha urement (mass/volume)Ordered By: Erinn Suh on 03-21-2023 Albumin [Mass/Vol] 4.0 g/dL 3.2-5.0 [facility] Serum or plasma albumin/glob ulin mass ratioOrdered By: Erinn Suh on 03-21-2023 Albumin/Globulin [Mass ratio] 1.2 {ratio} 0.9-2.4 [facility] Serum or plasma calcium martha urement (mass/volume)Ordered By: Erinn Suh on 03-21-2023 Calcium [Mass/Vol] 10.0 mg/dL 8.5-10.1 [facility] Serum or plasma cholesterol in HDL measurement (mass/volume)Ordered By: Erinn Suh on 03-21-2023 Cholesterol in HDL [Mass/Vol] 27 mg/dL >40 [facility] Comment on above: The drugs N-Acetylcy steine and Metamizole may falsely depress this assay. Reference Range HDL <40 mg/dL Low HDL Cholesterol HDL >or= 60 mg/dL High HDL Cholesterol Serum or plasma cholesterol in VLDL measurement (mass/volume)Ordered By: Erinn Suh on 03-21-2023 Cholesterol in VLDL [Mass/Vol] 29 mg/dL 5-40 [facility] Serum or plasma creatinine m easurement (mass/volume)Ordered By: Erinn Suh on 03-21-2023 Creatinine [Mass/Vol] 1.47 mg/dL 0.70-1.30 [facility] Comment on above: The validity of the calculated GFR & GFRAA in patients over 70 years has not been determined. Clinical correlation is essential. Serum or plasma low density lipoprotein (LDL) cholesterol measurement (mass/volume)Ordered By: Erinn Suh on 03-21-2023 Cholesterol in LDL [Mass/Vol] 66 mg/dL 0-130 [facility] Serum or plasma urea nitroge n measurement (mass/volume)Ordered By: Erinn Suh on 03-21-2023 Urea nitrogen [Mass/Vol] 20 mg/dL 7-18 [facility] Thin prep Papanicolaou smear with manual screeningOrdered By: Erinn Suh on 03-21-2023 Thin prep Papanicolaou smear with manual screening 50.3 mg/L NO RANGE EST. [facility] Thin prep Papanicolaou smear with manual screening 20 U/L 15-37 [facility] Thin prep Papanicolaou smear with manual screening 7 5-15 [facility] Urine creatinine measurement (mass/volume)Ordered By: Erinn Suh on 03-21-2023 Creatinine (U) [Mass/Vol] 124.00 mg/dL NO RANGE EST. [facility] No Panel InformationOrdered By: Luis Woodson on 03-17-2023 Prostate Specific Antigen Total < 0.01 ng/mL 0.0-4.0 [facility] Comment on above: This test was perfor med using the TPSA assay method for [employer] chemistry system. Values obtained with differentassay methods cannot be used interchangably.When changing PSA assays in the course of monitoring apatient, additional sequential testing should be carriedout to confirm baseline values. Basophil percentageOrdered B y: Erinn Suh on 12-18-2022 Chloride [Moles/Vol] 105 mmol/L 98-107 [facility] Glucose [Mass/Vol] 196 mg/dL 74-106 [facility] Comment on above: Fasting Glucose resu lt greater than or equal to 126 mg/dL suggests DIABETES MELLITUS per A.D.A. criteria. Potassium [Moles/Vol] 4.3 mmol/L 3.5-5.1 [facility] Sodium [Moles/Vol] 138 mmol/L 136-145 [facility] Laboratory - Chemistry and C hemistry - challengeOrdered By: Erinn Suh on 12-18-2022 CO2 [Moles/Vol] 27.0 mmol/L 21.0-32.0 [facility] Urea nitrogen/Creatinine [Mass ratio] 13.4 mg/mg 10-20 [facility] Laboratory - Hematology and Cell countson 12-18-2022 HbA1c (Bld) [Mass fraction] 7.4 % 4.2-6.3 [facility] No Panel InformationOrdered By: Erinn Suh on 12-18-2022 Estimated GFR (MDRD) Amer 64 mL/min >60 [facility] Comment on above: GFR Calc Estimated GFR (MDRD) Non-Af Amer 53 mL/min >60 [facility] Comment on above: Non- GFR Calc Serum or plasma calcium martha urement (mass/volume)Ordered By: Erinn Suh on 12-18-2022 Calcium [Mass/Vol] 9.5 mg/dL 8.5-10.1 [facility] Serum or plasma creatinine m easurement (mass/volume)Ordered By: Erinn Suh on 12-18-2022 Creatinine [Mass/Vol] 1.42 mg/dL 0.70-1.30 [facility] Comment on above: The validity of the calculated GFR & GFRAA in patients over 70 years has not been determined. Clinical correlation is essential. Serum or plasma urea nitroge n measurement (mass/volume)Ordered By: Wernernick Suh on 12-18-2022 Urea nitrogen [Mass/Vol] 19 mg/dL 7-18 [facility] Thin prep Papanicolaou smear with manual screeningOrdered By: Erinn Suh on 12-18-2022 Thin prep Papanicolaou smear with manual screening 6 5-15 [facility] Laboratory - Hematology and Cell countson 09-16-2022 HbA1c (Bld) [Mass fraction] 6.2 % 4.2-6.3 [facility] No Panel InformationOrdered By: Luis Woodson on 09-13-2022 Prostate Specific Antigen Total < 0.01 ng/mL 0.0-4.0 [facility] Comment on above: This test was perfor med using the TPSA assay method for [employer] chemistry system. Values obtained with differentassay methods cannot be used interchangably.When changing PSA assays in the course of monitoring apatient, additional sequential testing should be carriedout to confirm baseline values. Absolute lymphocyte countOrd ered By: Wernernick Ramirezhiram on 06-17-2022 Lymphocytes Auto (Unsp spec) [#/Vol] 1.09 10*3/uL 0.83-4.51 [facility] Basophil percentageOrdered B y: Erinn Jameshiram on 06-17-2022 Basophils/100 WBC (Bld) 0.8 % 0-1 [facility] Bilirubin [Mass/Vol] 0.60 mg/dL 0.20-1.00 [facility] Comment on above: For patients on eltr ombopag therapy, use of Dimension [place] TBIL is not recommended. Chloride [Moles/Vol] 109 mmol/L 98-107 [facility] Cholesterol [Mass/Vol] 118 mg/dL <200 [facility] Comment on above: <200 mg/dL Desirable 200-240 mg/dL Borderline >240 mg/dL High Risk Eosinophils/100 WBC (Bld) 4.7 % 0-5 [facility] Glucose [Mass/Vol] 153 mg/dL 74-106 [facility] Comment on above: Fasting Glucose resu lt greater than or equal to 126 mg/dL suggests DIABETES MELLITUS per A.D.A. criteria. Neutrophils (Bld) [#/Vol] 4.5 10*3/uL 2.0-7.7 [facility] Neutrophils/100 WBC (Bld) 71.7 % 47-70 [facility] Potassium [Moles/Vol] 4.4 mmol/L 3.5-5.1 [facility] Protein [Mass/Vol] 7.3 g/dL 6.4-8.2 [facility] Sodium [Moles/Vol] 138 mmol/L 136-145 [facility] Triglyceride [Mass/Vol] 155 mg/dL <199 [facility] Comment on above: The drugs N-Acetylcy steine and Metamizole may falsely depress this assay.Serum Triglycerides Reference Interval Normal <150 mg/dL Borderline high 150 - 199 mg/dL High 200 - 499 mg/dL Very High > or = 500 mg/dL WBC (Bld) [#/Vol] 6.2 10*3/uL 4.4-11.0 [facility] Blood erythrocytes count (nu mber/volume)Ordered By: Erinn Suh on 06-17-2022 RBC (Bld) [#/Vol] 4.66 10*6/uL 4.6-6.2 [facility] Blood hemoglobin measurement (mass/volume)Ordered By: Erinn Suh on 06-17-2022 Hemoglobin (Bld) [Mass/Vol] 14.8 g/dL 13.0-16.5 [facility] Blood lymphocytes/100 leukoc ytesOrdered By: Erinn Suh on 06-17-2022 Lymphocytes/100 WBC (Bld) 17.5 % 19-41 [facility] Blood monocytes/100 leukocyt esOrdered By: Erinn Suh on 06-17-2022 Monocytes/100 WBC (Bld) 5.1 % 0-10 [facility] Blood platelet mean volumeOr dered By: Erinn Suh on 06-17-2022 Platelet mean volume (Bld) [Entitic vol] 10.7 fL 6.2-12.0 [facility] Determination of erythrocyte mean corpuscular volume (MCV)Ordered By: Erinn Suh on 06-17-2022 MCV (RBC) [Entitic vol] 88.8 fL 80-94 [facility] Hematocrit Auto (Bld) [Volum e fraction]Ordered By: Erinn Suh on 06-17-2022 Hematocrit (Bld) [Volume fraction] 41.4 % 40-54 [facility] Laboratory - Chemistry and C hemistry - challengeOrdered By: gerardbloomington springsnick Suh on 06-17-2022 ALP [Catalytic activity/Vol] 64 U/L 45-117 [facility] ALT [Catalytic activity/Vol] 40 U/L 16-61 [facility] CO2 [Moles/Vol] 26.0 mmol/L 21.0-32.0 [facility] Globulin (S) [Mass/Vol] 3.2 g/dL 2.2-4.2 [facility] Urea nitrogen/Creatinine [Mass ratio] 14.4 mg/mg 10-20 [facility] Laboratory - Hematology and Cell countsOrdered By: gerardbloomington springsnick Suh on 06-17-2022 Erythrocyte distribution width (RBC) [Entitic vol] 40.7 fL 35.1-43.9 [facility] Erythrocyte distribution width (RBC) [Ratio] 12.6 % 11.6-14.6 [facility] Immature granulocytes/100 WBC (Bld) 0.200 % 0.0-0.9 [facility] Comment on above: IG% - Immature Granu locytes (promyelocytes, myelocytes and metamyelocytes) > 1% indicates that a LEFT SHIFT is Present. MCH (RBC) [Entitic mass] 31.8 pg 27.0-32.0 [facility] Nucleated RBC/100 WBC (Bld) [Ratio] 0 % 0-5 [facility] Laboratory - Hematology and Cell countson 06-17-2022 HbA1c (Bld) [Mass fraction] 5.7 % 4.2-6.3 [facility] MCHC Auto (RBC) [Mass/Vol]Or dered By: Erinn Suh on 06-17-2022 MCHC (RBC) [Mass/Vol] 35.7 g/dL 32-36 [facility] No Panel InformationOrdered By: Erinn Suh on 06-17-2022 Urine Microalbumin/Creatinin e Ratio 53.0 mg/g CRE <30 [facility] Estimated GFR (MDRD) Amer 79 mL/min >60 [facility] Comment on above: GFR Calc Estimated GFR (MDRD) Non-Af Amer 65 mL/min >60 [facility] Comment on above: Non- GFR Calc Platelets bldOrdered By: Ortega Suh on 06-17-2022 Platelets (Bld) [#/Vol] 258 10*3/uL 150-450 [facility] Serum or plasma albumin martha urement (mass/volume)Ordered By: Erinn Suh on 06-17-2022 Albumin [Mass/Vol] 4.1 g/dL 3.2-5.0 [facility] Serum or plasma albumin/glob ulin mass ratioOrdered By: Erinn Suh on 06-17-2022 Albumin/Globulin [Mass ratio] 1.3 {ratio} 0.9-2.4 [facility] Serum or plasma calcium martha urement (mass/volume)Ordered By: Erinn Suh on 06-17-2022 Calcium [Mass/Vol] 9.6 mg/dL 8.5-10.1 [facility] Serum or plasma cholesterol in HDL measurement (mass/volume)Ordered By: Erinn Suh on 06-17-2022 Cholesterol in HDL [Mass/Vol] 32 mg/dL >40 [facility] Comment on above: The drugs N-Acetylcy steine and Metamizole may falsely depress this assay. Reference Range HDL <40 mg/dL Low HDL Cholesterol HDL >or= 60 mg/dL High HDL Cholesterol Serum or plasma cholesterol in VLDL measurement (mass/volume)Ordered By: Erinn Suh on 06-17-2022 Cholesterol in VLDL [Mass/Vol] 31 mg/dL 5-40 [facility] Serum or plasma creatinine m easurement (mass/volume)Ordered By: Erinn Suh on 06-17-2022 Creatinine [Mass/Vol] 1.18 mg/dL 0.70-1.30 [facility] Comment on above: The validity of the calculated GFR & GFRAA in patients over 70 years has not been determined. Clinical correlation is essential. Serum or plasma low density lipoprotein (LDL) cholesterol measurement (mass/volume)Ordered By: Erinn Suh on 06-17-2022 Cholesterol in LDL [Mass/Vol] 55 mg/dL 0-130 [facility] Serum or plasma urea nitroge n measurement (mass/volume)Ordered By: Erinn Suh on 06-17-2022 Urea nitrogen [Mass/Vol] 17 mg/dL 7-18 [facility] Thin prep Papanicolaou smear with manual screeningOrdered By: Erinn Suh on 06-17-2022 Thin prep Papanicolaou smear with manual screening 66.8 mg/L NO RANGE EST. [facility] Thin prep Papanicolaou smear with manual screening 28 U/L 15-37 [facility] Thin prep Papanicolaou smear with manual screening 3 5-15 [facility] Urine creatinine measurement (mass/volume)Ordered By: Erinn Suh on 06-17-2022 Creatinine (U) [Mass/Vol] 126.00 mg/dL NO RANGE EST. [facility] Laboratory - Hematology and Cell countson 03-18-2022 HbA1c (Bld) [Mass fraction] 9.4 % 4.2-6.3 [facility] No Panel InformationOrdered By: STAS Harrison on 03-15-2022 Prostate Specific Antigen Total < 0.01 ng/mL 0.0-4.0 [facility] Comment on above: This test was perfor med using the TPSA assay method for the[employer] chemistry system. Values obtained with differentassay methods cannot be used interchangably.When changing PSA assays in the course of monitoring apatient, additional sequential testing should be carriedout to confirm baseline values. Laboratory - Hematology and Cell countson 12-14-2021 HbA1c (Bld) [Mass fraction] 7.8 % 4.2-6.3 [facility] No Panel Informationon 09-27 Prostate Specific Antigen Total < 0.01 ng/mL 0.0-4.0 [facility] Work Phone: Comment on above: This [...] pyogenes Ag IA Ql (Unsp spec) Negative [facility] Work Phone: Laboratory - Hematology and Cell countson 09-13-2021 HbA1c (Bld) [Mass fraction] 8.3 % 4.2-6.3 [facility] Work Phone: Laboratory - Hematology and Cell countson 05-30-2021 HbA1c (Bld) [Mass fraction] 6.8 % 4.2-6.3 [facility] Work Phone: PROGRESSon 03-18-2018 Protein mass conc HNO ID: [id number] Author: Adrianne Lucas) Zachary Service: (none) Author Type: Casting Machine Adjuster Type: Progress Notes Filed: 03/18/2018 10:31 AM Note Text: Patient has changed PCP to Dr. Gallego. Adrianne Sharma MA [facility] CNPTOUTREACHon 03-17-2018 CNPTOUTREA Patient Outreach (FAMPWS) ----DEBORAH KEITH ([id number]) 1955 MDate Time Provider Department03/17/18 ADRIANNE SHARMA) [...] 03/28/2016 130/80 10/26/2015 124/64Lipids:Cholesterol, Total (mg/dL)Date Value09/23/2016 5086308/03/2015 118 HDL Cholesterol (mg/dL)Date Value09/23/2016 33 LDL Cholesterol (mg/dL)Date Value09/23/2016 30008/03/2015 53 Triglyceride (mg/dL)Date Value09/23/2016 160 HGB A1C:Lab ResultsComponent Value EftyRDP2P 7.1 09/23/2016HBA1C 8.9 03/27/2016HBA1C 5.9 08/03/2015TSH:TSH (uU/mL)Date [...] Galloway RN - Fully AssessedReason for Visit: [facility]/Care Gap Outreach [3605]Primary Visit Diagnosis:Well controlled type [...] Status:Closed by ADRIANNE SHARMA on 03/18/18 Normal [facility] PROGRESSon 03-17-2018 Protein mass conc HNO ID: [id number] thor: Adrianne Rivas (Kyara) ZacharyService: (none)Author Type: [...] 03/28/2016 130/80 10/26/2015 124/64Lipids:Cholesterol, Total (mg/dL)Date Value09/23/2016 7591908/03/2015 118 HDL Cholesterol (mg/dL)Date Value09/23/2016 25008/03/2015 33 LDL Cholesterol (mg/dL)Date Value09/23/2016 30008/03/2015 53 Triglyceride (mg/dL)Date Value09/23/2016 5201308/03/2015 160 HGB A1C:Lab ResultsComponent Value BsteDPI7O 7.1 09/23/2016HBA1C 8.9 03/27/2016HBA1C 5.9 08/03/2015TSH:TSH (uU/mL)Date Value02/23/2015 1.530 )? Patient has the following care gap registry disease diagnosis:DM? Patient has the following open care gaps:DM - Need Urine Albumin / NOTchecked in last 12 months? Needs dilated eye exam - HM overdue? Last office visit: 03/28/2016? Future office visit:follow Gretel Sharma MA [facility] TERRANCEOVterry 06-12-2017 CNOV Office Visit (PODIWS) ----DEBORAH KEITH ([id number]) 1955 MDate Time Provider Department06/12/17 8:25 AM LELE MARSHALLIWS During your visit today, we recorded the [...] 6 months for diabetic foot examMattchaimw JIMMY Marshalleferring Provider: SELF [200]Allergies As of Date: 06/12/2017(No [...] by LELE MARSHALL DPM on 06/12/17 Normal [facility] PROGRESSon 06-12-2017 Protein mass conc HNO ID: [id number] thor: Lele uWervice: (none)Author Type: PhysicianType: Progress NotesFiled: 06/12/2017 8:41 [...] F/u in 6 months for diabetic foot examMatthew CAROLINE Marshall [facility] Office Visit (PODIWS) ----DEBORAH KEITH ([id number]) 1955 MDate Time Provider Department05/22/17 7:40 AM LELE MARSHALL PODIWS During your visit today, we recorded the [...] has noother issuesPAIN EVALUATION No data found.Hemoglobin H6PQgkf Value Ref Range Tjqnmm4209/23/2016 7.1 (H) 4.3 - 5.6 % FinalComment:[place] Diabetes Association guidelines indicate that patients with [...] Apply 1 application to affected area asneeded.Insulin [place], Disposable, (NOVOFINE 32) 32 gauge x 1/4ANDquot; [...] Laterality Date- APPENDECTOMY- COLONOSCOP W/ OR W/O [facility] SPEC 11/16/2008 Colonoscopy- REMOVAL GALLBLADDERPhysical Exam:Constitutional: [...] cream at home.4. F/u in 3 weeksMattchaimw JIMMY Marshalleferring Provider: SELF [200]Allergies As of Date: 05/22/2017(No [...] by LELE MARSHALL DPM on 05/22/17 Normal [facility] PROGRESSon 05-22-2017 Protein mass conc HNO ID: [id number] thor: Lele Wuervice: (none)Author Type: PhysicianType: Progress NotesFiled: 05/22/2017 7:51 AMNote Text:Follow up podiatric office visit for:Chief Complaint: This 62 year old who presents for follow up:wart ofright footPatient has been doing the following since last visit: patient has beenapplying topical wart cream to his right foot. He has no pain. He has noother issuesPAIN EVALUATION No data found.Hemoglobin R0YAhoz Value Ref Range Bfifpj2009/23/2016 7.1 (H) 4.3 - 5.6 % FinalComment:[place] Diabetes Association guidelines indicate that patients suhtLpsP3o inthe range 5.7-6.4% are at increased risk [...] Apply 1 application to affectedarea as needed.Insulin [place], Disposable, (NOVOFINE 32) 32 gauge x 1/4 [...] Laterality Date- APPENDECTOMY- COLONOSCOP W/ OR W/O [facility] SPEC 11/16/2008 Colonoscopy- REMOVAL GALLBLADDERPhysical Exam:Constitutional: [...] cream at home.4. F/u in 3 weeksMatthew Areli DPChandni Normal [facility] PROGRESSon 05-01-2017 Protein mass conc HNO ID: [id number] thor: Lele Wuervice: (none)Author Type: PhysicianType: Progress [...] Value09/23/2016 7.101/ 8.905/ 5.911/ 6.908/ 6.8 HBA1C, [place] (%)Date Value07/24/2010 8.702/09/2010 7.008 6.805/05/2009 10.306/03/2008 6.0 [...] Apply 1 application to affectedarea as needed.Insulin [place], Disposable, (NOVOFINE 32) 32 gauge x 1/4 [...] Laterality Date- APPENDECTOMY- COLONOSCOP W/ OR W/O [facility] SPEC 11/16/2008 Colonoscopy- REMOVAL GALLBLADDERFAMILY HISTORYProblem Relation [...] F/u in 2 weeksMatthew Testrake, DPM Normal [facility] Vital Signs Date Time Vital Sign Value Performing Clinician Jose treadwell 12-13-2024 07:47-0400 Body height 182.[address] Erinn Suh MD Work Phone: [facility] 12-13-2024 07:47-0400 Body weight 95.[address] Erinn Suh MD Work Phone: [facility] 12-10-2024 08:02-0400 Body mass index (BMI) [Ratio] 28.6 kg/m2 Dr. Erinn Suh MD Work Phone: [facility] 12-10-2024 08:02-0400 Body temperature 97.8 [degF] Dr. Erinn Suh MD Work Phone: [facility] 12-10-2024 08:02-0400 Body weight 95.[address] Erinn Suh MD Work Phone: [facility] 12-10-2024 08:02-0400 Diastolic blood pressure 68 mm[Hg] Dr. Erinn Suh MD Work Phone: [facility] 12-10-2024 08:02-0400 Heart rate 83 /min Dr. Erinn Suh MD Work Phone: [facility] 12-10-2024 08:02-0400 Respiratory rate 16 /min Dr. Erinn Suh MD Work Phone: [facility] 12-10-2024 08:02-0400 SaO2% (BldA) [Mass fraction] 100 % Dr. Erinn Suh MD Work Phone: [facility] 12-10-2024 08:02-0400 Systolic blood pressure 122 mm[Hg] Dr. Erinn Suh MD Work Phone: [facility] 12-10-2024 07:59-0400 Body mass index (BMI) [Ratio] 28.5 kg/m2 Dr. Erinn Suh MD Work Phone: [facility] 11-24-2024 09:56-0400 Body height 182.[address] Erinn Suh MD Work Phone: [facility] 11-24-2024 09:56-0400 Body mass index (BMI) [Ratio] 28.5 kg/m2 Dr. Erinn Suh MD Work Phone: [facility] 11-24-2024 09:56-0400 Body weight 95.[address] Erinn Suh MD Work Phone: [facility] 11-24-2024 09:56-0400 Diastolic blood pressure 65 mm[Hg] Dr. Erinn Suh MD Work Phone: [facility] 11-24-2024 09:56-0400 Heart rate 77 /min Dr. Erinn Suh MD Work Phone: [facility] 11-24-2024 09:56-0400 Respiratory rate 16 /min Dr. Erinn Suh MD Work Phone: [facility] 11-24-2024 09:56-0400 Systolic blood pressure 108 mm[Hg] Dr. Erinn Suh MD Work Phone: [facility] 09-24-2024 09:24-0400 Body height 182.[address] Erinn Suh MD Work Phone: [facility] 09-24-2024 09:24-0400 Body mass index (BMI) [Ratio] 28.9 kg/m2 Dr. Erinn Suh MD Work Phone: [facility] 09-24-2024 09:24-0400 Body temperature 96.8 [degF] Dr. Erinn Suh MD Work Phone: [facility] 09-24-2024 09:24-0400 Body weight 96.[address] Erinn Suh MD Work Phone: [facility] 09-24-2024 09:24-0400 Diastolic blood pressure 68 mm[Hg] Dr. Erinn Suh MD Work Phone: [facility] 09-24-2024 09:24-0400 Heart rate 94 /min Dr. Erinn Suh MD Work Phone: [facility] 09-24-2024 09:24-0400 Respiratory rate 16 /min Dr. Erinn Suh MD Work Phone: [facility] 09-24-2024 09:24-0400 SaO2% (BldA) [Mass fraction] 98 % Dr. Erinn Suh MD Work Phone: [facility] 09-24-2024 09:24-0400 Systolic blood pressure 108 mm[Hg] Dr. Erinn Suh MD Work Phone: [facility] 06-24-2024 13:30-0400 Body mass index (BMI) [Ratio] 29.7 kg/m2 Dr. Erinn Suh MD Work Phone: [facility] 06-24-2024 13:30-0400 Body temperature 96.9 [degF] Dr. Erinn Suh MD Work Phone: [facility] 06-24-2024 13:30-0400 Body weight 99.[address] Erinn Suh MD Work Phone: [facility] 06-24-2024 13:30-0400 Diastolic blood pressure 60 mm[Hg] Dr. Erinn Suh MD Work Phone: [facility] 06-24-2024 13:30-0400 Heart rate 83 /min Dr. Erinn Suh MD Work Phone: [facility] 06-24-2024 13:30-0400 Respiratory rate 16 /min Dr. Erinn Suh MD Work Phone: [facility] 06-24-2024 13:30-0400 SaO2% (BldA) [Mass fraction] 97 % Dr. Erinn Suh MD Work Phone: [facility] 06-24-2024 13:30-0400 Systolic blood pressure 100 mm[Hg] Dr. Erinn Suh MD Work Phone: [facility] 06-26-2023 14:07-0400 Body height 185.[address] Erinn Suh Work Phone: [facility] 06-26-2023 14:07-0400 Body mass index (BMI) [Ratio] 30.7 kg/m2 Dr. Erinn Suh Work Phone: [facility] 06-26-2023 14:07-0400 Body temperature 97.7 [degF] Dr. Erinn Suh Work Phone: [facility] 06-26-2023 14:07-0400 Body weight 105.[address] Erinn Suh Work Phone: [facility] 06-26-2023 14:07-0400 Diastolic blood pressure 76 mm[Hg] Dr. Erinn Suh Work Phone: [facility] 06-26-2023 14:07-0400 Heart rate 66 /min Dr. Erinn Suh Work Phone: [facility] 06-26-2023 14:07-0400 Respiratory rate 16 /min Dr. Erinn Suh Work Phone: [facility] 06-26-2023 14:07-0400 SaO2% (BldA) [Mass fraction] 98 % Dr. Erinn Suh Work Phone: [facility] 06-26-2023 14:07-0400 Systolic blood pressure 118 mm[Hg] Dr. Erinn Suh Work Phone: [facility] 06-01-2023 10:10-0400 Body mass index (BMI) [Ratio] 30.2 kg/m2 Dr. Erinn Suh Work Phone: [facility] 06-01-2023 10:10-0400 Body temperature 98.4 [degF] Dr. Erinn Suh Work Phone: [facility] 06-01-2023 10:10-0400 Body weight 104.[address] Erinn Suh Work Phone: [facility] 06-01-2023 10:10-0400 Diastolic blood pressure 62 mm[Hg] Dr. Erinn Suh Work Phone: [facility] 06-01-2023 10:10-0400 Heart rate 91 /min Dr. Erinn Suh Work Phone: [facility] 06-01-2023 10:10-0400 Respiratory rate 16 /min Dr. Erinn Suh Work Phone: [facility] 06-01-2023 10:10-0400 SaO2% (BldA) [Mass fraction] 96 % Dr. Erinn Suh Work Phone: [facility] 06-01-2023 10:10-0400 Systolic blood pressure 116 mm[Hg] Dr. Erinn Suh Work Phone: [facility] 03-21-2023 09:25-0500 Body height 185.[address] Erinn Suh Work Phone: [facility] 03-21-2023 09:25-0500 Body mass index (BMI) [Ratio] 30.3 kg/m2 Dr. Erinn Suh Work Phone: [facility] 03-21-2023 09:25-0500 Body temperature 97.8 [degF] Dr. Erinn Suh Work Phone: [facility] 03-21-2023 09:25-0500 Body weight 104.[address] Erinn Suh Work Phone: [facility] 03-21-2023 09:25-0500 Diastolic blood pressure 68 mm[Hg] Dr. Erinn Suh Work Phone: [facility] 03-21-2023 09:25-0500 Heart rate 87 /min Dr. Erinn Suh Work Phone: [facility] 03-21-2023 09:25-0500 Respiratory rate 16 /min Dr. Erinn Suh Work Phone: [facility] 03-21-2023 09:25-0500 SaO2% (BldA) [Mass fraction] 99 % Dr. Erinn Suh Work Phone: [facility] 03-21-2023 09:25-0500 Systolic blood pressure 118 mm[Hg] Dr. Erinn Suh Work Phone: [facility] 12-18-2022 09:22-0400 Body height 185.[address] Erinn Suh Work Phone: [facility] 12-18-2022 09:22-0400 Body mass index (BMI) [Ratio] 29.8 kg/m2 Dr. Erinn Suh Work Phone: [facility] 12-18-2022 09:22-0400 Body temperature 98.5 [degF] Dr. Erinn Suh Work Phone: [facility] 12-18-2022 09:22-0400 Body weight 102.[address] Erinn Suh Work Phone: [facility] 12-18-2022 09:22-0400 Diastolic blood pressure 70 mm[Hg] Dr. Erinn Suh Work Phone: [facility] 12-18-2022 09:22-0400 Heart rate 92 /min Dr. Erinn Suh Work Phone: [facility] 12-18-2022 09:22-0400 Respiratory rate 16 /min Dr. Erinn Suh Work Phone: [facility] 12-18-2022 09:22-0400 SaO2% (BldA) [Mass fraction] 98 % Dr. Erinn Suh Work Phone: [facility] 12-18-2022 09:22-0400 Systolic blood pressure 122 mm[Hg] Dr. Erinn Suh Work Phone: [facility] 09-16-2022 09:24-0400 Body height 185.[address] Erinn Suh Work Phone: [facility] 09-16-2022 09:24-0400 Body mass index (BMI) [Ratio] 30.2 kg/m2 Dr. Erinn Suh Work Phone: [facility] 09-16-2022 09:24-0400 Body temperature 97.1 [degF] Dr. Erinn Suh Work Phone: [facility] 09-16-2022 09:24-0400 Body weight 103.[address] Erinn Suh Work Phone: [facility] 09-16-2022 09:24-0400 Diastolic blood pressure 80 mm[Hg] Dr. Erinn Suh Work Phone: [facility] 09-16-2022 09:24-0400 Heart rate 96 /min Dr. Erinn Suh Work Phone: [facility] 09-16-2022 09:24-0400 Respiratory rate 16 /min Dr. Erinn Suh Work Phone: [facility] 09-16-2022 09:24-0400 SaO2% (BldA) [Mass fraction] 98 % Dr. Erinn Suh Work Phone: [facility] 09-16-2022 09:24-0400 Systolic blood pressure 128 mm[Hg] Dr. Erinn Suh Work Phone: [facility] 06-17-2022 13:26-0400 Body mass index (BMI) [Ratio] 30.9 kg/m2 Dr. Erinn Suh Work Phone: [facility] 06-17-2022 13:26-0400 Body temperature 98.4 [degF] Dr. Erinn Suh Work Phone: [facility] 06-17-2022 13:26-0400 Body weight 106.[address] Erinn Suh Work Phone: [facility] 06-17-2022 13:26-0400 Diastolic blood pressure 64 mm[Hg] Dr. Erinn Suh Work Phone: [facility] 06-17-2022 13:26-0400 Heart rate 78 /min Dr. Erinn Suh Work Phone: [facility] 06-17-2022 13:26-0400 Respiratory rate 14 /min Dr. Erinn Suh Work Phone: [facility] 06-17-2022 13:26-0400 SaO2% (BldA) [Mass fraction] 99 % Dr. Erinn Suh Work Phone: [facility] 06-17-2022 13:26-0400 Systolic blood pressure 118 mm[Hg] Dr. Erinn Suh Work Phone: [facility] 03-18-2022 14:52-0500 Diastolic blood pressure 78 mm[Hg] Dr. Erinn Suh Work Phone: [facility] 03-18-2022 14:52-0500 Heart rate 100 /min Dr. Erinn Suh Work Phone: [facility] 03-18-2022 14:52-0500 Systolic blood pressure 138 mm[Hg] Dr. Erinn Suh Work Phone: [facility] 03-18-2022 13:55-0500 Body height 185.[address] Erinn Suh Work Phone: [facility] 03-18-2022 13:55-0500 Body mass index (BMI) [Ratio] 33.1 kg/m2 Dr. Erinn Suh Work Phone: [facility] 03-18-2022 13:55-0500 Body temperature 96.1 [degF] Dr. Erinn Suh Work Phone: [facility] 03-18-2022 13:55-0500 Body weight 113.[address] Erinn Suh Work Phone: [facility] 03-18-2022 13:55-0500 Respiratory rate 16 /min Dr. Erinn Suh Work Phone: [facility] 03-18-2022 13:55-0500 SaO2% (BldA) [Mass fraction] 97 % Dr. Erinn Suh Work Phone: [facility] 12-14-2021 15:07-0400 Body mass index (BMI) [Ratio] 33.5 kg/m2 Dr. Erinn Suh Work Phone: [facility] 12-14-2021 15:07-0400 Body temperature 97.2 [degF] Dr. Erinn Suh Work Phone: [facility] 12-14-2021 15:07-0400 Body weight 115.[address] Erinn Suh Work Phone: [facility] 12-14-2021 15:07-0400 Diastolic blood pressure 88 mm[Hg] Dr. Erinn Suh Work Phone: [facility] 12-14-2021 15:07-0400 Heart rate 75 /min Dr. Erinn Suh Work Phone: [facility] 12-14-2021 15:07-0400 Respiratory rate 16 /min Dr. Erinn Suh Work Phone: [facility] 12-14-2021 15:07-0400 SaO2% (BldA) [Mass fraction] 98 % Dr. Erinn Suh Work Phone: [facility] 12-14-2021 15:07-0400 Systolic blood pressure 130 mm[Hg] Dr. Erinn Suh Work Phone: [facility] 09-14-2021 08:50-0400 Body height 185.[address] Erinn Suh Work Phone: [facility] Work Phone: 09-14-2021 08:50-0400 Body mass index (BMI) [Ratio] 33.1 kg/m2 Dr. Erinn Suh Work Phone: [facility] Work Phone: 09-14-2021 08:50-0400 Body temperature 98.3 [degF] Dr. Erinn Suh Work Phone: [facility] Work Phone: 09-14-2021 08:50-0400 Body weight 113.[address] Erinn Suh Work Phone: [facility] Work Phone: 09-14-2021 08:50-0400 Diastolic blood pressure 80 mm[Hg] Dr. Erinn Suh Work Phone: [facility] Work Phone: 09-14-2021 08:50-0400 Heart rate 83 /min Dr. Erinn Suh Work Phone: [facility] Work Phone: 09-14-2021 08:50-0400 Respiratory rate 18 /min Dr. Erinn Suh Work Phone: [facility] Work Phone: 09-14-2021 08:50-0400 SaO2% (BldA) [Mass fraction] 98 % Dr. Erinn Suh Work Phone: [facility] Work Phone: 09-14-2021 08:50-0400 Systolic blood pressure 130 mm[Hg] Dr. Erinn Suh Work Phone: [facility] Work Phone: 09-13-2021 13:18-0400 Body mass index (BMI) [Ratio] 33.1 kg/m2 Dr. Erinn Suh Work Phone: [facility] Work Phone: 09-13-2021 13:18-0400 Body temperature 97.2 [degF] Dr. Erinn Suh Work Phone: [facility] Work Phone: 09-13-2021 13:18-0400 Body weight 113.[address] rEinn Suh Work Phone: [facility] Work Phone: 09-13-2021 13:18-0400 Diastolic blood pressure 64 mm[Hg] Dr. Erinn Suh Work Phone: [facility] Work Phone: 09-13-2021 13:18-0400 Heart rate 85 /min Dr. Erinn Suh Work Phone: [facility] Work Phone: 09-13-2021 13:18-0400 Respiratory rate 18 /min Dr. Erinn Suh Work Phone: [facility] Work Phone: 09-13-2021 13:18-0400 SaO2% (BldA) [Mass fraction] 98 % Dr. Erinn Suh Work Phone: [facility] Work Phone: 09-13-2021 13:18-0400 Systolic blood pressure 122 mm[Hg] Dr. Erinn Suh Work Phone: [facility] Work Phone: 05-30-2021 14:18-0400 Body mass index (BMI) [Ratio] 32.8 kg/m2 Dr. Erinn Suh Work Phone: [facility] Work Phone: 05-30-2021 14:18-0400 Body temperature 97.5 [degF] Dr. Erinn Suh Work Phone: [facility] Work Phone: 05-30-2021 14:18-0400 Body weight 112.[address] Erinn Suh Work Phone: [facility] Work Phone: 05-30-2021 14:18-0400 Diastolic blood pressure 78 mm[Hg] Dr. Erinn Suh Work Phone: [facility] Work Phone: 05-30-2021 14:18-0400 Heart rate 122 /min Dr. Erinn Suh Work Phone: [facility] Work Phone: 05-30-2021 14:18-0400 Respiratory rate 18 /min Dr. Erinn Suh Work Phone: [facility] Work Phone: 05-30-2021 14:18-0400 SaO2% (BldA) [Mass fraction] 99 % Dr. Erinn Suh Work Phone: [facility] Work Phone: 05-30-2021 14:18-0400 Systolic blood pressure 142 mm[Hg] Dr. Erinn Suh Work Phone: [facility] Work Phone: Encounters Encounter Date Encounter Type Care Provider Facility Start: 12-21-2024 ambulatory Erinn Knox ty:[facility] Start: 12-21-2024 End: 12-21-2024 ambulatory Ria Fl[place] Facility:[facility] Start: 12-13-2024 End: 12-13-2024 Admission to same day surgery center Dr. Chepe Do MD -Property Management Specialist/Special Procedures Work Phone: Start: 12-13-2024 End: 12-13-[address] Erinn Suh MD Work Phone: -Property Management Specialist/Special Procedures Start: 12-10-2024 End: 12-10-[address] Erinn Suh MD -[facility] Work Phone: Start: 12-10-2024 End: 12-10-[address] Erinn Suh MD [facility] Start: 12-10-2024 End: 12-10-[address] Erinn Suh MD Work Phone: -[facility] Start: 11-24-2024 End: 11-24-[address] hCepe Do MD -[facility] Work Phone: Start: 11-24-2024 End: 11-24-[address] Erinn Suh MD Work Phone: -[facility] Start: 11-24-2024 End: 11-24-2024 ambulatory Mcarthurwill Do Facility:[facility] Start: 10-22-[address] Cody Suh MD -[facility] Work Phone: Start: 10-22-2024 ambulatory Efwilma Shie Facili ty:[facility] Start: 09-24-2024 End: 09-24-[address] Erinn Suh MD -[facility] Work Phone: Start: 09-24-2024 End: 09-24-[address] Erinn Suh MD Work Phone: -[facility] Start: 06-24-2024 End: 06-24-[address] Erinn Suh MD -[facility] Work Phone: Start: 06-24-2024 End: 06-24-2024 ambulatory Efewongbe Oleghe Facility:[facility] Start: 03-24-2024 End: 03-24-2024 ambulatory Efewongbe Oleghe Facility:[facility] Start: 03-24-2024 End: 03-24-2024 ambulatory Efewongbe Oleghe Facility:[facility] Start: 01-05-2024 ambulatory Efewongbe Oleghe Facili ty:[facility] Start: 01-05-2024 End: 01-05-2024 ambulatory [place] O[place] Facility:[facility] Start: 06-26-2023 End: 06-26-[address] Erinn Suh Work Phone: [facility] Work Phone: Start: 06-26-2023 End: 06-26-[address] Erinn Suh Work Phone: [facility] Work Phone: Start: 06-01-2023 End: 06-01-[address] Erinn Suh Work Phone: [facility] Work Phone: Start: 05-07-2023 End: 05-07-[address] Erinn Suh Work Phone: [facility] Work Phone: Start: 05-07-2023 End: 05-07-[address] Erinn Suh Work Phone: [facility] Work Phone: Start: 03-21-2023 End: 03-21-[address] Erinn Suh Work Phone: [facility] Work Phone: Start: 03-21-2023 End: 03-21-[address] Erinn Suh Work Phone: [facility] Work Phone: Start: 03-17-2023 End: 03-17-[address] Erinn Suh Work Phone: [facility] Work Phone: Start: 03-17-2023 End: 03-17-[address] Erinn Suh Work Phone: [facility] [place] Work Phone: Start: 12-18-2022 End: 12-18-[address] Erinn Suh Work Phone: [facility] Work Phone: Start: 12-18-2022 End: 12-18-[address] Erinn Suh Work Phone: [facility] Work Phone: Start: 09-16-2022 End: 09-16-[address] Erinn Suh Work Phone: [facility] Work Phone: Start: 09-13-2022 End: 09-13-[address] Erinn Suh Work Phone: [facility] Work Phone: Start: 09-13-2022 End: 09-13-[address] Erinn Suh Work Phone: [facility] Start: 06-25-2022 Non-patient / Non-visit Dr. Meghana Suh Work Phone: [facility] Start: 06-17-2022 End: 06-17-[address] Erinn Suh Work Phone: [facility] Work Phone: Start: 03-18-2022 End: 03-18-[address] Erinn Suh Work Phone: [facility] Start: 03-15-2022 End: 03-15-[address] Erinn Suh Work Phone: [facility] Work Phone: Start: 03-15-2022 End: 03-15-[address] Erinn Suh Work Phone: [facility] Start: 12-18-2021 Non-patient / Non-visit Dr. Meghana Suh Work Phone: [facility] Start: 12-18-2021 End: 12-18-[address] [facility] Start: 12-14-2021 End: 12-14-[address] Erinn Suh Work Phone: [facility] Start: 09-27-2021 End: 09-27-[address] Erinn Suh Work Phone: [facility] Start: 09-14-2021 End: 09-14-[address] Erinn Suh Work Phone: [facility] Start: 09-14-2021 End: 09-14-[address] Erinn Suh Work Phone: [facility] Start: 09-13-2021 End: 09-13-[address] Erinn Suh Work Phone: [facility] Start: 05-30-2021 End: 05-30-[address] Erinn Suh Work Phone: [facility] Start: 02-27-[address] Erinn Suh Work Phone: [facility] Start: 06-12-2017 End: 06-13-2017 Patient encounter procedure LELE MARSHALL [facility] Start: 05-22-2017 End: 05-23-2017 Patient encounter procedure LELE ARELI [facility] Start: 05-01-2017 End: 05-08-2017 Patient encounter procedure LELE ARELI [facility] Procedures Date Procedure Procedure Detail Performing Clinician Start: 10-22-2024 CT angiography of co ronary arteries Dr. Erinn Suh MD Work Phone: Bacteria identificat ion test Dr. Erinn Suh Work Phone: Plan of Treatment Date Care Activity Detail Author Start: 12-13-2024 Patient discharge [facility] Start: 11-24-2024 Catheterization of left heart [facility] Start: 11-24-2024 End: 11-24-2024 Evaluation of diagnostic study results [facility] Start: 09-16-2022 Patient referral [facility] Work Phone: Start: 06-25-2022 Patient referral [facility] Work Phone: Basic metabolic 2008 panel with ionized calcium - Serum or Plasma [facility] spital CBC W Auto Different ial panel - Blood [facility] CBC W Auto Different ial panel - Blood [facility] Comprehensive metabo lic 2000 panel - Serum or Plasma [facility] CT angiography of co ronary arteries [facility] Patient referral [facility] Work Phone: Urine microalbumin/c reatinine ratio measurement [facility] Viral nucleic acid assay [facility] Work Phone: Payers Date Payer Category Payer Unknown 2023 Self-pay [id number] 2023 [employer] ( and others) [id number] 2023 Medicare [id number] Unknown [id number] Unknown [id number] Unknown [id number] Unknown [id number] Unknown [id number] Unknown [id number] Unknown [id number] Unknown [id number] Unknown [id number] Unknown [id number] Unknown [id number] Unknown [id number] Unknown [id number] Unknown [id number] Unknown [id number] Social History Date Type Detail Facility Start: 09-14-2021 End: 06-01-2023 Tobacco smoking status VTIS Unknown if ever smoked [facility] Start: 08-21-2019 Occasional [facility] Start: 08-21-2019 None [facility] Start: 08-21-2019 With Family [facility] Start: 1955 Sex Assigned At Male W [facility] Start: 01-02-2024 End: 12-13-2024 Tobacco smoking status VTIS Ex-smoker (finding) [facility] Sex Male [facility] Medical Equipment Procedure Code Equipment Code Equipment Origin al Text Equipment Identifier Dates SARAH OLIVAREZ LG FDA Start: 12-06-2020 Ligation clip, synthetic polymer, non-bioabsorbable [id number] FDA Start: 12-06-2020 SARAH OLIVAREZ LG FDA Start: 12-06-2020 SARAH OLIVAREZ LG FDA Start: 12-06-2020 SEALANT,FLOSEAL HEMOSTATIC 5ML FDA Start: 12-06-2020 SEALANT,FLOSEAL HEMOSTATIC 5ML FDA Start: 12-06-2020 SEALANT,FLOSEAL HEMOSTATIC 5ML FDA Start: 12-06-2020 Ligation clip, synthetic polymer, non-bioabsorbable [id number] FDA Start: 12-06-2020 Ligation clip, synthetic polymer, non-bioabsorbable ()[id number] FDA Start: 12-06-2020 Pen Needle, Diab etic (Bd Ultra-Fine Orig Pen Needle) 29 gauge x 1/2 needle Start: 05-31-2021 Pen Needle, Diab etic (Bd Ultra-Fine Orig Pen Needle) 29 gauge x 1/2 needle Start: 05-30-2021 End: 05-30-2021 Pen Needle, Diab etic (Bd Ultra-Fine Orig Pen Needle) 29 gauge x 1/2 needle Start: 05-30-2021 End: 05-31-2021 SARAH OLIVAREZ LG FDA Start: 12-06-2020 SHERHEMKULDEEP NICOLAS FDA Start: 12-06-2020 SHERHEMKULDEEP NICOLAS FDA Start: [...] x 1/2 needle Start: 05-30-2021 End: 05-31-2021 SHERHEMKULDEEP NICOLAS FDA Start: 12-06-2020 CLIPHEMOLOCK SABINA NICOLAS FDA Start: 12-06-2020 CLIPHEMOLOCLARITZA NICOLAS FDA Start: 12-06-2020 SEALANT,FLOSEAL HEMOSTATIC 5ML [...] needle Start: 05-31-2021 End: 03-25-2022 CLIP,HEMOLOCK LG FIDENCIO FDA Start: 12-06-2020 CLIP,HEMOLOCK LG FIDENCIO FDA [...] x 1/2 needle Start: 05-31-2021 End: 03-25-2022 CLIPHEMOLOCLARITZA MARSHALL FDA Start: 12-06-2020 CLIP,HEMOLOCLARITZA [facility] FDA Start: 12-06-2020 SHERHEMKULDEEP NICOLAS FDA Start: [...] x 1/2 needle Start: 05-31-2021 End: 03-25-2022 SHERSERGIOKULDEEP NICOLAS FDA Start: 12-06-2020 SHERHEMKULDEEP NICOLAS FDA Start: 12-06-2020 SHERHEMKULDEEP NICOLAS FDA Start: [...] LG WECK FDA Start: 12-06-2020 CLIP,HEMOLOCK LG WECK FDA Start: 12-06-2020 CLIP,HEMOLOCK LG WECK FDA [...] 1/2 needle Start: 05-31-2021 End: 03-25-2022 CLIP,HEMKULDEEP NICOLAS FDA Start: 12-06-2020 CLIP,HEMKULDEEP NICOLAS FDA Start: 12-06-2020 CLIPHEMKULDEEP NICOLAS FDA Start: 12-06-2020 SEALANT,FLOSEAL HEMOSTATIC 5ML [...] x 1/2 needle Start: 05-31-2021 End: 03-25-2022 SARAH OLIVAREZ LG FDA Start: 12-06-2020 CLIPSARAH LG FDA Start: 12-06-2020 CLIPHEMKULDEEP NICOLAS FDA Start: 12-06-2020 SEALANT,FLOSEAL HEMOSTATIC 5ML [...] x 1/2 needle Start: 03-25-2022 End: 09-04-2023 CLIP,HEMOLOCK SABINA NICOLAS FDA Start: 12-06-2020 CLIP,HEMOLOCK SABINA NICOLAS FDA Start: 12-06-2020 CLIP,HEMOLOCK LG FIDENCIO FDA Start: 12-06-2020 SEALANT,FLOSEAL HEMOSTATIC 5ML FDA [...] x 1/2 needle Start: 03-25-2022 End: 09-04-2023 CLIP,HEMOLOCK LG FIDENCIO FDA Start: 12-06-2020 CLIP,HEMOLOCK LG FIDENCIO FDA Start: 12-06-2020 CLIP,HEMOLOCK LG FIDENCIO FDA Start: 12-06-2020 SEALANT,FLOSEAL HEMOSTATIC 5ML FDA [...] x 1/2 needle Start: 03-25-2022 End: 09-04-2023 CLIP,HEMOLOCK LG WECK FDA Start: 12-06-2020 CLIP,HEMOLOCK LG WECK FDA Start: 12-06-2020 CLIP,HEMOLOCK LG WECK FDA [...] x 1/2 needle Start: 03-25-2022 End: 09-04-2023 CLIP,HEMOLOCK LG WE FDA Start: 12-06-2020 CLIP,HEMOLOCK LG JOANNA FDA Start: 12-06-2020 CLIP,HEMOLOCK [facility] FDA Start: 12-06-2020 SEALANT,FLOSEAL HEMOSTATIC 5ML FDA [...] 2024 9:54am Aortic valve sclerosis acute Se ptember 2024 9:54am Hyperlipidemia chronic November 24, 2024 9:54am Hypertension chronic November 242024 9:54am [facility] Work Phone: 1(940) 341-729807-18-2025 Evaluation note* Diagnosis Onset Date Resolution Status Admit Date Impetigo acute September 24 9:07am Hyperlipidemia chronic September 24, 2024 9:07am Hypertension chronic September 24, 2 025 9:07am Type 2 diabetes mellitus chronic September 24, 2024 9:07am Dermatitis resolved September 24 9:07am Abnormal cardiac CT angiography acute November 24, 2024 9:54am Aortic valve sclerosis acute Se ptember 2024 9:54am Hyperlipidemia chronic November 24, 2024 9:54am Hypertension chronic November 242024 9:54am Abnormal cardiac CT angiography acute December 10 9:21am Hyperlipidemia chronic December 9:21am Hypertension chronic December 10, 2024 9:21am Type 2 diabetes mellitus chronic December 10, 2024 9:21am Health care maintenance resolved O 2024 9:21am [facility] Work Phone: 1(601) 389-515004-17-2025 Evaluation note* Diagnosis Onset Date Resolution Status Admit Date Hyperlipidemia chronic June 12:50pm Hypertension chronic June 24, 2024 12:50pm Type 2 diabetes mellitus chronic June 24, 2024 12:50pm [facility] Work Phone: 1(747) 315-647710-28-2024 [facility] Medical Records Department [address] [place] [id number] History Physical Exam 01/05/24727 MR#: [id number] Acct: [id number] Name: KAYLADEBORAH KORIN Rep #: [id number] : [id number] 68 From: Nick Friend DO PCP: Dr. Erinn Suh MD Status:[facility] Location: [place] [address] HPI - General General Date of Admission: [...] He comes in today for surveillance colonoscopy. [facility] Medical History Wears hearing aid Heartburn History [...] 06/17/22 Unknown Rx (FreeStyle Trent 14 Day [place]) flash glucose sensor (FreeStyle #2 ea 06/17/22 [...] vomiting or weight c (more content not included)...[facility] Date Resolution Status Hyperlipidemia chronic Hypertension chronic Type 2 diabetes mellitus chr onic Hyperlipidemia chronic Hypertension chronic Type 2 diabetes mellitus chr onic Acute pharyngitis noneactive [facility] Work Phone: Evaluation note* Diagnosis Onset Date Resolution Status Hyperlipidemia chronic Hypertension chronic Type 2 diabetes mellitus chr onic Acute pharyngitis noneactive [facility] Work Phone: Evaluation note* Diagnosis Onset Date Resolution Status Right ear impacted cerumen a cute Cardiac murmur chronic Hypertension chronic Type 2 diabetes mellitus chr onic Cardiac murmur chronic Dizziness chronic Hypertension chronic Type 2 diabetes mellitus [facility] Work Phone: Evaluation note* Diagnosis Onset Date Resolution Status Left elbow pain acute Hypertension chronic Type 2 diabetes mellitus [facility] on Left elbow pain acute Diabetic neuropathy chronic Hypertension chronic Type 2 diabetes mellitus [facility] Work Phone: Evaluation note* Diagnosis Onset Date Resolution Status Left elbow pain acute Diabetic neuropathy chronic Hypertension chronic Type 2 diabetes mellitus [facility] onic Flu vaccine need acute Hyperlipidemia chronic Hypertension chronic Type 2 diabetes mellitus [facility] Work Phone: Evaluation note* Diagnosis Onset Date Resolution Status Flu vaccine need acute Hyperlipidemia chronic Hypertension chronic Type 2 diabetes mellitus [facility] Work Phone: Evaluation note* Diagnosis Onset Date Resolution Status Flu vaccine need acute Hyperlipidemia chronic Hypertension chronic Type 2 diabetes mellitus [facility] onic Hyperlipidemia chronic Hypertension chronic Type 2 diabetes mellitus [facility] Work Phone: Evaluation note* Diagnosis Onset Date Resolution Status Hyperlipidemia chronic Hypertension chronic Type 2 diabetes mellitus [facility] Work Phone: Evaluation note* Diagnosis Onset Date Resolution Status Hyperlipidemia chronic Hypertension chronic Type 2 diabetes mellitus chr onic Cough acute CKD (chronic kidney disease), stage III chronic Hypertension chronic Type 2 diabetes mellitus [facility] Work Phone: Hospital Discharge instructionsAmbulatory Orders* Podiatry Location: None [facility] Work Phone: Reason for referral (narrative)No reason for referral information [facility] Work Phone: Summary Purpose Family History No Family History Records Found Relationship Condition Age at Onset Recorded Date/T [place] grandmother Malignant neoplasm of colon Unknown father Malignant neoplasm Unknown mother Diabetes mellitus Unknown Malignant neoplasm of uterus Unknown grandfather Diabetes mellitus Unknown brother Kidney disorder Unknown Advance Directives No Advanced Directives Records Found Advance Directive Response Recorded Date/ Time Living Will Yes November 29, 2020 9:19am Power of Polytechnic Registrar Yes November 9:19am Advance Directive Response Recorded Date/ Time Living Will Yes November 29, 2020 8:19am Power of Polytechnic Registrar Yes November 8:19am Advance Directive Response Recorded Date/ Time Advance Directives No December 10, 2024 8:02am Advance Directive Response Recorded Date/ Time Advance Directives on File Yes 2024 7:47am Living Will Yes December 13 7:47am Do you have a Healthcare Power of Polytechnic Registrar? Yes December 13, 2024 7:47am Name of Medical Power of Polytechnic Registrar Candice Gunnar fe December 13, 2024 7:47am Advance Directives Yes December 13, 2024 7:47am Chief Complaint and Reason for Visit Chief [...] 2024 9:[address] [facility] 9:54[facility] Aortic valve sclerosis November 24, 2 025 9:54am Hyperlipidemia November 24, 2024 9:54am Hypertension November 24, 2024 9:54am Chief Complaint Admit Date 3 M FU September 24, 2024 9:07 am Cardiac risk stratification October 22, 2024 7:09am CAD (OLEGHE) November 24, 2024 9:54am INT LABS November 24, 2024 10:46am Chief Complaint Admit Date 3 M FU September 24, 2024 9:07 am Cardiac risk stratification October 22, 2024 7:09am CAD (OLEGHE) November 24, 2024 9:54am INT LABS November 24, 2024 10:46am 3 M FU December 10, 2024 9: 21am Chief Complaint Admit Date 3 M FU September 24, 2024 9:07 am Cardiac risk stratification October 22, 2024 7:09am CAD (OLEGHE) November 24, 2024 9:54am INT LABS November 24, 2024 10:46am 3 M FU December 10, 2024 9: 21am ABN CCTA CAD AORTIC VALVE SCLOROSIS Octo 2024 7:17am Reason for Visit Admit Date Impetigo September 24, 2024 9:07 am Hyperlipidemia September 24, 2024 9:07 am Hypertension September 24, 2024 9:07 am Type 2 diabetes mellitus September 24, 2024 9:07am Dermatitis September 24, 2024 9:[address] angiography Septembe r 2024 9:54am Aortic valve sclerosis November 24, 2 025 9:54am Hyperlipidemia November 24, 2024 9:54am Hypertension November 24, 2024 9:54am Abnormal cardiac CT angiography December 10, 2024 9:21am Hyperlipidemia December 10, 2024 9: 21am Hypertension December 10, 2024 9: 21am Type 2 diabetes mellitus December 10 9:21am Health care maintenance December 10 9:21am Additional Source Comments (unrecognized sect ion and content) No Status Records FoundNo Status Records Found INFORMATION SOURCE (unrecogn ized section and content) DATE CREATED AUTHOR 03/19/2018 [facility] DATE CREATED AUTHOR AUTHOR'S ORGANIZ ATION 01/02/2025 [facility] Goals (unrecognized [...] Dates Dr. Erinn Suh MD Primary Care Gricelda wells, Attending Provider, Referring Provider Active Team Status: Active Member Role Status Dates Dr. Erinn Suh MD Primary Care Provider Active Dr. Chepe Do MD Attending Provider Active Team Status: Inactive Member Role Status Dates Dr. Erinn Suh MD Primary Care Provider Active Kaylah McCuistion , BRICK SETTER-C Attending Provider, Referrin g Provider Active Team [...] Refer ring Provider Active Jayson Payton NP, BRICK SETTER-C Attending Provider Active Team Status: Active Member [...] Active Member Role/Relationship Status Dates Dr. Erinn uSh MD Primary care physician Activ e Team [...] November 24, 2024 End: November 24, 2024 Team Status: Inactive Member Role/Relationship Status Dates Dr. Erinn Suh MD Primary care physician Activ e Start: November 24, 2024 End: November 24, 2024 Dr. Chepe Do MD Attending physician Active Start: November 24, 2024 End: November 24, 2024 Dr. Chepe Do MD Referring Provider Active S tart: November 24, 2024 End: November 24, 2024 Team Status: Inactive Member Role/Relationship Status Dates Dr. Erinn Suh MD Primary care physician Activ e Start: December 10, 2024 End: December 10, 2024 Dr. Erinn Suh MD Attending physician Active Start: December 10, 2024 End: December 10, 2024 Dr. Erinn Suh MD Referring Provider Active Start: December 10, 2024 End: December 10, 2024 Team Status: Inactive Member Role/Relationship Status Dates Dr. Erinn Suh MD Primary care physician Activ e Start: December 13, 2024 End: December 13, 2024 Dr. Chepe Do MD Attending physician Active Start: December 13, 2024 End: December 13, 2024 Dr. Chepe Do MD Referring Provider Active S tart: December 13, 2024 End: December 13, 2024 FOR RECORDS PERTAINING TO PATIENTS WHO [...] BE BASED ON THE PRIMARY CLINICAL RECORDS. [facility]. provides no warranty or guarantee of the accuracy or completeness of information in this document.
== END | disposition home or self-care (01) ==
PROVIDERS: PCP Internal Medicine; Referring Provider Urology; Visit Provider Urology
DX: N50.89 Other specified disorders of the male genital organs (principal)
CPT/HCPCS: 88304